=== PATIENT | male | born 1965 | race Caucasian/White ===

== ENCOUNTER → 2017-06-11 | Outpatient (CLI) | payer BC ==
--- NOTE | 2017-06-11 10:29 | US ---
EXAMINATION TYPE: US venous doppler duplex LE DATE OF EXAM: 06/11/2017 9:18 AM COMPARISON: NONE CLINICAL HISTORY: I73.9 Peripheral vascular dis, R73.9 Hyperglycemia. Numbness and tingling bilateral feet, worse on the right SIDE PERFORMED: Bilateral TECHNIQUE: The lower extremity deep venous system is examined utilizing real time linear array sonog mauricio with graded compression, doppler sonography and color-flow sonography. VESSELS IMAGED: External Iliac Vein (EIV) Common Femoral Vein Deep Femoral Vein Greater Saphenous Vein * Femoral Vein Popliteal Vein Small Saphenous Vein * Proximal Calf Veins (* superficial vessels) Right Leg: NO evidence of DVT Left Leg: No evidence of DVT Grayscale, color doppler, spectral doppler imaging performed of the deep veins of the lower extremiti es. There is normal flow, compressibility, vascular waveforms. IMPRESSION: No sonographic evidence of deep venous thrombosis within either lower extremity.
== END | disposition home or self-care (01) ==
LOC: RADUSWWP 08:48
PROVIDERS: ATTEND Family Medicine
DX: I73.9 Peripheral vascular disease, unspecified (principal); R73.9 Hyperglycemia, unspecified
CPT/HCPCS: 93970

== ENCOUNTER 2017-09-03 08:33 | Day surgery (SDC) | payer BC ==
[2017-08-29 22:07] VITALS: BMI 43.4
[~2017-09-03 08:33] MED LIST: LACTATED RINGERS 1,000 ML IV SCH; ONDANSETRON 4 MG/2 ML VIAL IVP PRN
[2017-09-03 09:25] VITALS: RESP 16; TEMP 98
[2017-09-03] MEDS ORDERED: PROPOFOL 10 MG/ML 20 ML VIAL IV ONE (09:50)
--- NOTE | 2017-09-03 10:08 | P.PCN ---
Date of Procedure: 09/03/17 Procedure(s) Performed: BRIEF HISTORY: Patient is a 51-year-old pleasant white male, scheduled for an elective colonoscopy as a part of screening for colorectal neoplasia. PROCEDURE PERFORMED: Colonoscopy with snare polypectomy. PREOPERATIVE DIAGNOSIS: Screening for colon cancer. IV sedation per Anesthesia. PROCEDURE: After informed consent was obtained, the patient, was brought into the endoscopy unit. IV sedation was administered by Anesthesia under continuous monitoring. Digital rectal examination was normal. Initially the Olympus CF- 160 flexible video colonoscope was then inserted in the rectum, gradually advanced into the cecum without any difficulty. Careful examination was performed as the scope was gradually being withdrawn. Ileocecal valve and the appendiceal orifice were visualized and appeared normal. Prep was excellent. Mucosa of the cecum, ascending colon, appeared normal. In the transverse colon there was a 7-8 mm polyp that was removed by snare polypectomy. In the descending colon there was another 5 mm polyp that was removed by snare polypectomy. The rest of the transverse colon, descending colon, sigmoid colon , and rectum appeared normal. Retroflexion was performed in the rectum and no lesions were seen. The patient tolerated the procedure well. IMPRESSION: 7-8 mm proximal transverse colon polyp status post polypectomy 5 mm descending colon polyp serous was snare polypectomy RECOMMENDATIONS: Findings of this examination were discussed with the patient as his family. He was advised to follow with the biopsy results. If the biopsy shows a tubular adenoma, he can have a repeat colonoscopy in 5 years.
[2017-09-03 10:42] VITALS: BP 112/68; PULSE 56
== END 2017-09-03 10:59 | disposition home or self-care (01) ==
LOC: ORWHC2ENDO 08:33
PROVIDERS: ATTEND Internal Medicine Gastroenterology
DX: Z12.11 Encounter for screening for malignant neoplasm of colon (principal); D12.4 Benign neoplasm of descending colon; D12.3 Benign neoplasm of transverse colon; I10 Essential (primary) hypertension; K21.9 Gastro-esophageal reflux disease without esophagitis; F17.200 Nicotine dependence, unspecified, uncomplicated; Z79.899 Other long term (current) drug therapy
CPT/HCPCS: 45385; 88305; J2704

== ENCOUNTER → 2018-09-09 | Outpatient (CLI) | payer BC ==
--- NOTE | 2018-09-09 12:19 | XR ---
EXAMINATION TYPE: XR lumbar spine 2 or 3V DATE OF EXAM: 09/09/2018 CLINICAL HISTORY: Lower extremity numbness with no known injury. TECHNIQUE: Frontal and lateral images of the lumbar spine are obtained. COMPARISON: None FINDINGS: There are 5 lumbar type vertebral bodies identified. The lumbar spine shows satisfactory alignment without evidence of acute fracture or dislocation. Vertebral body heights are maintained. T here is mild intervertebral disc space narrowing at L5-S1 and small anterior osteophytes throughout t he lumbar spine. Facet arthropathy is seen from L3 through S1 overall mild in degree. Minimal atheros clerosis is noted of the abdominal aorta. The overlying soft tissue appears unremarkable. IMPRESSION: 1. No acute fracture or malalignment is seen in the lumbar spine. 2. Mild multilevel degenerative changes of the lumbar spine. Given the patient's symptoms MRI could e valuate for disc herniation and nerve root impingement.
== END | disposition home or self-care (01) ==
LOC: RADXRMAIN 11:23
PROVIDERS: ATTEND Family Medicine
DX: M47.816 Spondylosis without myelopathy or radiculopathy, lumbar region (principal); R20.2 Paresthesia of skin
CPT/HCPCS: 72100

== ENCOUNTER 2018-09-23 00:43 | Inpatient (IN) | payer BC ==
[2018-09-23] MEDS ORDERED: ASPIRIN 81 MG PO STA (01:00)
[2018-09-23] MEDS ORDERED: MORPHINE SULFATE 4 MG/ML SYRINGE IV STA (01:00)
[2018-09-23] MEDS ORDERED: HEPARIN SODIUM,PORCINE 5,000 UNIT/ML 1 ML VIAL IV PRN (01:01)
[2018-09-23] MEDS ORDERED: HEPARIN SODIUM,PORCINE 5,000 UNIT/ML 1 ML VIAL IV ONE (01:01)
[2018-09-23] MEDS ORDERED: DILTIAZEM DRIP BOLUS FROM BAG 1 MG SOLN IV ONE (01:01)
--- NOTE | 2018-09-23 01:06 | ED ---
Chest Pain HPI - General Chief Complaint: Chest Pain Stated Complaint: Difficulty Breathing, Chest Pain Source: patient Mode of arrival: ambulatory Limitations: no limitations - History of Present Illness Initial Comments: Kike is a morbidly obese 53-year-old male who presents to the emergency department today for evaluation of chest pain and palpitations. Patient reports he was in his usual state of health throughout the day yesterday, he woke suddenly shortly after midnight with chest pain and palpitations. Patient reports feeling lightheaded short of breath diaphoretic and like his heart is racing. Patient denies any cardiac history. Denies any history of arrhythmia or A. fib. - Related Data Home Medications Medication Instructions Recorded Confirmed Hydrochlorothiazide [Hydrodiuril] 25 mg PO QAM 06/27/16 08/29/17 Metoprolol Tartrate [Lopressor] 100 mg PO BID 06/27/16 09/03/17 Omeprazole 20 mg PO DAILY 06/27/16 08/29/17 Cholecalciferol [Vitamin D3] 5,000 unit PO DAILY 08/29/17 09/03/17 Multivit-Min/FA/Lycopen/Lutein 1 each PO DAILY 08/29/17 08/29/17 [Centrum Silver Men Tablet] Allergies Allergy/AdvReac Type Severity Reaction Status Date / Time No Known Allergies Allergy Verified 09/23/18 00:46 Review of Systems ROS Statement: Those systems with pertinent positive or pertinent negative responses have been documented in the HPI. ROS Other: All systems not noted in ROS Statement are negative. EKG Findings - EKG Comments: EKG Findings:: EKG obtained at 12:54 AM, rate is 146 rhythm is A. fib with RVR normal axis, narrow QRS, QRS 86, QTC [address] elevations or depressions or evidence of ischemia or infarction. Past Medical History Past Medical History: GERD/Reflux, Hyperlipidemia, Hypertension History of Any Multi-Drug Resistant Organisms: None Reported Past Surgical History: Orthopedic Surgery Additional Past Surgical History / Comment(s): BICEP SX, Past Anesthesia/Blood Transfusion Reactions: No Reported Reaction Past Psychological History: No Psychological Hx Reported Smoking Status: Current every day smoker Past Alcohol Use History: Occasional Past Drug Use History: None Reported - Past Family History Mother Family Medical History: No Reported History General Exam - General Exam Comments Initial Comments: Physical Exam GENERAL: Obese Patient is well-developed and well-nourished. Patient is nontoxic and well-hydrated Patient in moderate distress, appears uncomfortable HENT: Normocephalic, Atraumatic. EYES: PERRL, EOMI PULMONARY: Unlabored respirations. No audible rales rhonchi or wheezing was noted. CARDIOVASCULAR: Tachycardic, irregularly irregular Warm and well-perfused extremities ABDOMEN: Soft and nontender with normal bowel sounds. SKIN: Skin is clear with no lesions or rashes and otherwise unremarkable. : Deferred NEUROLOGIC: Patient is alert and oriented x3. Moving all extremities spontaneously MUSCULOSKELETAL: Normal extremities with adequate strength and full range of motion. No lower extremity swelling or edema. No calf tenderness. PSYCHIATRIC: Normal psychiatric evaluation. Limitations: no limitations Limitations: no limitations Course Vital Signs 09/23/18 09/23/18 09/23/18 00:44 01:01 01:15 Temperature 97.7 F Pulse Rate 105 H 146 H 149 H Respiratory 20 22 18 Rate Blood Pressure 135/85 111/71 O2 Sat by Pulse 97 97 Oximetry - Reevaluation(s) Reevaluation #1: Patient was reevaluated, has converted to sinus rhythm on the monitor, heart rate in the 70s, blood pressure stable. Chest pressure improving. 09/23/18 01:48 Chest Pain MDM - [facility] Patient was seen and evaluated, patient was noted to be in A. fib with RVR upon initial evaluation Patient with no history, labs and imaging were ordered Heparin and Cardizem ordered Patient was noted to convert back to sinus rhythm after Cardizem bolus and approximately 10 minutes and Cardizem, Cardizem was positive, repeat EKG reveals sinus rhythm At this time I will plan to admit the patient for evaluation of new onset A. fib with RVR, and high risk chest pain. Patient care discussed with Dr. Pope who accepts the admission with a consult to cardiology Critical Care Time Critical Care Time: Yes Total Critical Care Time: 30 Critical Care Time: Critical care time was exclusive of separately billable procedures and treating other patients. Critical care was necessary to treat or prevent imminent or life-threatening deterioration. Critical care was time spent personally by me on the following activities: development of treatment plan with patient or surrogate, discussions with consultants, discussions with primary provider, evaluation of patient's response to treatment, examination of patient, obtaining history from patient or surrogate, ordering and performing treatments and interventions, ordering and review of laboratory studies, ordering and review of radiographic studies, pulse oximetry, re-evaluation of patient's condition and review of old charts. Disposition Clinical Impression: Atrial fibrillation with RVR, New onset a-fib, Chest pain Disposition: ADMITTED IP TO THIS HOSP Is patient prescribed a controlled substance at d/c from ED?: No Referrals: Davida Alexander MD [Primary Care Provider] - 1-2 days
[2018-09-23 01:09] LABS: Basophils # (A) 0.1 k/uL (0-0.2); Basophils % (A) 1 %; Eosinophils # (A) 0.3 k/uL (0-0.7); Eosinophils % (A) 3 %; HCT 48.4 % (39.0-53.0); Lymphocytes # (A) 2.3 k/uL (1.0-4.8); Lymphocytes % (A) 23 %; MCH 30.1 pg (25.0-35.0); MCV 91.3 fL (80.0-100.0); Mean Platelet Volume 5.9; Monocytes # (A) 0.3 k/uL (0-1.0); Monocytes % (A) 3 %; Neutrophils # (A) 6.9 k/uL (1.3-7.7); Neutrophils % (A) 68 %; Platelet Count 228 k/uL (150-450); RDW 15.3 % (11.5-15.5)
[2018-09-23] MEDS ORDERED: HEPARIN SOD,PORK IN 0.45% NACL 25,000 UNIT in 0.45% NACL 1 250ML.BAG IV SCH (01:15)
[2018-09-23] MEDS ORDERED: DILTIAZEM 50 MG in SODIUM CHLORIDE 0.9% 40 ML IV SCH (01:15)
[2018-09-23 01:19] LABS: INR 0.9 (<1.2); Partial Thromboplastin Time 24.9 sec (22.0-30.0); Prothrombin Time 9.8 sec (9.0-12.0)
[2018-09-23 01:20] LABS: ALT 49 U/L (21-72); AST 37 U/L (17-59); Alkaline Phosphatase 71 U/L (38-126); Anion Gap 13 mmol/L; Blood Urea Nitrogen 18 mg/dL (9-20); Calcium 9.2 mg/dL (8.4-10.2); Carbon Dioxide 23 mmol/L (22-30); Chloride 102 mmol/L (98-107); Glucose 159 mg/dL (74-99); Magnesium 1.8 mg/dL (1.6-2.3); Sodium 138 mmol/L (137-145); Total Bilirubin 0.4 mg/dL (0.2-1.3); Total Protein 7.3 g/dL (6.3-8.2)
[2018-09-23 01:29] LABS: Creatine Kinase 233 U/L (55-170)
[2018-09-23 01:42] LABS: Creatine Kinase MB 1.9 ng/mL (0.0-2.4); Troponin I <0.012 ng/mL (0.000-0.034)
--- NOTE | 2018-09-23 01:42 | XR ---
EXAMINATION TYPE: XR chest 1V portable DATE OF EXAM: 09/23/2018 COMPARISON: 08/26/2013 HISTORY: Chest pain TECHNIQUE: Single frontal view of the chest is obtained. FINDINGS: Heart and mediastinum are normal. Lungs are clear. Diaphragm is normal. There are chest le ads. IMPRESSION: Normal chest. No change.
[2018-09-23] MEDS ORDERED: NALOXONE 0.4 MG/ML 1 ML VIAL IV PRN (02:27)
[2018-09-23] MEDS ORDERED: HEPARIN SODIUM,PORCINE 5,000 UNIT/ML 1 ML VIAL IV STA (08:31)
--- NOTE | 2018-09-23 09:33 | CONS ---
CONSULTATION CHIEF COMPLAINT: Sustained palpitations. Javier is a 53-year-old gentleman with history of hypertension who presented to hospital with sudden onset palpitations. He went to bed around 9:30 and woke up around 11:30 with sustained palpitations. He came to the ER. He was found to be in atrial fibrillation with rapid ventricular rate and converted to sinus rhythm 20 minutes after starting the Cardizem. At the time of my evaluation this morning, he remains in stable sinus rhythm and is free of symptoms. He denies chest pain, difficulty in breathing, palpitations, dizziness or syncope. He had troponin that was normal. Hemoglobin was normal at 16. The patient has had 5 to 6 beers to drink yesterday and his A. fib could have been precipitated by it. There is no history of drug abuse. There is no history of coronary artery disease, congestive heart failure or prior cardiac arrhythmia. PAST MEDICAL HISTORY: Past medical history is significant for hypertension. CURRENT MEDICATIONS: Current medications include omeprazole 20 q. daily, Lopressor 100 b.i.d., HydroDIURIL 25 q. daily, and vitamin D. ALLERGIES: There are no known drug allergies. FAMILY HISTORY: Family history is negative for premature coronary artery disease. SOCIAL HISTORY: Social history is negative for smoking, EtOH abuse, or drug abuse. REVIEW OF SYSTEMS: HEENT is unremarkable. CARDIAC: As described above. RESPIRATORY: As described above. GI: Negative. GENITOURINARY: Negative. ALLERGY/IMMUNOLOGY: Negative. SKIN: Negative. MUSCULOSKELETAL: Significant for arthritis. PSYCHOSOCIAL: Negative. ENDOCRINE: Negative. DERM: Negative. CONSTITUTIONAL: Negative. ONCOLOGICAL: Negative. ACCOUNT COORDINATOR: Negative. Rest of the system review is not relevant. PHYSICAL EXAMINATION: On exam, afebrile, heart rate is 65 beats per minute. Blood pressure is 118/67, respiratory rate is 18. There is no jugular venous distention. Carotid upstroke is normal. There is no bruit. Chest exam reveals good air entry bilaterally. Heart exam reveals first and second heart sounds. No gallop. No murmur. No rub. Abdomen is soft, nontender. Examination of the extremities did not reveal any edema. Peripheral pulses are felt. ACCOUNT COORDINATOR exam did not reveal focal neurological deficits. LABS: Labs show a hemoglobin of 16, platelet count is 228, potassium is 4, creatinine is 0.9. Tropes are negative. BNP is normal at 99. ASSESSMENT: 1. Paroxysmal atrial fibrillation. 2. Hypertension. PLAN: Patient is doing well. I advised him to stop drinking. Since atrial fibrillation did not last for very long, I am going to use aspirin as the long-term anticoagulation. I will obtain a 2D echo. If the LV function looks good, we can stop the heparin. The patient will need a stress test, but this will be done in the outpatient setting. KAYLAH / GIUSEPPE: [id number] /
[2018-09-23] MEDS ORDERED: PNEUMOCOCCAL VACC-PNEUMOVAX 23 25 MCG/0.5 ML VIAL IM ONE (09:36)
--- NOTE | 2018-09-23 11:16 | P.HPIM ---
History of Present Illness H&P Date: 09/23/18 This is a 53-year-old male patient of Dr. Alexander. Patient presented with complaints of chest pain palpitations. Patient states she will he woke up around midnight with palpitations and was brought into the emergency room by his . EKG completed upon arrival showing A. fib with RVR with a heart rate of 146. Patient was started on Cardizem drip and repeat EKG showing patient in sinus rhythm. Patient has a past medical history for GERD, hyperlipidemia, hypertension, back npain and current every day smoker. Patient has been started on Cardizem and heparin drip. Cardiac he services have been consulted. 2-D echo ordered. At that time patient remains in sinus rhythm. Patient denies chest pain or shortness breath. Patient denies nausea vomiting or diarrhea. Patient denies any urinary burning or frequency Review of Systems Please refer to HPI otherwise unremarkable Past Medical History Past Medical History: GERD/Reflux, Hyperlipidemia, Hypertension Additional Past Medical History / Comment(s): Occasional low back pain. History of Any Multi-Drug Resistant Organisms: None Reported Past Surgical History: Orthopedic Surgery Additional Past Surgical History / Comment(s): L BICEP SX WITH METAL PLATE, R ARM BENIGN CYST, 2014 COLONOSCOPY WITH BENIGN POLYP Past Anesthesia/Blood Transfusion Reactions: No Reported Reaction Smoking Status: Current every day smoker - Past Family History Mother Family Medical History: No Reported History Additional Family Medical History / Comment(s): MOTHER IS HEALTHY Father Family Medical History: CVA/TIA, Myocardial Infarction ([place]) Additional Family Medical History / Comment(s): FATHER HAD A CVA AND THEN OF A [place] AT THE AGE OF 63 YRS. Medications and Allergies Home Medications Medication Instructions Recorded Confirmed Type Hydrochlorothiazide [Hydrodiuril] 25 mg PO QAM 06/27/16 09/23/18 History Metoprolol Tartrate [Lopressor] 100 mg PO BID 06/27/16 09/23/18 History Omeprazole 20 mg PO DAILY 06/27/16 09/23/18 History Cholecalciferol [Vitamin D3] 5,000 unit PO DAILY 08/29/17 09/23/18 History Allergies Allergy/AdvReac Type Severity Reaction Status Date / Time No Known Allergies Allergy Verified 09/23/18 07:53 Physical Exam Vitals: Vital Signs Temp Pulse Pulse Resp BP BP Pulse Ox 09/23/18 08:00 98.2 F 70 18 136/66 96 09/23/18 06:00 18 09/23/18 05:30 98.6 F 65 17 118/67 96 09/23/18 05:00 79 21 112/59 96 09/23/18 04:30 68 17 118/70 96 09/23/18 04:00 67 18 119/57 95 09/23/18 03:30 68 19 111/79 97 09/23/18 03:00 68 18 117/69 89 L 09/23/18 02:30 71 19 107/63 96 09/23/18 02:00 64 18 126/75 95 09/23/18 01:30 151 H 18 136/84 96 09/23/18 01:15 149 H 18 111/71 97 09/23/18 01:01 146 H 22 09/23/18 01:00 146 H 21 115/59 97 09/23/18 00:52 147 H 26 H 09/23/18 00:44 97.7 F 105 H 20 135/85 97 Intake and Output 09/22/18 09/23/18 09/23/18 22:59 06:59 14:59 Intake Total 2.25 66.153 Balance 2.25 66.153 Intake: Intake, IV Titration 2.25 66.153 Amount Diltiazem 50 mg In Sodium 2.25 Chloride 0.9% 40 ml @ Per Protocol IV .Q0M [facility] Rx#:[id number] Heparin Sod,Pork in 0.45% 66.153 NaCl 25,000 unit In 0.45 % NaCl 1 250ml.bag @ 6 UNITS/KG/HR 8.98 mls/hr IV .Q24H [facility] Rx#: [id number] Other: Weight 149.685 kg Results CBC & Chem 7: 09/23/18 00:57 09/23/18 00:57 Labs: Abnormal Lab Results - Last 24 Hours (Table) 09/23/18 09/23/18 Range/Units 00:57 00:57 Glucose 159 H (74-99) mg/dL Total Creatine Kinase 233 H (55-170) U/L Thrombosis Risk Factor Assmnt - Choose All That Apply Any of the Below Risk Factors Present?: Yes Each Factor Represents 1 point: Age 41-60 years, Obesity (BMI >25) Other Risk Factors: No Other congenital or acquired thrombophilia - If yes, enter type in comment: No Thrombosis Risk Factor Assessment Total Risk Factor Score: 2 Thrombosis Risk Factor Assessment Level: Low Risk Assessment and Plan Assessment: 1. Palpitations with chest pain. Chest x-ray completed showing normal chest. No change. Patient started on heparin drip. Troponins negative. D-dimer negative. Cardiology consulted. Patient started on heparin and Cardizem drip 2. Proximal atrial fibrillation. Patient denies history of atrial fibrillation. Initial EKG showing A. fib with RVR with a heart rate of 146. Repeat EKG showing sinus rhythm. Per cardiology services plan is likely to use aspirin is long-term anticoagulation due to isolated incident of atrial fibrillation. 2-D echo has been obtained. Patient will need a stress test but this can be completed in outpatient setting per cardiology 3. Nicotine dependence. Patient educated greater than 3 minutes on smoking cessation. Nicotine patch shortness 4. Essential hypertension. 5. History of hyperlipidemia. 6. History of GERD. Time with Patient: Greater than 30 (Greater than 60% of the total time spent in counseling and coordination of care.I performed an examination of the patient and discussed their management with the Nurse Practitioner. I have reviewed the Nurse Practitioner's notes and agree with the documented findings and plan of care)
--- NOTE | 2018-09-23 11:32 | ECHOF ---
Referral Reason:new afib rvr MEASUREMENTS -------- HEIGHT: 185.4 cm WEIGHT: 149.7 kg BP: 118/67 RVIDd: 3.7 cm (< 3.3) IVSd: 1.5 cm (0.6 - 1.1) LVIDd: 4.4 cm (3.9 - 5.3) LVPWd: 1.6 cm (0.6 - 1.1) IVSs: 2.0 cm LVIDs: 3.0 cm LVPWs: 1.7 cm LA Diam: 4.0 cm (2.7 - 3.8) LAESV Index (A-L): 21.99 ml/m Ao Diam: 3.2 cm (2.0 - 3.7) AV Cusp: 2.2 cm (1.5 - 2.6) EPSS: 0.8 cm MV E Kris: 1.12 m/s MV DecT: 271 ms MV A Kris: 0.92 m/s MV E/A Ratio: 1.23 MV EF SLOPE: 90.33 mm/s (70 - 150) MV EXCURSION: 1.39 cm (> 18.000) FINDINGS -------- Sinus rhythm. This was a technically difficult study with suboptimal views. The left ventricular size is normal. There is moderate concentric left ventricular hypertrophy. O verall left ventricular systolic function is normal with, an EF between 60 - 65 %. The right ventricle is mildly enlarged. Normal LA size by volume 22+/-6 ml/m2. The right atrium is normal in size. 4 ml of Lumason was utilized for enhancement of images. There is mild aortic valve sclerosis. The mitral valve is normal. The tricuspid valve appears structurally normal. There is no pulmonic regurgitation present. The aortic root size is normal. IVC Not well visulized. There is no pericardial effusion. CONCLUSIONS -------- 1. Sinus rhythm. 2. This was a technically difficult study with suboptimal views. 3. The left ventricular size is normal. 4. There is moderate concentric left ventricular hypertrophy. 5. Overall left ventricular systolic function is normal with, an EF between 60 - 65 %. 6. The right ventricle is mildly enlarged. 7. Normal LA size by volume 22+/-6 ml/m2. 8. The right atrium is normal in size. 9. 4 ml of Lumason was utilized for enhancement of images. 10. There is mild aortic valve sclerosis. 11. The mitral valve is normal. 12. The tricuspid valve appears structurally normal. 13. There is no pulmonic regurgitation present. 14. The aortic root size is normal. 15. IVC Not well visulized. 16. There is no pericardial effusion. [employer]KER: SHELDON Velasco
[2018-09-23] MEDS: NICOTINE 14MG/24HR PATCH TRANSDERM SCH (13:07)
[2018-09-23] MEDS: PANTOPRAZOLE 40 MG TABLET PO SCH (13:07)
[2018-09-23] MEDS: HYDROCHLOROTHIAZIDE 25 MG TAB PO SCH (17:22)
[2018-09-23] MEDS: CHOLECALCIFEROL 1,000 UNIT TAB PO SCH (17:22)
[2018-09-24] MEDS: PANTOPRAZOLE 40 MG TABLET PO SCH (06:33)
[2018-09-24 07:08] LABS: Basophils # (A) 0.1 k/uL (0-0.2); Basophils % (A) 1 %; Eosinophils # (A) 0.3 k/uL (0-0.7); Eosinophils % (A) 3 %; HCT 48.1 % (39.0-53.0); HGB 15.1 gm/dL (13.0-17.5); Lymphocytes # (A) 1.6 k/uL (1.0-4.8); Lymphocytes % (A) 19 %; MCH 29.3 pg (25.0-35.0); MCHC 31.4 g/dL (31.0-37.0); MCV 93.2 fL (80.0-100.0); Monocytes # (A) 0.3 k/uL (0-1.0); Monocytes % (A) 4 %; Neutrophils % (A) 71 %; Platelet Count 211 k/uL (150-450); RBC 5.16 m/uL (4.30-5.90); RDW 15.2 % (11.5-15.5); WBC 8.5 k/uL (3.8-10.6)
[2018-09-24 07:18] LABS: ALT 48 U/L (21-72); AST 30 U/L (17-59); Albumin 3.6 g/dL (3.5-5.0); Alkaline Phosphatase 75 U/L (38-126); Anion Gap 7 mmol/L; Blood Urea Nitrogen 15 mg/dL (9-20); Calcium 8.8 mg/dL (8.4-10.2); Carbon Dioxide 30 mmol/L (22-30); Chloride 102 mmol/L (98-107); Glucose 111 mg/dL (74-99); Potassium 4.4 mmol/L (3.5-5.1); Sodium 139 mmol/L (137-145); Total Bilirubin 0.4 mg/dL (0.2-1.3); Total Protein 6.7 g/dL (6.3-8.2)
[2018-09-24] MEDS ORDERED: PANTOPRAZOLE 40 MG TABLET PO SCH (07:30)
[2018-09-24] MEDS: HYDROCHLOROTHIAZIDE 25 MG TAB PO SCH (08:36)
[2018-09-24] MEDS: CHOLECALCIFEROL 1,000 UNIT TAB PO SCH (08:36)
[2018-09-24] MEDS: NICOTINE 14MG/24HR PATCH TRANSDERM SCH (08:37)
[2018-09-24] MEDS ORDERED: CHOLECALCIFEROL 1,000 UNIT TAB PO SCH (09:00)
[2018-09-24] MEDS ORDERED: HYDROCHLOROTHIAZIDE 25 MG TAB PO SCH (09:00)
[2018-09-24] MEDS ORDERED: NICOTINE 14MG/24HR PATCH TRANSDERM SCH (09:00)
--- NOTE | 2018-09-24 13:16 | P.PN ---
Subjective Progress Note Date: 09/24/18 This is a 53-year-old male patient of Dr. Alexander. Patient presented with complaints of chest pain palpitations. Patient states she will he woke up around midnight with palpitations and was brought into the emergency room by his . EKG completed upon arrival showing A. fib with RVR with a heart rate of 146. Patient was started on Cardizem drip and repeat EKG showing patient in sinus rhythm. Patient has a past medical history for GERD, hyperlipidemia, hypertension, back npain and current every day smoker. Patient has been started on Cardizem and heparin drip. Cardiac he services have been consulted. 2-D echo ordered. At that time patient remains in sinus rhythm. Patient denies chest pain or shortness breath. Patient denies nausea vomiting or diarrhea. Patient denies any urinary burning or frequency On 09/24/2018 patient is alert and oriented 3. Patient has remained in sinus rhythm. Per nursing staff and telemetry patient had episode of heart rate in the 20s and 30s. Per nursing staff patient was placed on oxygen heart rate improved. Discussed case with Caitlin de la rosa per cardiology. We'll continue to hold Lopressor and watch patient for an additional 24 hours. Updated patient that he should follow-up with pulmonary services for sleep study test for possible sleep apnea. The patient denies chest pain or shortness of breath. Patient denies nausea vomiting or diarrhea. Patient denies any urinary burning or frequency. Objective - Vital Signs Vital signs: Vital Signs Temp 97.8 F 09/24/18 12:15 Pulse 75 09/24/18 12:15 Resp 18 09/24/18 12:15 BP 150/72 09/24/18 12:15 Pulse Ox 96 09/24/18 12:15 Intake & Output 09/23/18 09/24/18 09/24/18 18:59 06:59 18:59 Intake Total 546.153 960 520 Output Total 600 Balance -53.847 960 520 Weight 151.6 kg Intake: IV 60 40 Invasive Line 1 30 20 Invasive Line 2 30 20 Intake, IV Titration 66.153 Amount Heparin Sod,Pork in 0.45% 66.153 NaCl 25,000 unit In 0.45 % NaCl 1 250ml.bag @ 6 UNITS/KG/HR 8.98 mls/hr IV .Q24H [facility] Rx#: [id number] Oral 480 900 480 Output: Urine 600 Other: # Voids 3 - Exam Head normocephalic Neck supple Lungs clear to auscultation bilaterally no wheezing or crackles Heart regular rate and rhythm S1-S2, no rub or gallop Abdomen is soft nontender nondistended positive bowel sounds no hepatosplenomegaly Extremities no edema. Left foot plantar corn healing. Neuro alert and orientated to 3 - Labs CBC & Chem 7: 09/24/18 06:05 09/24/18 06:05 Labs: Abnormal Lab Results - Last 24 Hours (Table) 09/23/18 09/24/18 Range/Units 16:09 06:05 APTT 32.3 H (22.0-30.0) sec Glucose 111 H (74-99) mg/dL Assessment and Plan Assessment: 1. Palpitations with chest pain. Chest x-ray completed showing normal chest. No change. Patient started on heparin drip. Troponins negative. D-dimer negative. Cardiology consulted. Heparin and Cardizem drip has been DC'd per cardiology 2. Proximal atrial fibrillation. Patient denies history of atrial fibrillation. Initial EKG showing A. fib with RVR with a heart rate of 146. Repeat EKG showing sinus rhythm. Per cardiology services plan is likely to use aspirin is long-term anticoagulation due to isolated incident of atrial fibrillation. 2-D echo has been obtained. Patient will need a stress test but this can be completed in outpatient setting per cardiology 3. Nicotine dependence. Patient educated greater than 3 minutes on smoking cessation. Nicotine patch ordered 4. Essential hypertension. 5. History of hyperlipidemia. 6. History of GERD. 7. Bradycardia. Patient episode of heart rate 20s and 30s throughout night. Believed to be from sleep apnea. Patient was placed on oxygen and heart rate improved. Discussed case with cardiology services recommended we keep an additional 24 hours and hold Lopressor at this time 8. Possible sleep apnea. Discussed with patient. Patient states he's never been diagnosed with sleep apnea nor does he have sleep apnea machine. Discussed the patient will need to follow-up with Dr. Celis and for sleep study test outpatient Patient will be watched for an additional 24 hours per cardiology recommendation. Patient's Lopressor currently on hold per cardiology. Patient also not on any anticoagulation besides aspirin 325 cardiology Anticipate discharge in the next 24-48 hours. DVT prophylaxis Lovenox. GI prophylaxis Protonix. I performed an examination of the patient and discussed their management with the Nurse Practitioner. I have reviewed the Nurse Practitioner's notes and agree with the documented findings and plan of care
--- NOTE | 2018-09-24 14:45 | P.PN ---
Subjective Progress Note Date: 09/24/18 His is a pleasant 53-year-old gentleman with history of hypertension, borderline diabetes, nicotine dependence, EtOH use, obesity, presented to the hospital with sudden onset of palpitations. He was found to be in atrial fibrillation with rapid ventricular response, initiated on IV Cardizem and IV heparin and subsequently converted to normal sinus rhythm. Echocardiac gram with Doppler study revealed a normal left ventricular systolic function. It was noticed on his telemetry strips this morning that between 5:30 and 6 AM he had several significant pauses of greater than 3-1/2-4 seconds. Initially the patient stated that he was awakened 5 and did not go back to sleep after that. He does appear however that at the time these pauses occurred the nurse had to wake him up from sleep. Patient has not ever had an evaluation for sleep apnea however this is recommended. At the time of my examination this morning, he feels well, denies any palpitations, no shortness of breath, no dizziness or lightheadedness. Blood pressure 150/70 with a heart rate in the 70s, 96% on room air. Objective - Vital Signs Vital signs: Vital Signs Temp 97.8 F 09/24/18 12:15 Pulse 75 09/24/18 12:15 Resp 18 09/24/18 12:15 BP 150/72 09/24/18 12:15 Pulse Ox 96 09/24/18 12:15 Intake & Output 09/23/18 09/24/18 09/24/18 18:59 06:59 18:59 Intake Total 546.189 557 8535 Output Total 600 Balance -53.499 124 4393 Weight 151.6 kg Intake: IV 60 40 Invasive Line 1 30 20 Invasive Line 2 30 20 Intake, IV Titration 66.153 Amount Heparin Sod,Pork in 0.45% 66.153 NaCl 25,000 unit In 0.45 % NaCl 1 250ml.bag @ 6 UNITS/KG/HR 8.98 mls/hr IV .Q24H KEERTHI Rx#: [id number] Oral 480 900 960 Output: Urine 600 Other: # Voids 3 - Exam PHYSICAL EXAMINATION: GENERAL: 53-year-old gentleman in no acute distress at the time of my examination HEENT: Head is atraumatic, normocephalic. Pupils equal, round. Sclera anicteric. Conjunctiva are clear. Mucous membranes of the mouth are moist. Neck is supple. There is no elevated jugular venous pressure. No carotid bruit is heard. HEART EXAMINATION: Heart S1, S2 normal. No murmur or gallop heard. CHEST EXAMINATION: Lungs reveal scattered wheezing throughout . No chest wall tenderness is noted on palpation or with deep breathing. ABDOMEN: Soft, obese, nontender. Bowel sounds are heard. No organomegaly noted. EXTREMITIES: 2+ peripheral pulses with no evidence of peripheral edema and no calf tenderness noted. NEUROLOGIC patient is awake, alert and oriented 3 . . - Labs CBC & Chem 7: 09/24/18 06:05 09/24/18 06:05 Labs: Abnormal Lab Results - Last 24 Hours (Table) 09/23/18 09/24/18 Range/Units 16:09 06:05 APTT 32.3 H (22.0-30.0) sec Glucose 111 H (74-99) mg/dL Assessment and Plan Plan: Assessment and plan #1 atrial fibrillation with rapid ventricular response, paroxysmal #2 nicotine dependence #3 hypertension #4 borderline diabetes #5 hyperlipidemia #6 GERD #7 EtOH use #8 sinus pauses, could be secondary to sleep apnea Plan We have consulted Dr. Esposito to see the patient for possible pacemaker however it does appear that the patient had these episodes while he was sleeping. We need to rule out sleep apnea as an outpatient. We will continue to monitor the patient for another 24 hours. We will not resume his beta makenzie which she was taking at home, but we will put the patient on some KATHRINE inhibitor and Norvasc for blood pressure control. Check a TSH level. DNP note has been reviewed, I agree with a documented findings and plan of care. Patient was seen and examined.
[2018-09-24] MEDS: amLODIPine 5 MG TAB PO SCH (15:53)
[2018-09-25] MEDS: PANTOPRAZOLE 40 MG TABLET PO SCH (06:33)
[2018-09-25 06:44] LABS: Basophils # (A) 0.1 k/uL (0-0.2); Basophils % (A) 1 %; Eosinophils # (A) 0.3 k/uL (0-0.7); Eosinophils % (A) 3 %; HCT 45.8 % (39.0-53.0); HGB 14.6 gm/dL (13.0-17.5); Lymphocytes # (A) 1.9 k/uL (1.0-4.8); Lymphocytes % (A) 22 %; MCH 29.1 pg (25.0-35.0); MCV 91.2 fL (80.0-100.0); Mean Platelet Volume 6.3; Monocytes # (A) 0.4 k/uL (0-1.0); Monocytes % (A) 4 %; Neutrophils # (A) 5.9 k/uL (1.3-7.7); Neutrophils % (A) 69 %; Platelet Count 203 k/uL (150-450); RBC 5.02 m/uL (4.30-5.90); RDW 15.1 % (11.5-15.5); WBC 8.7 k/uL (3.8-10.6)
[2018-09-25 07:01] LABS: ALT 45 U/L (21-72); AST 33 U/L (17-59); Albumin 3.5 g/dL (3.5-5.0); Alkaline Phosphatase 67 U/L (38-126); Anion Gap 5 mmol/L; Blood Urea Nitrogen 15 mg/dL (9-20); Calcium 8.8 mg/dL (8.4-10.2); Carbon Dioxide 30 mmol/L (22-30); Chloride 102 mmol/L (98-107); Glucose 99 mg/dL (74-99); Potassium 4.4 mmol/L (3.5-5.1); Sodium 137 mmol/L (137-145); Total Bilirubin 0.6 mg/dL (0.2-1.3); Total Protein 6.7 g/dL (6.3-8.2)
--- NOTE | 2018-09-25 08:04 | P.CRDCN ---
History of Present Illness History of present illness: This is Dr. Esposito dictating a consult on this patient The patient was interviewed and examined by me IMPRESSION / ASSESSMENT: Paroxysmal atrial fibrillation self terminated, first episode, very symptomatic patient from his sleep, associated with RVR Essential hypertension with left ventricular hypertrophy and preserved LV systolic function RV enlargement Increased BMI/morbid obesity Regular alcohol intake especially on weekends Normal TSH [place] VASC score of 1 at this time Sinus bradycardia while sleeping, with long pauses consistent with a likely obstructive sleep apnea PLAN: Primarily a preventative strategy for atrial fibrillation at this time Hypertension /LVH management Patient was previously on Lopressor 100 mg twice daily for hypertension management Assessment for obstructive sleep apnea. I will refer him to the sleep center and get 28 prior to discharge Minimize alcohol intake, discussed with the patient Weight reduction dietary consult After a complete cardiac evaluation antiarrhythmic therapies including drug therapy, given the pocket technique and EP study and radiofrequency ablation may be considered. These were discussed with the patient. Rationale for each were discussed Check hemoglobin A1c HPI Patient woke up at around 12:30 AM prior to admission with chest discomfort and palpitations. He reported feeling strange lightheaded short of breath and his heart was racing. He had never felt like this before. When he arrived in the ER he was found to be in atrial fibrillation. Twelve-lead ECG shows atrial fibrillation but on closer inspection it appears to be recently organized IRREGULAR atrial rapid tachycardia with variable A-V block/atrial fibrillation Tachycardia self terminated and he is sitting comfortably in bed at this time and I examined and interviewed him I was called by Dr. walton and Dr. Peguero to evaluate him for severe bradycardia secondary to long sinus pauses in the early hours in the morning. Initially it was thought that the patient was awake watching television but Dr. Peguero later confirmed that he'll actually fall off to sleep and the patient stated that he was woken up by the nurses at this time ROS: No fever chills or rigors, no cough, phlegm or expectoration, no nausea, vomiting or diarrhea, no hematuria, dysuria, no musculoskeletal complaints, no strokes or seizures, no skin lesions. EXAMINATION: Blood pressure 139/73 mmHg, 150/84 mmHg Afebrile pulse rate in the 70s currently in sinus rhythm Breath sounds are clear no rhonchi no crackles no adventitious sounds Normal heart sounds, distant, normal S1 normal S2 no murmurs or gallop. Abdomen is soft nontender Extremities warm no edema No carotid bruits no JVD no thyromegaly REVIEW OF LABS, ECG & MEDICAL DATA Chest x-ray was read as normal by radiology Moderate left ventricular hypertrophy ejection fraction 60 is an 65% RV enlargement Normal TSH Hemoglobin 14.6, sodium 137 potassium 4.4 BUN 15 creatinine 0.84 Normal troponin elevated CPK normal BMP Past Medical History Past Medical History: GERD/Reflux, Hyperlipidemia, Hypertension Additional Past Medical History / Comment(s): Occasional low back pain. History of Any Multi-Drug Resistant Organisms: None Reported Past Surgical History: Orthopedic Surgery Additional Past Surgical History / Comment(s): L BICEP SX WITH METAL PLATE, R ARM BENIGN CYST, 2014 COLONOSCOPY WITH BENIGN POLYP Past Anesthesia/Blood Transfusion Reactions: No Reported Reaction Smoking Status: Current every day smoker - Past Family History Mother Family Medical History: No Reported History Additional Family Medical History / Comment(s): MOTHER IS HEALTHY Father Family Medical History: CVA/TIA, Myocardial Infarction ([place]) Additional Family Medical History / Comment(s): FATHER HAD A CVA AND THEN OF A [place] AT THE AGE OF 63 YRS. Medications and Allergies Home Medications Medication Instructions Recorded Confirmed Type Hydrochlorothiazide [Hydrodiuril] 25 mg PO QAM 06/27/16 09/23/18 History Metoprolol Tartrate [Lopressor] 100 mg PO BID 06/27/16 09/23/18 History Omeprazole 20 mg PO DAILY 06/27/16 09/23/18 History Cholecalciferol [Vitamin D3] 5,000 unit PO DAILY 08/29/17 09/23/18 History Allergies Allergy/AdvReac Type Severity Reaction Status Date / Time No Known Allergies Allergy Verified 09/23/18 07:53 Physical Exam Vitals: Vital Signs Temp Pulse Resp BP Pulse Ox 09/25/18 04:00 98.0 F 71 17 150/84 94 L 09/25/18 00:00 97.5 F L 67 18 139/73 94 L 09/24/18 20:00 97.6 F 71 17 129/76 92 L 09/24/18 16:04 97.8 F 69 16 150/79 95 09/24/18 12:15 97.8 F 75 18 150/72 96 09/24/18 08:38 97.8 F 79 18 145/82 98 Intake and Output 09/24/18 09/25/18 09/25/18 22:59 06:59 14:59 Intake Total 680 540 Balance 680 540 Intake: IV 40 40 Invasive Line 1 20 20 Invasive Line 2 20 20 Oral 640 500 Other: # Voids 2 Weight 150.5 kg Results 09/25/18 05:29 09/25/18 05:29 Cardiac Enzymes 09/25/18 Range/Units 05:29 AST 33 (17-59) U/L CBC 09/25/18 Range/Units 05:29 WBC 8.7 (3.8-10.6) k/uL RBC 5.02 (4.30-5.90) m/uL Hgb 14.6 (13.0-17.5) gm/dL Hct 45.8 (39.0-53.0) % Plt Count 203 (150-450) k/uL Comprehensive Metabolic Panel 09/25/18 Range/Units 05:29 Sodium 137 (137-145) mmol/L Potassium 4.4 (3.5-5.1) mmol/L Chloride 102 (98-107) mmol/L Carbon Dioxide 30 (22-30) mmol/L BUN 15 (9-20) mg/dL Creatinine 0.84 (0.66-1.25) mg/dL Glucose 99 (74-99) mg/dL Calcium 8.8 (8.4-10.2) mg/dL AST 33 (17-59) U/L ALT 45 (21-72) U/L Alkaline Phosphatase 67 (38-126) U/L Total Protein 6.7 (6.3-8.2) g/dL Albumin 3.5 (3.5-5.0) g/dL Current Medications Generic Name Dose Route Start Last Admin Trade Name Freq PRN Reason Stop Dose Admin Amlodipine Besylate 5 mg 09/24/18 15:00 09/24/18 15:53 Norvasc PO 5 mg DAILY [facility] Administration Cholecalciferol 5,000 unit 09/23/18 12:28 09/24/18 08:36 Vitamin D3 PO 5,000 unit 1200 [facility] Administration Enoxaparin Sodium 40 mg 09/25/18 09:00 Lovenox SQ DAILY [facility] Hydrochlorothiazide 25 mg 09/23/18 12:30 09/24/18 08:36 Hydrodiuril PO 25 mg QAM KEERTHI Administration Losartan Potassium 25 mg 09/25/18 09:00 Cozaar PO DAILY KEERTHI Naloxone HCl 0.2 mg 09/23/18 02:27 Narcan IV Q2M PRN Opioid Reversal Nicotine 1 patch 09/23/18 12:30 09/24/18 08:37 Habitrol 14mg/24hr Patch TRANSDERM 1 patch DAILY KEETRHI Administration Pantoprazole Sodium 40 mg 09/23/18 12:29 09/25/18 06:33 Protonix PO 40 mg [id number] KEERTHI Administration Intake and Output 09/24/18 09/25/18 09/25/18 22:59 06:59 14:59 Intake Total 680 540 Balance 680 540 Intake: IV 40 40 Invasive Line 1 20 20 Invasive Line 2 20 20 Oral 640 500 Other: # Voids 2 Weight 150.5 kg 09/25/18 05:29 09/25/18 05:29
[2018-09-25] MEDS: NICOTINE 14MG/24HR PATCH TRANSDERM SCH (08:41)
[2018-09-25] MEDS: ENOXAPARIN 40 MG/0.4 ML SYRINGE SQ SCH (08:41)
[2018-09-25] MEDS: amLODIPine 5 MG TAB PO SCH (08:41)
[2018-09-25] MEDS: LOSARTAN 25 MG TAB PO SCH (08:41)
[2018-09-25] MEDS: CHOLECALCIFEROL 1,000 UNIT TAB PO SCH (08:41)
[2018-09-25] MEDS: HYDROCHLOROTHIAZIDE 25 MG TAB PO SCH (08:41)
--- NOTE | 2018-09-25 13:01 | P.PN ---
Subjective Progress Note Date: 09/25/18 His is a pleasant 53-year-old gentleman with history of hypertension, borderline diabetes, nicotine dependence, EtOH use, obesity, presented to the hospital with sudden onset of palpitations. He was found to be in atrial fibrillation with rapid ventricular response, initiated on IV Cardizem and IV heparin and subsequently converted to normal sinus rhythm. Echocardiac gram with Doppler study revealed a normal left ventricular systolic function. It was noticed on his telemetry strips this morning that between 5:30 and 6 AM he had several significant pauses of greater than 3-1/2-4 seconds. Initially the patient stated that he was awakened 5 and did not go back to sleep after that. He does appear however that at the time these pauses occurred the nurse had to wake him up from sleep. Patient has not ever had an evaluation for sleep apnea however this is recommended. At the time of my examination this morning, he feels well, denies any palpitations, no shortness of breath, no dizziness or lightheadedness. Blood pressure 150/70 with a heart rate in the 70s, 96% on room air. 09/25/2018 Patient was seen and examined this morning, overall feels well. Upon review of the patient's telemetry strips, it appears he had multiple episodes of pauses up to 4 seconds through the night. Each occasion does appear to be when the patient was sleeping. This morning he is in a normal sinus rhythm with no evidence of pauses since he has been awake. Let pressure 140/80 with a heart rate in the 70s, 94% on room air. White blood cell count 8.7, hemoglobin 14.6, platelet count 203. Sodium 137, potassium 4.4, BUN 15 and creatinine 0.8. Objective - Vital Signs Vital signs: Vital Signs Temp 97.8 F 09/25/18 12:16 Pulse 68 09/25/18 12:16 Resp 17 09/25/18 12:16 BP 146/85 09/25/18 12:16 Pulse Ox 94 L 09/25/18 12:16 Intake & Output 09/24/18 09/25/18 09/25/18 18:59 06:59 18:59 Intake Total 1260 960 400 Balance 1260 960 400 Weight 150.5 kg Intake: IV 60 60 40 Invasive Line 1 30 30 20 Invasive Line 2 30 30 20 Oral 1200 900 360 Other: # Voids 2 - Exam PHYSICAL EXAMINATION: GENERAL: 53-year-old gentleman in no acute distress at the time of my examination HEENT: Head is atraumatic, normocephalic. Pupils equal, round. Sclera anicteric. Conjunctiva are clear. Mucous membranes of the mouth are moist. Neck is supple. There is no elevated jugular venous pressure. No carotid bruit is heard. HEART EXAMINATION: Heart S1, S2 normal. No murmur or gallop heard. CHEST EXAMINATION: Lungs reveal scattered wheezing throughout . No chest wall tenderness is noted on palpation or with deep breathing. ABDOMEN: Soft, obese, nontender. Bowel sounds are heard. No organomegaly noted. EXTREMITIES: 2+ peripheral pulses with no evidence of peripheral edema and no calf tenderness noted. NEUROLOGIC patient is awake, alert and oriented 3 . . - Labs CBC & Chem 7: 09/25/18 05:29 09/25/18 05:29 Assessment and Plan Plan: Assessment and plan #1 atrial fibrillation with rapid ventricular response, paroxysmal #2 nicotine dependence #3 hypertension #4 borderline diabetes #5 hyperlipidemia #6 GERD #7 EtOH use #8 sinus pauses, could be secondary to sleep apnea Plan Pulmonary services has been consulted. Recommendation is that the patient wear BiPAP throughout the night tonight, has no further evidence of pauses he may be able to be discharged home in 24 hours. If the patient persists to have intermittent pauses he may need a pacemaker. We will continue to observe. DNP note has been reviewed, I agree with a documented findings and plan of care. Patient was seen and examined.
--- NOTE | 2018-09-25 15:09 | P.CNPUL ---
History of Present Illness Consult date: 09/25/18 Reason for consult: obstructive sleep apnea History of present illness: I was asked to evaluate this patient for obstructive sleep apnea. This patient was hospitalized because of paroxysmal atrial fibrillation. The patient came into the hospital because of chest discomfort and palpitation. He woke up after midnight having these symptoms. He was not feeling good and he was feeling short of breath and lightheaded and his heart was racing. He arrived to the emergency department where he was found to be in A. fib RVR. The patient had irregular rhythm. The patient undergone a workup through cardiology. Echocardiogram showed a preserved LV function without any significant valvular abnormality. The LV ejection fraction is 6065%. No valvular abnormalities. There is moderate degree of concentric left ventricular hypertrophy. RV is mildly enlarged. The atrial fibrillation ultimately got terminated with treatment and the patient converted to normal sinus rhythm. Subsequently, EP services were consulted knowing that the patient on 2 separate nights developed severe bradycardia and long sinus positives and this occurred in the early hours of the morning. This occurred while the patient was sleeping and obviously this raises concerns for underlying obstructive sleep apnea and using his cardiac arrhythmias. The patient has typical features to suggest underlying obstructive sleep apnea. 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 He has loud snoring and witnessed apneas. He denies having any episodes where he with wake up in the middle of the night gasping for air or choking sensation. No major hypersomnia and sleepiness during the day. He averages around 6-7 hours of sleep per night. No 70 motor vehicle accident because of feeling drowsy or sleepy. He is obese and his BMI is 43.8. Is a Mallampati class IV. Based on his room air pulse ox 1 awake, the patient is saturating in the order of 94-95%. However, I was told that the patient was desaturating during the septic episodes as noted by the nursing staff overnight. His cardiac enzymes have been negative. BNP is not elevated. Thyroid function test is within normal limits. No previous investigation for obstructive sleep apnea. Review of Systems Constitutional: Reports fatigue, Reports weight gain Eyes: denies as per HPI, denies blurred vision, denies bulging eye, denies decreased vision, denies diplopia, denies discharge, denies dry eye, denies irritation, denies itching, denies pain, denies photophobia, denies loss of peripheral vision, denies loss of vision, denies tunnel vision/blind spots Ears: deny: decreased hearing, ear discharge, earache, tinnitus Ears, nose, mouth and throat: Denies headache, Denies sore throat Cardiovascular: Reports irregular heart beat, Reports lightheadedness, Reports rapid heart beat Respiratory: Denies cough Gastrointestinal: Reports as per HPI Genitourinary: Reports as per HPI Musculoskeletal: Reports as per HPI Musculoskeletal: absent: ankle pain, ankle stiffness, ankle swelling, as per HPI , elbow pain, elbow stiffness, elbow swelling, foot pain, foot stiffness, foot swelling, hand pain, hand stiffness, hand swelling, hip pain, hip stiffness, hip swelling, knee pain, knee stiffness, knee swelling, shoulder pain, shoulder stiffness, shoulder swelling, wrist pain, wrist stiffness, wrist swelling Integumentary: Reports as per HPI Neurological: Reports as per HPI Psychiatric: Reports as per HPI, Reports sleep disturbances Endocrine: Reports as per HPI Hematologic/Lymphatic: Reports as per HPI Allergic/Immunologic: Reports as per HPI Past Medical History Past Medical History: GERD/Reflux, Hyperlipidemia, Hypertension Additional Past Medical History / Comment(s): Occasional low back pain, paroxysmal atrial fibrillation, morbid obesity with BMI 43.8 History of Any Multi-Drug Resistant Organisms: None Reported Past Surgical History: Orthopedic Surgery Additional Past Surgical History / Comment(s): L BICEP SX WITH METAL PLATE, R ARM BENIGN CYST, 2014 COLONOSCOPY WITH BENIGN POLYP Past Anesthesia/Blood Transfusion Reactions: No Reported Reaction Smoking Status: Current every day smoker - Past Family History Mother Family Medical History: No Reported History Additional Family Medical History / Comment(s): MOTHER IS HEALTHY Father Family Medical History: CVA/TIA, Myocardial Infarction ([place]) Additional Family Medical History / Comment(s): FATHER HAD A CVA AND THEN OF A [place] AT THE AGE OF 63 YRS. Medications and Allergies Home Medications Medication Instructions Recorded Confirmed Type Hydrochlorothiazide [Hydrodiuril] 25 mg PO QAM 06/27/16 09/23/18 History Metoprolol Tartrate [Lopressor] 100 mg PO BID 06/27/16 09/23/18 History Omeprazole 20 mg PO DAILY 06/27/16 09/23/18 History Cholecalciferol [Vitamin D3] 5,000 unit PO DAILY 08/29/17 09/23/18 History Allergies Allergy/AdvReac Type Severity Reaction Status Date / Time No Known Allergies Allergy Verified 09/23/18 07:53 Physical Exam Vitals: Vital Signs Temp Pulse Resp BP Pulse Ox 09/25/18 12:16 97.8 F 68 16 146/85 94 L 09/25/18 08:44 98.3 F 70 16 156/74 96 09/25/18 04:00 98.0 F 71 17 150/84 94 L 09/25/18 00:00 97.5 F L 67 18 139/73 94 L 09/24/18 20:00 97.6 F 71 17 129/76 92 L 09/24/18 16:04 97.8 F 69 16 150/79 95 Intake and Output 09/25/18 09/25/18 09/25/18 06:59 14:59 22:59 Intake Total 540 600 Balance 540 600 Intake: IV 40 40 Invasive Line 1 20 20 Invasive Line 2 20 20 Oral 500 560 Other: # Voids 2 Weight 150.5 kg PHYSICAL EXAMINATION: GENERAL: 53-year-old gentleman in no acute distress at the time of my examination, obese, comfortable with a BMI 43.8 HEENT: Head is atraumatic, normocephalic. Pupils equal, round. Sclera anicteric. Conjunctiva are clear. Mucous membranes of the mouth are moist. Neck is supple. There is no elevated jugular venous pressure. No carotid bruit is heard. The patient has a Mallampati class IV and the patient has significant crowding of the posterior oropharynx. HEART EXAMINATION: Heart S1, S2 normal. No murmur or gallop heard. CHEST EXAMINATION: Lungs reveal scattered wheezing throughout . No chest wall tenderness is noted on palpation or with deep breathing. ABDOMEN: Soft, obese, nontender. Bowel sounds are heard. No organomegaly noted. EXTREMITIES: 2+ peripheral pulses with no evidence of peripheral edema and no calf tenderness noted. NEUROLOGIC patient is awake, alert and oriented 3 . Examination of the skin revealed no evidence of significant rashes, suspicious appearing nevi or other concerning lesions. . Results - Laboratory Findings CBC and BMP: 09/25/18 05:29 09/25/18 05:29 PT/INR, D-dimer PT 9.8 sec (9.0-12.0) 09/23/18 00:57 INR 0.9 (<1.2) 09/23/18 00:57 D-Dimer 0.37 mg/L FEU (<0.60) 09/23/18 06:58 Abnormal lab findings: Abnormal Labs 09/23/18 09/23/18 09/23/18 00:57 00:57 16:09 APTT 32.3 H Glucose 159 H Total Creatine Kinase 233 H 09/24/18 06:05 APTT Glucose 111 H Total Creatine Kinase - Diagnostic Findings Chest x-ray: image reviewed Assessment and Plan Plan: Assessment 1 obstructive sleep apnea. Clinically, there is a high suspicion that the patient carries an underlying obstructive sleep apnea. He snores and has witnessed apneas and nocturnal oxygen desaturation. Furthermore, during this current hospitalization, the patient was noted to have bradycardia and cardiac sinus pauses at nighttime in association with his apneic episodes. This has been noted by the nursing staff , but has not officially confirmed by a sleep study. 2 paroxysmal atrial fibrillation current rhythm is sinus. 3 obesity with a BMI 43.8 4 loud snoring 5 mild right ventricular dilatation and evidence of hypertensive heart disease with moderate degree of concentric LVH. The patient has a left ventricle ejection fraction of 60-65% 6 hypertension 7 borderline diabetes mellitus Plan I discussed the case with the cardiology and the medical team. There is a high suspicion that the cardiac positives and the arrhythmia the patient is having overnight is related to underlying sleep breathing disorder. This has not been confirmed officially by sleep study, but the clinical suspicion is extremely high based on the circumstances that were described above. Obviously, the patient will need a polysomnogram and a CPAP titration and this will be scheduled to be done outpatient basis within next 30 days. Meanwhile, I told it 's reasonable to offer this patient a automatic CPAP unit that he can utilize until his sleep study is completed. I asked the medical case manager to work with one of the local equipment company stool the liver this patient a loaner CPAP unit until the patient gets his final CPAP machine with the appropriate settings. I would rather keep this patient in the hospital for another 24 hours where he can utilize his automatic CPAP unit and would make sure that there are no ongoing arrhythmias noted while having being under treatment. The ranges are being made for now. I'm going to continue following up this patient and will make further recommendations based on his progress. Encourage weight loss. Optimize sleep hygiene measures. We'll continue to follow.
--- NOTE | 2018-09-25 15:33 | P.PN ---
Subjective Progress Note Date: 09/25/18 This is a 53-year-old male patient of Dr. Alexander. Patient presented with complaints of chest pain palpitations. Patient states she will he woke up around midnight with palpitations and was brought into the emergency room by his . EKG completed upon arrival showing A. fib with RVR with a heart rate of 146. Patient was started on Cardizem drip and repeat EKG showing patient in sinus rhythm. Patient has a past medical history for GERD, hyperlipidemia, hypertension, back npain and current every day smoker. Patient has been started on Cardizem and heparin drip. Cardiac he services have been consulted. 2-D echo ordered. At that time patient remains in sinus rhythm. Patient denies chest pain or shortness breath. Patient denies nausea vomiting or diarrhea. Patient denies any urinary burning or frequency On 09/24/2018 patient is alert and oriented 3. Patient has remained in sinus rhythm. Per nursing staff and telemetry patient had episode of heart rate in the 20s and 30s. Per nursing staff patient was placed on oxygen heart rate improved. Discussed case with Caitlin de la rosa per cardiology. We'll continue to hold Lopressor and watch patient for an additional 24 hours. Updated patient that he should follow-up with pulmonary services for sleep study test for possible sleep apnea. The patient denies chest pain or shortness of breath. Patient denies nausea vomiting or diarrhea. Patient denies any urinary burning or frequency. On 09/25/2018 patient is alert and oriented 3. Per nursing staff patient had episodes of multiple pauses with heart rate dropping to 20s and 30s throughout night. Discussed case with cardiology services recommending patient be worked up by pulmonary for possible sleep apnea inpatient due to patient's very low heart rate during sleep apneic events. At this time patient denies chest pain or shortness of breath. Patient denies nausea vomiting or diarrhea. Patient denies any urinary burning or frequency. Did discuss case with Dr. Pryor Patient to wear BiPAP tonight and be monitored for improvement with heart rate. Objective - Vital Signs Vital signs: Vital Signs Temp 97.8 F 09/25/18 12:16 Pulse 68 09/25/18 12:16 Resp 17 09/25/18 12:16 BP 146/85 09/25/18 12:16 Pulse Ox 94 L 09/25/18 12:16 Intake & Output 09/24/18 09/25/18 09/25/18 18:59 06:59 18:59 Intake Total 1260 960 600 Balance 1260 960 600 Weight 150.5 kg Intake: IV 60 60 40 Invasive Line 1 30 30 20 Invasive Line 2 30 30 20 Oral 1200 900 560 Other: # Voids 2 - Exam Head normocephalic Neck supple Lungs clear to auscultation bilaterally no wheezing or crackles Heart regular rate and rhythm S1-S2, no rub or gallop Abdomen is soft nontender nondistended positive bowel sounds no hepatosplenomegaly Extremities no edema. Left foot plantar corn healing. Neuro alert and orientated to 3 - Labs CBC & Chem 7: 09/25/18 05:29 09/25/18 05:29 Assessment and Plan Assessment: 1. Palpitations with chest pain. Chest x-ray completed showing normal chest. No change. Patient started on heparin drip. Troponins negative. D-dimer negative. Cardiology consulted. Heparin and Cardizem drip has been DC'd per cardiology 2. Proximal atrial fibrillation. Patient denies history of atrial fibrillation. Initial EKG showing A. fib with RVR with a heart rate of 146. Repeat EKG showing sinus rhythm. Per cardiology services plan is likely to use aspirin is long-term anticoagulation due to isolated incident of atrial fibrillation. 2-D echo has been obtained. Patient will need a stress test but this can be completed in outpatient setting per cardiology 3. Nicotine dependence. Patient educated greater than 3 minutes on smoking cessation. Nicotine patch ordered 4. Essential hypertension. 5. History of hyperlipidemia. 6. History of GERD. 7. Bradycardia. Patient episode of heart rate 20s and 30s throughout night. Believed to be from sleep apnea. Patient was placed on oxygen and heart rate improved. Discussed case with cardiology services recommended we keep an additional 24 hours and hold Lopressor at this time 8. Possible sleep apnea. Discussed with patient. Patient states he's never been diagnosed with sleep apnea nor does he have sleep apnea machine. Patient to be evaluated by Dr. Pryor. Per cardiology patient to wear BiPAP tonight and assess if there is improvement with episodes of bradycardia. 9. Borderline diabetic. Hemoglobin A1c has been ordered Anticipate discharge in the next 24-48 hours. DVT prophylaxis Lovenox. GI prophylaxis Protonix. I performed an examination of the patient and discussed their management with the Nurse Practitioner. I have reviewed the Nurse Practitioner's notes and agree with the documented findings and plan of care
[2018-09-26] MEDS: PANTOPRAZOLE 40 MG TABLET PO SCH (06:09)
[2018-09-26 07:09] LABS: Basophils # (A) 0.1 k/uL (0-0.2); Basophils % (A) 1 %; Eosinophils # (A) 0.4 k/uL (0-0.7); Eosinophils % (A) 4 %; HCT 48.3 % (39.0-53.0); HGB 15.4 gm/dL (13.0-17.5); Lymphocytes % (A) 23 %; MCH 29.4 pg (25.0-35.0); MCV 91.9 fL (80.0-100.0); Mean Platelet Volume 6.2; Monocytes # (A) 0.3 k/uL (0-1.0); Monocytes % (A) 4 %; Neutrophils # (A) 5.8 k/uL (1.3-7.7); Neutrophils % (A) 67 %; Platelet Count 226 k/uL (150-450); RBC 5.25 m/uL (4.30-5.90); RDW 15.2 % (11.5-15.5); WBC 8.7 k/uL (3.8-10.6)
[2018-09-26 07:26] LABS: ALT 56 U/L (21-72); AST 37 U/L (17-59); Alkaline Phosphatase 76 U/L (38-126); Anion Gap 8 mmol/L; Blood Urea Nitrogen 18 mg/dL (9-20); Calcium 9.3 mg/dL (8.4-10.2); Carbon Dioxide 32 mmol/L (22-30); Chloride 96 mmol/L (98-107); Glucose 101 mg/dL (74-99); Potassium 4.7 mmol/L (3.5-5.1); Sodium 136 mmol/L (137-145); Total Bilirubin 0.8 mg/dL (0.2-1.3); Total Protein 7.3 g/dL (6.3-8.2)
[2018-09-26] MEDS: CHOLECALCIFEROL 1,000 UNIT TAB PO SCH (09:24)
[2018-09-26] MEDS: HYDROCHLOROTHIAZIDE 25 MG TAB PO SCH (09:24)
[2018-09-26] MEDS: LOSARTAN 25 MG TAB PO SCH (09:24)
[2018-09-26] MEDS: NICOTINE 14MG/24HR PATCH TRANSDERM SCH (09:24)
[2018-09-26] MEDS: amLODIPine 5 MG TAB PO SCH (09:24)
[2018-09-26] MEDS: ENOXAPARIN 40 MG/0.4 ML SYRINGE SQ SCH (09:25)
[2018-09-26 09:30] VITALS: TEMP 98.7
[2018-09-26 12:04] VITALS: BP 123/71; PULSE 66; RESP 16
--- NOTE | 2018-09-26 12:06 | P.PN ---
Subjective Progress Note Date: 09/26/18 His is a pleasant 53-year-old gentleman with history of hypertension, borderline diabetes, nicotine dependence, EtOH use, obesity, presented to the hospital with sudden onset of palpitations. He was found to be in atrial fibrillation with rapid ventricular response, initiated on IV Cardizem and IV heparin and subsequently converted to normal sinus rhythm. Echocardiac gram with Doppler study revealed a normal left ventricular systolic function. It was noticed on his telemetry strips this morning that between 5:30 and 6 AM he had several significant pauses of greater than 3-1/2-4 seconds. Initially the patient stated that he was awakened 5 and did not go back to sleep after that. He does appear however that at the time these pauses occurred the nurse had to wake him up from sleep. Patient has not ever had an evaluation for sleep apnea however this is recommended. At the time of my examination this morning, he feels well, denies any palpitations, no shortness of breath, no dizziness or lightheadedness. Blood pressure 150/70 with a heart rate in the 70s, 96% on room air. 09/25/2018 Patient was seen and examined this morning, overall feels well. Upon review of the patient's telemetry strips, it appears he had multiple episodes of pauses up to 4 seconds through the night. Each occasion does appear to be when the patient was sleeping. This morning he is in a normal sinus rhythm with no evidence of pauses since he has been awake. Let pressure 140/80 with a heart rate in the 70s, 94% on room air. White blood cell count 8.7, hemoglobin 14.6, platelet count 203. Sodium 137, potassium 4.4, BUN 15 and creatinine 0.8. 09/26/2018 Patient seen and examined this morning, he did wear the CPAP through the night last night, had no further episodes of any positives. Hemodynamically stable this morning, denies any dizziness or lightheadedness. From our perspective he may be able to be discharged home today, sleep evaluation as an outpatient. He will go home with the CPAP machine. Follow-up in the office in one week. Holter monitor on discharge. Objective - Vital Signs Vital signs: Vital Signs Temp 98.7 F 09/26/18 09:30 Pulse 66 09/26/18 11:40 Resp 16 09/26/18 11:40 BP 123/71 01/19/19 11:40 Pulse Ox 95 09/26/18 11:40 Intake & Output 09/25/18 09/26/18 09/26/18 18:59 06:59 18:59 Intake Total 842 530 360 Balance 842 530 360 Weight 150.6 kg Intake: IV 60 30 Invasive Line 1 30 10 Invasive Line 2 30 20 Oral 782 500 360 Other: # Voids 2 1 - Exam PHYSICAL EXAMINATION: GENERAL: 53-year-old gentleman in no acute distress at the time of my examination HEENT: Head is atraumatic, normocephalic. Pupils equal, round. Sclera anicteric. Conjunctiva are clear. Mucous membranes of the mouth are moist. Neck is supple. There is no elevated jugular venous pressure. No carotid bruit is heard. HEART EXAMINATION: Heart S1, S2 normal. No murmur or gallop heard. CHEST EXAMINATION: Lungs reveal scattered wheezing throughout . No chest wall tenderness is noted on palpation or with deep breathing. ABDOMEN: Soft, obese, nontender. Bowel sounds are heard. No organomegaly noted. EXTREMITIES: 2+ peripheral pulses with no evidence of peripheral edema and no calf tenderness noted. NEUROLOGIC patient is awake, alert and oriented 3 . . - Labs CBC & Chem 7: 09/26/18 06:17 09/26/18 06:17 Labs: Abnormal Lab Results - Last 24 Hours (Table) 09/26/18 Range/Units 06:17 Sodium 136 L (137-145) mmol/L Chloride 96 L (98-107) mmol/L Carbon Dioxide 32 H (22-30) mmol/L Glucose 101 H (74-99) mg/dL Assessment and Plan Plan: Assessment and plan #1 atrial fibrillation with rapid ventricular response, paroxysmal #2 nicotine dependence #3 hypertension #4 borderline diabetes #5 hyperlipidemia #6 GERD #7 EtOH use #8 sinus pauses, could be secondary to sleep apnea Plan He should had no episodes of pauses through the night last night while he was wearing the CPAP. From our perspective he may be able to be discharged home today. With the CPAP machine. Sleep evaluation as an outpatient. Holter monitor. Follow-up in the office post discharge DNP note has been reviewed, I agree with a documented findings and plan of care. Patient was seen and examined.
--- NOTE | 2018-09-26 15:32 | P.DS ---
Providers Date of admission: 09/25/18 20:59 Expected date of discharge: 09/26/18 Attending physician: Hi Pope Consults: 09/23/18 02:27 Consult Physician Stat Consulting Provider: [facility] Consult Reason/Comments: new afib rvr Do you want consulting provider notified?: Yes, Notify in am 09/24/18 11:04 Consult Physician Urgent Consulting Provider: Miguel Esposito Consult Reason/Comments: sinus pauses Do you want consulting provider notified?: Already Contacted 09/25/18 10:12 Consult Physician Routine Consulting Provider: Opal Forbes Consult Reason/Comments: sleep apnea eval Do you want consulting provider notified?: Yes Primary care physician: Davida Alexander Hospital Course: Diagnosis on discharge: 1. Palpitations with chest pain. Chest x-ray completed showing normal chest. No change. Patient started on heparin drip. Troponins negative. D-dimer negative. Cardiology consulted. Heparin and Cardizem drip has been DC'd per cardiology 2. Proximal atrial fibrillation. Patient denies history of atrial fibrillation. Initial EKG showing A. fib with RVR with a heart rate of 146. Repeat EKG showing sinus rhythm. Per cardiology services plan is likely to use aspirin is long-term anticoagulation due to isolated incident of atrial fibrillation. 2-D echo has been obtained. Patient will need a stress test but this can be completed in outpatient setting per cardiology 3. Nicotine dependence. Patient educated greater than 3 minutes on smoking cessation. Nicotine patch ordered 4. Essential hypertension. 5. History of hyperlipidemia. 6. History of GERD. 7. Bradycardia. Patient episode of heart rate 20s and 30s throughout night. Believed to be from sleep apnea. Patient was placed on oxygen and heart rate improved. Discussed case with cardiology services recommended we keep an additional 24 hours and hold Lopressor at this time 8. Possible sleep apnea. Discussed with patient. Patient states he's never been diagnosed with sleep apnea nor does he have sleep apnea machine. Patient to be evaluated by Dr. Pryor. Per cardiology patient to wear BiPAP tonight and assess if there is improvement with episodes of bradycardia. 9. Borderline diabetic. Hemoglobin A1c has been ordered Hospital course: This is a 53-year-old male patient of Dr. Alexander. Patient presented with complaints of chest pain palpitations. Patient states she will he woke up around midnight with palpitations and was brought into the emergency room by his . EKG completed upon arrival showing A. fib with RVR with a heart rate of 146. Patient was started on Cardizem drip and repeat EKG showing patient in sinus rhythm. Patient has a past medical history for GERD, hyperlipidemia, hypertension, back npain and current every day smoker. Patient has been started on Cardizem and heparin drip. Cardiac he services have been consulted. 2-D echo ordered. At that time patient remains in sinus rhythm. Patient denies chest pain or shortness breath. Patient denies nausea vomiting or diarrhea. Patient denies any urinary burning or frequency On 09/24/2018 patient is alert and oriented 3. Patient has remained in sinus rhythm. Per nursing staff and telemetry patient had episode of heart rate in the 20s and 30s. Per nursing staff patient was placed on oxygen heart rate improved. Discussed case with Caitlin de la rosa per cardiology. We'll continue to hold Lopressor and watch patient for an additional 24 hours. Updated patient that he should follow-up with pulmonary services for sleep study test for possible sleep apnea. The patient denies chest pain or shortness of breath. Patient denies nausea vomiting or diarrhea. Patient denies any urinary burning or frequency. On 09/25/2018 patient is alert and oriented 3. Per nursing staff patient had episodes of multiple pauses with heart rate dropping to 20s and 30s throughout night. Discussed case with cardiology services recommending patient be worked up by pulmonary for possible sleep apnea inpatient due to patient's very low heart rate during sleep apneic events. At this time patient denies chest pain or shortness of breath. Patient denies nausea vomiting or diarrhea. Patient denies any urinary burning or frequency. Did discuss case with Dr. Pryor Patient to wear BiPAP tonight and be monitored for improvement with heart rate. On 09/26/2018 patient is alert and oriented 3 in no apparent distress he is feeling better shortness of breath has improved he did not have any episodes of bradycardia or cardiac possible through the night he was wearing CPAP machine he was cleared by pulmonary and cardiology for discharge today he was given a CPAP machine to take with him home he will follow-up with cardiology pulmonary and his primary care physician Dr. Alexander within one week Plan - Discharge Summary Discharge Rx Participant: No New Discharge Prescriptions: New amLODIPine [Norvasc] 5 mg PO DAILY tab Losartan [Cozaar] 25 mg PO DAILY tab Nicotine 14Mg/24Hr Patch [Habitrol] 1 patch TRANSDERM DAILY patch Continue Omeprazole 20 mg PO DAILY Hydrochlorothiazide [Hydrodiuril] 25 mg PO QAM Cholecalciferol [Vitamin D3] 5,000 unit PO DAILY Discontinued Metoprolol Tartrate [Lopressor] 100 mg PO BID Discharge Medication List Hydrochlorothiazide [Hydrodiuril] 25 mg PO QAM 06/27/16 [History] Omeprazole 20 mg PO DAILY 06/27/16 [History] Cholecalciferol [Vitamin D3] 5,000 unit PO DAILY 08/29/17 [History] Losartan [Cozaar] 25 mg PO DAILY tab 09/26/18 [Rx] Nicotine 14Mg/24Hr Patch [Habitrol] 1 patch TRANSDERM DAILY patch 09/26/18 [Rx] amLODIPine [Norvasc] 5 mg PO DAILY tab 09/26/18 [Rx] Follow up Appointment(s)/Referral(s): Zoraida Richey NPC [Nurse Practitioner] - 10/01/18 2:15 pm () Ilene Shipman [NON-STAFF] - Anastacio Cobian MD [STAFF PHYSICIAN] - 1 Week (Please call Thursday 09/28 to schedule an appointment for follow up with Holter Monitor.) Opal Forbes MD [STAFF PHYSICIAN] - 1 Week (Office closed at this time, please call Thursday 09/28 to make your appointment.) Patient Instructions/Handouts: A-fib (Atrial Fibrillation) (DC), Safe Use of Anticoagulants (DC) Activity/Diet/Wound Care/Special Instructions: Patient to follow up with Dr. Forbes for sleep study test due to possible sleep apnea. Report on October 05 at 8:00 PM for sleep study at [address] [place] [address], [place] [address] . pt needs to see Dr Forbes before his sleep study
--- NOTE | 2018-09-26 16:49 | P.PN ---
Subjective Progress Note Date: 09/26/18 On today's evaluation of 09/26/2018 I'm seeing this patient for a follow-up. I was able to that agent APAP machine for this patient with a minimum pressure of 5 and a maximum pressure of 20. He wore is machine throughout the night and the patient demonstrated at least 6 hours of CPAP use throughout the night where his AHI was brought down to 2. The patient did not have any significant cardiac arrhythmias throughout the night. He does have a monitor and storage bin tender that he is going to wear over the next 30 days and is being followed up by cardiology. His cardiac rhythm remains sinus. He has no syncope. No altered mentation. No chest pain. No other complaints otherwise. He is set up to undergo his polysomnogram on outpatient basis in 2 weeks time. Objective - Vital Signs Vital signs: Vital Signs Temp 98.7 F 09/26/18 09:30 Pulse 66 09/26/18 11:40 Resp 16 09/26/18 11:40 BP 123/71 09/26/18 11:40 Pulse Ox 95 09/26/18 11:40 Intake & Output 09/25/18 09/26/18 09/26/18 18:59 06:59 18:59 Intake Total 842 530 360 Balance 842 530 360 Weight 150.6 kg Intake: IV 60 30 Invasive Line 1 30 10 Invasive Line 2 30 20 Oral 782 500 360 Other: # Voids 2 1 2 - Exam GENERAL: 53-year-old gentleman in no acute distress at the time of my examination, obese, comfortable with a BMI 43.8 HEENT: Head is atraumatic, normocephalic. Pupils equal, round. Sclera anicteric. Conjunctiva are clear. Mucous membranes of the mouth are moist. Neck is supple. There is no elevated jugular venous pressure. No carotid bruit is heard. The patient has a Mallampati class IV and the patient has significant crowding of the posterior oropharynx. HEART EXAMINATION: Heart S1, S2 normal. No murmur or gallop heard. CHEST EXAMINATION: Lungs reveal scattered wheezing throughout . No chest wall tenderness is noted on palpation or with deep breathing. ABDOMEN: Soft, obese, nontender. Bowel sounds are heard. No organomegaly noted. EXTREMITIES: 2+ peripheral pulses with no evidence of peripheral edema and no calf tenderness noted. NEUROLOGIC patient is awake, alert and oriented 3 . Examination of the skin revealed no evidence of significant rashes, suspicious appearing nevi or other concerning lesions. - Labs CBC & Chem 7: 09/26/18 06:17 09/26/18 06:17 Labs: Abnormal Lab Results - Last 24 Hours (Table) 09/26/18 Range/Units 06:17 Sodium 136 L (137-145) mmol/L Chloride 96 L (98-107) mmol/L Carbon Dioxide 32 H (22-30) mmol/L Glucose 101 H (74-99) mg/dL Assessment and Plan Plan: Assessment 1 obstructive sleep apnea. Clinically, there is a high suspicion that the patient carries an underlying obstructive sleep apnea. He snores and has witnessed apneas and nocturnal oxygen desaturation. Furthermore, during this current hospitalization, the patient was noted to have bradycardia and cardiac sinus pauses at nighttime in association with his apneic episodes. This has been noted by the nursing staff , but has not officially confirmed by a sleep study. 2 paroxysmal atrial fibrillation current rhythm is sinus. 3 obesity with a BMI 43.8 4 loud snoring 5 mild right ventricular dilatation and evidence of hypertensive heart disease with moderate degree of concentric LVH. The patient has a left ventricle ejection fraction of 60-65% 6 hypertension 7 borderline diabetes mellitus Plan The patient was able to obtain a APAP unit and he has used it successfully over the past 24 hours. I checked the compliance data and based on the download the patient has an AHI of 2 while on the treatment. The average pressure utilizes over the past night was 12.9 cm of water. He uses Daypro for a total of 6 hours. He is utilizing a full face mask. He is doing extremely well. He'll be discharged home today with a 30 day monitor and storage bin tender. He will undergo his polysomnogram on outpatient basis and see him back in follow-up for further management of his obstructive sleep apnea. We'll continue to follow. He has no specific complaints. Educated the patient on the use of his APAP machine.
== END 2018-09-26 16:12 | disposition home or self-care (01) | DRG 309 ==
LOC: EC 00:43 → 3SCARD 01:50 → OBSVTOIN 09-25 20:59
PROVIDERS: ADMIT Internal Medicine; ATTEND Internal Medicine
DX: I48.0 Paroxysmal atrial fibrillation (principal); Z68.41 Body mass index [BMI] 40.0-44.9, adult; E66.01 Morbid (severe) obesity due to excess calories; E78.5 Hyperlipidemia, unspecified; F17.200 Nicotine dependence, unspecified, uncomplicated; G47.33 Obstructive sleep apnea (adult) (pediatric); I11.0 Hypertensive heart disease with heart failure; I25.10 Atherosclerotic heart disease of native coronary artery without angina pectoris; I50.9 Heart failure, unspecified; K21.9 Gastro-esophageal reflux disease without esophagitis; R00.1 Bradycardia, unspecified; R73.03 Prediabetes; Z79.01 Long term (current) use of anticoagulants; Z79.899 Other long term (current) drug therapy; Z82.3 Family history of stroke; Z82.49 Family history of ischemic heart disease and other diseases of the circulatory system; Z71.3 Dietary counseling and surveillance
CPT/HCPCS: 36415; 71045; 80053; 82550; 82553; 83036; 83735; 83880; 84443; 84484; 85025; 85379; 85610; 85730; 90732; 93005; 93270; 93271; 93306; 96365; 96366; 96368; 96375; 96376; 99291

== ENCOUNTER 2018-11-10 15:36 | Emergency (ER) | payer BC ==
[2018-11-10] MEDS ORDERED: IPRATROPIUM-ALBUTEROL 3 ML NEB INHALATION STA (16:15)
[2018-11-10] MEDS ORDERED: SODIUM CHLORIDE 0.9% 1,000 ML IV STA ×2 (16:16)
[2018-11-10] MEDS ORDERED: methylPREDNISolone SOD SUCCI 125 MG/2 ML VIAL IV STA (16:16)
[2018-11-10] MEDS ORDERED: MECLIZINE 12.5 MG TAB PO STA ×2 (16:17→19:29)
--- NOTE | 2018-11-10 17:28 | ED ---
URI HPI - General Chief Complaint: Upper Respiratory Infection Stated Complaint: Dizzy Time Seen by Provider: 11/10/18 15:54 Source: patient, RN notes reviewed, old records reviewed Mode of arrival: ambulatory Limitations: no limitations - History of Present Illness Initial Comments: This is a 53-year-old male presents emergency department today with complaints of cough congestion and sinus pressure. Patient reports he is having vertigo like symptoms due to the dizziness and sinus pressure within his years. Patient states that he was supposed states PCP but decided to come here. He states that he's had no nausea or vomiting. He denies any associative chest pain. - Related Data Home Medications Medication Instructions Recorded Confirmed Hydrochlorothiazide [Hydrodiuril] 25 mg PO QAM 06/27/16 11/10/18 Omeprazole 20 mg PO DAILY 06/27/16 11/10/18 Cholecalciferol [Vitamin D3] 5,000 unit PO DAILY 08/29/17 11/10/18 Previous Rx's Medication Instructions Recorded Losartan [Cozaar] 25 mg PO DAILY tab 09/26/18 amLODIPine [Norvasc] 5 mg PO DAILY tab 09/26/18 Amoxic-Pot Clav 875-125Mg 1 tab PO Q12HR #20 tablet 11/10/18 [Augmentin 875-125] Meclizine [Antivert] 25 mg PO TID #20 tab 11/10/18 predniSONE 10 mg PO DAILY #15 tab 11/10/18 Allergies Allergy/AdvReac Type Severity Reaction Status Date / Time No Known Allergies Allergy Verified 11/10/18 17:20 Review of Systems ROS Statement: Those systems with pertinent positive or pertinent negative responses have been documented in the HPI. ROS Other: All systems not noted in ROS Statement are negative. Past Medical History Past Medical History: GERD/Reflux, Hyperlipidemia, Hypertension Additional Past Medical History / Comment(s): Occasional low back pain, paroxysmal atrial fibrillation, morbid obesity with BMI 43.8 History of Any Multi-Drug Resistant Organisms: None Reported Past Surgical History: Orthopedic Surgery Additional Past Surgical History / Comment(s): L BICEP SX WITH METAL PLATE, R ARM BENIGN CYST, 2014 COLONOSCOPY WITH BENIGN POLYP Past Anesthesia/Blood Transfusion Reactions: No Reported Reaction Past Psychological History: No Psychological Hx Reported Smoking Status: Current every day smoker Past Alcohol Use History: Occasional - Past Family History Mother Family Medical History: No Reported History Additional Family Medical History / Comment(s): MOTHER IS HEALTHY Father Family Medical History: CVA/TIA, Myocardial Infarction ([place]) Additional Family Medical History / Comment(s): FATHER HAD A CVA AND THEN OF A [place] AT THE AGE OF 63 YRS. General Exam - General Exam Comments Initial Comments: 53 year old male, no distress. Limitations: no limitations Head exam: Present: atraumatic, normocephalic, normal inspection Eye exam: Present: normal appearance, PERRL, EOMI. Absent: scleral icterus, conjunctival injection, periorbital swelling ENT exam: Present: normal exam, mucous membranes moist, other (sinus tenderness. Nystagmus on R gaze) Neck exam: Present: normal inspection. Absent: tenderness, meningismus, lymphadenopathy Respiratory exam: Present: normal lung sounds bilaterally. Absent: respiratory distress, wheezes, rales, rhonchi, stridor Cardiovascular Exam: Present: regular rate, normal rhythm, normal heart sounds. Absent: systolic murmur, diastolic murmur, rubs, gallop, clicks GI/Abdominal exam: Present: soft, normal bowel sounds. Absent: distended, tenderness, guarding, rebound, rigid Back exam: Present: normal inspection Neurological exam: Present: alert, oriented X3, CN II-XII intact Psychiatric exam: Present: normal affect, normal mood Skin exam: Present: warm, dry, intact, normal color. Absent: rash Course Vital Signs 11/10/18 11/10/18 11/10/18 15:47 16:21 16:38 Temperature 98.3 F Pulse Rate 70 66 67 Respiratory 20 Rate Blood Pressure 116/71 O2 Sat by Pulse 92 L Oximetry 11/10/18 11/10/18 11/10/18 18:00 18:30 19:00 Temperature Pulse Rate 64 62 64 Respiratory 18 24 20 Rate Blood Pressure 103/64 128/76 130/70 O2 Sat by Pulse 96 91 L 96 Oximetry 11/10/18 19:56 Temperature 98.8 F Pulse Rate 97 Respiratory 18 Rate Blood Pressure 134/70 O2 Sat by Pulse 97 Oximetry Medical Decision Making - Medical Decision Making 53 year old male presents with vertigo like symptoms related to sinus congestion ad cough from URI. Patient labs were obtained. Patienthas sinus tenderness, and nystagmus noted on R lateral gaze. Given meclizine and lfuids and reports relief. Will DC with antibiotics and steriod and close follow up with PCP. - Lab Data Result diagrams: 11/10/18 17:18 11/10/18 17:18 Lab Results 11/10/18 11/10/18 11/10/18 Range/Units 17:18 17:18 17:18 WBC 6.7 (3.8-10.6) k/uL RBC 5.24 (4.30-5.90) m/uL Hgb 15.7 (13.0-17.5) gm/dL Hct 47.5 (39.0-53.0) % MCV 90.7 (80.0-100.0) fL MCH 29.9 (25.0-35.0) pg MCHC 33.0 (31.0-37.0) g/dL RDW 14.8 (11.5-15.5) % Plt Count 198 (150-450) k/uL Neutrophils % 78 % Lymphocytes % 12 % Monocytes % 7 % Eosinophils % 0 % Basophils % 1 % Neutrophils # 5.2 (1.3-7.7) k/uL Lymphocytes # 0.8 L (1.0-4.8) k/uL Monocytes # 0.5 (0-1.0) k/uL Eosinophils # 0.0 (0-0.7) k/uL Basophils # 0.1 (0-0.2) k/uL PT 10.9 (9.0-12.0) sec INR 1.0 (<1.2) APTT 27.2 (22.0-30.0) sec Sodium 136 L (137-145) mmol/L Potassium 4.7 (3.5-5.1) mmol/L Chloride 100 (98-107) mmol/L Carbon Dioxide 26 (22-30) mmol/L Anion Gap 10 mmol/L BUN 14 (9-20) mg/dL Creatinine 0.88 (0.66-1.25) mg/dL Est GFR (CKD-EPI)AfAm >90 (>60 ml/min/1.73 sqM) Est GFR (CKD-EPI)NonAf >90 (>60 ml/min/1.73 sqM) Glucose 116 H (74-99) mg/dL Calcium 9.1 (8.4-10.2) mg/dL Magnesium 1.8 (1.6-2.3) mg/dL Total Bilirubin 0.6 (0.2-1.3) mg/dL AST 50 (17-59) U/L ALT 52 (21-72) U/L Alkaline Phosphatase 69 (38-126) U/L Troponin I (0.000-0.034) ng/mL Total Protein 7.6 (6.3-8.2) g/dL Albumin 4.1 (3.5-5.0) g/dL 11/10/18 Range/Units 17:18 WBC (3.8-10.6) k/uL RBC (4.30-5.90) m/uL Hgb (13.0-17.5) gm/dL Hct (39.0-53.0) % MCV (80.0-100.0) fL MCH (25.0-35.0) pg MCHC (31.0-37.0) g/dL RDW (11.5-15.5) % Plt Count (150-450) k/uL Neutrophils % % Lymphocytes % % Monocytes % % Eosinophils % % Basophils % % Neutrophils # (1.3-7.7) k/uL Lymphocytes # (1.0-4.8) k/uL Monocytes # (0-1.0) k/uL Eosinophils # (0-0.7) k/uL Basophils # (0-0.2) k/uL PT (9.0-12.0) sec INR (<1.2) APTT (22.0-30.0) sec Sodium (137-145) mmol/L Potassium (3.5-5.1) mmol/L Chloride (98-107) mmol/L Carbon Dioxide (22-30) mmol/L Anion Gap mmol/L BUN (9-20) mg/dL Creatinine (0.66-1.25) mg/dL Est GFR (CKD-EPI)AfAm (>60 ml/min/1.73 sqM) Est GFR (CKD-EPI)NonAf (>60 ml/min/1.73 sqM) Glucose (74-99) mg/dL Calcium (8.4-10.2) mg/dL Magnesium (1.6-2.3) mg/dL Total Bilirubin (0.2-1.3) mg/dL AST (17-59) U/L ALT (21-72) U/L Alkaline Phosphatase (38-126) U/L Troponin I 0.013 (0.000-0.034) ng/mL Total Protein (6.3-8.2) g/dL Albumin (3.5-5.0) g/dL 11/10/18 17:27 EKG shows normal sinus rhythm increased RS ratio in V1 consider early transition or posterior infarct abnormal EKG. Ventricular rate of 64 bpm. VT interval 141 seconds pink worship is 86 ms. QT QTc is 412/425. - Radiology Data Radiology results: report reviewed nNormal CXR. Disposition Clinical Impression: Sinusitis, Bronchitis, Vertigo Disposition: HOME SELF-CARE Condition: Good Instructions (If sedation given, give patient instructions): Vertigo (ED) Additional Instructions: Patient has have close follow-up with primary care physician. Return to the emergency department if any alarming signs or symptoms occur. Take the medication as prescribed. Prescriptions: Amoxic-Pot Clav 875-125Mg [Augmentin 875-125] 1 tab PO Q12HR #20 tablet Meclizine [Antivert] 25 mg PO TID #20 tab predniSONE 10 mg PO DAILY #15 tab Is patient prescribed a controlled substance at d/c from ED?: No Referrals: Davida Alexander MD [Primary Care Provider] - 1-2 days Time of Disposition: 19:30
[2018-11-10 17:37] LABS: Basophils # (A) 0.1 k/uL (0-0.2); Basophils % (A) 1 %; Eosinophils % (A) 0 %; HCT 47.5 % (39.0-53.0); HGB 15.7 gm/dL (13.0-17.5); Lymphocytes # (A) 0.8 k/uL (1.0-4.8); Lymphocytes % (A) 12 %; MCH 29.9 pg (25.0-35.0); MCV 90.7 fL (80.0-100.0); Mean Platelet Volume 6.6; Monocytes # (A) 0.5 k/uL (0-1.0); Monocytes % (A) 7 %; Neutrophils # (A) 5.2 k/uL (1.3-7.7); Neutrophils % (A) 78 %; Platelet Count 198 k/uL (150-450); RBC 5.24 m/uL (4.30-5.90); RDW 14.8 % (11.5-15.5); WBC 6.7 k/uL (3.8-10.6)
[2018-11-10 17:49] LABS: ALT 52 U/L (21-72); AST 50 U/L (17-59); Albumin 4.1 g/dL (3.5-5.0); Alkaline Phosphatase 69 U/L (38-126); Anion Gap 10 mmol/L; Blood Urea Nitrogen 14 mg/dL (9-20); Calcium 9.1 mg/dL (8.4-10.2); Carbon Dioxide 26 mmol/L (22-30); Chloride 100 mmol/L (98-107); Glucose 116 mg/dL (74-99); Magnesium 1.8 mg/dL (1.6-2.3); Partial Thromboplastin Time 27.2 sec (22.0-30.0); Potassium 4.7 mmol/L (3.5-5.1); Prothrombin Time 10.9 sec (9.0-12.0); Sodium 136 mmol/L (137-145); Total Bilirubin 0.6 mg/dL (0.2-1.3); Total Protein 7.6 g/dL (6.3-8.2)
--- NOTE | 2018-11-10 18:55 | XR ---
EXAMINATION: XR chest 2V DATE AND TIME: 11/10/2018 5:36 PM CLINICAL INDICATION: PHH; difficulty breathing TECHNIQUE: Departmental protocol COMPARISON: 09/23/2018 FINDINGS: The blank soft tissues are prominent. Lungs are clear. The pleural spaces are negative. The cardiac silhouette is not enlarged. The remainder of the mediastinal silhouette is unremarkable. The skeletal structures and soft tissues are negative for acute findings. IMPRESSION: NO ACUTE PROCESS.
[2018-11-10] MEDS ORDERED: AMOXIC-POT CLAV 875MG STARTER 2 EACH TABLET PO STA (19:29)
[2018-11-10] MEDS ORDERED: DIAZEPAM 5 MG TAB PO STA (19:29)
[2018-11-10 19:57] VITALS: BP 134/70; PULSE 97; RESP 18; TEMP 98.8
== END 2018-11-10 19:57 | disposition home or self-care (01) ==
LOC: EC 15:36
DX: J40 Bronchitis, not specified as acute or chronic (principal); J32.9 Chronic sinusitis, unspecified; R42 Dizziness and giddiness; K21.9 Gastro-esophageal reflux disease without esophagitis; I10 Essential (primary) hypertension; E66.01 Morbid (severe) obesity due to excess calories; Z68.41 Body mass index [BMI] 40.0-44.9, adult; F17.200 Nicotine dependence, unspecified, uncomplicated; Z79.899 Other long term (current) drug therapy
CPT/HCPCS: 99284; 96374; 96361 ×3; 36415; 94640; 93005; 80053; 83735; 84484; 85025; 85610; 85730; 71046; J2930

== ENCOUNTER 2019-05-29 16:14 | Inpatient (IN) | payer BC ==
[2019-05-29] MEDS ORDERED: KETOROLAC 30 MG/ML 1 ML VIAL IVP STA (16:42)
[2019-05-29 17:13] LABS: Basophils # (A) 0.2 k/uL (0-0.2); Basophils % (A) 2 %; Eosinophils # (A) 0.3 k/uL (0-0.7); Eosinophils % (A) 3 %; HCT 42.6 % (39.0-53.0); HGB 14.4 gm/dL (13.0-17.5); Lymphocytes # (A) 2.3 k/uL (1.0-4.8); Lymphocytes % (A) 18 %; MCH 30.3 pg (25.0-35.0); MCHC 33.8 g/dL (31.0-37.0); MCV 89.6 fL (80.0-100.0); Mean Platelet Volume 6.4; Monocytes # (A) 0.5 k/uL (0-1.0); Monocytes % (A) 4 %; Neutrophils % (A) 72 %; Platelet Count 261 k/uL (150-450); RBC 4.76 m/uL (4.30-5.90); RDW 15.1 % (11.5-15.5); WBC 12.5 k/uL (3.8-10.6)
[2019-05-29 17:15] LABS: ALT 25 U/L (21-72); AST 27 U/L (17-59); African American GFR (CKD) >90 (>60 ml/min/1.73 sqM); Albumin 3.8 g/dL (3.5-5.0); Alkaline Phosphatase 76 U/L (38-126); Anion Gap 10 mmol/L; Blood Urea Nitrogen 19 mg/dL (9-20); Calcium 8.9 mg/dL (8.4-10.2); Carbon Dioxide 25 mmol/L (22-30); Chloride 103 mmol/L (98-107); Glucose 118 mg/dL (74-99); Potassium 4.3 mmol/L (3.5-5.1); Sodium 138 mmol/L (137-145); Total Bilirubin 0.2 mg/dL (0.2-1.3); Total Protein 7.2 g/dL (6.3-8.2)
--- NOTE | 2019-05-29 17:18 | ED ---
Wound/Laceration HPI - General Chief Complaint: Wound/Laceration Stated Complaint: Open wound on foot Time Seen by Provider: 05/29/19 16:22 Source: patient Mode of arrival: ambulatory Limitations: no limitations - History of Present Illness Initial Comments: Patient is a 53-year-old male presenting to the emergency Department with complaints of a wound on the bottom of his left foot that has been there for over a year. Patient states he initially was going to his PCP for care of this wound that started as a corn. Patient states it was healing and he stopped going to his PCP. Patient states in the last week his left foot has increased in pain and redness and also swelling and redness of his second digit on the left foot. Patient states the wound is getting larger as well. Patient states he also has a small wound starting on his right foot as well. Patient admits to history of hypertension, GERD, and bilateral neuropathy of the feet. Patient denies any fever, chills, nausea, vomiting. Patient has no other complaints at this time. Upon arrival to the ER, vital signs are stable. - Related Data Home Medications Medication Instructions Recorded Confirmed Hydrochlorothiazide [Hydrodiuril] 25 mg PO QAM 06/27/16 05/29/19 Omeprazole 20 mg PO DAILY 06/27/16 05/29/19 Cholecalciferol (Vitamin D3) 2,000 unit PO DAILY 05/29/19 05/29/19 [Vitamin D3] Previous Rx's Medication Instructions Recorded Losartan [Cozaar] 25 mg PO DAILY tab 09/26/18 amLODIPine [Norvasc] 5 mg PO DAILY tab 09/26/18 Allergies Allergy/AdvReac Type Severity Reaction Status Date / Time No Known Allergies Allergy Verified 05/29/19 18:13 Review of Systems ROS Statement: Those systems with pertinent positive or pertinent negative responses have been documented in the HPI. ROS Other: All systems not noted in ROS Statement are negative. Past Medical History Past Medical History: GERD/Reflux, Hyperlipidemia, Hypertension Additional Past Medical History / Comment(s): Occasional low back pain, paroxysmal atrial fibrillation, morbid obesity with BMI 43.8 History of Any Multi-Drug Resistant Organisms: None Reported Past Surgical History: Orthopedic Surgery Additional Past Surgical History / Comment(s): L BICEP SX WITH METAL PLATE, R A RM BENIGN CYST, 2015 COLONOSCOPY WITH BENIGN POLYP Past Anesthesia/Blood Transfusion Reactions: No Reported Reaction Past Psychological History: No Psychological Hx Reported Smoking Status: Current every day smoker Past Alcohol Use History: Occasional Past Drug Use History: None Reported - Past Family History Mother Family Medical History: No Reported History Additional Family Medical History / Comment(s): MOTHER IS HEALTHY Father Family Medical History: CVA/TIA, Myocardial Infarction ([place]) Additional Family Medical History / Comment(s): FATHER HAD A CVA AND THEN OF A [place] AT THE AGE OF 63 YRS. General Exam - General Exam Comments Initial Comments: GENERAL: Well-appearing, well-nourished and in no acute distress. HEAD: Atraumatic, normocephalic. EYES: Pupils equal round and reactive to light, extraocular movements intact, sclera anicteric, conjunctiva are normal. ENT: TMs normal, nares patent, oropharynx clear without exudates. Moist mucous membranes. NECK: Normal range of motion, supple without lymphadenopathy or JVD. LUNGS: Breath sounds clear to auscultation bilaterally and equal. No wheezes rales or rhonchi. HEART: Regular rate and rhythm without murmurs, rubs or gallops. ABDOMEN: Soft, nontender, normoactive bowel sounds. No guarding, no rebound. No masses appreciated. : Deferred EXTREMITIES: Normal range of motion, no pitting or edema. No clubbing or cyanosis. NEUROLOGICAL: Cranial nerves II through XII grossly intact. Normal speech, normal gait. PSYCH: Normal mood, normal affect. SKIN: Warm, Dry, normal turgor, no rashes. There is a nickel-sized ulcer on the plantar surface of the left foot at the second and third metatarsal heads. The area is tender to the touch with a strong odor coming from the area. The left second digit is a very erythematous, edematous, painful to the touch. Patient does not have range of motion of the second left digit. Patient is ne urovascular intact. There is some erythema traveling into the left foot as well. There is a quarter-sized calloused wound on the right foot plantar surface under the first metatarsal head. This is not painful to the touch and it is not open at this time. Limitations: no limitations Course Vital Signs 05/29/19 05/29/19 16:18 18:45 Temperature 98.1 F Pulse Rate 88 76 Respiratory 20 16 Rate Blood Pressure 181/85 138/74 O2 Sat by Pulse 97 99 Oximetry Medical Decision Making - Medical Decision Making Patient is a 53-year-old male presenting with an ulcer to the bottom of his left foot that has been increasing in size of the past year. The last week patient has had increase in erythema and edema of his left foot as well as the left second digit. Patient denies any fever, chills. Patient's blood pressure is elevated at arrival today rest vital signs are normal. On exam patient has a nickel-sized ulcer on the bottom of his left foot as well as erythema and edema present in the left second digit and also spreading into the left foot. Wound culture was taken. CBC shows slight white count at 12.5, CMP is normal, glucose is 118, lactic acid is 1.7. Blood cultures are pending. Patient was given Toradol for pain as well as started on Zosyn and Vanco. Case was discussed with Dr. Zimmerman. Patient will be admitted for IV antibiotics and consult to wound care. - Lab Data Result diagrams: 05/29/19 16:25 05/29/19 16:25 Lab Results 05/29/19 05/29/19 05/29/19 Range/Units 16:25 16:25 16:25 WBC 12.5 H (3.8-10.6) k/uL RBC 4.76 (4.30-5.90) m/uL Hgb 14.4 (13.0-17.5) gm/dL Hct 42.6 (39.0-53.0) % MCV 89.6 (80.0-100.0) fL MCH 30.3 (25.0-35.0) pg MCHC 33.8 (31.0-37.0) g/dL RDW 15.1 (11.5-15.5) % Plt Count 261 (150-450) k/uL Neutrophils % 72 % Lymphocytes % 18 % Monocytes % 4 % Eosinophils % 3 % Basophils % 2 % Neutrophils # 9.0 H (1.3-7.7) k/uL Lymphocytes # 2.3 (1.0-4.8) k/uL Monocytes # 0.5 (0-1.0) k/uL Eosinophils # 0.3 (0-0.7) k/uL Basophils # 0.2 (0-0.2) k/uL Sodium 138 (137-145) mmol/L Potassium 4.3 (3.5-5.1) mmol/L Chloride 103 (98-107) mmol/L Carbon Dioxide 25 (22-30) mmol/L Anion Gap 10 mmol/L BUN 19 (9-20) mg/dL Creatinine 0.81 (0.66-1.25) mg/dL Est GFR (CKD-EPI)AfAm >90 (>60 ml/min/1.73 sqM) Est GFR (CKD-EPI)NonAf >90 (>60 ml/min/1.73 sqM) Glucose 118 H (74-99) mg/dL Plasma Lactic Acid Cyril 1.7 (0.7-2.0) mmol/L Calcium 8.9 (8.4-10.2) mg/dL Total Bilirubin 0.2 (0.2-1.3) mg/dL AST 27 (17-59) U/L ALT 25 (21-72) U/L Alkaline Phosphatase 76 (38-126) U/L Total Protein 7.2 (6.3-8.2) g/dL Albumin 3.8 (3.5-5.0) g/dL Disposition Clinical Impression: Ulcer of left foot, Left foot pain, Infected ulcer of skin Disposition: ADMITTED IP TO THIS [facility] Condition: Stable Is patient prescribed a controlled substance at d/c from ED?: No Decision Date: 05/29/19 Decision Time: 18:21
--- NOTE | 2019-05-29 17:28 | XR ---
EXAMINATION TYPE: XR foot limited bilateral DATE OF EXAM: 05/29/2019 COMPARISON: NONE HISTORY: Nonhealing wound plantar surface of the big toe TECHNIQUE: 4 views FINDINGS: . 2 views each foot were obtained. There is linear metallic foreign body in the soft tissues at the medial plantar aspect of the right f irst metatarsal. There is soft tissue swelling around the right first MP joint. I see no focal bone d estruction. There is multiple bilateral hammertoe deformity. There is right-sided plantar calcaneal s purring. IMPRESSION: Right-sided soft tissue swelling at the first MP joint. No definite bone destruction to s uggest osteomyelitis. Right-sided foreign body. Multiple hammertoe deformity.
[2019-05-29] MEDS ORDERED: ACETAMINOPHEN TAB 325 MG TAB PO PRN (18:06)
[2019-05-29] MEDS ORDERED: NALOXONE 0.4 MG/ML 1 ML VIAL IV PRN (18:06)
[2019-05-29] MEDS ORDERED: MORPHINE SULFATE 4 MG/ML SYRINGE IV PRN (18:06)
[2019-05-29] MEDS ORDERED: ONDANSETRON 4 MG/2 ML VIAL IVP PRN (18:06)
[2019-05-29] MEDS ORDERED: PIPERACILLIN-TAZOBACTAM 3.375 GM in SODIUM CHLORIDE 0.9% 100 ML IVPB STA (18:15)
[2019-05-29] MEDS ORDERED: VANCOMYCIN IV PER PHARMACY 1 EACH MISC MISCELLANE PRN (18:16)
[2019-05-29] MEDS ORDERED: VANCOMYCIN 2,500 MG in SODIUM CHLORIDE 0.9% 500 ML 500 ML IVPB ONE (18:45)
[2019-05-29] MEDS: SODIUM CHLORIDE 0.9% 1,000 ML IV SCH (19:00)
[2019-05-29 20:02] VITALS: BMI 38.2
[2019-05-30] MEDS: traMADol 50 MG TAB PO PRN ×3 (05:16→20:21)
[2019-05-30] MEDS ORDERED: LIDOCAINE 1% INJ 10MG/ML (20 ML MDV) SQ ONE (08:12)
--- NOTE | 2019-05-30 09:14 | CONS ---
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 He has a callus formation on his left foot for the past 1 year. Under care of Dr. Alexander and also has a callus on the plantar aspect of the right foot. The callus on the left foot plantar aspect base of the second toe is open and is infected. Callus on the lateral aspect of the foot is not infected. There is marked swelling noted of the left second toe with some cellulitis. The patient has been admitted with IV antibiotic. MEDICAL HISTORY: History of hypertension. No history of diabetes. Patient has a history of peripheral neuropathy. ALLERGY: No known allergies. The patient is a smoker. PHYSICAL EXAMINATION: NECK: Supple. Trachea central. CHEST: Clear on auscultation. ABDOMEN: Soft. Femoral pulses are palpable, dorsal pedis is palpable. The patient has an open callus left foot plantar aspect. Measurement is 2 x 1 cm with some devitalized tissue present. Also, there is marked swelling of the left foot second toe. PLAN: Excision of the callus and wound debridement with the deep culture and we will continue with IV antibiotic. MMODL / IJN: [id number] /
--- NOTE | 2019-05-30 09:14 | PCN ---
PROCEDURE NOTE PREOP DIAGNOSIS: Infected callus left foot plantar aspect measurement is 2 x 1 cm. OPERATION: Excision of the callus with debridement of the wound and taking deep culture from the left foot. DESCRIPTION OF PROCEDURE: This patient was seen and left foot was prepped and drapes applied in usual sterile manner. 1% lidocaine was infiltrated. Using sharp knife, we excised the callus down to subcutaneous tissue. Callus was removed. There was some devitalized tissue at the base of the wound which was excised. We took some deep culture. No active bleeding was noted. The wound was irrigated with saline. Then Medihoney was applied to the wound which will be changed daily. MMODL / IJN: [id number] /
[2019-05-30] MEDS: PANTOPRAZOLE 40 MG TABLET PO SCH (09:34)
[2019-05-30] MEDS: HYDROCHLOROTHIAZIDE 25 MG TAB PO SCH (09:34)
[2019-05-30] MEDS: LOSARTAN 25 MG TAB PO SCH (09:34)
[2019-05-30] MEDS: VANCOMYCIN 2,000 MG in SODIUM CHLORIDE 0.9% 500 ML 500 ML IVPB SCH ×2 (09:34→20:18)
[2019-05-30] MEDS: CHOLECALCIFEROL 1,000 UNIT TAB PO SCH (09:34)
[2019-05-30] MEDS: amLODIPine 5 MG TAB PO SCH (09:34)
[2019-05-30] MEDS: SODIUM CHLORIDE 0.9% 1,000 ML IV SCH (09:39)
--- NOTE | 2019-05-30 10:33 | P.HPIM ---
History of Present Illness H&P Date: 05/30/19 Javier Thayer, is a 53-year-old male who presented to [facility] emergency room with a chief complaint of severe pain in the left foot with open wound on the bottom of his left foot, he was evaluated in the emergency room and was admitted to medical floor, vascular surgery consultation was requested for wound debridement. Patient stated that he had the wound on his left foot for about 1 year which started as a callus, but subsequently got infected he was going to Dr. Alexander for care, he states that this improved significantly and he stopped going to Dr. Alexander, patient developed worsening pain and open wound with surrounding redness and he decided to come to emergency room. Patient denies any history of diabetes mellitus, his glucose on presentation was 118, will check hemoglobin A1c. He has a known history of hypertension, hyperlipidemia, gastroesophageal reflux disease, paroxysmal atrial fibrillation, and morbid obesity with a BMI of 43.8. On review of system patient denies any other complaints there is no fever or chills no headache or dizziness no chest pain no shortness of breath no cough no nausea or vomiting no abdominal pain no diarrhea and no burning was urination no frequency or urgency and no hematuria. Past Medical History Past Medical History: GERD/Reflux, Hyperlipidemia, Hypertension Additional Past Medical History / Comment(s): Occasional low back pain, paroxysmal atrial fibrillation, morbid obesity with BMI 43.8 History of Any Multi-Drug Resistant Organisms: None Reported Past Surgical History: Orthopedic Surgery Additional Past Surgical History / Comment(s): L BICEP SX WITH METAL PLATE, R ARM BENIGN CYST, 2014 COLONOSCOPY WITH BENIGN POLYP Past Anesthesia/Blood Transfusion Reactions: No Reported Reaction Past Psychological History: No Psychological Hx Reported Smoking Status: Current every day smoker Past Alcohol Use History: Occasional Past Drug Use History: None Reported - Past Family History Mother Family Medical History: No Reported History Additional Family Medical History / Comment(s): MOTHER IS HEALTHY Father Family Medical History: CVA/TIA, Myocardial Infarction ([place]) Additional Family Medical History / Comment(s): FATHER HAD A CVA AND THEN OF A [place] AT THE AGE OF 63 YRS. Medications and Allergies Home Medications Medication Instructions Recorded Confirmed Type Hydrochlorothiazide [Hydrodiuril] 25 mg PO QAM 06/27/16 05/29/19 History Omeprazole 20 mg PO DAILY 06/27/16 05/29/19 History Losartan [Cozaar] 25 mg PO DAILY tab 09/26/18 05/29/19 Rx amLODIPine [Norvasc] 5 mg PO DAILY tab 09/26/18 05/29/19 Rx Cholecalciferol (Vitamin D3) 2,000 unit PO DAILY 05/29/19 05/29/19 History [Vitamin D3] Allergies Allergy/AdvReac Type Severity Reaction Status Date / Time No Known Allergies Allergy Verified 05/29/19 18:13 Physical Exam Vitals: Vital Signs Temp Pulse Pulse Resp BP BP Pulse Ox 05/30/19 08:21 98.0 F 53 L 16 134/74 95 05/30/19 01:07 98.5 F 65 18 143/79 96 05/29/19 19:15 98.7 F 62 16 147/82 95 05/29/19 18:45 76 16 138/74 99 05/29/19 16:18 98.1 F 88 20 181/85 97 Intake and Output 05/29/19 05/30/19 05/30/19 22:59 06:59 14:59 Intake Total 480 480 Balance 480 480 Intake: Oral 480 480 Other: Voiding Method Toilet Urinal Weight 131.542 kg In general patient is alert and oriented 3 in no apparent distress HEENT head normocephalic and atraumatic Neck is supple no JVD no goiter no lymphadenopathy Chest exam reveals a few scattered crackles no wheezing Cardiac exam reveals regular heart sounds S1 and S2 no gallops no murmurs Abdomen is soft nontender no organomegaly with normal bowel sounds Extremity exam reveals no edema no cyanosis or clubbing Neurological examination no gross focal deficit Foot exam is well documented by Dr. Oneal at this time patient is post procedure and dressing was not removed Results CBC & Chem 7: 05/29/19 16:25 05/29/19 16:25 Labs: Abnormal Lab Results - Last 24 Hours (Table) 05/29/19 05/29/19 05/29/19 Range/Units 16:25 16:25 16:25 WBC 12.5 H (3.8-10.6) k/uL Neutrophils # 9.0 H (1.3-7.7) k/uL ESR (0-15) mm/hr Glucose 118 H (74-99) mg/dL C-Reactive Protein 38.2 H (<10.0) mg/L 05/29/19 Range/Units 21:11 WBC (3.8-10.6) k/uL Neutrophils # (1.3-7.7) k/uL ESR 52 H (0-15) mm/hr Glucose (74-99) mg/dL C-Reactive Protein (<10.0) mg/L Microbiology - Last 24 Hours (Table) 05/29/19 19:00 Gram Stain - Preliminary Foot - Left Wound Culture - Preliminary Thrombosis Risk Factor Assmnt - Choose All That Apply Each Factor Represents 1 point: Swollen legs (current) Thrombosis Risk Factor Assessment Total Risk Factor Score: 1 Thrombosis Risk Factor Assessment Level: Low Risk Assessment and Plan Plan: #1 foot cellulitis was open ulcer status post debridement and deep cultures by Dr. Oneal, patient was started on IV antibiotic in the emergency room infe ctious disease consultation was initiated #2 underlying history of hypertension, resume home medications. #3 chart review mention history of paroxysmal atrial fibrillation patient is not on any anticoagulation will try to obtain records from his primary care physician. #4 check hemoglobin A1c rule out occult diabetes #5 for DVT prophylaxis Lovenox 40 mg subcu daily for GI prophylaxis continue Protonix
[2019-05-30] MEDS: ENOXAPARIN 40 MG/0.4 ML SYRINGE SQ SCH (12:12)
[2019-05-31] MEDS: SODIUM CHLORIDE 0.9% 1,000 ML IV SCH ×2 (02:20→09:35)
[2019-05-31] MEDS: traMADol 50 MG TAB PO PRN ×3 (05:20→23:39)
[2019-05-31] MEDS ORDERED: VANCOMYCIN TROUGH DUE 1 EACH MISC MISCELLANE ONE (08:00)
[2019-05-31 08:27] LABS: African American GFR (CKD) >90 (>60 ml/min/1.73 sqM); Anion Gap 9 mmol/L; Blood Urea Nitrogen 17 mg/dL (9-20); Calcium 8.9 mg/dL (8.4-10.2); Carbon Dioxide 28 mmol/L (22-30); Chloride 101 mmol/L (98-107); Glucose 93 mg/dL (74-99); Potassium 4.3 mmol/L (3.5-5.1); Sodium 138 mmol/L (137-145)
[2019-05-31 09:06] LABS: Anisocytosis Slight; Basophils # (A) 0.1 k/uL (0-0.2); Basophils % (A) 1 %; Eosinophils # (A) 0.4 k/uL (0-0.7); Eosinophils % (A) 4 %; HGB 14.3 gm/dL (13.0-17.5); Lymphocytes # (A) 1.7 k/uL (1.0-4.8); Lymphocytes % (A) 20 %; MCHC 33.2 g/dL (31.0-37.0); MCV 90.5 fL (80.0-100.0); Monocytes # (A) 0.5 k/uL (0-1.0); Monocytes % (A) 6 %; Neutrophils # (A) 5.7 k/uL (1.3-7.7); Neutrophils % (A) 68 %; Platelet Count 249 k/uL (150-450); RBC 4.75 m/uL (4.30-5.90); RDW 16.7 % (11.5-15.5); WBC 8.5 k/uL (3.8-10.6)
[2019-05-31] MEDS: CHOLECALCIFEROL 1,000 UNIT TAB PO SCH (09:35)
[2019-05-31] MEDS: ENOXAPARIN 40 MG/0.4 ML SYRINGE SQ SCH (09:35)
[2019-05-31] MEDS: VANCOMYCIN 2,000 MG in SODIUM CHLORIDE 0.9% 500 ML 500 ML IVPB SCH ×2 (09:36→21:03)
[2019-05-31] MEDS: PANTOPRAZOLE 40 MG TABLET PO SCH (09:36)
[2019-05-31] MEDS: LOSARTAN 25 MG TAB PO SCH (09:36)
[2019-05-31] MEDS: amLODIPine 5 MG TAB PO SCH (09:36)
[2019-05-31] MEDS: HYDROCHLOROTHIAZIDE 25 MG TAB PO SCH (09:36)
--- NOTE | 2019-05-31 09:49 | P.CONS ---
History of Present Illness - Reason for Consult Consult date: 05/31/19 Foot ulcer, cellulitis - History of Present Illness Patient gives history that he had a callus on his left plantar foot for the past 1-1/2 years has been under the care of Dr. Alexander on and off with debridements but never completely heals. He has had no recent antibiotics. He does have peripheral neuropathy secondary to degenerative disc disease and has not noticed any increased pain. Increased swelling was caused him to come into the hospital. Patient admits that he does try to trim has calluses with a saige. He was found to be afebrile, white count 12.5, sed rate 52, CRP 38.2, blood sugar 118, albumin 3.8, lactic acid 1.7. Bilateral foot x-ray: Right-sided soft tissue swelling at the first MP joint. No definite bone destruction to suggest osteomyelitis. Right-sided foreign body. Multiple hammertoe deformity. Patient states in the past he was borderline diabetic but lost 50-60 pounds and his last lab work was done with Dr. Alexander he stated was normal. Patient was started on vancomycin and admitted to the [facility] floor. He underwent excision of callus and debridement of the wound yesterday with Dr. Oneal. Left foot wound culture is showing gram-negative bacilli, group D enterococcus. Blood culture no growth at 24 hours. His last hemoglobin A1c and March was 5.8. Patient also has a thick callus formation on the plantar surface right foot at the distal first metatarsal. No open wound at this time. 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 Discussed need for smoking cessation with the patient. Review of Systems Constitutional: Denies anorexia, Denies chills, Denies fatigue, Denies fever, Denies lethargy, Denies malaise, Denies poor appetite, Denies weakness Eyes: denies blurred vision, denies pain Ears, nose, mouth and throat: Denies dysphagia, Denies nasal congestion, Denies nasal discharge, Denies vertigo Cardiovascular: Reports leg edema, Denies chest pain, Denies decreased exercise tolerance, Denies dyspnea on exertion, Denies edema, Denies lightheadedness, Denies shortness of breath, Denies syncope Respiratory: Denies cough, Denies cough with sputum, Denies dyspnea, Denies hemoptysis, Denies home oxygen, Denies wheezing Gastrointestinal: Denies abdominal pain, Denies diarrhea, Denies loss of appetite, Denies nausea, Denies vomiting Genitourinary: Denies dysuria, Denies urinary retention Musculoskeletal: Denies frequent falls, Denies gait dysfunction, Denies muscle weakness, Denies myalgias Integumentary: Reports color changes, Reports darkening of skin, Reports wounds, Denies pruritus, Denies rash Neurological: Denies change in mentation, Denies change in speech, Denies gait dysfunction, Denies numbness, Denies weakness Psychiatric: Denies anxiety, Denies depression Endocrine: Denies fatigue, Denies weight change Past Medical History Past Medical History: GERD/Reflux, Hyperlipidemia, Hypertension Additional Past Medical History / Comment(s): Occasional low back pain, paroxysmal atrial fibrillation, morbid obesity with BMI 43.8 History of Any Multi-Drug Resistant Organisms: None Reported Past Surgical History: Orthopedic Surgery Additional Past Surgical History / Comment(s): L BICEP SX WITH METAL PLATE, R ARM BENIGN CYST, 2014 COLONOSCOPY WITH BENIGN POLYP Past Anesthesia/Blood Transfusion Reactions: No Reported Reaction Past Psychological History: No Psychological Hx Reported Smoking Status: Current every day smoker Past Alcohol Use History: Occasional Additional Past Alcohol Use History / Comment(s): Patient is a smoker of up to 1-1/2 packs per day for 20-30 years. 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 He denies any marijuana or illicit drug use. He drinks alcohol occasionally. 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 He lives at home with his and daughter. There are 2 dogs in the home. He denies any recent travel, no service. Past Drug Use History: None Reported - Past Family History Mother Family Medical History: No Reported History Additional Family Medical History / Comment(s): MOTHER IS HEALTHY Father Family Medical History: CVA/TIA, Myocardial Infarction ([place]) Additional Family Medical History / Comment(s): FATHER HAD A CVA AND THEN OF A NE AT THE AGE OF 63 YRS. Medications and Allergies Home Medications Medication Instructions Recorded Confirmed Type Hydrochlorothiazide [Hydrodiuril] 25 mg PO QAM 06/27/16 05/29/19 History Omeprazole 20 mg PO DAILY 06/27/16 05/29/19 History Losartan [Cozaar] 25 mg PO DAILY tab 09/26/18 05/29/19 Rx amLODIPine [Norvasc] 5 mg PO DAILY tab 09/26/18 05/29/19 Rx Cholecalciferol (Vitamin D3) 2,000 unit PO DAILY 05/29/19 05/29/19 History [Vitamin D3] Allergies Allergy/AdvReac Type Severity Reaction Status Date / Time No Known Allergies Allergy Verified 05/29/19 18:13 Physical Exam Vitals: Vital Signs Temp Pulse Resp BP Pulse Ox 05/31/19 07:30 98.6 F 51 L 16 148/85 94 L 05/31/19 01:20 98.5 F 57 L 18 136/73 97 05/30/19 18:56 98.6 F 61 16 139/84 97 05/30/19 14:32 98.7 F 63 16 129/75 96 Intake and Output 05/30/19 05/31/19 05/31/19 22:59 06:59 14:59 Intake Total 776 480 Balance 776 480 Intake: Oral 776 480 Other: Voiding Method Toilet Urinal Gen: This is a 53-year-old male obese. Patient is resting in bed appears to be comfortable and in no acute distress. HEENT: Head is atraumatic, normocephalic. Pupils equal, round. Sclerae is anicteric. NECK: Supple. No JVD. No lymphadenopathy. No thyromegaly. LUNGS: Clear to auscultation. No wheezes or rhonchi. No intercostal r etractions. HEART: Regular rate and rhythm. No murmur. ABDOMEN: Soft. Bowel sounds are present. No masses. No tenderness. EXTREMITIES: Dorsalis pedis +2 bilaterally. Patient has edema to the left foot. Dressing in place which was not removed. Capillary refill 2 seconds. Right foot has thick black callus on the plantar surface distal first metatarsal. Onychomycosis bilaterally. No foul odor. NEUROLOGICAL: Patient is awake, alert and oriented x3. Cranial nerves 2 through 12 are grossly intact. Results Results: Laboratory Results WBC 8.5 k/uL (3.8-10.6) 05/31/19 07:45 RBC 4.75 m/uL (4.30-5.90) 05/31/19 07:45 Hgb 14.3 gm/dL (13.0-17.5) 05/31/19 07:45 Hct 43.0 % (39.0-53.0) 05/31/19 07:45 MCV 90.5 fL (80.0-100.0) 05/31/19 07:45 MCH 30.0 pg (25.0-35.0) 05/31/19 07:45 MCHC 33.2 g/dL (31.0-37.0) 05/31/19 07:45 RDW 16.7 % (11.5-15.5) H 05/31/19 07:45 Plt Count 249 k/uL (150-450) 05/31/19 07:45 Neutrophils % 68 % 05/31/19 07:45 Lymphocytes % 20 % 05/31/19 07:45 Monocytes % 6 % 05/31/19 07:45 Eosinophils % 4 % 05/31/19 07:45 Basophils % 1 % 05/31/19 07:45 Neutrophils # 5.7 k/uL (1.3-7.7) 05/31/19 07:45 Lymphocytes # 1.7 k/uL (1.0-4.8) 05/31/19 07:45 Monocytes # 0.5 k/uL (0-1.0) 05/31/19 07:45 Eosinophils # 0.4 k/uL (0-0.7) 05/31/19 07:45 Basophils # 0.1 k/uL (0-0.2) 05/31/19 07:45 Anisocytosis Slight 05/31/19 07:45 ESR 52 mm/hr (0-15) H 05/29/19 21:11 Sodium 138 mmol/L (137-145) 05/31/19 07:45 Potassium 4.3 mmol/L (3.5-5.1) 05/31/19 07:45 Chloride 101 mmol/L (98-107) 05/31/19 07:45 Carbon Dioxide 28 mmol/L (22-30) 05/31/19 07:45 Anion Gap 9 mmol/L 05/31/19 07:45 BUN 17 mg/dL (9-20) 05/31/19 07:45 Creatinine 0.88 mg/dL (0.66-1.25) 05/31/19 07:45 Est GFR (CKD-EPI)AfAm >90 (>60 ml/min/1.73 sqM) 05/31/19 07:45 Est GFR (CKD-EPI)NonAf >90 (>60 ml/min/1.73 sqM) 05/31/19 07:45 Glucose 93 mg/dL (74-99) 05/31/19 07:45 Plasma Lactic Acid Cyril 1.7 mmol/L (0.7-2.0) 05/29/19 16:25 Calcium 8.9 mg/dL (8.4-10.2) 05/31/19 07:45 Total Bilirubin 0.2 mg/dL (0.2-1.3) 05/29/19 16:25 AST 27 U/L (17-59) 05/29/19 16:25 ALT 25 U/L (21-72) 05/29/19 16:25 Alkaline Phosphatase 76 U/L (38-126) 05/29/19 16:25 C-Reactive Protein 38.2 mg/L (<10.0) H 05/29/19 16:25 Total Protein 7.2 g/dL (6.3-8.2) 05/29/19 16:25 Albumin 3.8 g/dL (3.5-5.0) 05/29/19 16:25 Vancomycin Trough 10.9 ug/mL 05/31/19 07:45 CBC & Chem 7: 05/31/19 07:45 05/31/19 07:45 Labs: Abnormal Lab Results - Last 24 Hours (Table) 05/31/19 Range/Units 07:45 RDW 16.7 H (11.5-15.5) % Microbiology - Last 24 Hours (Table) 05/30/19 09:15 Gram Stain - Preliminary Foot - Left Wound Culture - Preliminary 05/29/19 19:00 Gram Stain - Preliminary Foot - Left Wound Culture - Preliminary Gram Neg Bacilli Group D Enterococcus 05/29/19 16:25 Blood Culture - Preliminary Blood No Growth after 24 hours Assessment and Plan Plan: This is a 53-year-old male with chronic ulcer to the left foot and presents with active infection. Bone scan will be ordered to rule out osteomyelitis. Patient is currently on vancomycin and Rocephin will be added. Await finalization of wound cultures. Blood culture is no growth at 24 hours. Discussed plan for patient to follow the wound healing Center after discharge which she is agre eable to do. Continue supportive care. Further recommendations as patient progresses. The above dictated assessment and findings were discussed with Dr. Hernandez. The impression and plan of care have been directed as dictated. Jasmin Mendez nurse practitioner acting as scribe for Dr. Hernandez.
--- NOTE | 2019-05-31 11:11 | P.PN ---
Subjective Progress Note Date: 05/31/19 Javier Thayer, is a 53-year-old male who presented to [facility] emergency room with a chief complaint of severe pain in the left foot with open wound on the bottom of his left foot, he was evaluated in the emergency room and was admitted to medical floor, vascular surgery consultation was requested for wound debridement. Patient stated that he had the wound on his left foot for about 1 year which started as a callus, but subsequently got infected he was going to Dr. Alexander for care, he states that this improved significantly and he stopped going to Dr. Alexander, patient developed worsening pain and open wound with surrounding redness and he decided to come to emergency room. Patient denies any history of diabetes mellitus, his glucose on presentation was 118, will check hemoglobin A1c. He has a known history of hypertension, hyperlipidemia, gastroesophageal reflux disease, paroxysmal atrial fibrillation, and morbid obesity with a BMI of 43.8. On review of system patient denies any other complaints there is no fever or chills no headache or dizziness no chest pain no shortness of breath no cough no nausea or vomiting no abdominal pain no diarrhea and no burning was urination no frequency or urgency and no hematuria. On 05/31/2019 patient alert and oriented 3. Status post debridement of the left foot wound with Dr. Oneal. Dressing is clean dry and intact. Infectious disease is following. Patient remains on vancomycin Rocephin per ID awaiting final cultures. At that time patient denies chest pain or shortness of breath. Patient denies nausea vomiting or diarrhea. Patient denies any urinary burning frequency Objective - Vital Signs Vital signs: Vital Signs Temp 98.6 F 05/31/19 07:30 Pulse 51 L 05/31/19 07:30 Resp 16 05/31/19 07:30 BP 148/85 05/31/19 07:30 Pulse Ox 94 L 05/31/19 07:30 Intake & Output 05/30/19 05/31/19 05/31/19 18:59 06:59 18:59 Intake Total 236 1256 Balance 236 1256 Weight 131.542 kg Intake: Oral 236 1256 Other: Voiding Method Toilet Urinal # Voids 3 - Exam In general patient is alert and oriented 3 in no apparent distress HEENT head normocephalic and atraumatic Neck is supple no JVD no goiter no lymphadenopathy Chest exam reveals a few scattered crackles no wheezing Cardiac exam reveals regular heart sounds S1 and S2 no gallops no murmurs Abdomen is soft nontender no organomegaly with normal bowel sounds Extremity exam reveals no edema no cyanosis or clubbing Neurological examination no gross focal deficit Foot exam is well documented by Dr. Oneal at this time patient is post procedure and dressing was not removed - Labs CBC & Chem 7: 05/31/19 07:45 05/31/19 07:45 Labs: Abnormal Lab Results - Last 24 Hours (Table) 05/31/19 Range/Units 07:45 RDW 16.7 H (11.5-15.5) % Microbiology - Last 24 Hours (Table) 05/30/19 09:15 Gram Stain - Preliminary Foot - Left Wound Culture - Preliminary Proteus spec 05/29/19 19:00 Gram Stain - Preliminary Foot - Left Wound Culture - Preliminary Gram Neg Bacilli Group D Enterococcus 05/29/19 16:25 Blood Culture - Preliminary Blood No Growth after 24 hours Assessment and Plan Assessment: #1 foot cellulitis was open ulcer status post debridement and deep cultures by Dr. Oneal. Patient is currently postop day 1. Patient remains on Vanco and Rocephin per infectious disease. Awaiting final cultures. Bone scan have been ordered #2 underlying history of hypertension, resume home medications. #3 chart review mention history of paroxysmal atrial fibrillation patient is not on any anticoagulation will try to obtain records from his primary care physician. Discussed with patient patient reports that he followed up with cardiology services and further testing no more episodes of atrial fibrillation patient was not start anticoagulation due to having only one episode. #4 check hemoglobin A1c rule out occult diabetes DVT prophylaxis Lovenox 40 mg subcu daily for GI prophylaxis continue Protonix I performed an examination of the patient and discussed their management with the Nurse Practitioner. I have reviewed the Nurse Practitioner's notes and agree with the documented findings and plan of care
[2019-05-31 11:46] LABS: Hemoglobin A1C 5.7 % (4.0-6.0)
--- NOTE | 2019-05-31 13:13 | PN ---
PROGRESS NOTE This is a 53-year-old gentleman who had infected callus left foot plantar aspect with some redness, swelling of the second toe. We did the wound debridement to get deep culture. The patient is on IV antibiotic under Infectious Disease. We will use Medihoney gel. Today we have changed the dressing. We will continue. Patient is scheduled to have a scan done. MMODL / IJN: [id number] /
--- NOTE | 2019-05-31 15:44 | NM ---
EXAMINATION TYPE: NM bone 3 phase DATE OF EXAM: 05/31/2019 COMPARISON: Plain films 05/29/2019 HISTORY: Second metatarsal ulcer right first metatarsal ulcer Triple phase bone scintigraphy was performed following the injection of 24.9 mCi Tc 99m MDP. Immedia te images and 4 hours post injection images acquired. FINDINGS: Blood flow: There is increased radiotracer accumulation within the distal left foot compared to the r ight. Blood pool: On blood pool images there is focal radiotracer accumulation in the second metatarsophala ngeal joint region. This correlates with the increased signal blood flow in the blood flow images. Static images: There is focal radiotracer accumulation at the left second metatarsophalangeal joint s pace. There is some uptake in the region of the base of the fifth metatarsal the right foot on static images. IMPRESSION: 1. 3 phases of increased radiotracer accumulation in the region of the left second metatarsophalangea l joint space suggestive for osteomyelitis. 2. Abnormal uptake in the right first metatarsal region to suggest osteomyelitis is not evident.
--- NOTE | 2019-05-31 23:52 | P.CON ---
Consult Note - . Consult date: 05/31/19 Assessment/Plan:: Patient gives history that he had a callus on his left plantar foot for the past 1-1/2 years has been under the care of Dr. Alexander on and off with debridements but never completely heals. He has had no recent antibiotics. He does have peripheral neuropathy secondary to degenerative disc disease and has not noticed any increased pain. Increased swelling was caused him to come into the hospital. Patient admits that he does try to trim has calluses with a saige. He was found to be afebrile, white count 12.5, sed rate 52, CRP 38.2, blood sugar 118, albumin 3.8, lactic acid 1.7. Bilateral foot x-ray: Right-sided soft tissue swelling at the first MP joint. No definite bone destruction to suggest osteomyelitis. Right-sided foreign body. Multiple hammertoe deformity. Patient states in the past he was borderline diabetic but lost 50-60 pounds and his last lab work was done with Dr. Alexander he stated was normal. Patient was started on vancomycin and admitted to the [facility] floor. He underwent excision of callus and debridement of the wound yesterday with Dr. Oneal. Left foot wound culture is showing gram-negative bacilli, group D enterococcus. Blood culture no growth at 24 hours. His last hemoglobin A1c and March was 5.8. Patient also has a thick callus formation on the plantar surface right foot at the distal first metatarsal. No open wound at this time. 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 Discussed need for smoking cessation with the patient. Please see the consult note as dictated by REVEN[employer] SPECIALIST Neo Jasmin Mendez. 53-year-old male who has a history of hospitalization which went time he had sudden onset of atrial fibrillation. He was suffering from superobesity and was instructed to lose weight and improve the lifestyle. 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 He relates that since coming to Hospital He is starting to feel better. The generalized malaise pain and discomfort have improved. He has been seen by the vascular surgeon debridement has occurred. Evaluation of underlying osteomyelitis is in process. Wound cultures being monitored and plans for outpatient intravenous antibiotic therapy if osteomyelitis is identified. The patient is aware of these plans. He does work but would likely be able to get to the outpatient clinic on a daily basis if needed for an outpatient infusion. We need to have a once daily infusion. The patient does have some deformity to his feet is unlikely etiology to the pressure points and results in the callus formation in the secondary infections. He will need to have evaluation by the orthopedist in the outpatient setting to allow fitting of inserts into however counter foot care he needs to wear for work to prevent further callus formation and secondary ulcerations. His weight loss should be helpful. I agree with evaluation, assessment and plan as dictated by nurse practitioner Mrs. Jasmin Mendez.
[2019-06-01 07:26] LABS: Basophils # (A) 0.1 k/uL (0-0.2); Basophils % (A) 1 %; Eosinophils # (A) 0.4 k/uL (0-0.7); Eosinophils % (A) 4 %; HCT 43.9 % (39.0-53.0); HGB 14.5 gm/dL (13.0-17.5); Lymphocytes % (A) 23 %; MCH 29.6 pg (25.0-35.0); MCHC 33.1 g/dL (31.0-37.0); MCV 89.5 fL (80.0-100.0); Mean Platelet Volume 6.2; Monocytes # (A) 0.4 k/uL (0-1.0); Monocytes % (A) 5 %; Neutrophils # (A) 5.6 k/uL (1.3-7.7); Neutrophils % (A) 66 %; Platelet Count 270 k/uL (150-450); RDW 14.6 % (11.5-15.5); WBC 8.4 k/uL (3.8-10.6)
[2019-06-01 07:42] LABS: ALT 28 U/L (21-72); AST 24 U/L (17-59); African American GFR (CKD) >90 (>60 ml/min/1.73 sqM); Albumin 3.7 g/dL (3.5-5.0); Alkaline Phosphatase 80 U/L (38-126); Anion Gap 6 mmol/L; Blood Urea Nitrogen 18 mg/dL (9-20); Calcium 8.9 mg/dL (8.4-10.2); Carbon Dioxide 31 mmol/L (22-30); Chloride 100 mmol/L (98-107); Glucose 93 mg/dL (74-99); Potassium 4.5 mmol/L (3.5-5.1); Sodium 137 mmol/L (137-145); Total Bilirubin 0.4 mg/dL (0.2-1.3); Total Protein 7.1 g/dL (6.3-8.2)
[2019-06-01] MEDS: VANCOMYCIN 2,000 MG in SODIUM CHLORIDE 0.9% 500 ML 500 ML IVPB SCH ×3 (09:22→23:05)
[2019-06-01] MEDS: CHOLECALCIFEROL 1,000 UNIT TAB PO SCH (09:22)
[2019-06-01] MEDS: PANTOPRAZOLE 40 MG TABLET PO SCH (09:22)
[2019-06-01] MEDS: ENOXAPARIN 40 MG/0.4 ML SYRINGE SQ SCH (09:22)
[2019-06-01] MEDS: HYDROCHLOROTHIAZIDE 25 MG TAB PO SCH (09:23)
[2019-06-01] MEDS: amLODIPine 5 MG TAB PO SCH (09:23)
[2019-06-01] MEDS: LOSARTAN 25 MG TAB PO SCH (09:23)
--- NOTE | 2019-06-01 10:42 | P.PN ---
Subjective Progress Note Date: 06/01/19 Javier Thayer, is a 53-year-old male who presented to [facility] emergency room with a chief complaint of severe pain in the left foot with open wound on the bottom of his left foot, he was evaluated in the emergency room and was admitted to medical floor, vascular surgery consultation was requested for wound debridement. Patient stated that he had the wound on his left foot for about 1 year which started as a callus, but subsequently got infected he was going to Dr. Alexander for care, he states that this improved significantly and he stopped going to Dr. Alexander, patient developed worsening pain and open wound with surrounding redness and he decided to come to emergency room. Patient denies any history of diabetes mellitus, his glucose on presentation was 118, will check hemoglobin A1c. He has a known history of hypertension, hyperlipidemia, gastroesophageal reflux disease, paroxysmal atrial fibrillation, and morbid obesity with a BMI of 43.8. On review of system patient denies any other complaints there is no fever or chills no headache or dizziness no chest pain no shortness of breath no cough no nausea or vomiting no abdominal pain no diarrhea and no burning was urination no frequency or urgency and no hematuria. On 05/31/2019 patient alert and oriented 3. Status post debridement of the left foot wound with Dr. Oneal. Dressing is clean dry and intact. Infectious disease is following. Patient remains on vancomycin Rocephin per ID awaiting final cultures. At that time patient denies chest pain or shortness of breath. Patient denies nausea vomiting or diarrhea. Patient denies any urinary burning frequency On 06/01/2019 patient is alert and oriented 3. Dressing is clean and dry and intact. Infectious disease is following. Bone scan was completed on 05/31/2019, imaging revealed left second metatarsophalangeal joint space suggestive for osteomyelitis. Patient denies nausea vomiting, patient denies chest pain or shortness of breath, patient denies fever or chills. Objective - Vital Signs Vital signs: Vital Signs Temp 98.5 F 06/01/19 07:06 Pulse 51 L 06/01/19 07:06 Resp 18 06/01/19 07:06 BP 149/94 06/01/19 07:06 Pulse Ox 94 L 06/01/19 07:06 Intake & Output 05/31/19 06/01/19 06/01/19 18:59 06:59 18:59 Intake Total 1786 1150 Balance 1786 1150 Intake: Intake, IV Titration 990 1150 Amount Sodium Chloride 0.9% 1, 390 600 000 ml @ 60 mls/hr IV . [id number] [facility] Rx#:[id number] Vancomycin 2,000 mg In 500 500 Sodium Chloride 0.9% 500 ml 500 ml @ 167 mls/hr IVPB Q12H [facility] Rx#: [id number] cefTRIAXone 2 gm In 100 50 Sodium Chloride 0.9% 50 ml @ 100 mls/hr IVPB Q24HR [facility] Rx#:[id number] Oral 796 Other: # Voids 1 - Exam In general patient is alert and oriented 3 in no apparent distress HEENT head normocephalic and atraumatic Neck is supple no JVD no goiter no lymphadenopathy Chest exam reveals a few scattered crackles no wheezing Cardiac exam reveals regular heart sounds S1 and S2 no gallops no murmurs Abdomen is soft nontender no organomegaly with normal bowel sounds Extremity exam reveals no edema no cyanosis or clubbing Neurological examination no gross focal deficit Foot exam is well documented by Dr. Oneal at this time patient is post procedure and dressing was not removed. - Labs CBC & Chem 7: 06/01/19 06:54 06/01/19 06:54 Labs: Abnormal Lab Results - Last 24 Hours (Table) 06/01/19 Range/Units 06:54 Carbon Dioxide 31 H (22-30) mmol/L Microbiology - Last 24 Hours (Table) 05/30/19 09:15 Gram Stain - Final Foot - Left Wound Culture - Final Proteus mirabilis 05/29/19 19:00 Gram Stain - Preliminary Foot - Left Wound Culture - Preliminary Proteus mirabilis Enterococcus faecalis 05/29/19 16:25 Blood Culture - Preliminary Blood No Growth after 48 hours Assessment and Plan Assessment: #1 foot cellulitis was open ulcer status post debridement and deep cultures by Dr. Oneal. Patient is currently postop day 1. Patient remains on Vanco and Rocephin per infectious disease. Awaiting final cultures. Bone scan on 05/31/2018 revealed left second metatarsophalangeal joint space suggestive for osteomyelitis. Infectious disease following, awaiting final results of blood cultures. #2 underlying history of hypertension, resume home medications. #3 chart review mention history of paroxysmal atrial fibrillation patient is not on any anticoagulation will try to obtain records from his primary care physician. Discussed with patient patient reports that he followed up with cardiology services and further testing no more episodes of atrial fibrillation patient was not start anticoagulation due to having only one episode. #4 check hemoglobin A1c rule out occult diabetes DVT prophylaxis Lovenox 40 mg subcu daily for GI prophylaxis continue Protonix I performed an examination of the patient and discussed their management with the Nurse Practitioner. I have reviewed the Nurse Practitioner's notes and agree with the documented findings and plan of care
[2019-06-01] MEDS: SODIUM CHLORIDE 0.9% 1,000 ML IV SCH (16:30)
[2019-06-01] MEDS: traMADol 50 MG TAB PO PRN (17:01)
[2019-06-01 19:09] VITALS: RESP 16
--- NOTE | 2019-06-01 23:23 | P.PN ---
Subjective Progress Note Date: 06/01/19 Patient gives history that he had a callus on his left plantar foot for the past 1-1/2 years has been under the care of Dr. Alexander on and off with debridements but never completely heals. He has had no recent antibiotics. He does have peripheral neuropathy secondary to degenerative disc disease and has not noticed any increased pain. Increased swelling was caused him to come into the hospital. Patient admits that he does try to trim has calluses with a saige. He was found to be afebrile, white count 12.5, sed rate 52, CRP 38.2, blood sugar 118, albumin 3.8, lactic acid 1.7. Bilateral foot x-ray: Right-sided soft tissue swelling at the first MP joint. No definite bone destruction to suggest osteomyelitis. Right-sided foreign body. Multiple hammertoe deformity. Patient states in the past he was borderline diabetic but lost 50-60 pounds and his last lab work was done with Dr. Alexander he stated was normal. Patient was started on vancomycin and admitted to the [facility] floor. He underwent excision of callus and debridement of the wound yesterday with Dr. Oneal. Left foot wound culture is showing gram-negative bacilli, group D enterococcus. Blood culture no growth at 24 hours. His last hemoglobin A1c and Gila was 5.8. Patient also has a thick callus formation on the plantar surface right foot at the distal first metatarsal. No open wound at this time. 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 Discussed need for smoking cessation with the patient. 06/01/2019 patient is feeling somewhat better. The patient is informed of the bone scan does have underlying osteomyelitis to the left foot second metatarsal where there is the chronic active ulceration. This means the patient does have osteoarthritis that is likely chronic in nature related to chronic ulceration. There however is not gross destruction of the bony structure. Goal will be antibiotic therapy. Given the cultures will need outpatient intravenous antibiotic therapy. Objective - Vital Signs Vital signs: Vital Signs Temp 98.0 F 06/01/19 19:07 Pulse 55 L 06/01/19 19:07 Resp 16 06/01/19 19:07 BP 169/88 06/01/19 19:07 Pulse Ox 95 06/01/19 19:07 Intake & Output 06/01/19 06/01/19 06/02/19 06:59 18:59 06:59 Intake Total 1150 Balance 1150 Intake: Intake, IV Titration 1150 Amount Sodium Chloride 0.9% 1, 600 000 ml @ 60 mls/hr IV . [id number] [facility] Rx#:[id number] Vancomycin 2,000 mg In 500 Sodium Chloride 0.9% 500 ml 500 ml @ 167 mls/hr IVPB Q12H [facility] Rx#: [id number] cefTRIAXone 2 gm In 50 Sodium Chloride 0.9% 50 ml @ 100 mls/hr IVPB Q24HR [facility] Rx#:[id number] Other: Voiding Method Toilet Urinal # Voids 1 2 - Exam Gen: This is a 53-year-old male obese. Patient is resting in bed appears to be comfortable and in no acute distress. HEENT: Head is atraumatic, normocephalic. Pupils equal, round. Sclerae is anicteric. NECK: Supple. No JVD. No lymphadenopathy. No thyromegaly. LUNGS: Clear to auscultation. No wheezes or rhonchi. No intercostal retractions. HEART: Regular rate and rhythm. No murmur. ABDOMEN: Soft. Bowel sounds are present. No masses. No tenderness. EXTREMITIES: Dorsalis pedis +2 bilaterally. Patient has edema to the left foot. The left foot plantar ulceration is reevaluated today. There is evidence of the callus with distinct ulceration over the second metatarsal there is no expressible purulence. There is callus over the fifth metatarsal head also. Right foot has thick black callus on the plantar surface distal first metatarsal. Onychomycosis bilaterally. No foul odor. NEUROLOGICAL: Patient is awake, alert and oriented x3 - Labs CBC & Chem 7: 06/01/19 06:54 06/01/19 06:54 Labs: Abnormal Lab Results - Last 24 Hours (Table) 06/01/19 Range/Units 06:54 Carbon Dioxide 31 H (22-30) mmol/L Microbiology - Last 24 Hours (Table) 05/29/19 16:25 Blood Culture - Preliminary Blood No Growth after 72 hours 05/30/19 09:15 Gram Stain - Final Foot - Left Wound Culture - Final Proteus mirabilis 05/29/19 19:00 Gram Stain - Preliminary Foot - Left Wound Culture - Preliminary Proteus mirabilis Enterococcus faecalis Laboratory Results WBC 8.4 k/uL (3.8-10.6) 06/01/19 06:54 RBC 4.90 m/uL (4.30-5.90) 06/01/19 06:54 Hgb 14.5 gm/dL (13.0-17.5) 06/01/19 06:54 Hct 43.9 % (39.0-53.0) 06/01/19 06:54 MCV 89.5 fL (80.0-100.0) 06/01/19 06:54 MCH 29.6 pg (25.0-35.0) 06/01/19 06:54 MCHC 33.1 g/dL (31.0-37.0) 06/01/19 06:54 RDW 14.6 % (11.5-15.5) 06/01/19 06:54 Plt Count 270 k/uL (150-450) 06/01/19 06:54 Neutrophils % 66 % 06/01/19 06:54 Lymphocytes % 23 % 06/01/19 06:54 Monocytes % 5 % 06/01/19 06:54 Eosinophils % 4 % 06/01/19 06:54 Basophils % 1 % 06/01/19 06:54 Neutrophils # 5.6 k/uL (1.3-7.7) 06/01/19 06:54 Lymphocytes # 2.0 k/uL (1.0-4.8) 06/01/19 06:54 Monocytes # 0.4 k/uL (0-1.0) 06/01/19 06:54 Eosinophils # 0.4 k/uL (0-0.7) 06/01/19 06:54 Basophils # 0.1 k/uL (0-0.2) 06/01/19 06:54 Anisocytosis Slight 05/31/19 07:45 ESR 52 mm/hr (0-15) H 05/29/19 21:11 Sodium 137 mmol/L (137-145) 06/01/19 06:54 Potassium 4.5 mmol/L (3.5-5.1) 06/01/19 06:54 Chloride 100 mmol/L (98-107) 06/01/19 06:54 Carbon Dioxide 31 mmol/L (22-30) H 06/01/19 06:54 Anion Gap 6 mmol/L 06/01/19 06:54 BUN 18 mg/dL (9-20) 06/01/19 06:54 Creatinine 0.93 mg/dL (0.66-1.25) 06/01/19 06:54 Est GFR (CKD-EPI)AfAm >90 (>60 ml/min/1.73 sqM) 06/01/19 06:54 Est GFR (CKD-EPI)NonAf >90 (>60 ml/min/1.73 sqM) 06/01/19 06:54 Glucose 93 mg/dL (74-99) 06/01/19 06:[address] Glu mg/dL 117 05/29/19 16:25 Hemoglobin A1c 5.7 % (4.0-6.0) 05/29/19 16:25 Plasma Lactic Acid Cyril 1.7 mmol/L (0.7-2.0) 05/29/19 16:25 Calcium 8.9 mg/dL (8.4-10.2) 06/01/19 06:54 Total Bilirubin 0.4 mg/dL (0.2-1.3) 06/01/19 06:54 AST 24 U/L (17-59) 06/01/19 06:54 ALT 28 U/L (21-72) 06/01/19 06:54 Alkaline Phosphatase 80 U/L (38-126) 06/01/19 06:54 C-Reactive Protein 38.2 mg/L (<10.0) H 05/29/19 16:25 Total Protein 7.1 g/dL (6.3-8.2) 06/01/19 06:54 Albumin 3.7 g/dL (3.5-5.0) 06/01/19 06:54 Vancomycin Trough 10.9 ug/mL 05/31/19 07:45 Microbiology 05/29/19 16:25 Blood Blood Culture - Preliminary No Growth after 72 hours 05/30/19 09:15 Foot - Left Gram Stain - Final 05/30/19 09:15 Foot - Left Wound Culture - Final Proteus mirabilis 05/29/19 19:00 Foot - Left Gram Stain - Preliminary 05/29/19 19:00 Foot - Left Wound Culture - Preliminary Proteus mirabilis Enterococcus faecalis - Imaging and Cardiology Bone scan is personally reviewed and reveals evidence of the uptake of the left foot at the second metatarsal head area which is correlating to the site of the current ulceration. Assessment and Plan (1) Ulcer of left foot Narrative/Plan: 53-year-old male who has a history of hospitalization which went time he had sudden onset of atrial fibrillation. He was suffering from superobesity and was instructed to lose weight and improve the lifestyle. 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 He relates that since coming to Hospital He is starting to feel better. The generalized malaise pain and discomfort have improved. He has been seen by the vascular surgeon debridement has occurred. Evaluation of underlying osteomyelitis is in process. Wound cultures being monitored and plans for outpatient intravenous antibiotic therapy if osteomyelitis is identified. The patient is aware of these plans. He does work but would likely be able to get to the outpatient clinic on a daily basis if needed for an outpatient infusion. We need to have a once daily infusion. The patient does have some deformity to his feet is unlikely etiology to the pressure points and results in the callus formation in the secondary infections. He will need to have evaluation by the orthopedist in the outpatient setting to allow fitting of inserts into however counter foot care he needs to wear for work to prevent further callus formation and secondary ulcerations. His weight loss should be helpful 06/01/2019 patient is feeling better. The bone scan correlates to the underlying osteomyelitis, which appears to be somewhat chronic in nature. Antibiotic therapy in the outpatient setting will be utilized with ertapenem 1 g IV piggyback daily. PICC line requested in the morning and she will to go home after his first dose of ertapenem. He wasn't following the office for his daily infusion he would like late afternoon appointment. Weekly blood work requested he will follow in the office for his evaluations. He will need to go to annual orthotics for a specialty shoe for the left foot to offload the ulcer area. Current Visit: Yes Status: Acute Code(s): L97.529 - NON-PRESSURE CHRONIC ULCER OTH PRT LEFT FOOT W UNSP SEVERITY SNOMED Code(s): 38906188 (2) Obesity Current Visit: Yes Status: Acute Code(s): E66.9 - OBESITY, UNSPECIFIED SNOMED Code(s): 333342771
[2019-06-02] MEDS: SODIUM CHLORIDE 0.9% 1,000 ML IV SCH (05:27)
[2019-06-02] MEDS ORDERED: VANCOMYCIN TROUGH DUE 1 EACH MISC MISCELLANE ONE (07:00)
[2019-06-02 07:37] LABS: Basophils # (A) 0.1 k/uL (0-0.2); Basophils % (A) 1 %; Eosinophils # (A) 0.3 k/uL (0-0.7); Eosinophils % (A) 4 %; HCT 46.8 % (39.0-53.0); HGB 15.8 gm/dL (13.0-17.5); Lymphocytes # (A) 1.6 k/uL (1.0-4.8); Lymphocytes % (A) 21 %; MCH 29.9 pg (25.0-35.0); MCHC 33.7 g/dL (31.0-37.0); MCV 88.8 fL (80.0-100.0); Mean Platelet Volume 6.4; Monocytes # (A) 0.4 k/uL (0-1.0); Monocytes % (A) 5 %; Neutrophils # (A) 5.1 k/uL (1.3-7.7); Neutrophils % (A) 67 %; Platelet Count 290 k/uL (150-450); RBC 5.26 m/uL (4.30-5.90); RDW 14.6 % (11.5-15.5); WBC 7.5 k/uL (3.8-10.6)
[2019-06-02 07:39] LABS: Prothrombin Time 10.8 sec (9.0-12.0)
[2019-06-02 07:43] LABS: ALT 36 U/L (21-72); AST 31 U/L (17-59); African American GFR (CKD) >90 (>60 ml/min/1.73 sqM); Albumin 4.1 g/dL (3.5-5.0); Alkaline Phosphatase 82 U/L (38-126); Anion Gap 10 mmol/L; Blood Urea Nitrogen 16 mg/dL (9-20); Calcium 9.4 mg/dL (8.4-10.2); Carbon Dioxide 27 mmol/L (22-30); Chloride 102 mmol/L (98-107); Glucose 98 mg/dL (74-99); Potassium 4.5 mmol/L (3.5-5.1); Sodium 139 mmol/L (137-145); Total Bilirubin 0.5 mg/dL (0.2-1.3); Total Protein 7.8 g/dL (6.3-8.2)
[2019-06-02] MEDS: ENOXAPARIN 40 MG/0.4 ML SYRINGE SQ SCH ×2 (08:25)
[2019-06-02] MEDS: LOSARTAN 25 MG TAB PO SCH (08:25)
[2019-06-02] MEDS: CHOLECALCIFEROL 1,000 UNIT TAB PO SCH (08:25)
[2019-06-02] MEDS: amLODIPine 5 MG TAB PO SCH (08:26)
[2019-06-02] MEDS: PANTOPRAZOLE 40 MG TABLET PO SCH (08:26)
[2019-06-02] MEDS: VANCOMYCIN 2,000 MG in SODIUM CHLORIDE 0.9% 500 ML 500 ML IVPB SCH (08:26)
[2019-06-02] MEDS: HYDROCHLOROTHIAZIDE 25 MG TAB PO SCH (08:26)
[2019-06-02] MEDS ORDERED: ERTAPENEM 1 GM in SODIUM CHLORIDE 0.9% 50 ML IVPB ONE (09:00)
--- NOTE | 2019-06-02 14:26 | P.DS ---
Providers Date of admission: 05/31/19 12:01 Expected date of discharge: 06/02/19 Attending physician: Hi Pope Consults: 05/29/19 17:53 Consult Physician Routine Consulting Provider: Kurt Oneal Consult Reason/Comments: diabetic foot infection Do you want consulting provider notified?: Yes 05/30/19 10:20 Consult Physician Routine Consulting Provider: Luis Eduardo Hernandez Consult Reason/Comments: foot ulcer, cellulitis Do you want consulting provider notified?: Yes Primary care physician: Davida Alexander Hospital Course: Discharge diagnosis #1 foot cellulitis was open ulcer status post debridement and deep cultures by Dr. Oneal. Patient is currently postop day 1. Patient remains on Vanco and Rocephin per infectious disease. Awaiting final cultures. Bone scan on 05/31/2018 revealed left second metatarsophalangeal joint space suggestive for osteomyelitis. Left foot cultures growing Proteus mirabilis and Enterococcus faecalis. Patient will be DC'd on IV Invanz per ID. PICC line to be placed prior to discharge. Patient arrange for home health care infusions #2 underlying history of hypertension, resume home medications. #3 chart review mention history of paroxysmal atrial fibrillation patient is not on any anticoagulation will try to obtain records from his primary care physician. Discussed with patient patient reports that he followed up with cardiology services and further testing no more episodes of atrial fibrillation patient was not start anticoagulation due to having only one episode. #4 check hemoglobin A1c rule out occult diabetes. Hemoglobin A1c 5.7 Hospital course Javier Thayer, is a 53-year-old male who presented to [facility] emergency room with a chief complaint of severe pain in the left foot with open wound on the bottom of his left foot, he was evaluated in the emergency room and was admitted to medical floor, vascular surgery consultation was requested for wound debridement. Patient stated that he had the wound on his left foot for about 1 year which started as a callus, but subsequently got infected he was going to Dr. Alexander for care, he states that this improved significantly and he stopped going to Dr. Alexander, patient developed worsening pain and open wound with surrounding redness and he decided to come to emergency room. Patient denies any history of diabetes mellitus, his glucose on presentation was 118, will check hemoglobin A1c. He has a known history of hypertension, hyperlipidemia, gastroesophageal reflux disease, paroxysmal atrial fibrillation, and morbid obesity with a BMI of 43.8. On review of system patient denies any other complaints there is no fever or chills no headache or dizziness no chest pain no shortness of breath no cough no nausea or vomiting no abdominal pain no diarrhea and no burning was urination no frequency or urgency and no hematuria. On 05/31/2019 patient alert and oriented 3. Status post debridement of the left foot wound with Dr. Oneal. Dressing is clean dry and intact. Infectious disease is following. Patient remains on vancomycin Rocephin per ID awaiting final cultures. At that time patient denies chest pain or shortness of breath. Patient denies nausea vomiting or diarrhea. Patient denies any urinary burning frequency On 06/01/2019 patient is alert and oriented 3. Dressing is clean and dry and intact. Infectious disease is following. Bone scan was completed on 05/31/2019, imaging revealed left second metatarsophalangeal joint space suggestive for osteomyelitis. Patient denies nausea vomiting, patient denies chest pain or shortness of breath, patient denies fever or chills. 06/02/2019 patient alert and oriented 3. Dressing is clean dry and intact. P atient will be DC'd on Invanz per infectious disease. Patient to have PICC line placed prior to discharge. Patient has been cleared for discharge from infectious disease. At this time patient denies chest pain or shortness of breath. Patient denies nausea vomiting or diarrhea. Patient denies any urinary burning or frequency. Case management arranged home health care for home IV infusions. IV antibiotics arranged per ID. Patient advised constipation followed closely with PCP consulting providers for further management I performed an examination of the patient and discussed their management with the Nurse Practitioner. I have reviewed the Nurse Practitioner's notes and agree with the documented findings and plan of care Patient Condition at Discharge: Stable Plan - Discharge Summary Discharge Rx Participant: Yes New Discharge Prescriptions: New Ertapenem [INVanz] 1 gm IVPB Q24H #41 bag Continue Omeprazole 20 mg PO DAILY Hydrochlorothiazide [Hydrodiuril] 25 mg PO QAM amLODIPine [Norvasc] 5 mg PO DAILY tab Losartan [Cozaar] 25 mg PO DAILY tab Cholecalciferol (Vitamin D3) [Vitamin D3] 2,000 unit PO DAILY Discharge Medication List Hydrochlorothiazide [Hydrodiuril] 25 mg PO QAM 06/27/16 [History] Omeprazole 20 mg PO DAILY 06/27/16 [History] Losartan [Cozaar] 25 mg PO DAILY tab 09/26/18 [Rx] amLODIPine [Norvasc] 5 mg PO DAILY tab 09/26/18 [Rx] Cholecalciferol (Vitamin D3) [Vitamin D3] 2,000 unit PO DAILY 05/29/19 [History] Ertapenem [INVanz] 1 gm IVPB Q24H #41 bag 06/01/19 [Rx] Follow up Appointment(s)/Referral(s): Davida Alexander MD [Primary Care Provider] - 1-2 days [facility], [NON-STAFF] - [facility],Infusion [NON-STAFF] - Luis Eduardo Hernandez MD [STAFF PHYSICIAN] - 1 Week Activity/Diet/Wound Care/Special Instructions: Wound Care supplies ordered through [employer] - phone [phone] - they should be shipped to your home in the next 1-2 business days Discharge Disposition: HOME SELF-CARE
[2019-06-02] MEDS ORDERED: LIDOCAINE 1% INJ 10MG/ML (20 ML MDV) SQ ONE (15:05)
--- NOTE | 2019-06-02 15:32 | IR ---
PICC LINE PLACEMENT: HISTORY: Infection requiring long-term antibiotic therapy PROCEDURE: Ultrasound and fluoroscopic guidance of PICC line placement. COMPLICATIONS: None ANESTHESIA: 1. 1% Lidocaine locally. FINDINGS/TECHNIQUE: The procedure was explained to the patient. The risks, complications, benefits and alternatives were discussed and any questions were answered. Informed consent was obtained. The patient was placed supine on the fluoroscopic table and prepped and draped in the usual sterile fash ion. Utilizing a 21 gauge needle and sonographic and fluoroscopic guidance, access in the left basi lic vein was achieved and there is placement of a 0.018 guidewire. The vein is patent. A 4-F sheath was placed over the guidewire. The guidewire and dilator were removed and a 4-F. PICC line was plac ed through the sheath with the tip at the level of the SVC. The sheath was removed, the catheter was flushed and sutured into position. The patient was stable throughout the procedure and remained sta ble upon discharge from the Department of Radiology. The vein puncture was patent under ultrasound. A preciado scale image was obtained to document patency of the vein punctured. All elements of the maximal barrier technique were utilized. FLUOROSCOPY TIME: 0.1 minutes and one image submitted IMPRESSION: Successful PICC line placement under ultrasound and fluoroscopic guidance.
[2019-06-02 15:37] VITALS: BP 178/85; PULSE 58; TEMP 97.9
== END 2019-06-02 16:12 | disposition home health service (06) | DRG 623 ==
LOC: EC 16:14 → 4SSUR 18:30 → OBSVTOIN 05-31 12:01
PROVIDERS: ADMIT Internal Medicine; ATTEND Internal Medicine
PROC: 0JBR0ZZ Excision of Left Foot Subcutaneous Tissue and Fascia, Open Approach (ICD-10-PCS; principal; 2019-05-30)
PROC: 02HV33Z Insertion of Infusion Device into Superior Vena Cava, Percutaneous Approach (ICD-10-PCS; 2019-06-02)
DX: E11.69 Type 2 diabetes mellitus with other specified complication (principal); L03.116 Cellulitis of left lower limb; L97.429 Non-pressure chronic ulcer of left heel and midfoot with unspecified severity; M86.672 Other chronic osteomyelitis, left ankle and foot; E11.621 Type 2 diabetes mellitus with foot ulcer; E11.42 Type 2 diabetes mellitus with diabetic polyneuropathy; I48.0 Paroxysmal atrial fibrillation; E66.01 Morbid (severe) obesity due to excess calories; B96.4 Proteus (mirabilis) (morganii) as the cause of diseases classified elsewhere; B95.2 Enterococcus as the cause of diseases classified elsewhere; L84 Corns and callosities; M20.40 Other hammer toe(s) (acquired), unspecified foot; B35.1 Tinea unguium; I10 Essential (primary) hypertension; E78.5 Hyperlipidemia, unspecified; K21.9 Gastro-esophageal reflux disease without esophagitis; M19.90 Unspecified osteoarthritis, unspecified site; M54.5 Low back pain; Z68.38 Body mass index [BMI] 38.0-38.9, adult; F17.210 Nicotine dependence, cigarettes, uncomplicated; Z71.6 Tobacco abuse counseling; Z79.899 Other long term (current) drug therapy; Z86.010 Personal history of colon polyps; Z71.3 Dietary counseling and surveillance; Z82.49 Family history of ischemic heart disease and other diseases of the circulatory system; Z82.3 Family history of stroke
CPT/HCPCS: 36415; 36573; 78315; 80048; 80053; 80202; 83036; 83605; 85025; 85610; 85652; 86140; 87040; 87070; 87077; 87186; 87205; 96374; 99284

== ENCOUNTER 2020-02-26 19:45 | Inpatient (IN) | payer BC ==
[2020-02-26] MEDS ORDERED: SODIUM CHLORIDE 0.9% 500 ML 500 ML IV ONE (20:08)
[2020-02-26] MEDS ORDERED: MORPHINE SULFATE 4 MG/ML SYRINGE IV STA (20:08)
--- NOTE | 2020-02-26 20:19 | ED ---
General Adult HPI - General Chief complaint: Extremity Problem,Nontraumatic Stated complaint: Bilateral foot pain Time Seen by Provider: 02/26/20 19:59 Source: patient, RN notes reviewed, old records reviewed Mode of arrival: ambulatory Limitations: no limitations - History of Present Illness Initial comments: 54-year-old male patient presents to ED for chief complaint of bilateral foot pain stemming from bilateral foot ulcers. Patient forces has been causing him issues the last 3 years in particular for the last year. Patient reports that the pain is worse on the left side. He reports he is also having some pain in his left calf as well. Denies any chest pain or shortness of breath. Denies any fevers. Patient seen by his primary care provider but has not been seen for any wound care. Denies any history of diabetes. Systemic: Pt denies fatigue, fever/chills, rash. Pt denies weakness, night sweats, weight loss. Neuro: Pt denies headache, visual disturbances, syncope or pre-syncope. HEENT: Pt denies ocular discharge or irritation, otalgia, rhinorrhea, pharyngitis or notable lymphadenopathy. Cardiopulmonary: Pt denies chest pain, SOB, heart palpitations, dyspnea on exertion. Abdominal/GI: Pt denies abdominal pain, n/v/d. : Pt denies dysuria, burning w/ urination, frequency/urgency. Denies new onset urinary or bowel incontinence. MSK: Pt denies myalgia, loss of strength or function in extremities. Neuro: Pt denies new onset weakness, paresthesias. - Related Data Home Medications Medication Instructions Recorded Confirmed Hydrochlorothiazide [Hydrodiuril] 25 mg PO QAM 06/27/16 05/29/19 Omeprazole 20 mg PO DAILY 06/27/16 05/29/19 Cholecalciferol (Vitamin D3) 2,000 unit PO DAILY 05/29/19 05/29/19 [Vitamin D3] Previous Rx's Medication Instructions Recorded Losartan [Cozaar] 25 mg PO DAILY tab 09/26/18 amLODIPine [Norvasc] 5 mg PO DAILY tab 09/26/18 Ertapenem [INVanz] 1 gm IVPB Q24H #41 bag 06/01/19 Allergies Allergy/AdvReac Type Severity Reaction Status Date / Time No Known Allergies Allergy Verified 02/26/20 19:57 Review of Systems ROS Statement: Those systems with pertinent positive or pertinent negative responses have been documented in the HPI. ROS Other: All systems not noted in ROS Statement are negative. Past Medical History Past Medical History: GERD/Reflux, Hyperlipidemia, Hypertension Additional Past Medical History / Comment(s): Occasional low back pain, paroxysmal atrial fibrillation, morbid obesity with BMI 43.8 History of Any Multi-Drug Resistant Organisms: None Reported Past Surgical History: Orthopedic Surgery Additional Past Surgical History / Comment(s): L BICEP SX WITH METAL PLATE, R ARM BENIGN CYST, 2015 COLONOSCOPY WITH BENIGN POLYP Past Anesthesia/Blood Transfusion Reactions: No Reported Reaction Past Psychological History: No Psychological Hx Reported Smoking Status: Current every day smoker Past Alcohol Use History: Occasional Past Drug Use History: None Reported - Past Family History Mother Family Medical History: No Reported History Additional Family Medical History / Comment(s): MOTHER IS HEALTHY Father Family Medical History: CVA/TIA, Myocardial Infarction ([place]) Additional Family Medical History / Comment(s): FATHER HAD A CVA AND THEN OF A [place] AT THE AGE OF 63 YRS. General Exam - General Exam Comments Initial Comments: Constitutional: NAD, AOX3, Pt has pleasant affect. HEENT: NC/AT, trachea midline, neck supple, no lymphadenopathy. External ears appear normal, without discharge. Mucous membranes moist. Eyes PERRLA, EOM intact. There is no scleral icterus. No pallor noted. Cardiopulmonary: RRR, no murmurs, rubs or gallops, no JVD noted. Lungs CTAB in anterior and posterior zepeda. No peripheral edema. Abdominal exam: Abdomen soft and non-distended. Abdomen non-tender to palpation in all 4 quadrants. Bowel sounds active in LLQ. No hepatosplenomegaly. Neuro: CN II-XII grossly intact. No nuchal rigidity. No raccon eyes, no horn sign. MSK: Left calf is mildly tender to palpation. Right calf nontender to palpation. No skin changes on calf bilaterally. Bilateral foot ulcers are noted. Left-sided there are 2 ulcers one on the lateral aspect of the plantar aspect of the foot. One in the center aspect of the plantar aspect of the foot. There is also a foot ulcer on the right side which is on the plantar aspect anteriorly. Mild amount of discharge is noted from ulcerations. Some erythema noted to dorsum of left foot. Patient does have metta honey on wounds. No stuffy erythematous streaking to the plantar aspects of foot. Limitations: no limitations Course Vital Signs 02/26/20 19:54 Temperature 98.8 F Pulse Rate 92 Respiratory 20 Rate Blood Pressure 160/81 O2 Sat by Pulse 96 Oximetry Medical Decision Making - Medical Decision Making 54-year-old male patient presents to ED for evaluation of worsening pain mostly on the left side of foot ulcers have been ongoing for the last 3 years. Reports the pain is getting worse the last few days in particular. Has not been receiving treatment for these. Patient will tender stable, afebrile. Physical exam displayed foot ulcers noted a plantar aspects of both feet. Left-sided there is some erythema to the dorsum of the foot. Discharge is noted. Labs investigations were obtained. Mild leukocytosis of 13.8 with left shift. Plain film of the bilaterally displayed on the right side obtained 7 mm foreign body. This was noted previously. Some increasing soft tissue swelling. Possible ulceration. No radiographic evidence of acute os malaise. On the left side there is also along the ball the foot below the fifth metatarsal head. While in the lytic destruction there is focal demineralization of the fifth metatarsal head Hospital and pending Cristi myelitis. Patient issued an a demise and Zosyn will be admitted for further evaluation. Case discussed with Dr. Zimmerman. - Lab Data Result diagrams: 02/26/20 20:38 02/26/20 20:38 Lab Results 02/26/20 02/26/20 02/26/20 Range/Units 20:38 20:38 20:38 WBC 13.8 H (3.8-10.6) k/uL RBC 4.96 (4.30-5.90) m/uL Hgb 14.6 (13.0-17.5) gm/dL Hct 45.1 (39.0-53.0) % MCV 90.9 (80.0-100.0) fL MCH 29.4 (25.0-35.0) pg MCHC 32.4 (31.0-37.0) g/dL RDW 14.4 (11.5-15.5) % Plt Count 267 (150-450) k/uL Neutrophils % 71 % Lymphocytes % 19 % Monocytes % 6 % Eosinophils % 2 % Basophils % 0 % Neutrophils # 9.7 H (1.3-7.7) k/uL Lymphocytes # 2.6 (1.0-4.8) k/uL Monocytes # 0.8 (0-1.0) k/uL Eosinophils # 0.3 (0-0.7) k/uL Basophils # 0.1 (0-0.2) k/uL Sodium 137 (137-145) mmol/L Potassium 5.0 (3.5-5.1) mmol/L Chloride 104 (98-107) mmol/L Carbon Dioxide 26 (22-30) mmol/L Anion Gap 7 mmol/L BUN 24 H (9-20) mg/dL Creatinine 1.11 (0.66-1.25) mg/dL Est GFR (CKD-EPI)AfAm 87 (>60 ml/min/1.73 sqM) Est GFR (CKD-EPI)NonAf 75 (>60 ml/min/1.73 sqM) Glucose 101 H (74-99) mg/dL Plasma Lactic Acid Cyril 1.6 (0.7-2.0) mmol/L Calcium 8.9 (8.4-10.2) mg/dL Total Bilirubin 0.3 (0.2-1.3) mg/dL AST 33 (17-59) U/L ALT 27 (4-49) U/L Alkaline Phosphatase 71 (38-126) U/L Total Protein 7.4 (6.3-8.2) g/dL Albumin 3.9 (3.5-5.0) g/dL Disposition Clinical Impression: Foot ulcer Disposition: ADMITTED IP TO [facility] Condition: Serious Is patient prescribed a controlled substance at d/c from ED?: No Referrals: Davida Alexander MD [Primary Care Provider] - 1-2 days
[2020-02-26 20:54] LABS: Basophils # (A) 0.1 k/uL (0-0.2); Basophils % (A) 0 %; Eosinophils # (A) 0.3 k/uL (0-0.7); Eosinophils % (A) 2 %; HCT 45.1 % (39.0-53.0); HGB 14.6 gm/dL (13.0-17.5); Lymphocytes # (A) 2.6 k/uL (1.0-4.8); Lymphocytes % (A) 19 %; MCH 29.4 pg (25.0-35.0); MCHC 32.4 g/dL (31.0-37.0); MCV 90.9 fL (80.0-100.0); Mean Platelet Volume 6.8; Monocytes # (A) 0.8 k/uL (0-1.0); Monocytes % (A) 6 %; Neutrophils # (A) 9.7 k/uL (1.3-7.7); Neutrophils % (A) 71 %; Platelet Count 267 k/uL (150-450); RBC 4.96 m/uL (4.30-5.90); RDW 14.4 % (11.5-15.5); WBC 13.8 k/uL (3.8-10.6)
[2020-02-26 21:02] LABS: Albumin 3.9 g/dL (3.5-5.0); Calcium 8.9 mg/dL (8.4-10.2); Total Bilirubin 0.3 mg/dL (0.2-1.3); Total Protein 7.4 g/dL (6.3-8.2)
--- NOTE | 2020-02-26 21:30 | XR ---
EXAMINATION TYPE: XR foot complete bilateral DATE OF EXAM: 02/26/2020 COMPARISON: 05/29/2019 HISTORY: 54-year-old male with bilateral foot ulcers and pain TECHNIQUE: 3 views each side FINDINGS: Right: Prominent soft tissue swelling along the medial first metatarsal head. 7 mm curvilinear density, poss ibly metallic, projecting at the medial mid foot soft tissues. Some plantar soft tissue swelling and possible ulceration along the ball of the foot. Bipartite tibial sesamoid with some degenerative goodman ges at the first metatarsal sesamoid joint. Hammertoes. Small plantar calcaneal spur. Mild hallux martha vasyl deformity. Left: Ulcer along the ball of the foot along the fifth metatarsal head. No focal lytic destruction identifi ed at this time though there is some focal osteopenia of the fifth metatarsal head on the oblique vie w. Mild degenerative change first MTP joint. No acute fracture, subluxation, dislocation. IMPRESSION: 1. Right: Retained 7 mm foreign body within the medial mid foot soft tissues. Some increasing soft ti ssue swelling at the first MTP joint. Possible ulceration along the ball of the foot here. No radiogr aphic findings of acute osteomyelitis. 2. Left: Ulcer along the ball of foot below the fifth metatarsal head. While there is no lytic destru ction to suggest osteomyelitis at this time, there is focal demineralization of the fifth metatarsal head on the oblique view adjacent to the ulcer. Close radiographic follow-up recommended to exclude i mpending osteomyelitis.
--- NOTE | 2020-02-26 21:31 | US ---
EXAMINATION TYPE: US venous doppler duplex LE LT DATE OF EXAM: 02/26/2020 9:08 PM COMPARISON: None CLINICAL HISTORY: 54-year-old male left calf pain . Patient stated has increased left lower extremity redness and swelling today. SIDE PERFORMED: Left TECHNIQUE: The lower extremity deep venous system is examined utilizing real time linear array sonog mauricio with graded compression, doppler sonography and color-flow sonography. FINDINGS: VESSELS IMAGED: Common Femoral Vein Deep Femoral Vein Greater Saphenous Vein * Femoral Vein Popliteal Vein Small Saphenous Vein * Proximal Calf Veins Posterior tibial veins (* superficial vessels) Left Leg: Negative for DVT. Incidental finding of left groin lymph nodes seen in longitudinal and tr ansverse views with larger node on longitudinal view = 2.1 x 0.9cm. IMPRESSION: No evidence for DVT within the left lower extremity. Some incidental prominent but nonenlarged lymph nodes along the left groin. These can be followed cli nically.
[2020-02-26] MEDS ORDERED: VANCOMYCIN IV PER PHARMACY 1 EACH MISC MISCELLANE PRN (21:41)
[2020-02-26] MEDS ORDERED: PIPERACILLIN-TAZOBACTAM 3.375 GM in SODIUM CHLORIDE 0.9% 100 ML IVPB STA (21:41)
[2020-02-26] MEDS ORDERED: VANCOMYCIN 2,000 MG in SODIUM CHLORIDE 0.9% 500 ML 500 ML IVPB STA (21:43)
[2020-02-26] MEDS ORDERED: MORPHINE SULFATE 4 MG/ML SYRINGE IV PRN (22:33)
[2020-02-26] MEDS ORDERED: NALOXONE 0.4 MG/ML 1 ML VIAL IV PRN (22:33)
[2020-02-27] MEDS: ACETAMINOPHEN TAB 500 MG TAB PO PRN ×2 (07:24→17:35)
[2020-02-27] MEDS: PIPERACILLIN-TAZOBACTAM 3.375 GM in SODIUM CHLORIDE 0.9% 100 ML IVPB SCH ×3 (07:24→23:32)
[2020-02-27] MEDS: HYDROCHLOROTHIAZIDE 25 MG TAB PO SCH (12:18)
[2020-02-27] MEDS: PANTOPRAZOLE 40 MG TABLET PO SCH (12:18)
[2020-02-27] MEDS: VANCOMYCIN 2,000 MG in SODIUM CHLORIDE 0.9% 500 ML 500 ML IVPB SCH ×2 (12:18→23:33)
[2020-02-27] MEDS: amLODIPine 5 MG TAB PO SCH (12:19)
[2020-02-27] MEDS: LOSARTAN 25 MG TAB PO SCH (12:19)
--- NOTE | 2020-02-27 12:46 | P.HPIM ---
History of Present Illness H&P Date: 02/27/20 Javier Thayer is a 54-year-old male who presented to [facility] emergency room with left lower extremity pain and swelling erythema and tenderness. Patient has 2 open wounds on the bottom of his left foot he also has one large scabbed ulcer on the bottom of the right foot however at this time it seems that the left foot has cellulitis extending nursing home up to the knee he was evaluated in the emergency room he was started on IV antibiotic and was admitted to medical floor infectious disease consultation was requested. Patient states that he has peripheral neuropathy in his lower extremities, he denies any history of diabetes, his A1c on 09/14/2019 was 5.5 patient stated that he smokes 1-1-1/2 packs per day. Patient was admitted to the hospital in May 2019 was open ulcer of the bilateral feet he underwent debridement by Dr. Oneal and was seen by Dr. Hernandez at that time, patient was also admitted in September 2019 with an episode of paroxysmal atrial fibrillation. Patient denies any other medical problems he denies any history of coronary artery disease, congestive heart failure, asthma or COPD, or any kidney or liver disease. He states that he has peripheral neuropathy in bilateral lower extremities cause of which is unclear, he had previously epidural injection in his back. On review of system patient is complaining of left lower extremity pain and swel ling otherwise he denies any complaints there is no fever or chills no headache or dizziness no chest pain no shortness of breath no cough no nausea or vomiting no abdominal pain no diarrhea no burning with urination no frequency or urgency and no hematuria. Past Medical History Past Medical History: GERD/Reflux, Hyperlipidemia, Hypertension Additional Past Medical History / Comment(s): Occasional low back pain, paroxysmal atrial fibrillation, morbid obesity with BMI 43.8 History of Any Multi-Drug Resistant Organisms: None Reported Past Surgical History: Orthopedic Surgery Additional Past Surgical History / Comment(s): L BICEP SX WITH METAL PLATE, R AR M BENIGN CYST, 2015 COLONOSCOPY WITH BENIGN POLYP Past Anesthesia/Blood Transfusion Reactions: No Reported Reaction Past Psychological History: No Psychological Hx Reported Additional Psychological History / Comment(s): PT RESIDS WITH HIS SPOUSE AND THEIR 17 YR OLD LUISA. HE WORKS FOR [employer]. HE IS INDEPENDENT. Smoking Status: Current every day smoker Past Alcohol Use History: Occasional Additional Past Alcohol Use History / Comment(s): Patient is a smoker of up to 1-1/2 packs per day for 20-30 years. 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 He denies any marijuana or illicit drug use. He drinks alcohol occasionally. 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 He lives at home with his and daughter. There are 2 dogs in the home. He denies any recent travel, no service. Past Drug Use History: None Reported - Past Family History Mother Family Medical History: No Reported History Additional Family Medical History / Comment(s): MOTHER IS HEALTHY Father Family Medical History: CVA/TIA, Myocardial Infarction (MD) Additional Family Medical History / Comment(s): FATHER HAD A CVA AND THEN OF A MD AT THE AGE OF 63 YRS. Medications and Allergies Home Medications Medication Instructions Recorded Confirmed Type Hydrochlorothiazide [Hydrodiuril] 25 mg PO DAILY 06/27/16 02/26/20 History Omeprazole 20 mg PO DAILY 06/27/16 02/26/20 History Losartan [Cozaar] 25 mg PO DAILY tab 09/26/18 02/26/20 Rx amLODIPine [Norvasc] 5 mg PO DAILY tab 09/26/18 02/26/20 Rx Cholecalciferol [Vitamin D3 (25 5,000 unit PO DAILY 02/26/20 02/26/20 History Mcg = 1000 Iu)] Allergies Allergy/AdvReac Type Severity Reaction Status Date / Time No Known Allergies Allergy Verified 02/26/20 22:45 Physical Exam Vitals: Vital Signs Temp Pulse Pulse Resp BP BP Pulse Ox 02/27/20 07:27 97.6 F 56 L 16 158/71 95 02/27/20 03:48 71 18 02/27/20 01:19 71 18 02/27/20 01:05 98.6 F 71 18 146/75 93 L 02/26/20 22:52 99.7 F H 66 18 125/69 96 02/26/20 19:54 98.8 F 92 20 160/81 96 Intake and Output 02/26/20 02/27/20 02/27/20 22:59 06:59 14:59 Intake Total 950 Balance 950 Intake: Intake, IV Titration 500 Amount Vancomycin 2,000 mg In 500 Sodium Chloride 0.9% 500 ml 500 ml @ 167 mls/hr IVPB ONCE STA Rx#: [id number] Oral 450 Other: Voiding Method Toilet Toilet # Voids 2 Weight 140.614 kg 140.614 kg In general patient is alert and oriented 3 in no apparent distress HEENT head normocephalic and atraumatic Neck is supple no JVD no goiter no lymphadenopathy Chest exam reveals a few scattered crackles bilaterally no wheezing Cardiac exam reveals regular heart sounds S1 and S2 no gallops no murmurs Abdomen is soft nontender obese no organomegaly no palpable masses with normal bowel sounds Extremity exam reveals left lower extremity with erythema and swelling extending from the foot midway up to the knee, there are 2 small ulcers with scabbing on the bottom of the left foot On the right foot there is one large scabbed ulcer without any surrounding cellulitis Neurological examination reveals no gross focal deficit Results CBC & Chem 7: 02/26/20 20:38 02/26/20 20:38 Labs: Abnormal Lab Results - Last 24 Hours (Table) 02/26/20 02/26/20 Range/Units 20:38 20:38 WBC 13.8 H (3.8-10.6) k/uL Neutrophils # 9.7 H (1.3-7.7) k/uL BUN 24 H (9-20) mg/dL Glucose 101 H (74-99) mg/dL Thrombosis Risk Factor Assmnt - Choose All That Apply Each Factor Represents 1 point: Age 41-60 years, Obesity (BMI >25) Other Risk Factors: No Thrombosis Risk Factor Assessment Total Risk Factor Score: 2 Thrombosis Risk Factor Assessment Level: Low Risk Assessment and Plan Plan: 1. Left lower extremity cellulitis was ulcers patient was admitted to medical floor he was started on IV Zosyn and IV vancomycin, infectious disease consultation was requested, will add consultation to vascular surgery 2. Underlying history of peripheral neuropathy 3. Previous history of paroxysmal atrial fibrillation 4. Tobacco abuse patient was counseled in length in regard to smoking cessation counseling more than 3 minutes today 5. Morbid obesity, no evidence of diabetes mellitus so far last hemoglobin A1c was checked in September with check again At this time will continue with IV vancomycin and IV Zosyn awaiting culture results Infectious disease and vascular surgery consultation requested awaiting input Recheck labs in a.m. For DVT prophylaxis we'll use subcu Lovenox For GI prophylaxis we will use Protonix
[2020-02-27] MEDS: ENOXAPARIN 40 MG/0.4 ML SYRINGE SQ SCH (13:52)
--- NOTE | 2020-02-28 00:34 | P.CONS ---
History of Present Illness - Reason for Consult Consult date: 02/27/20 Bilateral foot wound and left leg cellulitis Requesting physician: Hi Pope - Chief Complaint Left foot pain swelling and redness x few days - History of Present Illness Patient is a 54 2 male with a past medical history significant for chronic nonhealing wound to the plantar aspect of the both feet are more marked on the right foot in this patient presented to hospital with left leg pain swelling and redness the patient started getting worse for the last few days patient been complaining of bilateral aching pain to the left foot and leg area with intensity 5-6 out of 10 and no radiation with associated swelling and erythema has been sent to the distal half of the left foot patient, during of low-grade fever with chills on presentation to the hospital the patient have low-grade fever of 99.7 he did have elevated white count of 13,000 x-rays of the foot did not show any bony changes suspicious for osteomyelitis patient has been started on vancomycin and Zosyn and infectious disease has been consulted for further management of antibiotic therapy Review of Systems Positive point has been mentioned in the HPI rest of the systems are negative Past Medical History Past Medical History: GERD/Reflux, Hyperlipidemia, Hypertension Additional Past Medical History / Comment(s): Occasional low back pain, paroxysmal atrial fibrillation, morbid obesity with BMI 43.8 History of Any Multi-Drug Resistant Organisms: None Reported Past Surgical History: Orthopedic Surgery Additional Past Surgical History / Comment(s): L BICEP SX WITH METAL PLATE, R ARM BENIGN CYST, 2015 COLONOSCOPY WITH BENIGN POLYP Past Anesthesia/Blood Transfusion Reactions: No Reported Reaction Past Psychological History: No Psychological Hx Reported Additional Psychological History / Comment(s): PT RESIDS WITH HIS SPOUSE AND THEIR 17 YR OLD LUISA. HE WORKS FOR [employer]ING. HE IS INDEPENDENT. Smoking Status: Current every day smoker Past Alcohol Use History: Occasional Additional Past Alcohol Use History / Comment(s): Patient is a smoker of up to 1-1/2 packs per day for 20-30 years. 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 He denies any marijuana or illicit drug use. He drinks alcohol occasionally. 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 He lives at home with his and daughter. There are 2 dogs in the home. He denies any recent travel, no service. Past Drug Use History: None Reported - Past Family History Mother Family Medical History: No Reported History Additional Family Medical History / Comment(s): MOTHER IS HEALTHY Father Family Medical History: CVA/TIA, Myocardial Infarction (MT) Additional Family Medical History / Comment(s): FATHER HAD A CVA AND THEN OF A MT AT THE AGE OF 63 YRS. Medications and Allergies Home Medications Medication Instructions Recorded Confirmed Type Hydrochlorothiazide [Hydrodiuril] 25 mg PO DAILY 06/27/16 02/26/20 History Omeprazole 20 mg PO DAILY 06/27/16 02/26/20 History Losartan [Cozaar] 25 mg PO DAILY tab 09/26/18 02/26/20 Rx amLODIPine [Norvasc] 5 mg PO DAILY tab 09/26/18 02/26/20 Rx Cholecalciferol [Vitamin D3 (25 5,000 unit PO DAILY 02/26/20 02/26/20 History Mcg = 1000 Iu)] Allergies Allergy/AdvReac Type Severity Reaction Status Date / Time No Known Allergies Allergy Verified 02/26/20 22:45 Physical Exam Vitals: Vital Signs Temp Pulse Pulse Resp BP BP Pulse Ox 02/27/20 14:52 97.8 F 57 L 20 152/79 96 02/27/20 12:14 160/75 02/27/20 07:27 97.6 F 56 L 16 158/71 95 02/27/20 03:48 71 18 02/27/20 01:19 71 18 02/27/20 01:05 98.6 F 71 18 146/75 93 L 02/26/20 22:52 99.7 F H 66 18 125/69 96 02/26/20 19:54 98.8 F 92 20 160/81 96 Intake and Output 02/27/20 02/27/20 02/27/20 06:59 14:59 22:59 Intake Total 950 Balance 950 Intake: Intake, IV Titration 500 Amount Vancomycin 2,000 mg In 500 Sodium Chloride 0.9% 500 ml 500 ml @ 167 mls/hr IVPB ONCE STA Rx#: [id number] Oral 450 Other: Voiding Method Toilet Toilet # Voids 2 2 Weight 140.614 kg GENERAL DESCRIPTION: Middle-aged male lying in bed, no distress. No tachypnea or accessory muscle of respiration use. HEENT: Shows Pallor , no scleral icterus. Oral mucous membrane is dry. No pha ryngeal erythema or thrush NECK: Trachea central, no thyromegaly. LUNGS: Unlabored breathing. Clear to auscultation anteriorly. No wheeze or crackle. HEART: S1, S2, regular rate and rhythm. No loud murmur ABDOMEN: Soft, no tenderness , guarding or rigidity, no organomegaly EXTREMITIES: Bilateral foot plantar ulceration more marked on the right foot at the base of first metatarsal head, in this patient did have a diffuse swelling redness to the left foot SKIN: No rash, no masses palpable. NEUROLOGICAL: The patient is awake, alert, oriented x3, mood and affect normal. Results CBC & Chem 7: 02/26/20 20:38 02/26/20 20:38 Labs: Abnormal Lab Results - Last 24 Hours (Table) 02/26/20 02/26/20 Range/Units 20:38 20:38 WBC 13.8 H (3.8-10.6) k/uL Neutrophils # 9.7 H (1.3-7.7) k/uL BUN 24 H (9-20) mg/dL Glucose 101 H (74-99) mg/dL Assessment and Plan Assessment: 1-patient with left lower extremity cellulitis source is likely left foot plantar ulcer and no need to cover for the gram-positive skin shakir as well as gram-negative pathogen 2-right foot plantar ulcer with no evidence of any secondary cellulitis (1) Left leg cellulitis Current Visit: Yes Status: Acute Code(s): L03.116 - CELLULITIS OF LEFT LOWER LIMB SNOMED Code(s): 578652874 (2) Foot ulcer Current Visit: Yes Status: Acute Code(s): L97.509 - NON-PRESSURE CHRONIC U LCER OTH PRT UNSP FOOT W UNSP SEVERITY SNOMED Code(s): 46683910 Plan: 1-Vancomycin pharmacy to dose target trough of 15 while watching his kidney function and Vanco trough closely 2-discontinue Zosyn to decrease risk of nephrotoxicity 3-we will add Unasyn 3 g every 6 hours 4-vascular surgical operation for debridement and culture We will follow on clinical condition and cultures to further adjust medication if needed Thank you for this consultation will follow this patient with you Time with Patient: Greater than 30
[2020-02-28] MEDS: AMPICILLIN-SULBACTAM 3 GM in SODIUM CHLORIDE 0.9% 100 ML IVPB SCH ×5 (05:54→23:12)
[2020-02-28] MEDS: amLODIPine 5 MG TAB PO SCH (07:33)
[2020-02-28] MEDS: PANTOPRAZOLE 40 MG TABLET PO SCH (07:33)
[2020-02-28] MEDS: LOSARTAN 25 MG TAB PO SCH (07:33)
[2020-02-28] MEDS: CHOLECALCIFEROL 1,000 UNIT TAB PO SCH (07:33)
[2020-02-28] MEDS: HYDROCHLOROTHIAZIDE 25 MG TAB PO SCH (07:33)
--- NOTE | 2020-02-28 07:46 | P.GSCN ---
History of Present Illness History of present illness: 54-year-old white male, patient was seen by me in about a year ago and he is been follow-up with Dr. Hernandez in the past he has a chronic wound on the plantar aspect of the right foot measurement is 5 x 4 cm with some callus formation. Patient also has a callus formation noted to on the plantar aspect of the left foot 3.2 cm at the lateral aspect of the foot. Patient was treated by the preschool associate teacher. Patient has been complaining of pain in his left lower extremity. Patient had a venous ultrasound is no evidence of deep vein thrombosis Neck examination neck is supple no bruit appreciated Chest is clear first and second sound normal Abdomen soft nontender Vascular examination brachial radial femoral pulses are present dorsal pedis is palpable bilateral right foot has a chronic infected callus wound 5 x 4 cm left foot at 3.2 cm Impression is bilateral infected callus is right and left foot Plan is patient needs a excision and excision debridement of the wound and the callus and patient will need needing a contact cast we'll follow with you we will arrange for surgery keep the patient nothing by mouth and dry we'll schedule for tomorrow surgery thank you very much patient's an IV antibiotic and infectious disease Past Medical History Past Medical History: GERD/Reflux, Hyperlipidemia, Hypertension Additional Past Medical History / Comment(s): Occasional low back pain, paroxysmal atrial fibrillation, morbid obesity with BMI 43.8 History of Any Multi-Drug Resistant Organisms: None Reported Past Surgical History: Orthopedic Surgery Additional Past Surgical History / Comment(s): L BICEP SX WITH METAL PLATE, R ARM BENIGN CYST, 2015 COLONOSCOPY WITH BENIGN POLYP Past Anesthesia/Blood Transfusion Reactions: No Reported Reaction Past Psychological History: No Psychological Hx Reported Additional Psychological History / Comment(s): PT RESIDS WITH HIS SPOUSE AND THEIR 17 YR OLD LUISA. HE WORKS FOR [employer]. HE IS INDEPENDENT. Smoking Status: Current every day smoker Past Alcohol Use History: Occasional Additional Past Alcohol Use History / Comment(s): Patient is a smoker of up to 1-1/2 packs per day for 20-30 years. 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 He denies any marijuana or illicit drug use. He drinks alcohol occasionally. 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 He lives at home with his and daughter. There are 2 dogs in the home. He denies any recent travel, no service. Past Drug Use History: None Reported - Past Family History Mother Family Medical History: No Reported History Additional Family Medical History / Comment(s): MOTHER IS HEALTHY Father Family Medical History: CVA/TIA, Myocardial Infarction ([place]) Additional Family Medical History / Comment(s): FATHER HAD A CVA AND THEN OF A MT AT THE AGE OF 63 YRS. Medications and Allergies Home Medications Medication Instructions Recorded Confirmed Type Hydrochlorothiazide [Hydrodiuril] 25 mg PO DAILY 06/27/16 02/26/20 History Omeprazole 20 mg PO DAILY 06/27/16 02/26/20 History Losartan [Cozaar] 25 mg PO DAILY tab 09/26/18 02/26/20 Rx amLODIPine [Norvasc] 5 mg PO DAILY tab 09/26/18 02/26/20 Rx Cholecalciferol [Vitamin D3 (25 5,000 unit PO DAILY 02/26/20 02/26/20 History Mcg = 1000 Iu)] Allergies Allergy/AdvReac Type Severity Reaction Status Date / Time No Known Allergies Allergy Verified 02/26/20 22:45 Surgical - Exam Vital Signs Temp Pulse Resp BP Pulse Ox 98.8 F 92 20 160/81 96 02/26/20 19:54 02/26/20 19:54 02/26/20 19:54 02/26/20 19:54 02/26/20 19:54 Results - Labs 02/26/20 20:38 02/26/20 20:38 Microbiology - Last 24 Hours (Table) 02/26/20 22:37 Blood Culture - Preliminary Blood No Growth after 24 hours
[2020-02-28] MEDS: ENOXAPARIN 40 MG/0.4 ML SYRINGE SQ SCH (08:00)
[2020-02-28 10:48] LABS: Basophils % (A) 1 %; Eosinophils # (A) 0.3 k/uL (0-0.7); Eosinophils % (A) 4 %; HCT 47.1 % (39.0-53.0); Lymphocytes # (A) 1.9 k/uL (1.0-4.8); Lymphocytes % (A) 24 %; MCH 29.8 pg (25.0-35.0); MCHC 31.9 g/dL (31.0-37.0); MCV 93.2 fL (80.0-100.0); Mean Platelet Volume 6.8; Monocytes # (A) 0.4 k/uL (0-1.0); Monocytes % (A) 5 %; Neutrophils % (A) 64 %; Platelet Count 265 k/uL (150-450); RBC 5.05 m/uL (4.30-5.90); RDW 14.3 % (11.5-15.5); WBC 7.8 k/uL (3.8-10.6)
[2020-02-28 10:55] LABS: Hemoglobin A1C 5.7 % (4.0-6.0)
[2020-02-28 11:19] LABS: ALT 28 U/L (4-49); AST 28 U/L (17-59); African American GFR (CKD) >90 (>60 ml/min/1.73 sqM); Albumin 3.9 g/dL (3.5-5.0); Alkaline Phosphatase 70 U/L (38-126); Anion Gap 6 mmol/L; Blood Urea Nitrogen 15 mg/dL (9-20); Carbon Dioxide 29 mmol/L (22-30); Chloride 102 mmol/L (98-107); Glucose 98 mg/dL (74-99); Non-African American GFR(CKD) >90 (>60 ml/min/1.73 sqM); Potassium 4.5 mmol/L (3.5-5.1); Sodium 137 mmol/L (137-145); Total Bilirubin 0.4 mg/dL (0.2-1.3); Total Protein 7.5 g/dL (6.3-8.2)
[2020-02-28] MEDS: VANCOMYCIN 2,000 MG in SODIUM CHLORIDE 0.9% 500 ML 500 ML IVPB SCH ×2 (12:51→23:49)
[2020-02-28] MEDS ORDERED: LIDOCAINE 1% (10MG/ML) FOR IV START INTRADERMA ONE (16:22)
[2020-02-28] MEDS ORDERED: DEXAMETHASONE SOD PHOSPHATE 10 MG/ML 1 ML VIAL IV ONE (16:24)
[2020-02-28] MEDS ORDERED: ONDANSETRON 4 MG/2 ML VIAL IVP ONE (16:24)
[2020-02-28] MEDS ORDERED: LACTATED RINGERS 1,000 ML IV ONE (16:33)
[2020-02-28] MEDS ORDERED: LIDOCAINE 1% INJ 10MG/ML (20 ML MDV) ONE (16:50)
[2020-02-28] MEDS ORDERED: MIDAZOLAM 2 MG/2 ML VIAL ONE (16:50)
[2020-02-28] MEDS ORDERED: fentaNYL (PF) 50 MCG/ML 2 ML AMP ONE (16:50)
[2020-02-28] MEDS ORDERED: PROPOFOL 10 MG/ML 20 ML VIAL IV ONE (16:50)
[2020-02-28] MEDS ORDERED: KETAMINE 10 MG/ML 20 ML VIAL ONE (16:50)
[2020-02-28] MEDS ORDERED: LIDOCAINE 1%-EPI 1:100,000 20 ML VIAL SQ ONE ×2 (17:03)
[2020-02-28 17:07] VITALS: BMI 40.8
--- NOTE | 2020-02-28 19:43 | P.PN ---
Subjective Progress Note Date: 02/28/20 Javier Thayer is a 54-year-old male who presented to [facility] emergency room with left lower extremity pain and swelling erythema and tenderness. Patient has 2 open wounds on the bottom of his left foot he also has one large scabbed ulcer on the bottom of the right foot however at this time it seems that the left foot has cellulitis extending [facility] up to the knee he was evaluated in the emergency room he was started on IV antibiotic and was admitted to medical floor infectious disease consultation was requested. Patient states that he has peripheral neuropathy in his lower extremities, he denies any history of diabetes, his A1c on 09/14/2019 was 5.5 patient stated that he smokes 1-1-1/2 packs per day. Patient was admitted to the hospital in May 2019 was open ulcer of the bilateral feet he underwent debridement by Dr. Oneal and was seen by Dr. Hernandez at that time, patient was also admitted in September 2019 with an episode of paroxysmal atrial fibrillation. Patient denies any other medical problems he denies any history of coronary artery disease, congestive heart failure, asthma or COPD, or any kidney or liver disease. He states that he has peripheral neur opathy in bilateral lower extremities cause of which is unclear, he had previously epidural injection in his back. On review of system patient is complaining of left lower extremity pain and swelling otherwise he denies any complaints there is no fever or chills no headache or dizziness no chest pain no shortness of breath no cough no nausea or vomiting no abdominal pain no diarrhea no burning with urination no frequency or urgency and no hematuria. On 02/28/2020 patient was seen and examined on the medical floor he is alert and oriented 3 in no apparent distress there is no fever or chills no headache or dizziness no chest pain no shortness of breath no cough no nausea or vomiting no abdominal pain no diarrhea no burning was urination no frequency or urgency no hematuria he is scheduled for debridement of his lower extremity ulcers today Objective - Vital Signs Vital signs: Vital Signs Temp 97.9 F 02/28/20 07:00 Pulse 55 L 02/28/20 08:00 Resp 18 02/28/20 08:00 BP 164/97 02/28/20 07:00 Pulse Ox 95 02/28/20 07:00 Intake & Output 02/27/20 02/28/20 02/28/20 18:59 06:59 18:59 Intake Total 296 Balance 296 Intake: Oral 296 Other: Voiding Method Toilet Toilet Toilet # Voids 2 - Exam In general patient is alert and oriented 3 in no apparent distress HEENT head normocephalic and atraumatic Neck is supple no JVD no goiter no lymphadenopathy Chest exam reveals a few scattered crackles bilaterally no wheezing Cardiac exam reveals regular heart sounds S1 and S2 no gallops no murmurs Abdomen is soft nontender obese no organomegaly no palpable masses with normal bowel sounds Extremity exam reveals left lower extremity with erythema and swelling extending from the foot midway up to the knee, there are 2 small ulcers with scabbing on the bottom of the left foot On the right foot there is one large scabbed ulcer without any surrounding cellulitis Neurological examination reveals no gross focal deficit - Labs CBC & Chem 7: 02/28/20 10:14 02/28/20 10:14 Labs: Microbiology - Last 24 Hours (Table) 02/26/20 22:37 Blood Culture - Preliminary Blood No Growth after 24 hours Assessment and Plan Plan: 1. Left lower extremity cellulitis was ulcers patient was admitted to medical floor he was started on IV Zosyn and IV vancomycin, infectious disease consultation was requested, will add consultation to vascular surgery 2. Underlying history of peripheral neuropathy 3. Previous history of paroxysmal atrial fibrillation 4. Tobacco abuse patient was counseled in length in regard to smoking cessation counseling more than 3 minutes today 5. Morbid obesity, no evidence of diabetes mellitus so far last hemoglobin A1c was checked in September with check again At this time will continue with IV vancomycin and IV Zosyn awaiting culture results Infectious disease and vascular surgery consultation requested awaiting input Recheck labs in a.m. For DVT prophylaxis we'll use subcu Lovenox For GI prophylaxis we will use Protonix
--- NOTE | 2020-02-28 19:49 | PN ---
PROGRESS NOTE DATE OF SERVICE: 02/28/2020 REASON FOR FOLLOWUP: Left leg cellulitis with bilateral foot ulcers. INTERVAL HISTORY: The patient is currently afebrile, has been breathing comfortably. The patient denies having any chest pain or shortness of breath or cough. Left leg pain is slightly decreased. No nausea, no vomiting, no abdominal pain or diarrhea. PHYSICAL EXAMINATION: Blood pressure 130/65 with a pulse of 54, temperature 97.2. He is 94% on room air. General description is a middle-aged male lying in bed in no distress. RESPIRATORY SYSTEM: Unlabored breathing. Clear to auscultation anteriorly. HEART: S1, S2. Regular rate and rhythm. ABDOMEN: Soft. No tenderness. Left leg swelling and redness have improved. LABS: White count normalized to 7.8. DIAGNOSTIC IMPRESSION AND PLAN: Patient with bilateral diabetic foot plantar ulcers, right greater than left. However, the patient did have cellulitis mostly on the left leg. Currently covered with vancomycin and Unasyn. Waiting for surgical debridement and deep cultures to adjust antibiotic further and monitor his clinical course closely. MMODL / IJN: [id number] /
--- NOTE | 2020-02-29 03:58 | PCN ---
PROCEDURE NOTE PREOPERATIVE DIAGNOSIS: Right foot chronic infected callus wound on the plantar aspect, measurement is 5 x 4 cm; on the left it is 3 x 2 cm. This patient has a longstanding history of callus, which got infected. DESCRIPTION OF PROCEDURE: The patient brought to the operating room under local and IV sedation. Both the right and left foot was prepped and draped in the usual sterile manner. Incision was made on the plantar aspect of the right foot. Deepened through the skin, fat and fascia. The callus was excised with sharp knife and it was not involving the deep fascia. It was sent for culture and sensitivity. Some bleeding was noted, which was controlled with cautery. After that, left foot wound was infected callus, measurement was 3 x 2 cm and 1% lidocaine infiltrated. Using sharp knife, we excised the callus down to subcutaneous tissue. No bony involvement noted. No active bleeding was noted. Wound was cleaned with saline and dressing applied. Patient tolerated the procedure well. PLAN: We will use Santyl cream to the right and left foot for local wound care which will be used daily. MMODL / IJN: [id number] /
[2020-02-29] MEDS: AMPICILLIN-SULBACTAM 3 GM in SODIUM CHLORIDE 0.9% 100 ML IVPB SCH ×4 (06:07→23:08)
[2020-02-29] MEDS: LOSARTAN 25 MG TAB PO SCH (08:04)
[2020-02-29] MEDS: ENOXAPARIN 40 MG/0.4 ML SYRINGE SQ SCH (08:04)
[2020-02-29] MEDS: HYDROCHLOROTHIAZIDE 25 MG TAB PO SCH (08:04)
[2020-02-29] MEDS: amLODIPine 5 MG TAB PO SCH (08:04)
[2020-02-29] MEDS: CHOLECALCIFEROL 1,000 UNIT TAB PO SCH (08:04)
[2020-02-29] MEDS: PANTOPRAZOLE 40 MG TABLET PO SCH (08:04)
[2020-02-29] MEDS ORDERED: VANCOMYCIN TROUGH DUE 1 EACH MISC MISCELLANE ONE (10:00)
[2020-02-29 10:37] LABS: Basophils % (A) 0 %; Eosinophils # (A) 0.1 k/uL (0-0.7); Eosinophils % (A) 1 %; HCT 46.1 % (39.0-53.0); Lymphocytes # (A) 1.6 k/uL (1.0-4.8); Lymphocytes % (A) 13 %; MCHC 32.6 g/dL (31.0-37.0); MCV 92.1 fL (80.0-100.0); Mean Platelet Volume 6.9; Monocytes # (A) 0.5 k/uL (0-1.0); Monocytes % (A) 4 %; Neutrophils # (A) 10.6 k/uL (1.3-7.7); Neutrophils % (A) 81 %; Platelet Count 280 k/uL (150-450); WBC 13.1 k/uL (3.8-10.6)
[2020-02-29 10:56] LABS: ALT 27 U/L (4-49); AST 23 U/L (17-59); African American GFR (CKD) >90 (>60 ml/min/1.73 sqM); Albumin 3.8 g/dL (3.5-5.0); Alkaline Phosphatase 67 U/L (38-126); Anion Gap 7 mmol/L; Blood Urea Nitrogen 20 mg/dL (9-20); Calcium 8.8 mg/dL (8.4-10.2); Carbon Dioxide 27 mmol/L (22-30); Chloride 103 mmol/L (98-107); Glucose 114 mg/dL (74-99); Non-African American GFR(CKD) >90 (>60 ml/min/1.73 sqM); Potassium 4.5 mmol/L (3.5-5.1); Sodium 137 mmol/L (137-145); Total Bilirubin 0.4 mg/dL (0.2-1.3); Total Protein 7.4 g/dL (6.3-8.2)
[2020-02-29] MEDS: VANCOMYCIN 2,000 MG in SODIUM CHLORIDE 0.9% 500 ML 500 ML IVPB SCH ×2 (13:14→23:59)
--- NOTE | 2020-03-01 00:13 | PN ---
PROGRESS NOTE DATE OF SERVICE: 02/29/2020 REASON FOR FOLLOWUP: Bilateral foot plantar ulcer with left foot and leg cellulitis. INTERVAL HISTORY: The patient is currently afebrile. The patient is status post debridement of his wound yesterday. The patient denies having any chest pain, shortness of breath or cough. No nausea or vomiting. Overall pain and discomfort to the leg is controlled. PHYSICAL EXAMINATION: Blood pressure 155/68 with a pulse of 50, temperature 97.7. He is 97% on room air. General description is a middle-aged male lying in bed in no distress. RESPIRATORY SYSTEM: Unlabored breathing, clear to auscultation anteriorly. HEART: S1, S2. Regular rate and rhythm. ABDOMEN: Soft, no tenderness. Foot wounds are currently dressed up, no obvious drainage on the dressing. LABS: BUN of 20, creatinine 0.72. White count 13.1. Wound cultures currently pending. DIAGNOSTIC IMPRESSION AND PLAN: Patient with bilateral foot infected callus with secondary cellulitis, status post debridement. Cultures currently pending. Plan is for continue Unasyn and vancomycin adjusting on the basis of the culture report. Continue with supportive care. MMODL / IJN: [id number] /
[2020-03-01] MEDS: AMPICILLIN-SULBACTAM 3 GM in SODIUM CHLORIDE 0.9% 100 ML IVPB SCH ×2 (05:40→11:32)
[2020-03-01] MEDS: amLODIPine 5 MG TAB PO SCH (08:11)
[2020-03-01] MEDS: CHOLECALCIFEROL 1,000 UNIT TAB PO SCH (08:11)
[2020-03-01] MEDS: HYDROCHLOROTHIAZIDE 25 MG TAB PO SCH (08:11)
[2020-03-01] MEDS: PANTOPRAZOLE 40 MG TABLET PO SCH (08:11)
[2020-03-01] MEDS: ENOXAPARIN 40 MG/0.4 ML SYRINGE SQ SCH (08:11)
[2020-03-01] MEDS: LOSARTAN 25 MG TAB PO SCH (08:11)
[2020-03-01 08:39] VITALS: BP 152/87; PULSE 42; RESP 16; TEMP 97.6
[2020-03-01] MEDS: VANCOMYCIN 2,000 MG in SODIUM CHLORIDE 0.9% 500 ML 500 ML IVPB SCH (11:32)
--- NOTE | 2020-03-01 13:47 | P.PN ---
Subjective Progress Note Date: 02/29/20 Javier Thayer is a 54-year-old male who presented to [facility] emergency room with left lower extremity pain and swelling erythema and tenderness. Patient has 2 open wounds on the bottom of his left foot he also has one large scabbed ulcer on the bottom of the right foot however at this time it seems that the left foot has cellulitis extending snf up to the knee he was evaluated in the emergency room he was started on IV antibiotic and was admitted to medical floor infectious disease consultation was requested. Patient states that he has peripheral neuropathy in his lower extremities, he denies any history of diabetes, his A1c on 09/14/2019 was 5.5 patient stated that he smokes 1-1-1/2 packs per day. Patient was admitted to the hospital in May 2019 was open ulcer of the bilateral feet he underwent debridement by Dr. Oneal and was seen by Dr. Hernandez at that time, patient was also admitted in September 2019 with an episode of paroxysmal atrial fibrillation. Patient denies any other medical problems he denies any history of coronary artery disease, congestive heart failure, asthma or COPD, or any kidney or liver disease. He states that he has peripheral neur opathy in bilateral lower extremities cause of which is unclear, he had previously epidural injection in his back. On review of system patient is complaining of left lower extremity pain and swelling otherwise he denies any complaints there is no fever or chills no headache or dizziness no chest pain no shortness of breath no cough no nausea or vomiting no abdominal pain no diarrhea no burning with urination no frequency or urgency and no hematuria. On 02/28/2020 patient was seen and examined on the medical floor he is alert and oriented 3 in no apparent distress there is no fever or chills no headache or dizziness no chest pain no shortness of breath no cough no nausea or vomiting no abdominal pain no diarrhea no burning was urination no frequency or urgency no hematuria he is scheduled for debridement of his lower extremity ulcers today. On 02/29/2020 patient was seen and examined on the medical floor he is alert and oriented 3 he is complaining of pain in his feet otherwise he denies any complaints there is no fever or chills no headache or dizziness no chest pain no shortness of breath no cough no nausea or vomiting no abdominal pain no diarrhea no burning with urination no frequency or urgency and no hematuria. Objective - Vital Signs Vital signs: Vital Signs Temp 97.9 F 02/29/20 15:00 Pulse 46 L 02/29/20 15:00 Resp 16 02/29/20 15:00 BP 159/78 02/29/20 15:00 Pulse Ox 96 02/29/20 15:00 Intake & Output 02/28/20 02/29/20 02/29/20 18:59 06:59 18:59 Intake Total 952 20 580 Output Total 10 850 Balance 942 -830 580 Weight 140.614 kg Intake: IV 360 Oral 592 20 580 Output: Urine 850 Estimated Blood Loss 10 Other: Voiding Method Toilet Toilet # Voids 1 2 - Exam In general patient is alert and oriented 3 in no apparent distress HEENT head normocephalic and atraumatic Neck is supple no JVD no goiter no lymphadenopathy Chest exam reveals a few scattered crackles bilaterally no wheezing Cardiac exam reveals regular heart sounds S1 and S2 no gallops no murmurs Abdomen is soft nontender obese no organomegaly no palpable masses with normal bowel sounds Extremity exam reveals left lower extremity with erythema and swelling extending from the foot midway up to the knee, there are 2 small ulcers with scabbing on the bottom of the left foot On the right foot there is one large scabbed ulcer without any surrounding cellulitis Neurological examination reveals no gross focal deficit - Labs CBC & Chem 7: 02/29/20 10:22 02/29/20 10:22 Labs: Abnormal Lab Results - Last 24 Hours (Table) 02/29/20 02/29/20 Range/Units 10:22 10:22 WBC 13.1 H (3.8-10.6) k/uL Neutrophils # 10.6 H (1.3-7.7) k/uL Glucose 114 H (74-99) mg/dL Microbiology - Last 24 Hours (Table) 02/28/20 17:15 Gram Stain - Preliminary Foot - Right Tissue Culture - Preliminary 02/26/20 22:37 Blood Culture - Preliminary Blood No Growth after 48 hours 02/28/20 17:15 Anaerobic Culture - Preliminary Foot - Right Assessment and Plan Plan: 1. Left lower extremity cellulitis was ulcers patient was admitted to medical floor he was started on IV Zosyn and IV vancomycin, infectious disease consultation was requested, will add consultation to vascular surgery 2. Underlying history of peripheral neuropathy 3. Previous history of paroxysmal atrial fibrillation 4. Tobacco abuse patient was counseled in length in regard to smoking cessation counseling more than 3 minutes today 5. Morbid obesity, no evidence of diabetes mellitus so far last hemoglobin A1c was checked in September with check again At this time will continue with IV vancomycin and IV Zosyn awaiting culture results Infectious disease and vascular surgery consultation requested awaiting input Recheck labs in a.m. For DVT prophylaxis we'll use subcu Lovenox For GI prophylaxis we will use Protonix
--- NOTE | 2020-03-01 13:48 | P.DS ---
Providers Date of admission: 02/27/20 00:06 Expected date of discharge: 03/01/20 Attending physician: Hi Pope Consults: 02/26/20 22:33 Consult Physician Stat Consulting Provider: Sudhakar Lisa Consult Reason/Comments: bilateral foot ulcers Do you want consulting provider notified?: Yes 02/27/20 12:02 Consult Physician Routine Consulting Provider: Sudhakar Lisa Consult Reason/Comments: foot ulcer Do you want consulting provider notified?: Yes 02/27/20 12:46 Consult Physician Routine Consulting Provider: Kurt Oneal Consult Reason/Comments: foot ulcer Do you want consulting provider notified?: Yes Primary care physician: Davida Alexander Hospital Course: Diagnosis on discharge: 1. Left lower extremity cellulitis was ulcers patient was admitted to medical floor he was started on IV Zosyn and IV vancomycin, infectious disease consultation was requested, will add consultation to vascular surgery 2. Underlying history of peripheral neuropathy 3. Previous history of paroxysmal atrial fibrillation 4. Tobacco abuse patient was counseled in length in regard to smoking cessation counseling more than 3 minutes today 5. Morbid obesity, no evidence of diabetes mellitus so far last hemoglobin A1c was checked in September with check again Hospital course: Javier Thayer is a 54-year-old male who presented to [facility] emergency room with left lower extremity pain and swelling erythema and tenderness. Patient has 2 open wounds on the bottom of his left foot he also has one large scabbed ulcer on the bottom of the right foot however at this time it seems that the left foot has cellulitis extending longterm up to the knee he was evaluated in the emergency room he was started on IV antibiotic and was admitted to medical floor infectious disease consultation was requested. Patient states that he has peripheral neuropathy in his lower extremities, he denies any history of diabetes, his A1c on 09/14/2019 was 5.5 patient stated that he smokes 1-1-1/2 packs per day. Patient was admitted to the hospital in May 2019 was open ulcer of the bilateral feet he underwent debridement by Dr. Oneal and was seen by Dr. Hernandez at that time, patient was also admitted in September 2019 with an episode of paroxysmal atrial fibrillation. Patient denies any other medical problems he denies any history of coronary artery disease, congestive heart failure, asthma or COPD, or any kidney or liver disease. He states that he has peripheral neuropathy in bilateral lower extremities cause of which is unclear, he had previously epidural injection in his back. On review of system patient is complaining of left lower extremity pain and swelling otherwise he denies any complaints there is no fever or chills no headache or dizziness no chest pain no shortness of breath no cough no nausea or vomiting no abdominal pain no diarrhea no burning with urination no frequency or urgency and no hematuria. On 02/28/2020 patient was seen and examined on the medical floor he is alert and oriented 3 in no apparent distress there is no fever or chills no headache or dizziness no chest pain no shortness of breath no cough no nausea or vomiting no abdominal pain no diarrhea no burning was urination no frequency or urgency no hematuria he is scheduled for debridement of his lower extremity ulcers today On 02/29/2020 patient was seen and examined on the medical floor he is alert and oriented 3 he is complaining of pain in his feet otherwise he denies any complaints there is no fever or chills no headache or dizziness no chest pain no shortness of breath no cough no nausea or vomiting no abdominal pain no diarrhea no burning with urination no frequency or urgency and no hematuria. On 03/01/2020 patient was seen and examined on the medical floor he is doing better pain in his bilateral feet has improved there is no fever or chills no headache or dizziness no chest pain no shortness of breath no cough no nausea or vomiting no abdominal pain no diarrhea no burning with urination no frequency or urgency no hematuria. Was evaluated today by Dr. Lisa and was cleared for discharge, patient will be maintained on Augmentin 875 mg twice daily for 10 days, follow up at the wound care center follow-up was Dr. Lisa within 10 days, follow-up with primary care physician within one week Patient Condition at Discharge: Serious Plan - Discharge Summary Discharge Rx Participant: No New Discharge Prescriptions: New Amoxic-Pot Clav 875-125Mg [Augmentin 875-125] 1 tab PO Q12HR #20 tab Continue Omeprazole 20 mg PO DAILY Hydrochlorothiazide [Hydrodiuril] 25 mg PO DAILY amLODIPine [Norvasc] 5 mg PO DAILY tab Losartan [Cozaar] 25 mg PO DAILY tab Cholecalciferol [Vitamin D3 (25 Mcg = 1000 Iu)] 5,000 unit PO DAILY Discharge Medication List Hydrochlorothiazide [Hydrodiuril] 25 mg PO DAILY 06/27/16 [History] Omeprazole 20 mg PO DAILY 06/27/16 [History] Losartan [Cozaar] 25 mg PO DAILY tab 09/26/18 [Rx] amLODIPine [Norvasc] 5 mg PO DAILY tab 09/26/18 [Rx] Cholecalciferol [Vitamin D3 (25 Mcg = 1000 Iu)] 5,000 unit PO DAILY 02/26/20 [History] Amoxic-Pot Clav 875-125Mg [Augmentin 875-125] 1 tab PO Q12HR #20 tab 03/01/20 [Rx] Follow up Appointment(s)/Referral(s): Davida Alexander MD [Primary Care Provider] - 1-2 days Activity/Diet/Wound Care/Special Instructions: One week Dr. Oneal in the wound center
--- NOTE | 2020-03-01 15:44 | PN ---
PROGRESS NOTE DATE OF SERVICE: 03/01/2020 REASON FOR FOLLOWUP: Bilateral feet infected calluses. INTERVAL HISTORY: Patient is currently afebrile. The patient is breathing comfortably. Denies any chest pain, shortness of breath or cough. No nausea or vomiting. No abdominal pain. Overall pain and discomfort to the foot areas have improved and he wants to go home. PHYSICAL EXAMINATION: Blood pressure 152/87 with a pulse of 42, temperature 97.6. He is 93% on room air. General description is a middle-aged male lying in bed in no distress. RESPIRATORY SYSTEM: Unlabored breathing. Clear to auscultation anteriorly. HEART: S1, S2. Regular rate and rhythm. ABDOMEN: Soft. No tenderness. Feet are currently dressed up. Minimal drainage on the dressing. LABS: No new labs have been obtained today. Cultures so far negative. DIAGNOSTIC IMPRESSION AND PLAN: Patient with bilateral foot ulcers with concern for secondary cellulitis. Overall clinical improvement. Cultures negative for any resistant pathogen. Will continue oral Augmentin. Prescription was sent to pharmacy. Local care per Surgery. Plan of care was discussed with the admitting physician working on discharge. MMODL / IJN: [id number] /
== END 2020-03-01 15:21 | disposition home or self-care (01) | DRG 571 ==
LOC: EC 19:45 → 4SSUR 02-27 00:06
PROVIDERS: ADMIT Internal Medicine; ATTEND Internal Medicine
PROC: 0JBR0ZZ Excision of Left Foot Subcutaneous Tissue and Fascia, Open Approach (ICD-10-PCS; principal; 2020-02-28 09:50)
PROC: 0JBQ0ZZ Excision of Right Foot Subcutaneous Tissue and Fascia, Open Approach (ICD-10-PCS; principal; 2020-02-28 09:50)
DX: L03.116 Cellulitis of left lower limb (principal); Z68.41 Body mass index [BMI] 40.0-44.9, adult; L97.519 Non-pressure chronic ulcer of other part of right foot with unspecified severity; L97.529 Non-pressure chronic ulcer of other part of left foot with unspecified severity; I48.0 Paroxysmal atrial fibrillation; L84 Corns and callosities; G62.9 Polyneuropathy, unspecified; Z71.6 Tobacco abuse counseling; F17.210 Nicotine dependence, cigarettes, uncomplicated; E78.5 Hyperlipidemia, unspecified; I10 Essential (primary) hypertension; Z79.899 Other long term (current) drug therapy; Z82.3 Family history of stroke; Z82.49 Family history of ischemic heart disease and other diseases of the circulatory system; Z11.59 Encounter for screening for other viral diseases; E66.01 Morbid (severe) obesity due to excess calories
CPT/HCPCS: 36415; 80053; 80202; 83036; 83605; 85025; 87040; 87070; 87075; 87077; 87186; 87205; 96361; 96365; 96367; 96375; 99285

== ENCOUNTER 2020-06-16 10:12 | Emergency (ER) | payer BC ==
[2020-06-16 10:30] VITALS: TEMP 97.6
--- NOTE | 2020-06-16 11:10 | ED ---
General Adult HPI - General Chief complaint: Recheck/Abnormal Lab/Rx Stated complaint: Hypertensive Time Seen by Provider: 06/16/20 10:22 Source: patient, RN notes reviewed Mode of arrival: ambulatory Limitations: no limitations - History of Present Illness Initial comments: This a 54-year-old male presents emergency Department chief complaint of hyperte nsion. Patient states that he goes a wound center weekly and has been noticing that his blood pressure has been elevating. Patient states 2 weeks ago his Norvasc was increased from 5 mg to 10 mg. Patient states that last week his hydrochlorothiazide was doubled. Patient also states losartan 25 mg Patient states that he woke up this morning to his blood pressure medication around 5:30 checks his blood pressure on 7:30 was noted to be elevated 184/115. Patient states that he did have a headache but he has chronic headaches in nature which is not changed. Denies any focal weakness. Patient has seen his primary care physician several times for blood pressure. Patient denies any current chest pain he states he has body aches and muscle aches in his shoulders. Patient complains of nausea and diarrhea constipation states is not diabetic. - Related Data Home Medications Medication Instructions Recorded Confirmed hydroCHLOROthiazide [Hydrodiuril] 50 mg PO DAILY 06/27/16 06/16/20 Cholecalciferol [Vitamin D3 (25 5,000 unit PO DAILY 02/26/20 06/16/20 Mcg = 1000 Iu)] Omeprazole 20 mg PO DAILY 06/16/20 06/16/20 amLODIPine [Norvasc] 10 mg PO DAILY 06/16/20 06/16/20 Previous Rx's Medication Instructions Recorded Losartan [Cozaar] 25 mg PO DAILY tab 09/26/18 Allergies Allergy/AdvReac Type Severity Reaction Status Date / Time No Known Allergies Allergy Verified 06/16/20 11:19 Review of Systems ROS Statement: Those systems with pertinent positive or pertinent negative responses have been documented in the HPI. ROS Other: All systems not noted in ROS Statement are negative. Past Medical History Past Medical History: GERD/Reflux, Hyperlipidemia, Hypertension Additional Past Medical History / Comment(s): Occasional low back pain, paroxysmal atrial fibrillation, morbid obesity with BMI 43.8 History of Any Multi-Drug Resistant Organisms: None Reported, MRSA Date of last positivie culture/infection: 02/28/20 MDRO Source:: Right Foot Past Surgical History: Orthopedic Surgery Additional Past Surgical History / Comment(s): L BICEP SX WITH METAL PLATE, R ARM BENIGN CYST, 2015 COLONOSCOPY WITH BENIGN POLYP Past Anesthesia/Blood Transfusion Reactions: No Reported Reaction Past Psychological History: No Psychological Hx Reported Smoking Status: Current every day smoker Past Alcohol Use History: Occasional Past Drug Use History: None Reported - Past Family History Mother Family Medical History: No Reported History Additional Family Medical History / Comment(s): MOTHER IS HEALTHY Father Family Medical History: CVA/TIA, Myocardial Infarction (SD) Additional Family Medical History / Comment(s): FATHER HAD A CVA AND THEN OF A SD AT THE AGE OF 63 YRS. General Exam Limitations: no limitations General appearance: alert, in no apparent distress Head exam: Present: atraumatic, normocephalic, normal inspection Eye exam: Present: normal appearance, PERRL, EOMI. Absent: scleral icterus, conjunctival injection, periorbital swelling ENT exam: Present: normal exam, normal oropharynx, mucous membranes moist Neck exam: Present: normal inspection, full ROM. Absent: tenderness, meningismus, lymphadenopathy Respiratory exam: Present: normal lung sounds bilaterally. Absent: respiratory distress, wheezes, rales, rhonchi, stridor Cardiovascular Exam: Present: regular rate, normal rhythm, normal heart sounds. Absent: systolic murmur, diastolic murmur, rubs, gallop, clicks GI/Abdominal exam: Present: soft, normal bowel sounds. Absent: distended, tenderness, guarding, rebound, rigid Neurological exam: Present: alert, oriented X3, CN II-XII intact Skin exam: Present: warm, dry, intact, normal color. Absent: rash Course Vital Signs 06/16/20 06/16/20 10:20 12:19 Temperature 97.6 F Pulse Rate 73 60 Respiratory 18 16 Rate Blood Pressure 179/83 144/89 O2 Sat by Pulse 96 94 L Oximetry EKG Findings - EKG Comments: EKG Findings:: EKG performed at 11:04 normal sinus rhythm rate of 64 WI 150 QRS 86 QTC is QTC 416/429 - EKG Results: EKG: interpreted by VIANEY Medical Decision Making - Medical Decision Making 54-year-old presented for hypertension. Patient's labs unremarkable patient's blood pressure improved. Patient will follow-up with PCP discuss medication change. - Lab Data Result diagrams: 06/16/20 10:58 06/16/20 10:58 Lab Results 06/16/20 06/16/20 06/16/20 Range/Units 10:58 10:58 10:58 WBC 9.7 (3.8-10.6) k/uL RBC 5.42 (4.30-5.90) m/uL Hgb 16.0 (13.0-17.5) gm/dL Hct 48.7 (39.0-53.0) % MCV 89.8 (80.0-100.0) fL MCH 29.6 (25.0-35.0) pg MCHC 32.9 (31.0-37.0) g/dL RDW 14.6 (11.5-15.5) % Plt Count 262 (150-450) k/uL Neutrophils % 68 % Lymphocytes % 24 % Monocytes % 4 % Eosinophils % 3 % Basophils % 0 % Neutrophils # 6.5 (1.3-7.7) k/uL Lymphocytes # 2.3 (1.0-4.8) k/uL Monocytes # 0.4 (0-1.0) k/uL Eosinophils # 0.2 (0-0.7) k/uL Basophils # 0.0 (0-0.2) k/uL Sodium 134 L (137-145) mmol/L Potassium 4.5 (3.5-5.1) mmol/L Chloride 100 (98-107) mmol/L Carbon Dioxide 32 H (22-30) mmol/L Anion Gap 2 mmol/L BUN 23 H (9-20) mg/dL Creatinine 0.93 (0.66-1.25) mg/dL Est GFR (CKD-EPI)AfAm >90 (>60 ml/min/1.73 sqM) Est GFR (CKD-EPI)NonAf >90 (>60 ml/min/1.73 sqM) Glucose 107 H (74-99) mg/dL Calcium 9.8 (8.4-10.2) mg/dL Total Bilirubin 0.5 (0.2-1.3) mg/dL AST 37 (17-59) U/L ALT 39 (4-49) U/L Alkaline Phosphatase 81 (38-126) U/L Troponin I <0.012 (0.000-0.034) ng/mL Total Protein 8.1 (6.3-8.2) g/dL Albumin 4.5 (3.5-5.0) g/dL Disposition Clinical Impression: Hypertension Disposition: HOME SELF-CARE Condition: Stable Instructions (If sedation given, give patient instructions): Hypertension (ED) Additional Instructions: Please return to the Emergency Department if symptoms worsen or any other concerns. Is patient prescribed a controlled substance at d/c from ED?: No Referrals: Davida Alexander MD [Primary Care Provider] - 1-2 days Time of Disposition: 12:42
[2020-06-16 11:15] LABS: Basophils % (A) 0 %; Eosinophils # (A) 0.2 k/uL (0-0.7); Eosinophils % (A) 3 %; HCT 48.7 % (39.0-53.0); Lymphocytes # (A) 2.3 k/uL (1.0-4.8); Lymphocytes % (A) 24 %; MCH 29.6 pg (25.0-35.0); MCHC 32.9 g/dL (31.0-37.0); MCV 89.8 fL (80.0-100.0); Mean Platelet Volume 6.6; Monocytes # (A) 0.4 k/uL (0-1.0); Monocytes % (A) 4 %; Neutrophils # (A) 6.5 k/uL (1.3-7.7); Neutrophils % (A) 68 %; Platelet Count 262 k/uL (150-450); RBC 5.42 m/uL (4.30-5.90); RDW 14.6 % (11.5-15.5); WBC 9.7 k/uL (3.8-10.6)
[2020-06-16 11:25] LABS: ALT 39 U/L (4-49); AST 37 U/L (17-59); African American GFR (CKD) >90 (>60 ml/min/1.73 sqM); Albumin 4.5 g/dL (3.5-5.0); Alkaline Phosphatase 81 U/L (38-126); Anion Gap 2 mmol/L; Blood Urea Nitrogen 23 mg/dL (9-20); Calcium 9.8 mg/dL (8.4-10.2); Carbon Dioxide 32 mmol/L (22-30); Chloride 100 mmol/L (98-107); Glucose 107 mg/dL (74-99); Non-African American GFR(CKD) >90 (>60 ml/min/1.73 sqM); Potassium 4.5 mmol/L (3.5-5.1); Sodium 134 mmol/L (137-145); Total Bilirubin 0.5 mg/dL (0.2-1.3); Total Protein 8.1 g/dL (6.3-8.2)
[2020-06-16 12:20] VITALS: BP 144/89; PULSE 60; RESP 16
== END 2020-06-16 12:56 | disposition home or self-care (01) ==
LOC: EC 10:12
DX: I10 Essential (primary) hypertension (principal); R19.7 Diarrhea, unspecified; K21.9 Gastro-esophageal reflux disease without esophagitis; Z79.899 Other long term (current) drug therapy; F17.200 Nicotine dependence, unspecified, uncomplicated; Z86.14 Personal history of Methicillin resistant Staphylococcus aureus infection; Z82.49 Family history of ischemic heart disease and other diseases of the circulatory system
CPT/HCPCS: 36415; 80053; 84484; 85025; 93005; 99283

== ENCOUNTER 2020-09-12 14:53 | Inpatient (IN) | payer BC ==
[2020-09-12] MEDS ORDERED: KETOROLAC 15 MG/ML 1 ML VIAL IVP STA (15:25)
--- NOTE | 2020-09-12 15:31 | ED ---
Wound/Laceration HPI - General Chief Complaint: Wound/Laceration Stated Complaint: Left foot wound Time Seen by Provider: 09/12/20 15:11 Source: patient Mode of arrival: wheelchair Limitations: no limitations - History of Present Illness Initial Comments: Patient is a 54-year-old male, history of neuropathy, borderline diabetic, presenting to the emergency Department with complaints of worsening wound on his left foot. Patient has been going to wound care once a week for the last 2 years for a wound on the plantar surface of his left foot. Patient states over the past 2 days he feels like the pain has worsened and feels like the wound is getting worse as well. Patient went to wound care today who sent him to the ER for further evaluation. They did do a wound culture at the wound center today prior to arrival to the ER. He denies any fever or chills, no nausea or vomiting. He states the pain is being referred up to his left lower leg. He also feels like his leg is becoming warm. He denies history of blood clots. He denies any falls or trauma. He has no further complaints at this time. Upon arrival to the ER, his vital signs are stable. - Related Data Home Medications Medication Instructions Recorded Confirmed hydroCHLOROthiazide [Hydrodiuril] 25 mg PO DAILY 06/27/16 09/12/20 Cholecalciferol [Vitamin D3 (25 5,000 unit PO DAILY 02/26/20 09/12/20 Mcg = 1000 Iu)] Omeprazole 20 mg PO DAILY 06/16/20 09/12/20 Propranolol HCl [Propranolol HCl 160 mg PO DAILY 09/12/20 09/12/20 ER] Previous Rx's Medication Instructions Recorded Losartan [Cozaar] 25 mg PO DAILY tab 09/26/18 Allergies Allergy/AdvReac Type Severity Reaction Status Date / Time No Known Allergies Allergy Verified 09/12/20 17:19 Review of Systems ROS Statement: Those systems with pertinent positive or pertinent negative responses have been documented in the HPI. ROS Other: All systems not noted in ROS Statement are negative. Past Medical History Past Medical History: GERD/Reflux, Hyperlipidemia, Hypertension Additional Past Medical History / Comment(s): Occasional low back pain, paroxysmal atrial fibrillation, morbid obesity with BMI 43.8 History of Any Multi-Drug Resistant Organisms: None Reported, MRSA Date of last positivie culture/infection: 02/28/20 MDRO Source:: Right Foot Past Surgical History: Orthopedic Surgery Additional Past Surgical History / Comment(s): L BICEP SX WITH METAL PLATE, R ARM BENIGN CYST, 2015 COLONOSCOPY WITH BENIGN POLYP Past Anesthesia/Blood Transfusion Reactions: No Reported Reaction Past Psychological History: No Psychological Hx Reported Smoking Status: Current every day smoker Past Alcohol Use History: None Reported Past Drug Use History: None Reported - Past Family History Mother Family Medical History: No Reported History Additional Family Medical History / Comment(s): MOTHER IS HEALTHY Father Family Medical History: CVA/TIA, Myocardial Infarction ([place]) Additional Family Medical History / Comment(s): FATHER HAD A CVA AND THEN OF A [place] AT THE AGE OF 63 YRS. General Exam - General Exam Comments Initial Comments: GENERAL: Patient is well-developed and well-nourished. Patient is nontoxic and in no acute distress. HEAD: Atraumatic, normocephalic. EYES: Pupils equal round and reactive to light, extraocular movements intact, sclera a nicteric, conjunctiva are normal. Eyelids were unremarkable. ENT: TMs normal, nares patent, oropharynx clear without exudates. Moist mucous membranes. NECK: Normal range of motion, supple without lymphadenopathy or JVD. LUNGS: Unlabored respirations. Breath sounds clear to auscultation bilaterally and equal. No wheezes rales or rhonchi. HEART: Regular rate and rhythm without murmurs, rubs or gallops. ABDOMEN: Soft, nontender, normoactive bowel sounds. No guarding, no rebound. No masses appreciated. : Deferred MUSCULOSKELETAL: Normal extremities with adequate strength and normal range of motion, no pitting or edema. No clubbing or cyanosis. NEUROLOGICAL: Patient is alert and oriented x 3. Motor and sensory are also intact. Cranial nerves II through XII grossly intact. Symmetrical smile. Normal speech, normal gait. PSYCH: Normal mood, normal affect. SKIN: Warm, Dry, normal turgor, no rashes. Patient has a chronic wound on the plantar surface of the left foot, near the heads of the first and second metatarsals. This is approximately 1 cm in diameter, does appear to be about 1 cm in depth. There is some mild erythema surrounding the wound. It is no active drainage. Patient has a healed wound on the lateral aspect of the plantar surface near the base of the fifth metatarsal, this wound is currently closed. Limitations: no limitations Course Vital Signs 09/12/20 09/12/20 14:56 16:58 Temperature 98.7 F 98.7 F Pulse Rate 66 62 Respiratory 20 18 Rate Blood Pressure 159/96 148/67 O2 Sat by Pulse 97 100 Oximetry Medical Decision Making - Medical Decision Making Patient is a 54-year-old male sent in from the wound center for worsening pain in his left foot. He's had no fevers, his vital signs are stable upon arrival. Labs shows slight leukocytosis at 12.0, ESR is 72, CRP is 53. X-ray of the left foot shows a soft tissue ulcer along the ball of the foot near the first and s econd metatarsals however there is a new bony deformity with erosion of the fifth metatarsal head and fifth MTP joint, there is a subluxation noticed. Osteomyelitis could not be excluded. Patient will be admitted, started on antibiotics for possible osteomyelitis, we will consult infectious disease. Patient is in agreement this plan of care. Patient accepted by Dr. Pope. Case discussed with Dr. Jeff. - Lab Data Result diagrams: 09/12/20 15:32 09/12/20 15:32 Lab Results 09/12/20 09/12/20 09/12/20 Range/Units 15:32 15:32 15:32 WBC 12.0 H (3.8-10.6) k/uL RBC 5.41 (4.30-5.90) m/uL Hgb 16.3 (13.0-17.5) gm/dL Hct 48.6 (39.0-53.0) % MCV 89.8 (80.0-100.0) fL MCH 30.1 (25.0-35.0) pg MCHC 33.6 (31.0-37.0) g/dL RDW 14.2 (11.5-15.5) % Plt Count 283 (150-450) k/uL MPV 7.1 Neutrophils % 71 % Lymphocytes % 19 % Monocytes % 6 % Eosinophils % 3 % Basophils % 1 % Neutrophils # 8.6 H (1.3-7.7) k/uL Lymphocytes # 2.3 (1.0-4.8) k/uL Monocytes # 0.7 (0-1.0) k/uL Eosinophils # 0.3 (0-0.7) k/uL Basophils # 0.1 (0-0.2) k/uL ESR 72 H (0-15) mm/hr Sodium 137 (137-145) mmol/L Potassium 5.0 (3.5-5.1) mmol/L Chloride 100 (98-107) mmol/L Carbon Dioxide 30 (22-30) mmol/L Anion Gap 7 mmol/L BUN 22 H (9-20) mg/dL Creatinine 0.91 (0.66-1.25) mg/dL Est GFR (CKD-EPI)AfAm >90 (>60 ml/min/1.73 sqM) Est GFR (CKD-EPI)NonAf >90 (>60 ml/min/1.73 sqM) Glucose 98 (74-99) mg/dL Plasma Lactic Acid Cyril 1.4 (0.7-2.0) mmol/L Calcium 9.2 (8.4-10.2) mg/dL Total Bilirubin 0.4 (0.2-1.3) mg/dL AST 29 (17-59) U/L ALT 34 (4-49) U/L Alkaline Phosphatase 77 (38-126) U/L C-Reactive Protein 53.6 H (<10.0) mg/L Total Protein 8.1 (6.3-8.2) g/dL Albumin 4.2 (3.5-5.0) g/dL Disposition Clinical Impression: Left foot pain, Infected ulcer of skin, Foot osteomyelitis, left Disposition: ADMITTED IP TO THIS [facility] Condition: Stable Decision Date: 09/12/20 Decision Time: 16:56
--- NOTE | 2020-09-12 15:49 | XR ---
EXAMINATION TYPE: XR foot limited LT DATE OF EXAM: 09/12/2020 COMPARISON: 02/26/2020 HISTORY: 54-year-old male with nonhealing wound along the ball of the left foot. Pain. TECHNIQUE: 2 views FINDINGS: There is a deep soft tissue ulcer along the ball of the foot on the lateral view. Generalized soft ti ssue swelling. There is new deformity with erosion of the fifth metatarsal head and medial joint subl uxation. Mild degenerative change first MTP joint. IMPRESSION: 1. Plantar soft tissue ulcer along the ball the foot. Generalized soft tissue swelling. 2. As compared to 02/26/2020, there is new bony deformity with erosion of the fifth metatarsal head an d medial fifth MTP joint subluxation. Osteomyelitis here is not excluded.
[2020-09-12 16:10] LABS: Basophils # (A) 0.1 k/uL (0-0.2); Basophils % (A) 1 %; Eosinophils # (A) 0.3 k/uL (0-0.7); Eosinophils % (A) 3 %; HCT 48.6 % (39.0-53.0); HGB 16.3 gm/dL (13.0-17.5); Lymphocytes # (A) 2.3 k/uL (1.0-4.8); Lymphocytes % (A) 19 %; MCH 30.1 pg (25.0-35.0); MCHC 33.6 g/dL (31.0-37.0); MCV 89.8 fL (80.0-100.0); Mean Platelet Volume 7.1; Monocytes # (A) 0.7 k/uL (0-1.0); Monocytes % (A) 6 %; Neutrophils # (A) 8.6 k/uL (1.3-7.7); Neutrophils % (A) 71 %; Platelet Count 283 k/uL (150-450); RBC 5.41 m/uL (4.30-5.90); RDW 14.2 % (11.5-15.5)
[2020-09-12 16:25] LABS: ALT 34 U/L (4-49); AST 29 U/L (17-59); African American GFR (CKD) >90 (>60 ml/min/1.73 sqM); Albumin 4.2 g/dL (3.5-5.0); Alkaline Phosphatase 77 U/L (38-126); Anion Gap 7 mmol/L; Blood Urea Nitrogen 22 mg/dL (9-20); C Reactive Protein 53.6 mg/L (<10.0); Calcium 9.2 mg/dL (8.4-10.2); Carbon Dioxide 30 mmol/L (22-30); Chloride 100 mmol/L (98-107); Glucose 98 mg/dL (74-99); Non-African American GFR(CKD) >90 (>60 ml/min/1.73 sqM); Sodium 137 mmol/L (137-145); Total Bilirubin 0.4 mg/dL (0.2-1.3); Total Protein 8.1 g/dL (6.3-8.2)
[2020-09-12] MEDS ORDERED: ONDANSETRON 4 MG/2 ML VIAL IVP PRN (16:51)
[2020-09-12] MEDS ORDERED: NALOXONE 0.4 MG/ML 1 ML VIAL IV PRN (16:51)
[2020-09-12 16:52] LABS: Erythrocyte Sedimentation Rate 72 mm/hr (0-15)
[2020-09-12] MEDS ORDERED: VANCOMYCIN IV PER PHARMACY 1 EACH MISC MISCELLANE PRN (16:54)
[2020-09-12] MEDS ORDERED: cefTRIAXone IN SWFI 1,000 MG/10 ML SYRINGE IVP STA (16:54)
[2020-09-12] MEDS: MORPHINE SULFATE 4 MG/ML SYRINGE IV PRN ×2 (17:00→22:11)
[2020-09-12] MEDS ORDERED: VANCOMYCIN 2,250 MG in SODIUM CHLORIDE 0.9% 500 ML 500 ML IVPB ONE (17:30)
[2020-09-12] MEDS: KETOROLAC 15 MG/ML 1 ML VIAL IVP PRN (20:45)
[2020-09-13] MEDS: VANCOMYCIN 2,500 MG in SODIUM CHLORIDE 0.9% 500 ML 500 ML IVPB SCH ×2 (05:43→17:57)
[2020-09-13] MEDS: MORPHINE SULFATE 4 MG/ML SYRINGE IV PRN ×2 (05:43→18:03)
[2020-09-13] MEDS: CHOLECALCIFEROL 1,000 UNIT TAB PO SCH (07:48)
[2020-09-13] MEDS: hydroCHLOROthiazide 25 MG TAB PO SCH (07:48)
[2020-09-13] MEDS: PROPRANOLOL LA 80 MG CAP.SA.24H PO SCH (07:48)
[2020-09-13] MEDS: LOSARTAN 25 MG TAB PO SCH (07:48)
[2020-09-13] MEDS: PANTOPRAZOLE 40 MG TABLET PO SCH (07:48)
[2020-09-13 11:12] LABS: Anion Gap 9.6 mmol/L (4.00-12.00); Calcium 8.3 mg/dL (8.7-10.3); Carbon Dioxide 26.4 mmol/L (21.6-31.8); Potassium 4.4 mmol/L (3.5-5.5)
[2020-09-13] MEDS: AMPICILLIN-SULBACTAM 3 GM in SODIUM CHLORIDE 0.9% 100 ML IVPB SCH ×2 (11:17→16:54)
[2020-09-13 11:31] LABS: African American GFR (CKD) 111.8 (60.0-200.0); BUN/Creat Ratio 24.44 Ratio (12.00-20.00); Non-African American GFR(CKD) 96.5 (60.0-200.0)
[2020-09-13] MEDS ORDERED: ACETAMINOPHEN TAB 500 MG TAB PO PRN (11:32)
--- NOTE | 2020-09-13 11:34 | P.CONS ---
History of Present Illness - Reason for Consult Consult date: 09/13/20 left foot chronic ulcer, possible OM - History of Present Illness HISTORY OF PRESENT ILLNESS This is a 54-year-old male patient, [facility] under the care of Dr. Oneal. Patient was seen yesterday by GERA Hartley, and underwent debridement of a chronic left plantar foot ulcer. Because patient was having increasing pain and drainage, patient was recommended to come into [facility] emergency center for evaluation. Patient denies having any fevers. He states he has had this wound for a couple years. He has had increased swelling and pain that shoots up to his knee. He denies having any fever or chills. Patient was found to be afebrile, heart rate 66, blood pressure 159/96, pulse ox 97% on room air. WBC 12, sed rate 72, CRP 53. BUN 22 and creatinine 0.91. Lactic acid 1.4 X-ray of the left foot shows soft tissue ulcer along the ball of the foot on the lateral view. Generalized soft tissue swelling. Compared to films of February 2020, there is a new bony deformity with erosion of the fifth metatarsal head and revealed fifth MTP joint subluxation. Osteomyelitis here is not excluded. Wound culture was obtained yesterday and the wound healing Center. Previous wound cultures positive for anaerobes and MRSA. REVIEW OF SYSTEMS Constitutional: No fever, no chills, no night sweats. No weight change. No weakness, fatigue or lethargy. EENT: No headache. No nasal drainage or congestion. No epistaxis. No sore throat. Lungs: No shortness of breath, cough, no sputum production. No wheezing. Cardiovascular: No chest pain, no lower extremity edema. No lightheadedness or dizziness. No syncopal episodes. Abdominal: No abdominal pain. No nausea, vomiting. No diarrhea. No constipation. No loss of appetite. Genitourinary: No dysuria, increased frequency, urgency. No urinary retention. Musculoskeletal: No myalgias. No muscle weakness. Reports left foot pain. Reports left foot swelling. Integumentary: No wounds, no lesions. No rash or pruritus. Neurologic: No aphasia. No facial droop. No change in mentation. Endocrine: No abnormal blood sugars. PHYSICAL EXAMINATION Gen: This is a morbidly obese 54-year-old male. He is resting in bed and appears to be comfortable. No acute distress. VS: Afebrile, heart rate 50, blood pressure 125/82, pulse ox 97% on room air. HEENT: Head is atraumatic, normocephalic. Pupils equal, round. Sclerae is anicteric. NECK: Supple. No JVD. No lymphadenopathy. No thyromegaly. LUNGS: Clear to auscultation. No wheezes or rhonchi. No intercostal retractions. HEART: Regular rate and rhythm. No murmur. ABDOMEN: Soft. Bowel sounds are present. No masses. No tenderness. EXTREMITIES: No pedal edema. No calf tenderness. NEUROLOGICAL: Patient is awake, alert and oriented x3. Cranial nerves 2 through 12 are grossly intact. ASSESSMENT Pressure ulcer left foot Nondiabetic neuropathy PLAN Continue Vancomycin IVPB, pharmacy dosing Add Unasyn 3 g IV piggyback every 6 hours Monitor wound cultures Continue supportive care Further recommendations depending on patient's clinical course Thank you kindly for this consultation. The above dictated assessment and findings were discussed with Dr. Lisa. The impression and plan of care have been directed as dictated. Jasmin Mendez nurse practitioner acting as scribe for Dr. Lisa. Past Medical History Past Medical History: GERD/Reflux, Hyperlipidemia, Hypertension Additional Past Medical History / Comment(s): Occasional low back pain, paroxysmal atrial fibrillation, morbid obesity with BMI 43.8 History of Any Multi-Drug Resistant Organisms: None Reported, MRSA Year Discovered:: 02/28/20 MDRO Source:: Right Foot Past Surgical History: Orthopedic Surgery Additional Past Surgical History / Comment(s): L BICEP SX WITH METAL PLATE, R A RM BENIGN CYST, 2015 COLONOSCOPY WITH BENIGN POLYP Past Anesthesia/Blood Transfusion Reactions: No Reported Reaction Past Psychological History: No Psychological Hx Reported Smoking Status: Current every day smoker Past Alcohol Use History: None Reported Past Drug Use History: None Reported - Past Family History Mother Family Medical History: No Reported History Additional Family Medical History / Comment(s): MOTHER IS HEALTHY Father Family Medical History: CVA/TIA, Myocardial Infarction ([place]) Additional Family Medical History / Comment(s): FATHER HAD A CVA AND THEN OF A [place] AT THE AGE OF 63 YRS. Medications and Allergies Home Medications Medication Instructions Recorded Confirmed Type hydroCHLOROthiazide [Hydrodiuril] 25 mg PO DAILY 06/27/16 09/12/20 History Losartan [Cozaar] 25 mg PO DAILY tab 09/26/18 09/12/20 Rx Cholecalciferol [Vitamin D3 (25 5,000 unit PO DAILY 02/26/20 09/12/20 History Mcg = 1000 Iu)] Omeprazole 20 mg PO DAILY 06/16/20 09/12/20 History Propranolol HCl [Propranolol HCl 160 mg PO DAILY 09/12/20 09/12/20 History ER] Allergies Allergy/AdvReac Type Severity Reaction Status Date / Time No Known Allergies Allergy Verified 09/12/20 17:19 Physical Exam Vitals: Vital Signs Temp Pulse Pulse Resp BP BP Pulse Ox 09/13/20 07:10 97.8 F 50 L 18 125/82 97 09/13/20 01:00 97.9 F 57 L 20 164/88 96 09/12/20 19:45 98.1 F 63 20 131/68 97 09/12/20 19:06 18 09/12/20 16:58 98.7 F 62 18 148/67 100 09/12/20 14:56 98.7 F 66 20 159/96 97 Intake and Output 09/12/20 09/13/20 09/13/20 22:59 06:59 14:59 Intake Total 852 100 Balance 852 100 Intake: Oral 852 100 Other: Voiding Method Toilet # Voids 1 1 Weight 145.15 kg Results CBC & Chem 7: 09/12/20 15:32 09/12/20 15:32 Labs: Abnormal Lab Results - Last 24 Hours (Table) 09/12/20 09/12/20 Range/Units 15:32 15:32 WBC 12.0 H (3.8-10.6) k/uL Neutrophils # 8.6 H (1.3-7.7) k/uL ESR 72 H (0-15) mm/hr BUN 22 H (9-20) mg/dL C-Reactive Protein 53.6 H (<10.0) mg/L
--- NOTE | 2020-09-13 11:49 | P.HPIM ---
History of Present Illness H&P Date: 09/13/20 Chief Complaint: Left foot ulcer possible osteomyelitis This is a 54-year-old male patient of Dr. Alexander. Patient presented with complaints of left foot wound with possible osteomyelitis. Patient reports he's had chronic foot wound to left foot for over 2 years in which he follows in wound care clinic. Patient reports that over the past few days he his ulcer has gotten worse and was sent to ER per wound care clinic. Patient denies any fever or muscle aches or chills at home. Patient's additional medical history includes obesity, GERD, essential hypertension, proximal atrial fibrillation and chronic lower back pain. Possible concerns for ostomy mellitus seen on foot x- ray. At this time patient will be admitted and infectious disease and vascular surgery consulted. Patient denies chest pain or shortness breath. Patient denies nausea vomiting or diarrhea. Patient denies any urinary burning or frequency. Review of Systems please refer to HPI otherwise unremarkable Past Medical History Past Medical History: GERD/Reflux, Hyperlipidemia, Hypertension Additional Past Medical History / Comment(s): Occasional low back pain, paroxysmal atrial fibrillation, morbid obesity with BMI 43.8 History of Any Multi-Drug Resistant Organisms: None Reported, MRSA Date of last positivie culture/infection: 02/28/20 MDRO Source:: Right Foot Past Surgical History: Orthopedic Surgery Additional Past Surgical History / Comment(s): L BICEP SX WITH METAL PLATE, R ARM BENIGN CYST, 2015 COLONOSCOPY WITH BENIGN POLYP Past Anesthesia/Blood Transfusion Reactions: No Reported Reaction Past Psychological History: No Psychological Hx Reported Smoking Status: Current every day smoker Past Alcohol Use History: None Reported Past Drug Use History: None Reported - Past Family History Mother Family Medical History: No Reported History Additional Family Medical History / Comment(s): MOTHER IS HEALTHY Father Family Medical History: CVA/TIA, Myocardial Infarction ([place]) Additional Family Medical History / Comment(s): FATHER HAD A CVA AND THEN OF A [place] AT THE AGE OF 63 YRS. Medications and Allergies Home Medications Medication Instructions Recorded Confirmed Type hydroCHLOROthiazide [Hydrodiuril] 25 mg PO DAILY 06/27/16 09/12/20 History Losartan [Cozaar] 25 mg PO DAILY tab 09/26/18 09/12/20 Rx Cholecalciferol [Vitamin D3 (25 5,000 unit PO DAILY 02/26/20 09/12/20 History Mcg = 1000 Iu)] Omeprazole 20 mg PO DAILY 06/16/20 09/12/20 History Propranolol HCl [Propranolol HCl 160 mg PO DAILY 09/12/20 09/12/20 History ER] Allergies Allergy/AdvReac Type Severity Reaction Status Date / Time No Known Allergies Allergy Verified 09/12/20 17:19 Physical Exam Vitals: Vital Signs Temp Pulse Pulse Resp BP BP Pulse Ox 09/13/20 08:30 20 09/13/20 07:10 97.8 F 50 L 18 125/82 97 09/13/20 01:00 97.9 F 57 L 20 164/88 96 09/12/20 19:45 98.1 F 63 20 131/68 97 09/12/20 19:06 18 09/12/20 16:58 98.7 F 62 18 148/67 100 09/12/20 14:56 98.7 F 66 20 159/96 97 Intake and Output 09/12/20 09/13/20 09/13/20 22:59 06:59 14:59 Intake Total 852 100 Balance 852 100 Intake: Oral 852 100 Other: Voiding Method Toilet Toilet # Voids 1 1 Weight 145.15 kg Head normocephalic Neck supple Lungs clear to auscultation bilaterally no wheezing or crackles Heart regular rate and rhythm S1-S2, no rub or gallop Abdomen is soft nontender nondistended positive bowel sounds no hepatosplenomegaly Extremities no edema. Left foot plantar side also noted nickel size Neuro alert and orientated to 3 Results CBC & Chem 7: 09/12/20 15:32 09/13/20 06:06 Labs: Abnormal Lab Results - Last 24 Hours (Table) 09/12/20 09/12/20 Range/Units 15:32 15:32 WBC 12.0 H (3.8-10.6) k/uL Neutrophils # 8.6 H (1.3-7.7) k/uL ESR 72 H (0-15) mm/hr BUN 22 H (9-20) mg/dL C-Reactive Protein 53.6 H (<10.0) mg/L Thrombosis Risk Factor Assmnt - Choose All That Apply Any of the Below Risk Factors Present?: Yes Each Factor Represents 1 point: Age 41-60 years, Obesity (BMI >25) Other Risk Factors: No Other congenital or acquired thrombophilia - If yes, enter type in comment: No Thrombosis Risk Factor Assessment Total Risk Factor Score: 2 Thrombosis Risk Factor Assessment Level: Low Risk Assessment and Plan Assessment: 1. Left foot wound with concerns of possible osteomyelitis. Infectious disease and vascular surgery consulted. Patient started on Unasyn and vancomycin 2. History of peripheral neuropathy 3. History of paroxysmal atrial fibrillation 4. History of nicotine dependence patient educated greater than 3 minutes on smoking cessation. Nicotine patch ordered 5. Morbid obesity. 6. Borderline diabetic. Hemoglobin A1c will be ordered DVT prophylaxis Lovenox. GI prophylaxis Protonix Patient started on Unasyn and vancomycin Infectious disease and Dr. Oneal consulted Time with Patient: Greater than 30 (Greater than 60% of the total time spent in counseling and coordination of care)
[2020-09-13 15:04] VITALS: BMI 42.2
[2020-09-13 22:46] LABS: Hemoglobin A1C 5.8 % (4.0-6.0)
[2020-09-14] MEDS: AMPICILLIN-SULBACTAM 3 GM in SODIUM CHLORIDE 0.9% 100 ML IVPB SCH ×5 (00:36→23:16)
[2020-09-14] MEDS: MORPHINE SULFATE 4 MG/ML SYRINGE IV PRN ×3 (03:07→23:07)
[2020-09-14] MEDS: VANCOMYCIN 2,500 MG in SODIUM CHLORIDE 0.9% 500 ML 500 ML IVPB SCH ×2 (06:14→17:44)
[2020-09-14] MEDS: LOSARTAN 25 MG TAB PO SCH (07:48)
[2020-09-14] MEDS: CHOLECALCIFEROL 1,000 UNIT TAB PO SCH (07:48)
[2020-09-14] MEDS: PROPRANOLOL LA 80 MG CAP.SA.24H PO SCH (07:48)
[2020-09-14] MEDS: hydroCHLOROthiazide 25 MG TAB PO SCH (07:48)
[2020-09-14] MEDS: PANTOPRAZOLE 40 MG TABLET PO SCH (07:48)
[2020-09-14] MEDS: NICOTINE 14MG/24HR PATCH TRANSDERM SCH (07:48)
[2020-09-14] MEDS: ENOXAPARIN 40 MG/0.4 ML SYRINGE SQ SCH (07:49)
[2020-09-14 08:06] LABS: Basophils % (A) 1 %; Eosinophils # (A) 0.2 k/uL (0-0.7); Eosinophils % (A) 3 %; HCT 45.6 % (39.0-53.0); HGB 14.7 gm/dL (13.0-17.5); Lymphocytes # (A) 1.2 k/uL (1.0-4.8); Lymphocytes % (A) 17 %; MCH 29.2 pg (25.0-35.0); MCHC 32.1 g/dL (31.0-37.0); MCV 90.9 fL (80.0-100.0); Mean Platelet Volume 6.6; Monocytes # (A) 0.3 k/uL (0-1.0); Monocytes % (A) 5 %; Neutrophils # (A) 5.1 k/uL (1.3-7.7); Neutrophils % (A) 74 %; Platelet Count 255 k/uL (150-450); RBC 5.02 m/uL (4.30-5.90); RDW 14.5 % (11.5-15.5); WBC 6.9 k/uL (3.8-10.6)
[2020-09-14 08:42] LABS: ALT 28 U/L (4-49); AST 26 U/L (17-59); African American GFR (CKD) >90 (>60 ml/min/1.73 sqM); Albumin 3.6 g/dL (3.5-5.0); Albumin/Globulin Ratio 1.1; Alkaline Phosphatase 65 U/L (38-126); Anion Gap 3 mmol/L; Calcium 8.4 mg/dL (8.4-10.2); Carbon Dioxide 29 mmol/L (22-30); Chloride 102 mmol/L (98-107); Globulin 3.4 g/dL; Glucose 130 mg/dL (74-99); Non-African American GFR(CKD) >90 (>60 ml/min/1.73 sqM); Potassium 4.4 mmol/L (3.5-5.1); Sodium 134 mmol/L (137-145); Total Bilirubin 0.5 mg/dL (0.2-1.3)
[2020-09-14 08:44] LABS: Blood Urea Nitrogen 17 mg/dL (9-20)
--- NOTE | 2020-09-14 13:13 | P.PN ---
Subjective Progress Note Date: 09/14/20 This is a 54-year-old male patient of Dr. Alexander. Patient presented with complaints of left foot wound with possible osteomyelitis. Patient reports he's had chronic foot wound to left foot for over 2 years in which he follows in wound care clinic. Patient reports that over the past few days he his ulcer has gotten worse and was sent to ER per wound care clinic. Patient denies any fever or muscle aches or chills at home. Patient's additional medical history includes obesity, GERD, essential hypertension, proximal atrial fibrillation and chronic lower back pain. Possible concerns for ostomy mellitus seen on foot x- ray. At this time patient will be admitted and infectious disease and vascular surgery consulted. Patient denies chest pain or shortness breath. Patient denies nausea vomiting or diarrhea. Patient denies any urinary burning or frequency. On 09/14/2020 patient was seen and examined on the medical floor he is alert and oriented 3 in no apparent distress he is still complaining of left foot pain and difficulty ambulating due to pain in his foot otherwise he denies any c omplaints there is no fever or chills no headache or dizziness no chest pain no shortness of breath no cough no nausea or vomiting no abdominal pain no diarrhea and no urinary symptoms Objective - Vital Signs Vital signs: Vital Signs Temp 98.3 F 09/14/20 07:54 Pulse 53 L 09/14/20 07:54 Resp 16 09/14/20 07:54 BP 154/87 09/14/20 07:54 Pulse Ox 94 L 09/14/20 07:54 Intake & Output 09/13/20 09/14/20 09/14/20 18:59 06:59 18:59 Weight 145.15 kg Other: Voiding Method Toilet Toilet Toilet # Voids 2 1 - Exam In general patient is alert and oriented 3 in no apparent distress Head normocephalic and atraumatic Neck supple no JVD no goiter Lungs clear to auscultation bilaterally no wheezing or crackles Heart regular rate and rhythm S1-S2, no rub or gallop Abdomen is soft nontender nondistended positive bowel sounds no hepatosplenomegaly Extremities no edema. Left foot plantar side also noted nickel size Neuro no gross focal neurological deficits - Labs CBC & Chem 7: 09/14/20 07:39 09/14/20 07:39 Labs: Abnormal Lab Results - Last 24 Hours (Table) 09/14/20 Range/Units 07:39 Sodium 134 L (137-145) mmol/L Glucose 130 H (74-99) mg/dL Assessment and Plan Assessment: 1. Left foot wound with concerns of possible osteomyelitis. Infectious disease and vascular surgery consulted. Patient started on Unasyn and vancomycin 2. History of peripheral neuropathy 3. History of paroxysmal atrial fibrillation 4. History of nicotine dependence patient educated greater than 3 minutes on smoking cessation. Nicotine patch ordered 5. Morbid obesity. 6. Borderline diabetic. Hemoglobin A1c will be ordered DVT prophylaxis Lovenox. GI prophylaxis Protonix Patient started on Unasyn and vancomycin Infectious disease and Dr. Oneal consulted
[2020-09-14] MEDS: KETOROLAC 15 MG/ML 1 ML VIAL IVP PRN (17:09)
--- NOTE | 2020-09-14 23:26 | PN ---
PROGRESS NOTE DATE OF SERVICE: 09/14/2020 REASON FOR FOLLOWUP: 1. Left diabetic foot infection. 2. Abnormal x-ray. INTERVAL HISTORY: The patient is currently afebrile. The patient is breathing comfortably. Patient denies having any chest pain. No shortness of breath or cough. No abdominal pain. Swelling and redness and pain to the left foot is slight decreased. PHYSICAL EXAMINATION: Blood pressure 145/79 with a pulse of 51, temperature 98.2. He is 96% on room air. General description: The patient is a middle-aged male lying in bed in no distress. Respiratory system: Unlabored breathing, clear to auscultation anteriorly. Heart S1, S2. Regular rate and rhythm. ABDOMEN: Soft, no tenderness. Left foot is currently dressed up. Overall swelling and redness is slightly decreased. LABS: Hemoglobin is 14, white count 6.9, BUN of 7, creatinine 0.84. Unfortunately no culture has been done. DIAGNOSTIC IMPRESSION AND PLAN: Patient with left diabetic foot ulcer, plantar aspect with concern for secondary cellulitis. He did have abnormal x-ray with abnormality of left fifth toe with no significant ulcer at that point. Bone scan will be done. Continue with Unasyn and vancomycin. Await surgical evaluation and possible debridement and deep cultures. Continue supportive care. MMODL / IJN: [id number] /
[2020-09-15] MEDS ORDERED: VANCOMYCIN TROUGH DUE 1 EACH MISC MISCELLANE ONE (05:00)
[2020-09-15] MEDS: AMPICILLIN-SULBACTAM 3 GM in SODIUM CHLORIDE 0.9% 100 ML IVPB SCH ×4 (06:26→23:04)
[2020-09-15] MEDS: MORPHINE SULFATE 4 MG/ML SYRINGE IV PRN ×2 (06:29→17:50)
[2020-09-15 06:58] LABS: Basophils # (A) 0.1 k/uL (0-0.2); Basophils % (A) 1 %; Eosinophils # (A) 0.3 k/uL (0-0.7); Eosinophils % (A) 4 %; HCT 42.3 % (39.0-53.0); HGB 14.6 gm/dL (13.0-17.5); Lymphocytes # (A) 1.7 k/uL (1.0-4.8); Lymphocytes % (A) 23 %; MCH 30.6 pg (25.0-35.0); MCHC 34.5 g/dL (31.0-37.0); MCV 88.6 fL (80.0-100.0); Mean Platelet Volume 6.6; Monocytes # (A) 0.5 k/uL (0-1.0); Monocytes % (A) 7 %; Neutrophils # (A) 4.8 k/uL (1.3-7.7); Neutrophils % (A) 65 %; Platelet Count 248 k/uL (150-450); RBC 4.78 m/uL (4.30-5.90); WBC 7.4 k/uL (3.8-10.6)
[2020-09-15] MEDS: VANCOMYCIN 2,500 MG in SODIUM CHLORIDE 0.9% 500 ML 500 ML IVPB SCH ×2 (07:14→18:43)
[2020-09-15] MEDS: NICOTINE 14MG/24HR PATCH TRANSDERM SCH (07:17)
[2020-09-15] MEDS: ENOXAPARIN 40 MG/0.4 ML SYRINGE SQ SCH (07:19)
[2020-09-15] MEDS: hydroCHLOROthiazide 25 MG TAB PO SCH (07:20)
[2020-09-15] MEDS: CHOLECALCIFEROL 1,000 UNIT TAB PO SCH (07:20)
[2020-09-15] MEDS: LOSARTAN 25 MG TAB PO SCH (07:20)
[2020-09-15] MEDS: PANTOPRAZOLE 40 MG TABLET PO SCH (07:20)
[2020-09-15] MEDS: PROPRANOLOL LA 80 MG CAP.SA.24H PO SCH (07:21)
[2020-09-15 09:52] LABS: Erythrocyte Sedimentation Rate 75 mm/hr (0-15)
[2020-09-15 11:00] LABS: Albumin 3.9 g/dL (3.80-4.90); Albumin/Globulin Ratio 1.5 (1.60-3.17); Anion Gap 8.7 mmol/L (4.00-12.00); C Reactive Protein 7.7 mg/dL (0.0-0.8); Calcium 8.6 mg/dL (8.7-10.3); Carbon Dioxide 26.3 mmol/L (21.6-31.8); Globulin 2.6 g/dL (1.6-3.3); Non-African American GFR(CKD) 95.8 (60.0-200.0); Potassium 4.7 mmol/L (3.5-5.5); Total Bilirubin 0.3 mg/dL (0.3-1.2); Total Protein 6.5 g/dL (6.2-8.2)
--- NOTE | 2020-09-15 11:52 | NM ---
EXAMINATION TYPE: NM bone 3 phase DATE OF EXAM: 09/15/2020 COMPARISON: Prior left foot x-rays 3 days ago. Prior 3-phase bone scan May 31, 2019 HISTORY: Left foot plantar ulcer and abnormal x-ray. Triple phase bone scintigraphy was performed following the injection of 24.8 mCi Tc 99m MDP. Immedia te images and 3 hours post injection images acquired. Imaging is performed of the bilateral ankles an d feet. FINDINGS: There is increased radiotracer uptake to the left foot and ankle versus the opposite right side more localized to the second and/or third toe region. Soft tissue phase images show increased radiotracer uptake at this level. Delayed phase images show similar increased radiotracer uptake at this level ap pears to be localized to the second metatarsal head. Area of concern on x-ray the fifth metatarsal he ad shows no increased radiotracer uptake. IMPRESSION: Three-phase radiotracer uptake localized to region of second metatarsal head consistent w ith recurrent acute osteomyelitis at this level. Correlate clinically.
--- NOTE | 2020-09-15 12:44 | CDI ---
Documentation Clarification Form Date: 09/15/2020 12:13:00 PM From: Maite Pop CCS, CCDS Admit Date: 09/12/2020 04:52:00 PM Patient Name: Javier Thayer Visit Number: [id number] Discharge Date: ATTENTION: The Clinical Documentation Specialists (CDI) and [facility] Coding Staff appreciate your assistance in clarifying documentation. Please respond to the clarification below the line at the bottom and electronically sign. The CDI & [facility] Coding staff will review the response and follow-up if needed. Please note: Queries are made part of the Legal Health Record. If you have any questions, please contact the author of this message via ITS. Dr. Hi Pope: Conflicting documentation has been found in the medical record: Per the ED note 09/12 under Patient History of Present Illness: History of Neuropathy and Borderline diabetic. Per the 09/13 History & Physical and subsequent 09/14 Progress Note: Borderline Diabetic Per the 09/13 Infectious Disease Consult: Pressure Ulcer left foot. Nondiabetic neuropathy. Per the 09/14 ID Progress Note: Left diabetic foot ulcer, plantar aspect with concern for secondary cellulitis. History/Risk Factors: Neuropathy, Borderline Diabetic, Hypertension, Hyperlipidemia, GERD, Paroxysmal Atrial Fibrillation, Morbid Obesity w/BMI 43.8 & Previous MRSA right foot infection. Admit with left foot wound & possible osteomyelitis. Clinical Indicators: Presented to the ED on 09/12 with a worsening wound on his left foot, has been going to the wound care once a week for 2 years, now has more pain, wound culture was taken in the wound center the day before. LAB 09/12: WBC 12.0^, Neut 8.6^, ESR 72^, BUN 22^, Cr 0.91, GFR >90 Glucose 09/12: 98, 09/13: 99, 09/14: 130^, 09/15: 88 09/13 Hgb A1c 5.8 09/15 Bone Scan: Uptake localized to region of second metatarsal head consistent with recurrent acute osteomyelitis at this level. Home meds: Hydrodiuril, Vit D3, Omeprazole, Propranolol HCI, Cozaar Treatment: IV Toradol, IV Morphine, IV Rocephin, IV Vancomycin. 09/13 IV Ampicillin, Nicotine patch Per the History & Physical Plan: Hgb A1c ordered. In your professional opinion, please clarify the following: Diabetes with Left foot ulcer o If Diabetes is present, please specify the type: Diabetes Type I Diabetes Type II Other, please specify: Unknown or unable to determine Non-Diabetic Left foot ulcer Other explanation of clinical findings Unable to determine (no explanation for clinical findings) Please document associated infectious process: o with Acute Osteomyelitis o with Chronic Osteomyelitis o with Acute on Chronic Osteomyelitis o with Cellulitis o Osteomyelitis is ruled out o Other, please specify: (Last Revision: December 2017) non-diabetic left foot ulcer with acute osteomyelitis MTDD
--- NOTE | 2020-09-15 13:08 | P.PN ---
Subjective Progress Note Date: 09/15/20 This is a 54-year-old male patient of Dr. Alexander. Patient presented with complaints of left foot wound with possible osteomyelitis. Patient reports he's had chronic foot wound to left foot for over 2 years in which he follows in wound care clinic. Patient reports that over the past few days he his ulcer has gotten worse and was sent to ER per wound care clinic. Patient denies any fever or muscle aches or chills at home. Patient's additional medical history includes obesity, GERD, essential hypertension, proximal atrial fibrillation and chronic lower back pain. Possible concerns for ostomy mellitus seen on foot x- ray. At this time patient will be admitted and infectious disease and vascular surgery consulted. Patient denies chest pain or shortness breath. Patient denies nausea vomiting or diarrhea. Patient denies any urinary burning or frequency. On 09/14/2020 patient was seen and examined on the medical floor he is alert and oriented 3 in no apparent distress he is still complaining of left foot pain and difficulty ambulating due to pain in his foot otherwise he denies any c omplaints there is no fever or chills no headache or dizziness no chest pain no shortness of breath no cough no nausea or vomiting no abdominal pain no diarrhea and no urinary symptoms. On 09/15/2020 patient was seen and examined on the medical floor he is alert and oriented 3 in no apparent distress pain in the left foot is improving otherwise he denies any complaints there is no fever or chills no headache or dizziness no chest pain no shortness of breath no cough no nausea or vomiting no abdominal pain no diarrhea and no urinary symptoms. At this time we are awaiting bone scan results and recommendation from infectious disease in regard to antibiotic therapy will continue to follow Objective - Vital Signs Vital signs: Vital Signs Temp 98.8 F 09/15/20 07:37 Pulse 48 L 09/15/20 07:37 Resp 17 09/15/20 07:37 BP 154/88 09/15/20 07:37 Pulse Ox 95 09/15/20 07:37 Intake & Output 09/14/20 09/15/20 09/15/20 18:59 06:59 18:59 Intake Total 1380 200 Output Total 200 Balance 1180 200 Intake: Oral 1380 200 Output: Urine 200 Other: Voiding Method Toilet Toilet # Voids 4 2 - Exam In general patient is alert and oriented 3 in no apparent distress Head normocephalic and atraumatic Neck supple no JVD no goiter Lungs clear to auscultation bilaterally no wheezing or crackles Heart regular rate and rhythm S1-S2, no rub or gallop Abdomen is soft nontender nondistended positive bowel sounds no hepatosplenomegaly Extremities no edema. Left foot plantar side also noted nickel size Neuro no gross focal neurological deficits - Labs CBC & Chem 7: 09/15/20 06:03 09/15/20 06:03 Assessment and Plan Assessment: 1. Left foot wound with concerns of possible osteomyelitis. Infectious disease and vascular surgery consulted. Patient started on Unasyn and vancomycin 2. History of peripheral neuropathy 3. History of paroxysmal atrial fibrillation 4. History of nicotine dependence patient educated greater than 3 minutes on smoking cessation. Nicotine patch ordered 5. Morbid obesity. 6. Borderline diabetic. Hemoglobin A1c will be ordered DVT prophylaxis Lovenox. GI prophylaxis Protonix Patient started on Unasyn and vancomycin Infectious disease and Dr. Oneal consulted
[2020-09-15] MEDS ORDERED: LIDOCAINE 1% INJ 10MG/ML (20 ML MDV) SQ ONE (13:17)
--- NOTE | 2020-09-15 13:26 | P.GSCN ---
History of Present Illness History of present illness: 55-year-old gentleman well-known to me from the wound clinic he comes regularly to the wound clinic for callus formation bilateral lower extremities feet patient has a chronic callus on the plantar aspect of the right footand of infection noted patient has some discomfort and pain in the left foot there is a callus on the plantar aspect and a bone scan shows a second intermetatarsal has acute osteo-the callus is a infected we will do the debridement and take the deep culture for culture and sensitivity patient is on IV antibiotic under care of infectious disease. Patient has history of diabetes controlled with medication Neck examination neck is supple no bruit appreciated Chest is clear first and second sound normal Abdomen soft nontender Vascular examination brachial radial femoral pulses are present patient had a callus on the plantar aspect with some tenderness and some edema callus is a infected we will do the culture and deep debridement debridement follow with you Past Medical History Past Medical History: GERD/Reflux, Hyperlipidemia, Hypertension Additional Past Medical History / Comment(s): Occasional low back pain, paroxysmal atrial fibrillation, morbid obesity with BMI 43.8 History of Any Multi-Drug Resistant Organisms: MRSA Year Discovered:: 09/12/20 MDRO Source:: foot Past Surgical History: Orthopedic Surgery Additional Past Surgical History / Comment(s): L BICEP SX WITH METAL PLATE, R ARM BENIGN CYST, 2015 COLONOSCOPY WITH BENIGN POLYP Past Anesthesia/Blood Transfusion Reactions: No Reported Reaction Past Psychological History: No Psychological Hx Reported Smoking Status: Current every day smoker Past Alcohol Use History: None Reported Past Drug Use History: None Reported - Past Family History Mother Family Medical History: No Reported History Additional Family Medical History / Comment(s): MOTHER IS HEALTHY Father Family Medical History: CVA/TIA, Myocardial Infarction (VT) Additional Family Medical History / Comment(s): FATHER HAD A CVA AND THEN OF A VT AT THE AGE OF 63 YRS. Medications and Allergies Home Medications Medication Instructions Recorded Confirmed Type hydroCHLOROthiazide [Hydrodiuril] 25 mg PO DAILY 06/27/16 09/12/20 History Losartan [Cozaar] 25 mg PO DAILY tab 09/26/18 09/12/20 Rx Cholecalciferol [Vitamin D3 (25 5,000 unit PO DAILY 02/26/20 09/12/20 History Mcg = 1000 Iu)] Omeprazole 20 mg PO DAILY 06/16/20 09/12/20 History Propranolol HCl [Propranolol HCl 160 mg PO DAILY 09/12/20 09/12/20 History ER] Allergies Allergy/AdvReac Type Severity Reaction Status Date / Time No Known Allergies Allergy Verified 09/12/20 17:19 Surgical - Exam Vital Signs Temp Pulse Resp BP Pulse Ox 98.7 F 66 20 159/96 97 09/12/20 14:56 09/12/20 14:56 09/12/20 14:56 09/12/20 14:56 09/12/20 14:56 Results - Labs 09/15/20 06:03 09/15/20 06:03 Abnormal Lab Results - Last 24 Hours (Table) 09/15/20 09/15/20 Range/Units 06:03 06:03 ESR 75 H (0-15) mm/hr Calcium 8.6 L (8.7-10.3) mg/dL C-Reactive Protein 7.7 H (0.0-0.8) mg/dL Albumin/Globulin Ratio 1.50 L (1.60-3.17) g/dL Diabetes panel 09/15/20 Range/Units 06:03 Sodium 138 (135-145) mmol/L Potassium 4.7 (3.5-5.5) mmol/L Chloride 103 (96-109) mmol/L Carbon Dioxide 26.3 (21.6-31.8) mmol/L BUN 18.0 (9.0-27.0) mg/dL Creatinine 0.9 (0.6-1.5) mg/dL Glucose 88 (70-110) mg/dL Calcium 8.6 L (8.7-10.3) mg/dL AST 34 (14-35) U/L ALT 34 (10-49) U/L Alkaline Phosphatase 69 (41-126) U/L Total Protein 6.5 (6.2-8.2) g/dL Albumin 3.90 (3.80-4.90) g/dL Calcium panel 09/15/20 Range/Units 06:03 Calcium 8.6 L (8.7-10.3) mg/dL Albumin 3.90 (3.80-4.90) g/dL Pituitary panel 09/15/20 Range/Units 06:03 Sodium 138 (135-145) mmol/L Potassium 4.7 (3.5-5.5) mmol/L Chloride 103 (96-109) mmol/L Carbon Dioxide 26.3 (21.6-31.8) mmol/L BUN 18.0 (9.0-27.0) mg/dL Creatinine 0.9 (0.6-1.5) mg/dL Glucose 88 (70-110) mg/dL Calcium 8.6 L (8.7-10.3) mg/dL Adrenal panel 09/15/20 Range/Units 06:03 Sodium 138 (135-145) mmol/L Potassium 4.7 (3.5-5.5) mmol/L Chloride 103 (96-109) mmol/L Carbon Dioxide 26.3 (21.6-31.8) mmol/L BUN 18.0 (9.0-27.0) mg/dL Creatinine 0.9 (0.6-1.5) mg/dL Glucose 88 (70-110) mg/dL Calcium 8.6 L (8.7-10.3) mg/dL Total Bilirubin 0.3 (0.3-1.2) mg/dL AST 34 (14-35) U/L ALT 34 (10-49) U/L Alkaline Phosphatase 69 (41-126) U/L Total Protein 6.5 (6.2-8.2) g/dL Albumin 3.90 (3.80-4.90) g/dL
--- NOTE | 2020-09-15 18:09 | PN ---
PROGRESS NOTE DATE OF SERVICE: 09/15/2020 REASON FOR FOLLOWUP: Left diabetic foot infection, concern for possible osteomyelitis. INTERVAL COURSE: The patient is currently afebrile. Patient is breathing comfortably. Denies having any chest pain. No shortness of breath. No cough. No nausea, vomiting, abdominal pain. Overall pain and discomfort to the left foot is slightly decreased. PHYSICAL EXAMINATION: Blood pressure 153/89 with pulse of 51, temperature 97.7. He is 96% on room air. General description is a middle-aged male lying in bed in no distress. Respiratory system: Unlabored breathing. Clear to auscultation anteriorly. Heart S1, S2. Regular rate and rhythm. ABDOMEN: Soft. No tenderness. Left foot plantar wound slightly deep. No pain. LABS: Hemoglobin is 14.4, white count 7.4. DIAGNOSTIC IMPRESSION AND PLAN: Patient with left diabetic foot foot infection with infected callus and concern for possible underlying osteo. We are waiting for the bone scan to be completed. The patient will have a bedside debridement and deep cultures and continue supportive care. MMODL / IJN: [id number] /
--- NOTE | 2020-09-15 19:27 | OP ---
OPERATIVE REPORT PREOPERATIVE DIAGNOSIS: Infected callus left foot plantar aspect. POSTOP DIAGNOSIS: Infected callus left foot plantar aspect. OPERATION PERFORMED: Excision of the callus down to subcutaneous tissue down to the bone and taking a deep culture. PROCEDURE DETAILS: The foot was prepped and drapes applied in usual sterile manner. 1% lidocaine was infiltrated and using sharp knife, we excised the callus down to subcutaneous tissue fat and almost down to the bone. We took some deep culture tissue which was sent for culture and sensitivity. No active bleeding was noted. Wound was copiously irrigated with saline. After that, silver rope was packed and dressing applied. Patient tolerated the procedure well. PLAN: Change the dressing every 48 hours. The patient tolerated the procedure well. MMODL / IJN: [id number] /
[2020-09-15] MEDS: IBUPROFEN 400 MG TAB PO PRN (23:12)
--- NOTE | 2020-09-15 23:33 | OP ---
OPERATIVE REPORT ADDENDUM: Post wound debridement measurement is 2 x 1 x 1 cm. MMODL / IJN: [id number] /
[2020-09-16] MEDS ORDERED: VANCOMYCIN TROUGH DUE 1 EACH MISC MISCELLANE ONE (05:00)
[2020-09-16] MEDS: VANCOMYCIN 2,500 MG in SODIUM CHLORIDE 0.9% 500 ML 500 ML IVPB SCH ×2 (05:35→06:55)
[2020-09-16] MEDS: AMPICILLIN-SULBACTAM 3 GM in SODIUM CHLORIDE 0.9% 100 ML IVPB SCH ×2 (05:36→11:16)
[2020-09-16 06:16] LABS: Basophils # (A) 0.1 k/uL (0-0.2); Basophils % (A) 1 %; Eosinophils # (A) 0.4 k/uL (0-0.7); Eosinophils % (A) 6 %; HCT 43.4 % (39.0-53.0); HGB 14.4 gm/dL (13.0-17.5); Lymphocytes # (A) 1.9 k/uL (1.0-4.8); Lymphocytes % (A) 27 %; MCH 29.8 pg (25.0-35.0); MCHC 33.2 g/dL (31.0-37.0); MCV 89.8 fL (80.0-100.0); Mean Platelet Volume 6.5; Monocytes # (A) 0.4 k/uL (0-1.0); Monocytes % (A) 6 %; Neutrophils # (A) 4.2 k/uL (1.3-7.7); Neutrophils % (A) 59 %; Platelet Count 242 k/uL (150-450); RBC 4.83 m/uL (4.30-5.90); RDW 13.9 % (11.5-15.5); WBC 7.1 k/uL (3.8-10.6)
[2020-09-16] MEDS: LOSARTAN 25 MG TAB PO SCH (07:53)
[2020-09-16] MEDS: PANTOPRAZOLE 40 MG TABLET PO SCH (07:53)
[2020-09-16] MEDS: hydroCHLOROthiazide 25 MG TAB PO SCH (07:53)
[2020-09-16] MEDS: NICOTINE 14MG/24HR PATCH TRANSDERM SCH (07:53)
[2020-09-16] MEDS: CHOLECALCIFEROL 1,000 UNIT TAB PO SCH (07:53)
[2020-09-16] MEDS: ENOXAPARIN 40 MG/0.4 ML SYRINGE SQ SCH (07:54)
[2020-09-16] MEDS: PROPRANOLOL LA 80 MG CAP.SA.24H PO SCH (07:54)
[2020-09-16] MEDS: MORPHINE SULFATE 4 MG/ML SYRINGE IV PRN ×2 (08:06→18:59)
[2020-09-16 09:55] LABS: African American GFR (CKD) 97.8 (60.0-200.0); Albumin 3.9 g/dL (3.80-4.90); Albumin/Globulin Ratio 1.44 (1.60-3.17); Anion Gap 10.3 mmol/L (4.00-12.00); Calcium 8.8 mg/dL (8.7-10.3); Carbon Dioxide 25.7 mmol/L (21.6-31.8); Globulin 2.7 g/dL (1.6-3.3); Non-African American GFR(CKD) 84.4 (60.0-200.0); Potassium 4.9 mmol/L (3.5-5.5); Total Bilirubin 0.3 mg/dL (0.2-1.2); Total Protein 6.6 g/dL (6.2-8.2)
--- NOTE | 2020-09-16 11:54 | P.PN ---
Subjective Progress Note Date: 09/16/20 This is a 54-year-old male patient of Dr. Alexander. Patient presented with complaints of left foot wound with possible osteomyelitis. Patient reports he's had chronic foot wound to left foot for over 2 years in which he follows in wound care clinic. Patient reports that over the past few days he his ulcer has gotten worse and was sent to ER per wound care clinic. Patient denies any fever or muscle aches or chills at home. Patient's additional medical history includes obesity, GERD, essential hypertension, proximal atrial fibrillation and chronic lower back pain. Possible concerns for ostomy mellitus seen on foot x- ray. At this time patient will be admitted and infectious disease and vascular surgery consulted. Patient denies chest pain or shortness breath. Patient denies nausea vomiting or diarrhea. Patient denies any urinary burning or frequency. On 09/14/2020 patient was seen and examined on the medical floor he is alert and oriented 3 in no apparent distress he is still complaining of left foot pain and difficulty ambulating due to pain in his foot otherwise he denies any c omplaints there is no fever or chills no headache or dizziness no chest pain no shortness of breath no cough no nausea or vomiting no abdominal pain no diarrhea and no urinary symptoms. On 09/15/2020 patient was seen and examined on the medical floor he is alert and oriented 3 in no apparent distress pain in the left foot is improving otherwise he denies any complaints there is no fever or chills no headache or dizziness no chest pain no shortness of breath no cough no nausea or vomiting no abdominal pain no diarrhea and no urinary symptoms. At this time we are awaiting bone scan results and recommendation from infectious disease in regard to antibiotic therapy will continue to follow On 09/16/2020 patient is alert and oriented 3 in no apparent distress he is still complaining of pain in the left foot otherwise he denies any complaints there is no fever or chills no headache or dizziness no chest pain no shortness of breath no cough no nausea or vomiting no abdominal pain no diarrhea no blood in the stools no burning with urination no frequency or urgency and no hematuria. At this time we are still awaiting wound culture results and final recommendation for antibiotic from infectious disease, patient will need a PICC line placement on Friday and arrangement for long-term IV antibiotic possibly at home Objective - Vital Signs Vital signs: Vital Signs Temp 98 F 09/16/20 07:21 Pulse 40 L 09/16/20 07:21 Resp 16 09/16/20 08:15 BP 162/74 09/16/20 07:21 Pulse Ox 93 L 09/16/20 07:21 Intake & Output 09/15/20 09/16/20 09/16/20 18:59 06:59 18:59 Intake Total 650 200 Balance 650 200 Intake: Oral 650 200 Other: Voiding Method Toilet Toilet Toilet # Voids 2 2 - Exam In general patient is alert and oriented 3 in no apparent distress Head normocephalic and atraumatic Neck supple no JVD no goiter Lungs clear to auscultation bilaterally no wheezing or crackles Heart regular rate and rhythm S1-S2, no rub or gallop Abdomen is soft nontender nondistended positive bowel sounds no hepatosplenomegaly Extremities no edema. Left foot plantar side also noted nickel size Neuro no gross focal neurological deficits - Labs CBC & Chem 7: 09/16/20 05:42 09/16/20 05:42 Labs: Abnormal Lab Results - Last 24 Hours (Table) 09/15/20 09/16/20 Range/Units 06:03 05:42 Calcium 8.6 L (8.7-10.3) mg/dL C-Reactive Protein 7.7 H (0.0-0.8) mg/dL Albumin/Globulin Ratio 1.50 L 1.44 L (1.60-3.17) g/dL Microbiology - Last 24 Hours (Table) 09/15/20 13:30 Gram Stain - Preliminary Foot - Left Wound Culture - Preliminary Pseudomonas spec 09/15/20 14:02 Gram Stain - Preliminary Foot - Left Tissue Culture - Preliminary Assessment and Plan Assessment: 1. Left foot wound with concerns of possible osteomyelitis. Infectious disease and vascular surgery consulted. Patient started on Unasyn and vancomycin 2. History of peripheral neuropathy 3. History of paroxysmal atrial fibrillation 4. History of nicotine dependence patient educated greater than 3 minutes on smoking cessation. Nicotine patch ordered 5. Morbid obesity. 6. Borderline diabetic. Hemoglobin A1c will be ordered DVT prophylaxis Lovenox. GI prophylaxis Protonix Patient started on Unasyn and vancomycin Infectious disease and Dr. Oneal consulted
[2020-09-16] MEDS ORDERED: CEFEPIME 2 GM in SODIUM CHLORIDE 0.9% 100 ML IVPB SCH (13:45)
[2020-09-16] MEDS ORDERED: CEFEPIME 2 GM in SODIUM CHLORIDE 0.9% 100 ML IVPB ONE (13:45)
--- NOTE | 2020-09-16 17:49 | PN ---
PROGRESS NOTE DATE OF SERVICE: 09/16/2020 REASON FOR FOLLOWUP: Left diabetic foot infection with underlying osteomyelitis, Pseudomonas. INTERVAL HISTORY: The patient is currently afebrile. The patient is feeling better, breathing comfortably. Denies having any chest pain or shortness of breath or cough. No abdominal pain or pain to the left foot. PHYSICAL EXAMINATION: Blood pressure 153/91 with a pulse of 41, temperature 97.9. He is 97% on room air. General description is a middle-aged male lying in bed in no distress. RESPIRATORY SYSTEM: Unlabored breathing. Clear to auscultation anteriorly. HEART: S1, S2. Regular rate and rhythm. ABDOMEN: Soft. No tenderness. LAB: Hemoglobin 14.4, white count 7.1, creatinine 1.0. Culture now shows pseudomonas species. DIAGNOSTIC IMPRESSION AND PLAN: Patient with left diabetic foot infection with underlying osteomyelitis, infected callus that has been debrided. Patient's antibiotic is switched to cefepime 2 grams q.12 while waiting for outpatient IV antibiotic arrangement before discharge and continue with supportive care. MMODL / IJN: [id number] /
[2020-09-16] MEDS ORDERED: VANCOMYCIN 2,500 MG in SODIUM CHLORIDE 0.9% 500 ML 500 ML IVPB SCH (18:00)
[2020-09-16] MEDS: CEFEPIME 2 GM in SODIUM CHLORIDE 0.9% 100 ML IVPB SCH (21:08)
[2020-09-17] MEDS: MORPHINE SULFATE 4 MG/ML SYRINGE IV PRN ×2 (01:47→21:12)
[2020-09-17 06:23] LABS: Basophils # (A) 0.1 k/uL (0-0.2); Basophils % (A) 1 %; Eosinophils # (A) 0.4 k/uL (0-0.7); Eosinophils % (A) 6 %; HCT 42.1 % (39.0-53.0); HGB 14.3 gm/dL (13.0-17.5); Lymphocytes # (A) 2.1 k/uL (1.0-4.8); Lymphocytes % (A) 28 %; MCV 88.3 fL (80.0-100.0); Mean Platelet Volume 6.7; Monocytes # (A) 0.5 k/uL (0-1.0); Monocytes % (A) 6 %; Neutrophils # (A) 4.4 k/uL (1.3-7.7); Neutrophils % (A) 58 %; Platelet Count 259 k/uL (150-450); RBC 4.77 m/uL (4.30-5.90); RDW 13.8 % (11.5-15.5); WBC 7.6 k/uL (3.8-10.6)
[2020-09-17] MEDS: CEFEPIME 2 GM in SODIUM CHLORIDE 0.9% 100 ML IVPB SCH ×2 (07:49→21:00)
[2020-09-17] MEDS: LOSARTAN 25 MG TAB PO SCH (07:54)
[2020-09-17] MEDS: CHOLECALCIFEROL 1,000 UNIT TAB PO SCH (07:54)
[2020-09-17] MEDS: hydroCHLOROthiazide 25 MG TAB PO SCH (07:54)
[2020-09-17] MEDS: NICOTINE 14MG/24HR PATCH TRANSDERM SCH (07:54)
[2020-09-17] MEDS: PANTOPRAZOLE 40 MG TABLET PO SCH (07:54)
[2020-09-17] MEDS: ENOXAPARIN 40 MG/0.4 ML SYRINGE SQ SCH (07:54)
[2020-09-17] MEDS: PROPRANOLOL LA 80 MG CAP.SA.24H PO SCH (07:55)
[2020-09-17] MEDS: IBUPROFEN 400 MG TAB PO PRN (08:11)
[2020-09-17 10:44] LABS: African American GFR (CKD) 97.8 (60.0-200.0); Albumin 3.8 g/dL (3.80-4.90); Albumin/Globulin Ratio 1.41 (1.60-3.17); Anion Gap 7.3 mmol/L (4.00-12.00); Calcium 8.7 mg/dL (8.7-10.3); Carbon Dioxide 30.7 mmol/L (21.6-31.8); Globulin 2.7 g/dL (1.6-3.3); Non-African American GFR(CKD) 84.4 (60.0-200.0); Potassium 4.6 mmol/L (3.5-5.5); Total Bilirubin 0.3 mg/dL (0.2-1.2); Total Protein 6.5 g/dL (6.2-8.2)
--- NOTE | 2020-09-17 10:53 | P.PN ---
Subjective Progress Note Date: 09/17/20 This is a 54-year-old male patient of Dr. Alexander. Patient presented with complaints of left foot wound with possible osteomyelitis. Patient reports he's had chronic foot wound to left foot for over 2 years in which he follows in wound care clinic. Patient reports that over the past few days he his ulcer has gotten worse and was sent to ER per wound care clinic. Patient denies any fever or muscle aches or chills at home. Patient's additional medical history includes obesity, GERD, essential hypertension, proximal atrial fibrillation and chronic lower back pain. Possible concerns for ostomy mellitus seen on foot x- ray. At this time patient will be admitted and infectious disease and vascular surgery consulted. Patient denies chest pain or shortness breath. Patient denies nausea vomiting or diarrhea. Patient denies any urinary burning or frequency. On 09/14/2020 patient was seen and examined on the medical floor he is alert and oriented 3 in no apparent distress he is still complaining of left foot pain and difficulty ambulating due to pain in his foot otherwise he denies any c omplaints there is no fever or chills no headache or dizziness no chest pain no shortness of breath no cough no nausea or vomiting no abdominal pain no diarrhea and no urinary symptoms. On 09/15/2020 patient was seen and examined on the medical floor he is alert and oriented 3 in no apparent distress pain in the left foot is improving otherwise he denies any complaints there is no fever or chills no headache or dizziness no chest pain no shortness of breath no cough no nausea or vomiting no abdominal pain no diarrhea and no urinary symptoms. At this time we are awaiting bone scan results and recommendation from infectious disease in regard to antibiotic therapy will continue to follow On 09/16/2020 patient is alert and oriented 3 in no apparent distress he is still complaining of pain in the left foot otherwise he denies any complaints there is no fever or chills no headache or dizziness no chest pain no shortness of breath no cough no nausea or vomiting no abdominal pain no diarrhea no blood in the stools no burning with urination no frequency or urgency and no hematuria. At this time we are still awaiting wound culture results and final recommendation for antibiotic from infectious disease, patient will need a PICC line placement on Friday and arrangement for long-term IV antibiotic possibly at home On 09/17/2020 patient is alert and oriented 3. Minimal complaints of pain to left foot dressing is clean dry and intact. Antibiotics have been switched over to cefepime IV antibiotics. Possible discharge home tomorrow with home health care and IV antibiotics. At this time patient denies chest pain or shortness of breath. Patient denies nausea vomiting or diarrhea. Patient denies any urinary burning frequency. Objective - Vital Signs Vital signs: Vital Signs Temp 97.7 F 09/17/20 07:37 Pulse 74 09/17/20 07:37 Resp 18 09/17/20 08:23 BP 189/90 09/17/20 07:37 Pulse Ox 94 L 09/17/20 07:37 Intake & Output 09/16/20 09/17/20 09/17/20 18:59 06:59 18:59 Intake Total 1100 780 200 Balance 1100 780 200 Intake: Intake, IV Titration 600 100 Amount Cefepime 2 gm In Sodium 100 100 Chloride 0.9% 100 ml @ 200 mls/hr IVPB ONCE ONE Rx#:[id number] Vancomycin 2,500 mg In 500 Sodium Chloride 0.9% 500 ml 500 ml @ 167 mls/hr IVPB Q12H COUNT INCLUDES THE [facility] Rx#: [id number] Oral 500 680 200 Other: Voiding Method Toilet Toilet # Voids 2 - Exam In general patient is alert and oriented 3 in no apparent distress Head normocephalic and atraumatic Neck supple no JVD no goiter Lungs clear to auscultation bilaterally no wheezing or crackles Heart regular rate and rhythm S1-S2, no rub or gallop Abdomen is soft nontender nondistended positive bowel sounds no hepatosplenomegaly Extremities no edema. Left foot plantar side also noted nickel size Neuro no gross focal neurological deficits - Labs CBC & Chem 7: 09/17/20 05:34 09/16/20 05:42 Labs: Microbiology - Last 24 Hours (Table) 09/15/20 13:30 Gram Stain - Final Foot - Left Wound Culture - Final Pseudomonas aeruginosa 09/15/20 14:02 Gram Stain - Preliminary Foot - Left Tissue Culture - Preliminary Gram Neg Bacilli Assessment and Plan Assessment: 1. Left foot wound with concerns of possible osteomyelitis. Infectious disease and vascular surgery consulted. Status post surgical debridement Dr. Oneal on 09/15/2020. Patient currently remains on cefepime. Infectious disease is following awaiting final wound culture finalized IV antibiotics for discharge 2. History of peripheral neuropathy 3. History of paroxysmal atrial fibrillation 4. History of nicotine dependence patient educated greater than 3 minutes on smoking cessation. Nicotine patch ordered 5. Morbid obesity. 6. Borderline diabetic. Hemoglobin A1c 5.8 DVT prophylaxis Lovenox. GI prophylaxis Protonix Status post debridement Patient remains on cefepime Awaiting final cultures for IV antibiotics upon discharge
[2020-09-17] MEDS ORDERED: LOSARTAN 25 MG TAB PO STA (11:54)
[2020-09-17] MEDS ORDERED: VANCOMYCIN IV PER PHARMACY 1 EACH MISC MISCELLANE PRN (20:11)
[2020-09-17] MEDS: VANCOMYCIN 2,500 MG in SODIUM CHLORIDE 0.9% 500 ML 500 ML IVPB SCH (21:11)
--- NOTE | 2020-09-17 21:46 | PN ---
PROGRESS NOTE DATE OF SERVICE: 09/17/2020 REASON FOR FOLLOWUP: Left diabetic foot infection with underlying osteomyelitis. INTERVAL HISTORY: The patient is currently afebrile. He is breathing comfortably. Denies having any chest pain or shortness of breath or cough. No abdominal pain or diarrhea. PHYSICAL EXAMINATION: Blood pressure is 187/92 with a pulse of 46, temperature 97.8. He is 97% on room air. General description is a middle-aged male lying in bed in no distress. RESPIRATORY SYSTEM: Unlabored breathing. Clear to auscultation anteriorly. HEART: S1, S2. Regular rate and rhythm. ABDOMEN: Soft. No tenderness. LABS: Wound cultures are now showing MRSA in addition to Pseudomonas. DIAGNOSTIC IMPRESSION AND PLAN: Patient with left diabetic foot infection with underlying acute osteomyelitis. Culture positive for MRSA and Pseudomonas. We will add vancomycin. PICC line tomorrow for continuation of outpatient antibiotic therapy. Continue supportive care. MMODL / IJN: [id number] /
[2020-09-18 06:24] LABS: Basophils % (A) 0 %; Eosinophils # (A) 0.4 k/uL (0-0.7); Eosinophils % (A) 5 %; HCT 42.2 % (39.0-53.0); HGB 14.5 gm/dL (13.0-17.5); Lymphocytes # (A) 2.1 k/uL (1.0-4.8); Lymphocytes % (A) 24 %; MCH 30.2 pg (25.0-35.0); MCHC 34.4 g/dL (31.0-37.0); MCV 87.8 fL (80.0-100.0); Mean Platelet Volume 6.9; Monocytes # (A) 0.5 k/uL (0-1.0); Monocytes % (A) 5 %; Neutrophils # (A) 5.6 k/uL (1.3-7.7); Neutrophils % (A) 64 %; Platelet Count 256 k/uL (150-450); RDW 13.6 % (11.5-15.5); WBC 8.7 k/uL (3.8-10.6)
[2020-09-18 07:58] VITALS: BP 178/80; PULSE 42; RESP 18; TEMP 97.8
[2020-09-18 08:56] LABS: INR 1.03 (0.90-1.11); Prothrombin Time 11.1 sec (9.9-11.9)
[2020-09-18] MEDS ORDERED: LOSARTAN 50 MG TAB PO SCH (09:00)
[2020-09-18] MEDS ORDERED: PROPRANOLOL LA 60 MG CAP.SA.24H PO SCH (09:00)
[2020-09-18] MEDS ORDERED: amLODIPine 10 MG TAB PO SCH (09:00)
[2020-09-18] MEDS: CHOLECALCIFEROL 1,000 UNIT TAB PO SCH (09:10)
[2020-09-18] MEDS: ENOXAPARIN 40 MG/0.4 ML SYRINGE SQ SCH (09:11)
[2020-09-18] MEDS: NICOTINE 14MG/24HR PATCH TRANSDERM SCH (09:11)
[2020-09-18] MEDS: PANTOPRAZOLE 40 MG TABLET PO SCH (09:11)
[2020-09-18] MEDS: hydroCHLOROthiazide 25 MG TAB PO SCH (09:11)
[2020-09-18 09:17] LABS: Albumin 3.9 g/dL (3.80-4.90); Albumin/Globulin Ratio 1.39 (1.60-3.17); Anion Gap 6.9 mmol/L (4.00-12.00); BUN/Creat Ratio 18.89 Ratio (12.00-20.00); Calcium 8.8 mg/dL (8.7-10.3); Carbon Dioxide 29.1 mmol/L (21.6-31.8); Globulin 2.8 g/dL (1.6-3.3); Non-African American GFR(CKD) 95.8 (60.0-200.0); Potassium 4.3 mmol/L (3.5-5.5); Total Bilirubin 0.4 mg/dL (0.2-1.2); Total Protein 6.7 g/dL (6.2-8.2)
[2020-09-18] MEDS ORDERED: LIDOCAINE 1% INJ 10MG/ML (20 ML MDV) ONE (09:50)
[2020-09-18] MEDS ORDERED: LIDOCAINE 1% INJ 10MG/ML (20 ML MDV) SQ ONE (09:58)
[2020-09-18] MEDS: CEFEPIME 2 GM in SODIUM CHLORIDE 0.9% 100 ML IVPB SCH (10:46)
[2020-09-18] MEDS: VANCOMYCIN 2,500 MG in SODIUM CHLORIDE 0.9% 500 ML 500 ML IVPB SCH (10:47)
--- NOTE | 2020-09-18 13:15 | IR ---
EXAMINATION TYPE: IR cvc insert >=5 years DATE OF EXAM: 09/18/2020 COMPARISON: NONE CLINICAL HISTORY: Infection Needs long-term intravenous access for antibiotics. PROCEDURE: Hand hygiene obtained with soap and water and alcohol-based hand rub. After informed consent, the skin overlying the left basilic vein was localized with ultrasound and no michelle to be compressible and patent. An ultrasound image was obtained and submitted on the patient's c jaffe. The overlying skin was prepped and draped and Lidocaine was used for local anesthesia. A skin khang was made with a scalpel. Access was gained to the vein under ultrasound guidance with a 21 gau ge needle and a 0.018 inch wire was advanced. Access site was dilated with Peel-Away sheath and cath eter tailored to the appropriate length and advanced such that the distal tip is at the cavoatrial ju nction. Spot image was obtained verifying placement. Catheter was fixed to the skin and a sterile d ressing was placed following hemostasis. Catheter was aspirated and flushed with saline. Patient wa s discharged in stable condition without complication. Maximal barrier technique is utilized. Ultras ound image is documented on the chart. Ultrasound used with sterile technique. Fluoro time and fluoroscopic images submitted to document procedure: 0.3 minutes fluoroscopy time, 15 0 images document the procedure IMPRESSION: STATUS POST ULTRASOUND AND FLUOROSCOPIC GUIDED PICC LINE PLACEMENT, READY FOR USE. THIS PROCEDURE WAS PERFORMED BY THE UNDERSIGNED.
--- NOTE | 2020-09-18 13:42 | P.PN ---
Progress Note - Text 55-year-old gentleman known to me from the wound clinic patient had a infected callus we did the excision of the callus and also on scan showed greater than is osteo-of the second metatarsal patient is an IV antibiotic and we been using her wound with the local wound care and excess silver patient is going home we will follow in the wound clinic at [facility] next Friday
--- NOTE | 2020-09-18 14:13 | P.CRDCN ---
History of Present Illness History of present illness: HISTORY OF PRESENTING ILLNESS This is a pleasant 55-year-old male past medical history significant for paroxysmal atrial fibrillation, hypertension, chronic nonhealing the plantar aspect left foot currently being treated for osteomyelitis and chronic nicotine dependence. 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 He follows in the office with Dr. Cobian. We have been asked to see in consultation for bradycardia. He is currently being treated for osteomyelitis with IV antibiotics. He states he has been struggling with this wound on the plantar surface of his left foot and following closely in the wound Center. He states due to his neuropathy he cannot feel any pain or discomfort. He has been on telemetry which indicates heart rates in the low 40's at times. The rhythm is always sinus with no evidence of afib. He denies feeling dizzy or lightheaded. He states he has been working closely with his PCP regarding his blood pressure over the last few weeks and has been recording his home blood pressures. He states his heart rates have been running usually in the 50's. He was recently started on propanolol for his blood pressure as an outpatient. Last dose of propanolol was yesterday morning. DIAGNOSTICS EKG reveals sinus bradycardia. Telemetry tracings indicate sinus bradycardia. Laboratory reviewed, CBC unremarkable, sodium 137, potassium 4.3, creatinine 0.9, TSH 3.14. Current cardiac medications include hydrochlorothiazide 25 mg daily, propanolol 160 mg daily and losartan 25 mg daily. Most recent echocardiogram obtained September 2018 reveals preserved LV systolic function with ejection fraction 60-65%. REVIEW OF SYSTEMS At the time of my exam: CONSTITUTIONAL: Denies fever or chills. CARDIOVASCULAR: Denies chest pain, shortness of breath, orthopnea, PND or palpitations. RESPIRATORY: Denies cough. GASTROINTESTINAL: Denies abdominal pain, diarrhea, constipation, nausea or vomiting. MUSCULOSKELETAL: Denies myalgias. NEUROLOGIC: Denies numbness, tingling, headacbe or weakness. ENDOCRINE: Denies fatigue, weight change, polydipsia or polyurina. GENITOURINARY: Denies burning, hematuria or urgency with micturation. HEMATOLOGIC: Denies history of anemia or bleeding. PHYSICAL EXAMINATION Blood pressure 178/80 heart rate 42 afebrile and maintaining oxygen saturation on room air. CONSTITUTIONAL: No apparent distress. Morbidly obese. HEENT: Head is normocephalic. Pupils are equal, round. Sclerae anicteric. Mucous membranes of the mouth are moist. No JVD. No carotid bruit. CHEST EXAMINATION: Lungs are clear to auscultation. No chest wall tenderness is noted on palpation or with deep breathing. HEART EXAMINATION: Regular rate and rhythm. S1, S2 heard. No murmurs, gallops or rub. ABDOMEN: Soft, nontender. Positive bowel sounds. EXTREMITIES: No lower extremity edema and no calf tenderness. Dressing in place to the left lower extremity. Pulses are faint but palpable. NEUROLOGIC EXAMINATION: Patient is awake, alert and oriented x3. ASSESSMENT Sinus bradycardia on beta blockers, asymptomatic Paroxysmal atrial fibrillation Osteomyelitis Hypertension History of neuropathy Chronic nicotine dependence Morbid obesity, BMI 42 PLAN Discontinue all beta blockers her rate lowering medications. Initiate amlodipine 10 mg daily for optimal blood pressure control. Echocardiogram has been ordered to be reviewed. Stable for discharge with outpatient Holter monitor. Follow up with Dr. Cobian in the office. Oral anti-coagulation to be discussed in the office. CHADS-VASC 2 for hypertension and suspected peripheral vascular disease. Thank you kindly for this consultation. Nurse Practitioner note has been reviewed, I agree with a documented findings and plan of care. Patient was seen and examined. Past Medical History Past Medical History: GERD/Reflux, Hyperlipidemia, Hypertension Additional Past Medical History / Comment(s): Occasional low back pain, paroxysmal atrial fibrillation, morbid obesity with BMI 43.8 History of Any Multi-Drug Resistant Organisms: MRSA Date of last positivie culture/infection: 09/12/20 MDRO Source:: foot Past Surgical History: Orthopedic Surgery Additional Past Surgical History / Comment(s): L BICEP SX WITH METAL PLATE, R ARM BENIGN CYST, 2015 COLONOSCOPY WITH BENIGN POLYP Past Anesthesia/Blood Transfusion Reactions: No Reported Reaction Past Psychological History: No Psychological Hx Reported Smoking Status: Current every day smoker Past Alcohol Use History: None Reported Past Drug Use History: None Reported - Past Family History Mother Family Medical History: No Reported History Additional Family Medical History / Comment(s): MOTHER IS HEALTHY Father Family Medical History: CVA/TIA, Myocardial Infarction (AR) Additional Family Medical History / Comment(s): FATHER HAD A CVA AND THEN OF A AR AT THE AGE OF 63 YRS. Medications and Allergies Home Medications Medication Instructions Recorded Confirmed Type hydroCHLOROthiazide [Hydrodiuril] 25 mg PO DAILY 06/27/16 09/12/20 History Cholecalciferol [Vitamin D3 (25 5,000 unit PO DAILY 02/26/20 09/12/20 History Mcg = 1000 Iu)] Omeprazole 20 mg PO DAILY 06/16/20 09/12/20 History Losartan [Cozaar] 100 mg PO DAILY tab 09/18/20 Rx Nicotine 14Mg/24Hr Patch [Habitrol] 1 patch TRANSDERM DAILY patch 09/18/20 Rx Vancomycin 2,500 mg IVPB Q12H vial 09/18/20 Rx amLODIPine [Norvasc] 10 mg PO DAILY tab 09/18/20 Rx Allergies Allergy/AdvReac Type Severity Reaction Status Date / Time No Known Allergies Allergy Verified 09/12/20 17:19 Physical Exam Vitals: Vital Signs Temp Pulse Resp BP Pulse Ox 09/18/20 07:57 97.8 F 42 L 18 178/80 94 L 09/18/20 02:05 98.5 F 78 16 154/85 94 L 09/17/20 19:23 97.8 F 46 L 17 187/92 97 09/17/20 19:05 16 09/17/20 14:12 97.7 F 38 L 16 132/68 95 09/17/20 12:23 39 L 180/96 09/17/20 10:51 40 L 160/77 Intake and Output 09/17/20 09/18/20 09/18/20 22:59 06:59 14:59 Intake Total 250 Balance 250 Intake: Oral 250 Other: Voiding Method Toilet Results 09/18/20 05:51 09/18/20 05:51 Cardiac Enzymes 09/17/20 09/18/20 Range/Units 05:34 05:51 AST 35 34 (14-35) U/L Coagulation 09/18/20 Range/Units 05:51 PT 11.1 (9.9-11.9) sec CBC 09/18/20 Range/Units 05:51 WBC 8.7 (3.8-10.6) k/uL RBC 4.80 (4.30-5.90) m/uL Hgb 14.5 (13.0-17.5) gm/dL Hct 42.2 (39.0-53.0) % Plt Count 256 (150-450) k/uL Comprehensive Metabolic Panel 09/17/20 09/18/20 Range/Units 05:34 05:51 Sodium 139 137 (135-145) mmol/L Potassium 4.6 4.3 (3.5-5.5) mmol/L Chloride 101 101 (96-109) mmol/L Carbon Dioxide 30.7 29.1 (21.6-31.8) mmol/L BUN 16.0 17.0 (9.0-27.0) mg/dL Creatinine 1.0 0.9 (0.6-1.5) mg/dL Glucose 92 94 (70-110) mg/dL Calcium 8.7 8.8 (8.7-10.3) mg/dL AST 35 34 (14-35) U/L ALT 45 52 H (10-49) U/L Alkaline Phosphatase 68 74 (41-126) U/L Total Protein 6.5 6.7 (6.2-8.2) g/dL Albumin 3.80 3.90 (3.80-4.90) g/dL Current Medications Generic Name Dose Route Start Last Admin Trade Name Freq PRN Reason Stop Dose Admin Acetaminophen 500 mg 09/13/20 11:32 Acetaminophen Tab 500 Mg Tab PO Q4HR PRN Fever and/ or Pain Amlodipine Besylate 10 mg 09/18/20 09:00 09/18/20 09:11 Amlodipine 10 Mg Tab PO 10 mg DAILY KEERTHI Administration Cholecalciferol 5,000 unit 09/13/20 09:00 09/18/20 09:10 Cholecalciferol 1,000 Unit Tab PO 5,000 unit DAILY KEERTHI Administration Enoxaparin Sodium 40 mg 09/14/20 09:00 09/18/20 09:11 Enoxaparin 40 Mg/0.4 Ml Syringe SQ Not Given DAILY KEERTHI Hydrochlorothiazide 25 mg 09/13/20 09:00 09/18/20 09:11 Hydrochlorothiazide 25 Mg Tab PO 25 mg DAILY KEERTHI Administration Cefepime HCl 2 gm/ Sodium 100 mls @ 25 mls/hr 09/16/20 21:00 09/17/20 21:00 Chloride IVPB 25 mls/hr Q12HR KEERTHI Administration Vancomycin HCl 2,500 mg/ 500 mls @ 167 mls/hr 09/17/20 21:00 09/17/20 21:11 Sodium Chloride IVPB 167 mls/hr Q12H KEERTHI Administration Ibuprofen 400 mg 09/12/20 16:51 09/17/20 08:11 Ibuprofen 400 Mg Tab PO 400 mg Q6HR PRN Administration Mild Pain or Fever > 100.5 Losartan Potassium 100 mg 09/18/20 09:00 09/18/20 09:11 Losartan 50 Mg Tab PO 100 mg DAILY KEERTHI Administration Morphine Sulfate 4 mg 09/12/20 16:51 09/17/20 21:12 Morphine Sulfate 4 Mg/Ml Syringe IV 4 mg Q4HR PRN Administration Severe Pain Naloxone HCl 0.2 mg 09/12/20 16:51 Naloxone 0.4 Mg/Ml 1 Ml Vial IV Q2M PRN Opioid Reversal Nicotine 1 patch 09/14/20 09:00 09/18/20 09:11 Nicotine 14mg/24hr Patch TRANSDERM Not Given DAILY KEERTHI Ondansetron HCl 4 mg 09/12/20 16:51 Ondansetron 4 Mg/2 Ml Vial IVP Q8HR PRN Nausea And Vomiting Pantoprazole Sodium 40 mg 09/13/20 09:00 09/18/20 09:11 Pantoprazole 40 Mg Tablet PO 40 mg DAILY KEERTHI Administration Intake and Output 09/17/20 09/18/20 09/18/20 22:59 06:59 14:59 Intake Total 250 Balance 250 Intake: Oral 250 Other: Voiding Method Toilet 09/18/20 05:51 09/18/20 05:51
--- NOTE | 2020-09-18 17:44 | PN ---
PROGRESS NOTE DATE OF SERVICE: 09/18/2020 REASON FOR FOLLOWUP: Left foot osteomyelitis. INTERVAL HISTORY: The patient was seen on rounds early this morning. The patient has been afebrile, has been breathing comfortably. Denies having any chest pain or shortness of breath or cough, and no abdominal pain or pain to the left foot area. PHYSICAL EXAMINATION: Blood pressure 178/80 with a pulse of 78, temperature 97.8. He is 94% on room air. General description is a middle-aged male lying in bed in no distress. RESPIRATORY SYSTEM: Unlabored breathing. Clear to auscultation anteriorly. HEART: S1, S2. Regular rate and rhythm. ABDOMEN: Soft. No tenderness. Left foot is currently dressed up. No obvious drainage on the dressing. LABS: Sedimentation rate of 75. CRP of 7.7. Local culture with pseudomonas and MRSA. DIAGNOSTIC IMPRESSION AND PLAN: Patient with left foot nonhealing ulcer with underlying osteomyelitis, acute. Culture with MRSA and pseudomonas. Pseudomonas on the deep culture is showing intermittent sensitivities to the cefepime; hence will recommend vancomycin, Pharmacy to dose, for a target of 15, total of 6 weeks, along with oral Cipro 750 mg twice a day for the same duration, and close outpatient followup. MMODL / IJN: [id number] /
--- NOTE | 2020-09-18 19:00 | ECHOF ---
Referral Reason:htn MEASUREMENTS -------- HEIGHT: 185.4 cm WEIGHT: 145.1 kg BP: 154/85 RVIDd: 3.7 cm (< 3.3) IVSd: 1.6 cm (0.6 - 1.1) LVIDd: 3.8 cm (3.9 - 5.3) LVPWd: 1.5 cm (0.6 - 1.1) IVSs: 2.1 cm LVIDs: 2.5 cm LVPWs: 2.1 cm LAESV Index (A-L): 28.00 ml/m Ao Diam: 3.4 cm (2.0 - 3.7) AV Cusp: 2.1 cm (1.5 - 2.6) LA Diam: 4.7 cm (2.7 - 3.8) MV E Kris: 1.09 m/s MV DecT: 239 ms MV A Kris: 0.77 m/s MV E/A Ratio: 1.41 AV maxP.22 mmHg AV meanP.50 mmHg FINDINGS -------- Resting bradycardia (HR<60bpm). This was a technically difficult study with suboptimal views. The left ventricular size is normal. There is moderate concentric left ventricular hypertrophy. O verall left ventricular systolic function is low-normal with, an EF between 50 - 55 %. The right ventricle is mildly enlarged. The right atrial size is normal. 5.0mg of Lumason was utilized for enhancement of images Interatrial and interventricular septum intact. There is no evidence of aortic regurgitation. There is no evidence of aortic stenosis. There is trace to mild mitral regurgitation. Mild tricuspid regurgitation present. Unable to estimate RVSP due to inadequate TR jet spectral dop pler profile. There is no pulmonic regurgitation present. The aortic root size is normal. IVC Not well visulized. There is no pericardial effusion. CONCLUSIONS -------- 1. The left ventricular size is normal. 2. There is moderate concentric left ventricular hypertrophy. 3. Overall left ventricular systolic function is low-normal with, an EF between 50 - 55 %. 4. The right ventricle is mildly enlarged. 5. There is trace to mild mitral regurgitation. 6. Mild tricuspid regurgitation present. 7. Unable to estimate RVSP due to inadequate TR jet spectral doppler profile. GYM INSTRUCTOR: Martha Villa RDCS
--- NOTE | 2020-09-19 17:24 | P.DS ---
Providers Date of admission: 09/12/20 16:52 Expected date of discharge: 09/18/20 Attending physician: Hi Pope Consults: 09/12/20 16:53 Consult Physician Urgent Consulting Provider: Sudhakar Lisa Consult Reason/Comments: Left foot chronic ulcer, possible osteomyelitis Do you want consulting provider notified?: Yes 09/12/20 17:01 Consult Physician Urgent Consulting Provider: Kurt Oneal Consult Reason/Comments: foot ulcer Do you want consulting provider notified?: Yes 09/17/20 15:16 Consult Physician Urgent Consulting Provider: [facility] Consult Reason/Comments: Low Heart Rate Do you want consulting provider notified?: Yes Primary care physician: Davida Alexander Hospital Course: Diagnosis on discharge: 1. Left foot wound with concerns of possible osteomyelitis. Infectious disease and vascular surgery consulted. Status post surgical debridement Dr. Oneal on 09/15/2020. Patient currently remains on cefepime. Infectious disease is following awaiting final wound culture finalized IV antibiotics for discharge 2. History of peripheral neuropathy 3. History of paroxysmal atrial fibrillation 4. History of nicotine dependence patient educated greater than 3 minutes on smoking cessation. Nicotine patch ordered 5. Morbid obesity. 6. Borderline diabetic. Hemoglobin A1c 5.8 Hospital course: This is a 54-year-old male patient of Dr. Alexander. Patient presented with complaints of left foot wound with possible osteomyelitis. Patient reports he's had chronic foot wound to left foot for over 2 years in which he follows in wound care clinic. Patient reports that over the past few days he his ulcer has gotten worse and was sent to ER per wound care clinic. Patient denies any fever or muscle aches or chills at home. Patient's additional medical history includes obesity, GERD, essential hypertension, proximal atrial fibrillation and chronic lower back pain. Possible concerns for ostomy mellitus seen on foot x- ray. At this time patient will be admitted and infectious disease and vascular surgery consulted. Patient denies chest pain or shortness breath. Patient denies nausea vomiting or diarrhea. Patient denies any urinary burning or frequency. On 09/14/2020 patient was seen and examined on the medical floor he is alert and oriented 3 in no apparent distress he is still complaining of left foot pain and difficulty ambulating due to pain in his foot otherwise he denies any complaints there is no fever or chills no headache or dizziness no chest pain no shortness of breath no cough no nausea or vomiting no abdominal pain no diarrhea and no urinary symptoms. On 09/15/2020 patient was seen and examined on the medical floor he is alert and oriented 3 in no apparent distress pain in the left foot is improving otherwise he denies any complaints there is no fever or chills no headache or dizziness no chest pain no shortness of breath no cough no nausea or vomiting no abdominal pain no diarrhea and no urinary symptoms. At this time we are awaiting bone scan results and recommendation from infectious disease in regard to antibiotic therapy will continue to follow On 09/16/2020 patient is alert and oriented 3 in no apparent distress he is still complaining of pain in the left foot otherwise he denies any complaints there is no fever or chills no headache or dizziness no chest pain no shortness of breath no cough no nausea or vomiting no abdominal pain no diarrhea no blood in the stools no burning with urination no frequency or urgency and no hematuria. At this time we are still awaiting wound culture results and final recommendation for antibiotic from infectious disease, patient will need a PICC line placement on Friday and arrangement for long-term IV antibiotic possibly at home On 09/17/2020 patient is alert and oriented 3. Minimal complaints of pain to left foot dressing is clean dry and intact. Antibiotics have been switched over to cefepime IV antibiotics. Possible discharge home tomorrow with home health care and IV antibiotics. At this time patient denies chest pain or shortness of breath. Patient denies nausea vomiting or diarrhea. Patient denies any urinary burning frequency. Patient Condition at Discharge: Stable Plan - Discharge Summary Discharge Rx Participant: Yes New Discharge Prescriptions: New Losartan [Cozaar] 100 mg PO DAILY tab Nicotine 14Mg/24Hr Patch [Habitrol] 1 patch TRANSDERM DAILY patch amLODIPine [Norvasc] 10 mg PO DAILY tab Vancomycin 2,500 mg IVPB Q12H vial Ciprofloxacin HCl [Cipro] 750 mg PO BID 30 Days #60 tab Continue hydroCHLOROthiazide [Hydrodiuril] 25 mg PO DAILY Cholecalciferol [Vitamin D3 (25 Mcg = 1000 Iu)] 5,000 unit PO DAILY Omeprazole 20 mg PO DAILY Discontinued Losartan [Cozaar] 25 mg PO DAILY tab Propranolol HCl [Propranolol HCl ER] 160 mg PO DAILY Discharge Medication List hydroCHLOROthiazide [Hydrodiuril] 25 mg PO DAILY 06/27/16 [History] Cholecalciferol [Vitamin D3 (25 Mcg = 1000 Iu)] 5,000 unit PO DAILY 02/26/20 [History] Omeprazole 20 mg PO DAILY 06/16/20 [History] Ciprofloxacin HCl [Cipro] 750 mg PO BID 30 Days #60 tab 09/18/20 [Rx] Losartan [Cozaar] 100 mg PO DAILY tab 09/18/20 [Rx] Nicotine 14Mg/24Hr Patch [Habitrol] 1 patch TRANSDERM DAILY patch 09/18/20 [Rx] Vancomycin 2,500 mg IVPB Q12H vial 09/18/20 [Rx] amLODIPine [Norvasc] 10 mg PO DAILY tab 09/18/20 [Rx] Follow up Appointment(s)/Referral(s): Davida Alexander MD [Primary Care Provider] - 1-2 days [facility], [NON-STAFF] - As Needed [facility]Infusion [NON-STAFF] - As Needed Anastacio Cobian MD [STAFF PHYSICIAN] - 2 Weeks Patient Instructions/Handouts: Chronic Wound Care (DC), Diabetic Foot Ulcers (DC), Peripherally Inserted Central Catheters and Midline Catheters (DC)
--- NOTE | 2020-09-22 12:57 | HM ---
HOLTER MONITOR REPORT A 48-hour DCG. DATE OF THE STUDY: September 12, 2020. The patient was monitored for 48 hours. The baseline rhythm appeared to be sinus mechanism with a minimum heart rate of 30 beats per minute, max heart rate was 114 beats per minute and average heart rate of 60 beats per minute. Ventricular ectopic events presented rarely and presented as PVCs as well as in couplets and in bigeminy and trigeminy. Supraventricular ectopic events were rare during this 48 hours monitoring. The patient did have multiple episodes of sinus pauses with the longest of 3.2 seconds. The patient also did have multiple episodes of profound bradycardia. The patient was symptomatic during these episodes of bradycardia. CONCLUSION: 1. This is a 48-hour monitor. 2. Sinus rhythm as a baseline mechanism. 3. Rare ventricular ectopic events. 4. Rare supraventricular ectopic events. 5. The patient did have multiple episodes of sinus bradycardia and junctional rhythm. 6. The patient did have multiple episodes of sinus pauses as well with the longest of 3.2 seconds. MMODL / IJN: [id number] /
== END 2020-09-18 14:46 | disposition home health service (06) | DRG 504 ==
LOC: EC 14:53 → 4SSUR 16:52
PROVIDERS: ADMIT Internal Medicine; ATTEND Internal Medicine
PROC: 0QBP0ZZ Excision of Left Metatarsal, Open Approach (ICD-10-PCS; principal; 2020-09-15)
PROC: 02HV33Z Insertion of Infusion Device into Superior Vena Cava, Percutaneous Approach (ICD-10-PCS; 2020-09-18)
DX: M86.172 Other acute osteomyelitis, left ankle and foot (principal); Z68.41 Body mass index [BMI] 40.0-44.9, adult; L97.426 Non-pressure chronic ulcer of left heel and midfoot with bone involvement without evidence of necrosis; E11.69 Type 2 diabetes mellitus with other specified complication; E78.5 Hyperlipidemia, unspecified; F17.200 Nicotine dependence, unspecified, uncomplicated; I10 Essential (primary) hypertension; G62.9 Polyneuropathy, unspecified; L97.529 Non-pressure chronic ulcer of other part of left foot with unspecified severity; K21.9 Gastro-esophageal reflux disease without esophagitis; R00.1 Bradycardia, unspecified; I48.0 Paroxysmal atrial fibrillation; E66.01 Morbid (severe) obesity due to excess calories; Z82.3 Family history of stroke; Z82.49 Family history of ischemic heart disease and other diseases of the circulatory system; Z79.899 Other long term (current) drug therapy; Z98.890 Other specified postprocedural states; Z86.010 Personal history of colon polyps; Z86.14 Personal history of Methicillin resistant Staphylococcus aureus infection
CPT/HCPCS: 36415; 36573; 78315; 80048; 80053; 80202; 83036; 83605; 84443; 85025; 85610; 85652; 86140; 87070; 87077; 87186; 87205; 93005; 93225; 93226; 93306; 96365; 96375; 99284

== ENCOUNTER 2020-10-17 11:36 | Emergency (ER) | payer BC ==
[2020-10-17 11:45] VITALS: RESP 18; TEMP 98.6
[2020-10-17] MEDS ORDERED: ALTEPLASE 2 MG VIAL (CATHFLO) IV STA (12:13)
--- NOTE | 2020-10-17 12:36 | ED ---
Recheck HPI - General Chief Complaint: Recheck/Abnormal Lab/Rx Stated Complaint: PICC line problem Time Seen by Provider: 10/17/20 11:53 Source: patient Mode of arrival: ambulatory Limitations: no limitations - History of Present Illness Initial Comments: Patient is a 55-year-old male presenting to the emergency Department with complaints of a possibly clogged PICC line. Patient states he is currently receiving IV antibiotics for osteomyelitis. He has been using vancomycin every 8 hours since September 18 when the PICC line was placed. He is supposed to complete a total of 6 weeks, he has 1 week to go. Patient states for the last few days his medicine has been taking 3-4 hours to completely normally takes only an hour. Patient states he woke up at 1 AM to do his antibiotic however it would not go through. He did have a visiting nurse come today who did try to draw blood off the line and also flush line and was unable to do either one. P atient denies any further complaints, no fever or chills, no pain in the arm. Upon arrival to the ER, his vital signs are stable. - Related Data Home Medications Medication Instructions Recorded Confirmed hydroCHLOROthiazide [Hydrodiuril] 25 mg PO DAILY 06/27/16 10/17/20 Cholecalciferol [Vitamin D3 (25 5,000 unit PO DAILY 02/26/20 10/17/20 Mcg = 1000 Iu)] Omeprazole 20 mg PO DAILY 06/16/20 10/17/20 Losartan Potassium 100 mg PO DAILY 10/17/20 10/17/20 Vancomycin 2,500 mg IVPB Q8H 10/17/20 10/17/20 Previous Rx's Medication Instructions Recorded amLODIPine [Norvasc] 10 mg PO DAILY tab 09/18/20 Allergies Allergy/AdvReac Type Severity Reaction Status Date / Time No Known Allergies Allergy Verified 10/17/20 13:20 Review of Systems ROS Statement: Those systems with pertinent positive or pertinent negative responses have been documented in the HPI. ROS Other: All systems not noted in ROS Statement are negative. Past Medical History Past Medical History: GERD/Reflux, Hyperlipidemia, Hypertension Additional Past Medical History / Comment(s): Occasional low back pain, paroxysmal atrial fibrillation, morbid obesity with BMI 43.8 History of Any Multi-Drug Resistant Organisms: MRSA, MRSA Date of last positivie culture/infection: 09/15/20 MDRO Source:: foot Past Surgical History: Orthopedic Surgery Additional Past Surgical History / Comment(s): L BICEP SX WITH METAL PLATE, R ARM BENIGN CYST, 2015 COLONOSCOPY WITH BENIGN POLYP Past Anesthesia/Blood Transfusion Reactions: No Reported Reaction Past Psychological History: No Psychological Hx Reported Smoking Status: Current every day smoker Past Alcohol Use History: None Reported Past Drug Use History: None Reported - Past Family History Mother Family Medical History: No Reported History Additional Family Medical History / Comment(s): MOTHER IS HEALTHY Father Family Medical History: CVA/TIA, Myocardial Infarction ([place]) Additional Family Medical History / Comment(s): FATHER HAD A CVA AND THEN OF A [place] AT THE AGE OF 63 YRS. General Exam - General Exam Comments Initial Comments: GENERAL: Patient is well-developed and well-nourished. Patient is nontoxic and in no acute distress. HEAD: Atraumatic, normocephalic. EYES: Pupils equal round and reactive to light, extraocular movements intact, sclera anicteric, conjunctiva are normal. Eyelids were unremarkable. ENT: TMs normal, nares patent, oropharynx clear without exudates. Moist mucous membranes. NECK: Normal range of motion, supple without lymphadenopathy or JVD. LUNGS: Unlabored respirations. Breath sounds clear to auscultation bilaterally and equal. No wheezes rales or rhonchi. HEART: Regular rate and rhythm without murmurs, rubs or gallops. ABDOMEN: Soft, nontender, normoactive bowel sounds. No guarding, no rebound. No masses appreciated. : Deferred MUSCULOSKELETAL: Normal extremities with adequate strength and normal range of motion, no pitting or edema. No clubbing or cyanosis. NEUROLOGICAL: Patient is alert and oriented x 3. Motor and sensory are also intact. Cranial nerves II through XII grossly intact. Symmetrical smile. Normal speech, normal gait. PSYCH: Normal mood, normal affect. SKIN: Warm, Dry, normal turgor, no rashes. Patient has PICC line in the left before meals, no signs of erythema, no swelling, no pain, no signs of infection. Limitations: no limitations Course Vital Signs 10/17/20 10/17/20 11:41 13:45 Temperature 98.6 F Pulse Rate 69 64 Respiratory 18 18 Rate Blood Pressure 173/79 140/86 O2 Sat by Pulse 96 96 Oximetry Medical Decision Making - Medical Decision Making Patient is a 55-year-old male here for a possibly clogged PICC line of the left arm. He is currently receiving vancomycin every 8 hours for osteomyelitis. He has 1 more week of treatments to go. He has no further complaints, no evidence of infection on exam. We did attempt TPA to clear the PICC line, patient's PICC line was able to be flushed. Patient is stable for discharge. We did do lab work that Dr. Lisa requested , he can follow-up with him in the office. Patient is in agreement with this plan of care. Patient is stable for discharge. Patient is in agreement with this plan of care. Return parameters were discussed with the patient and they verbalized understanding. Case discussed with Dr. Jeff. - Lab Data Result diagrams: 10/17/20 13:05 10/17/20 13:05 Lab Results 10/17/20 10/17/20 10/17/20 Range/Units 13:05 13:05 13:05 WBC 9.5 (3.8-10.6) k/uL RBC 5.18 (4.30-5.90) m/uL Hgb 15.8 (13.0-17.5) gm/dL Hct 46.0 (39.0-53.0) % MCV 88.7 (80.0-100.0) fL MCH 30.5 (25.0-35.0) pg MCHC 34.4 (31.0-37.0) g/dL RDW 14.2 (11.5-15.5) % Plt Count 226 (150-450) k/uL MPV 6.6 Neutrophils % 68 % Lymphocytes % 19 % Monocytes % 7 % Eosinophils % 5 % Basophils % 1 % Neutrophils # 6.5 (1.3-7.7) k/uL Lymphocytes # 1.8 (1.0-4.8) k/uL Monocytes # 0.6 (0-1.0) k/uL Eosinophils # 0.4 (0-0.7) k/uL Basophils # 0.1 (0-0.2) k/uL Sodium 139 (137-145) mmol/L Potassium 4.4 (3.5-5.1) mmol/L Chloride 102 (98-107) mmol/L Carbon Dioxide 27 (22-30) mmol/L Anion Gap 10 mmol/L BUN 17 (9-20) mg/dL Creatinine 1.01 (0.66-1.25) mg/dL Est GFR (CKD-EPI)AfAm >90 (>60 ml/min/1.73 sqM) Est GFR (CKD-EPI)NonAf 84 (>60 ml/min/1.73 sqM) Glucose 111 H (74-99) mg/dL Calcium 9.7 (8.4-10.2) mg/dL C-Reactive Protein 21.8 H (<10.0) mg/L Vancomycin Trough 11.2 ug/mL Disposition Clinical Impression: Occluded PICC line Disposition: HOME SELF-CARE Condition: Stable Instructions (If sedation given, give patient instructions): How to Flush Your PICC or Midline Catheter (ED) Additional Instructions: Please return to the Emergency Department if symptoms worsen or any other concerns. Please follow-up with Dr. Lisa as discussed. Is patient prescribed a controlled substance at d/c from ED?: No Referrals: Davida Alexander MD [Primary Care Provider] - 1-2 days Sudhakar Lisa MD [STAFF PHYSICIAN] - 1-2 days
[2020-10-17 13:13] LABS: Basophils # (A) 0.1 k/uL (0-0.2); Basophils % (A) 1 %; Eosinophils # (A) 0.4 k/uL (0-0.7); Eosinophils % (A) 5 %; HGB 15.8 gm/dL (13.0-17.5); Lymphocytes # (A) 1.8 k/uL (1.0-4.8); Lymphocytes % (A) 19 %; MCH 30.5 pg (25.0-35.0); MCHC 34.4 g/dL (31.0-37.0); MCV 88.7 fL (80.0-100.0); Mean Platelet Volume 6.6; Monocytes # (A) 0.6 k/uL (0-1.0); Monocytes % (A) 7 %; Neutrophils # (A) 6.5 k/uL (1.3-7.7); Neutrophils % (A) 68 %; Platelet Count 226 k/uL (150-450); RBC 5.18 m/uL (4.30-5.90); RDW 14.2 % (11.5-15.5); WBC 9.5 k/uL (3.8-10.6)
[2020-10-17 13:27] LABS: Potassium 4.4 mmol/L (3.5-5.1)
[2020-10-17 13:30] LABS: African American GFR (CKD) >90 (>60 ml/min/1.73 sqM); Anion Gap 10 mmol/L; Blood Urea Nitrogen 17 mg/dL (9-20); C Reactive Protein 21.8 mg/L (<10.0); Calcium 9.7 mg/dL (8.4-10.2); Carbon Dioxide 27 mmol/L (22-30); Chloride 102 mmol/L (98-107); Glucose 111 mg/dL (74-99); Non-African American GFR(CKD) 84 (>60 ml/min/1.73 sqM); Sodium 139 mmol/L (137-145)
[2020-10-17 13:49] VITALS: BP 140/86; PULSE 64
[2020-10-17 14:00] LABS: Erythrocyte Sedimentation Rate 47 mm/hr (0-15)
== END 2020-10-17 14:20 | disposition home or self-care (01) ==
LOC: EC 11:36
DX: T82.898A Other specified complication of vascular prosthetic devices, implants and grafts, initial encounter (principal); M86.9 Osteomyelitis, unspecified; I10 Essential (primary) hypertension; K21.9 Gastro-esophageal reflux disease without esophagitis; E78.5 Hyperlipidemia, unspecified; I48.0 Paroxysmal atrial fibrillation; E66.01 Morbid (severe) obesity due to excess calories; Z68.41 Body mass index [BMI] 40.0-44.9, adult; F17.200 Nicotine dependence, unspecified, uncomplicated; Z79.899 Other long term (current) drug therapy
CPT/HCPCS: 36415; 80048; 85652; 85025; 80202; 86140; 99283; 96374; J2997

== ENCOUNTER → 2020-10-20 | Day surgery (SDC) | payer BC ==
[2020-10-18 14:50] VITALS: BMI 43.5
[2020-10-20 10:08] VITALS: BP 163/78; PULSE 70; RESP 18; TEMP 97.3
--- NOTE | 2020-10-20 11:06 | IR ---
PICC LINE PLACEMENT: HISTORY: Infection requiring long-term antibiotic therapy PROCEDURE: Fluoroscopic guided PICC line exchange over a guidewire. COMPLICATIONS: None ANESTHESIA: 1. 1% Lidocaine locally. FINDINGS/TECHNIQUE: The procedure was explained to the patient. The risks, complications, benefits and alternatives were discussed and any questions were answered. Informed consent was obtained. The patient was placed supine on the fluoroscopic table and prepped and draped in the usual sterile [facility] ion. Utilizing fluoroscopic guidance,there is placement of a 0.018 guidewire. The pre-existing cath eter was removed. A 4-F sheath was placed over the guidewire. The guidewire and dilator were remov ed and a 4-F. PICC line was placed through the sheath with the tip at the level of the SVC. The torrez th was removed, the catheter was flushed and sutured into position. The patient was stable throughou t the procedure and remained stable upon discharge from the Department of Radiology. The vein puncture was patent under ultrasound. A preciado scale image was obtained to document patency of the vein punctured. All elements of the maximal barrier technique were utilized. FLUOROSCOPY TIME: 0.6 minutes, one image submitted IMPRESSION: Successful PICC line exchange under fluoroscopic guidance.
== END ==
LOC: CATHCVL 09:33
PROVIDERS: ATTEND Radiology Diagnostic Radiology
DX: T82.898A Other specified complication of vascular prosthetic devices, implants and grafts, initial encounter (principal); M86.8X7 Other osteomyelitis, ankle and foot; B95.62 Methicillin resistant Staphylococcus aureus infection as the cause of diseases classified elsewhere; L97.529 Non-pressure chronic ulcer of other part of left foot with unspecified severity; K21.9 Gastro-esophageal reflux disease without esophagitis; E78.5 Hyperlipidemia, unspecified; I10 Essential (primary) hypertension; I48.0 Paroxysmal atrial fibrillation; E66.01 Morbid (severe) obesity due to excess calories; F17.200 Nicotine dependence, unspecified, uncomplicated; Z79.899 Other long term (current) drug therapy; Z79.2 Long term (current) use of antibiotics; Z68.41 Body mass index [BMI] 40.0-44.9, adult; Z98.890 Other specified postprocedural states; Z86.010 Personal history of colon polyps; Z82.3 Family history of stroke; Z82.49 Family history of ischemic heart disease and other diseases of the circulatory system
CPT/HCPCS: 36584; C1751; C1769; 36573

== ENCOUNTER 2021-03-31 00:53 | Emergency (ER) | payer BC ==
[2021-03-31 01:03] VITALS: RESP 20
[2021-03-31] MEDS ORDERED: cefTRIAXone IN SWFI 1,000 MG/10 ML SYRINGE IVP STA (01:33)
[2021-03-31] MEDS ORDERED: SODIUM CHLORIDE 0.9% 1,000 ML IV STA (01:34)
[2021-03-31] MEDS ORDERED: MECLIZINE 12.5 MG TAB PO STA (01:34)
--- NOTE | 2021-03-31 02:08 | CT ---
EXAMINATION TYPE: CT brain wo con DATE OF EXAM: 03/31/2021 COMPARISON: 06/27/2016 HISTORY: headache, dizziness CT DLP: 1154.40 mGycm Automated exposure control for dose reduction was used. The ventricles and sulci appear normal. There is no mass effect nor midline shift. There is no sign o f intracranial hemorrhage. The calvarium is intact. Skull base is intact. There is normal aeration of the mastoid sinuses. IMPRESSION: Negative unenhanced head CT scan. No change.
--- NOTE | 2021-03-31 02:42 | ED ---
Skin/Abscess/FB HPI - General Chief complaint: Skin/Abscess/Foreign Body Stated complaint: Head & Foot Pain Time Seen by Provider: 03/31/21 01:21 Source: patient Mode of arrival: ambulatory Limitations: no limitations - History of Present Illness Initial comments: Patient reports he has developed an ulcer on the plantar aspect of his left foot which has been feeling rather well. States his been previously admitted with a PICC line for the ulcer. States that over the last week it has gradually worsened increasing in size. Does report some yellow discharge from her region that he noticed on his sock. He denies any significant changes to smell. He denies any associated fevers or chills. Patient also has history of vertigo and migraine headaches and states now he has developed a frontal headache but denies any associated photosensitivity nausea or vomiting. He also reports dizziness with the room spinning around him. States he is not taking any medication for the headache. Reports this feels it is typical vertigo-like symptoms. Denies any chest pain shortness of breath or blurry vision. - Related Data Home Medications Medication Instructions Recorded Confirmed hydroCHLOROthiazide [Hydrodiuril] 50 mg PO DAILY 06/27/16 10/20/20 Cholecalciferol [Vitamin D3 (25 5,000 unit PO DAILY 02/26/20 10/18/20 Mcg = 1000 Iu)] Omeprazole 20 mg PO DAILY 06/16/20 10/20/20 Losartan Potassium 100 mg PO DAILY 10/17/20 10/20/20 Vancomycin 2,500 mg IVPB Q8H 10/17/20 10/20/20 Previous Rx's Medication Instructions Recorded amLODIPine [Norvasc] 10 mg PO DAILY tab 09/18/20 Cephalexin [Keflex] 500 mg PO TID #30 cap 03/31/21 Meclizine [Antivert] 25 mg PO TID PRN #15 tab 03/31/21 Allergies Allergy/AdvReac Type Severity Reaction Status Date / Time No Known Allergies Allergy Verified 03/31/21 01:03 Review of Systems ROS Statement: Those systems with pertinent positive or pertinent negative responses have been documented in the HPI. ROS Other: All systems not noted in ROS Statement are negative. Past Medical History Past Medical History: Atrial Fibrillation, Diabetes Mellitus, GERD/Reflux, Hyperlipidemia, Hypertension Additional Past Medical History / Comment(s): Occasional low back pain, paroxysmal atrial fibrillation, morbid obesity with BMI 43.8 History of Any Multi-Drug Resistant Organisms: None Reported Date of last positivie culture/infection: 09/15/20 MDRO Source:: foot Past Surgical History: Orthopedic Surgery Additional Past Surgical History / Comment(s): L BICEP SX WITH METAL PLATE, R ARM BENIGN CYST, 2014 COLONOSCOPY WITH BENIGN POLYP Past Anesthesia/Blood Transfusion Reactions: No Reported Reaction Past Psychological History: No Psychological Hx Reported Smoking Status: Current every day smoker Past Alcohol Use History: Occasional Past Drug Use History: None Reported - Past Family History Mother Family Medical History: No Reported History Additional Family Medical History / Comment(s): MOTHER IS HEALTHY Father Family Medical History: CVA/TIA, Myocardial Infarction ([place]) Additional Family Medical History / Comment(s): FATHER HAD A CVA AND THEN OF A [place] AT THE AGE OF 63 YRS. General Exam Limitations: no limitations General appearance: alert, in no apparent distress, obese Head exam: Present: atraumatic, normocephalic, normal inspection Eye exam: Present: normal appearance, PERRL, EOMI, nystagmus (Lateral nystagmus) Pupils: Present: normal accommodation ENT exam: Present: normal exam, normal oropharynx, mucous membranes moist Neck exam: Present: normal inspection, full ROM. Absent: tenderness, lymphadenopathy Respiratory exam: Present: normal lung sounds bilaterally. Absent: respiratory distress, wheezes, rales, rhonchi, stridor Cardiovascular Exam: Present: regular rate, normal rhythm, normal heart sounds. Absent: systolic murmur GI/Abdominal exam: Present: soft. Absent: distended, tenderness Extremities exam: Present: full ROM, tenderness (Tenderness at the foot), normal capillary refill, other (Palpable DP and PT bilaterally. Sensation intact in both feet). Absent: normal inspection (Also noted a plantar aspect of left foot), pedal edema, joint swelling, calf tenderness Back exam: Present: normal inspection, full ROM. Absent: tenderness Neurological exam: Present: alert, oriented X3, CN II-XII intact, normal gait Psychiatric exam: Present: normal affect, normal mood Skin exam: Present: warm, dry, intact, normal color Course Vital Signs 03/31/21 03/31/21 00:59 04:20 Temperature 97.6 F 98.1 F Pulse Rate 64 56 L Respiratory 20 20 Rate Blood Pressure 170/98 148/88 O2 Sat by Pulse 99 97 Oximetry Medical Decision Making - Medical Decision Making 55-year-old male with history of vertigo presents emergency Department multiple chief complaints. On physical examination, no focal neural deficits. Does not have any associated chest pain or shortness of breath. He appears to have a stable ulcer on the plantar aspect of his left foot. It is not erythematous, warm or any notable discharge. It does not smell foul. X-ray shows no signs of ostium myelitis and appears similar to his most recent x-ray of the foot. Patient was initially given IV fluids, Antivert and Rocephin. Brain CT was obtained because the patient complained of headache and dizziness from his vertigo. On reevaluation, he reports improvement in his symptoms. The headache is also improved. CBC CMP is unremarkable. Coags within normal limits. Lactic acid within normal limits. I will discharge the patient with Antivert. I advised him to follow with wound care. Case discussed with physician - Lab Data Result diagrams: 03/31/21 01:48 03/31/21 01:48 Lab Results 03/31/21 03/31/21 03/31/21 Range/Units 01:48 01:48 01:48 WBC 9.6 (3.8-10.6) k/uL RBC 4.53 (4.30-5.90) m/uL Hgb 14.1 (13.0-17.5) gm/dL Hct 40.9 (39.0-53.0) % MCV 90.2 (80.0-100.0) fL MCH 31.1 (25.0-35.0) pg MCHC 34.5 (31.0-37.0) g/dL RDW 14.5 (11.5-15.5) % Plt Count 251 (150-450) k/uL MPV 7.5 Neutrophils % 62 % Lymphocytes % 26 % Monocytes % 6 % Eosinophils % 4 % Basophils % 1 % Neutrophils # 5.9 (1.3-7.7) k/uL Lymphocytes # 2.5 (1.0-4.8) k/uL Monocytes # 0.5 (0-1.0) k/uL Eosinophils # 0.4 (0-0.7) k/uL Basophils # 0.1 (0-0.2) k/uL PT 10.0 (9.0-12.0) sec INR 0.9 (<1.2) APTT 24.3 (22.0-30.0) sec Sodium 138 (137-145) mmol/L Potassium 4.1 (3.5-5.1) mmol/L Chloride 101 (98-107) mmol/L Carbon Dioxide 27 (22-30) mmol/L Anion Gap 10 mmol/L BUN 21 H (9-20) mg/dL Creatinine 0.92 (0.66-1.25) mg/dL Est GFR (CKD-EPI)AfAm >90 (>60 ml/min/1.73 sqM) Est GFR (CKD-EPI)NonAf >90 (>60 ml/min/1.73 sqM) Glucose 115 H (74-99) mg/dL Plasma Lactic Acid Cyril (0.7-2.0) mmol/L Calcium 9.4 (8.4-10.2) mg/dL Magnesium 2.0 (1.6-2.3) mg/dL Total Bilirubin 0.2 (0.2-1.3) mg/dL AST 28 (17-59) U/L ALT 29 (4-49) U/L Alkaline Phosphatase 75 (38-126) U/L Troponin I (0.000-0.034) ng/mL Total Protein 7.2 (6.3-8.2) g/dL Albumin 4.1 (3.5-5.0) g/dL 03/31/21 03/31/21 Range/Units 01:48 01:48 WBC (3.8-10.6) k/uL RBC (4.30-5.90) m/uL Hgb (13.0-17.5) gm/dL Hct (39.0-53.0) % MCV (80.0-100.0) fL MCH (25.0-35.0) pg MCHC (31.0-37.0) g/dL RDW (11.5-15.5) % Plt Count (150-450) k/uL MPV Neutrophils % % Lymphocytes % % Monocytes % % Eosinophils % % Basophils % % Neutrophils # (1.3-7.7) k/uL Lymphocytes # (1.0-4.8) k/uL Monocytes # (0-1.0) k/uL Eosinophils # (0-0.7) k/uL Basophils # (0-0.2) k/uL PT (9.0-12.0) sec INR (<1.2) APTT (22.0-30.0) sec Sodium (137-145) mmol/L Potassium (3.5-5.1) mmol/L Chloride (98-107) mmol/L Carbon Dioxide (22-30) mmol/L Anion Gap mmol/L BUN (9-20) mg/dL Creatinine (0.66-1.25) mg/dL Est GFR (CKD-EPI)AfAm (>60 ml/min/1.73 sqM) Est GFR (CKD-EPI)NonAf (>60 ml/min/1.73 sqM) Glucose (74-99) mg/dL Plasma Lactic Acid Cyril 1.6 (0.7-2.0) mmol/L Calcium (8.4-10.2) mg/dL Magnesium (1.6-2.3) mg/dL Total Bilirubin (0.2-1.3) mg/dL AST (17-59) U/L ALT (4-49) U/L Alkaline Phosphatase (38-126) U/L Troponin I <0.012 (0.000-0.034) ng/mL Total Protein (6.3-8.2) g/dL Albumin (3.5-5.0) g/dL - EKG Data EKG Comments: Sinus rhythm Ventricular rate 58, TN 152, QRS 80, QTC 410. Disposition Clinical Impression: Ulcer of left foot, Dizziness Disposition: HOME SELF-CARE Condition: Stable Instructions (If sedation given, give patient instructions): Foot Care for People with Diabetes (ED) Additional Instructions: Take prescribed medication as directed. Follow with the wound clinic. Return to emergency department if symptoms worsen. Prescriptions: Meclizine [Antivert] 25 mg PO TID PRN #15 tab PRN Reason: Vertigo Cephalexin [Keflex] 500 mg PO TID #30 cap Is patient prescribed a controlled substance at d/c from ED?: No Referrals: Davida Alexander MD [Primary Care Provider] - 1-2 days Time of Disposition: 03:32
[2021-03-31 02:43] LABS: Basophils # (A) 0.1 k/uL (0-0.2); Basophils % (A) 1 %; Eosinophils # (A) 0.4 k/uL (0-0.7); Eosinophils % (A) 4 %; HCT 40.9 % (39.0-53.0); HGB 14.1 gm/dL (13.0-17.5); Lymphocytes # (A) 2.5 k/uL (1.0-4.8); Lymphocytes % (A) 26 %; MCH 31.1 pg (25.0-35.0); MCHC 34.5 g/dL (31.0-37.0); MCV 90.2 fL (80.0-100.0); Mean Platelet Volume 7.5; Monocytes # (A) 0.5 k/uL (0-1.0); Monocytes % (A) 6 %; Neutrophils # (A) 5.9 k/uL (1.3-7.7); Neutrophils % (A) 62 %; Platelet Count 251 k/uL (150-450); RBC 4.53 m/uL (4.30-5.90); RDW 14.5 % (11.5-15.5); WBC 9.6 k/uL (3.8-10.6)
[2021-03-31 03:00] LABS: ALT 29 U/L (4-49); AST 28 U/L (17-59); African American GFR (CKD) >90 (>60 ml/min/1.73 sqM); Albumin 4.1 g/dL (3.5-5.0); Alkaline Phosphatase 75 U/L (38-126); Anion Gap 10 mmol/L; Blood Urea Nitrogen 21 mg/dL (9-20); Calcium 9.4 mg/dL (8.4-10.2); Carbon Dioxide 27 mmol/L (22-30); Chloride 101 mmol/L (98-107); Glucose 115 mg/dL (74-99); INR 0.9 (<1.2); Non-African American GFR(CKD) >90 (>60 ml/min/1.73 sqM); Partial Thromboplastin Time 24.3 sec (22.0-30.0); Potassium 4.1 mmol/L (3.5-5.1); Sodium 138 mmol/L (137-145); Total Bilirubin 0.2 mg/dL (0.2-1.3); Total Protein 7.2 g/dL (6.3-8.2)
--- NOTE | 2021-03-31 03:04 | XR ---
EXAMINATION TYPE: XR foot complete LT DATE OF EXAM: 03/31/2021 COMPARISON: 09/12/2020 HISTORY: Ulcer. TECHNIQUE: 3 views FINDINGS: There is some deformity of the fifth MP joint with some erosion of the fifth metatarsal hea d. I see no fracture nor dislocation. There is some spurring at the second MP joint. IMPRESSION: Deformity at the fifth MP joint also present on the old exam. I do not see definite evide nce for osteomyelitis. No fracture seen.
[2021-03-31 04:23] VITALS: BP 148/88; PULSE 56; TEMP 98.1
== END 2021-03-31 04:23 | disposition home or self-care (01) ==
LOC: EC 00:53
DX: R42 Dizziness and giddiness (principal); E11.621 Type 2 diabetes mellitus with foot ulcer; L97.529 Non-pressure chronic ulcer of other part of left foot with unspecified severity; I10 Essential (primary) hypertension; E78.5 Hyperlipidemia, unspecified; I48.0 Paroxysmal atrial fibrillation; K21.9 Gastro-esophageal reflux disease without esophagitis; E66.01 Morbid (severe) obesity due to excess calories; F17.200 Nicotine dependence, unspecified, uncomplicated; Z79.899 Other long term (current) drug therapy; Z82.49 Family history of ischemic heart disease and other diseases of the circulatory system; Z68.41 Body mass index [BMI] 40.0-44.9, adult
CPT/HCPCS: 36415; 93005; 80053; 83605; 83735; 84484; 85025; 85610; 85730; 87040; 73630; 70450; 96374; 96361 ×2; 99284; J0696

== ENCOUNTER 2021-06-05 16:56 | Inpatient (IN) | payer BC ==
--- NOTE | 2021-06-05 18:54 | ED ---
General Adult HPI - General Chief complaint: Extremity Problem,Nontraumatic Stated complaint: foot ulcer Time Seen by Provider: 06/05/21 18:38 Source: patient, family, RN notes reviewed, old records reviewed Mode of arrival: ambulatory Limitations: no limitations - History of Present Illness Initial comments: This is a well appearing 55-year-old white male that presents to the emergency room with complaints of left foot ulcer has been progressively getting worse over the past week. He states that he's had it for several years and it never gone away. He has seen wound care in the past and they did not help. He did see his primary care doctor who put him on antibiotics for bronchitis last week and told him that that would help with his foot ulcer. He is now on Bactrim but continues to get worse so he came to the emergency room. He denies any fevers. -: year(s) (4) Location: left, lower extremity (ball of left Foot, second and third and fourth toes) Severity scale (1-10): 7 Quality: aching Consistency: constant Associated Symptoms: denies other symptoms Treatments Prior to Arrival: other (Antibiotics) - Related Data Home Medications Medication Instructions Recorded Confirmed hydroCHLOROthiazide [Hydrodiuril] 25 mg PO DAILY 06/27/16 06/05/21 Omeprazole 20 mg PO DAILY 06/16/20 06/05/21 Losartan Potassium 100 mg PO DAILY 10/17/20 06/05/21 Cholecalciferol (Vitamin D3) 125 mcg PO DAILY 06/05/21 06/05/21 [Vitamin D3 (125 MCG = 5,000 IU)] Moxifloxacin HCl [Avelox] 400 mg PO DAILY 06/05/21 06/05/21 Allergies Allergy/AdvReac Type Severity Reaction Status Date / Time No Known Allergies Allergy Verified 06/05/21 18:23 Review of Systems ROS Statement: Those systems with pertinent positive or pertinent negative responses have been documented in the HPI. ROS Other: All systems not noted in ROS Statement are negative. Past Medical History Past Medical History: Atrial Fibrillation, Diabetes Mellitus, GERD/Reflux, Hyperlipidemia, Hypertension Additional Past Medical History / Comment(s): Occasional low back pain, paroxysmal atrial fibrillation, morbid obesity with BMI 43.8 History of Any Multi-Drug Resistant Organisms: None Reported Date of last positivie culture/infection: 09/15/20 MDRO Source:: foot Past Surgical History: Orthopedic Surgery Additional Past Surgical History / Comment(s): L BICEP SX WITH METAL PLATE, R ARM BENIGN CYST, 2015 COLONOSCOPY WITH BENIGN POLYP Past Anesthesia/Blood Transfusion Reactions: No Reported Reaction Past Psychological History: No Psychological Hx Reported Smoking Status: Current every day smoker Past Alcohol Use History: Occasional Past Drug Use History: None Reported - Past Family History Mother Family Medical History: No Reported History Additional Family Medical History / Comment(s): MOTHER IS HEALTHY Father Family Medical History: CVA/TIA, Myocardial Infarction ([place]) Additional Family Medical History / Comment(s): FATHER HAD A CVA AND THEN OF A [place] AT THE AGE OF 63 YRS. General Exam Limitations: no limitations General appearance: alert, in no apparent distress Head exam: Present: atraumatic, normocephalic, normal inspection Eye exam: Present: normal appearance, EOMI Neck exam: Present: normal inspection, full ROM. Absent: tenderness, meningismus, lymphadenopathy Respiratory exam: Present: wheezes. Absent: chest wall tenderness (Bilaterally), accessory muscle use Cardiovascular Exam: Present: regular rate, normal rhythm, normal heart sounds. Absent: systolic murmur, diastolic murmur, rubs, gallop, clicks GI/Abdominal exam: Present: soft, normal bowel sounds. Absent: distended, tenderness, guarding, rebound, rigid Left Foot/Toe exam: Present: tenderness, swelling, erythema (Erythema of the second third and fourth toes and dorsal surface of foot; diabetic foot ulcer to the ball of the foot and the second third and fourth toes) Neurovascular tendon exam: Absent: abnormal cap refill, extremity cold to touch Back exam: Absent: tenderness Neurological exam: Present: alert, oriented X3, CN II-XII intact Psychiatric exam: Present: normal affect, normal mood Skin exam: Present: warm, dry, intact, normal color, other (Diabetic foot ulcer to the plantar surface of the left foot under the second third and fourth toes). Absent: rash, cyanosis, diaphoretic Course Vital Signs 06/05/21 06/05/21 17:27 21:41 Temperature 98.2 F 98.6 F Pulse Rate 85 58 L Respiratory 20 20 Rate Blood Pressure 168/87 133/80 O2 Sat by Pulse 96 95 Oximetry Medical Decision Making - Medical Decision Making X-ray shows osteomyelitis of the fifth metatarsal head possible. There is no fracture seen. There is no definite sign of osteomyelitis of the right foot. His white blood cell count is 15.4. He has been on antibiotics including Bactrim outpatient. He will be admitted to the hospital for IV antibiotics. Case discussed with Dr Newell. - Lab Data Result diagrams: 06/05/21 19:10 06/05/21 19:10 Lab Results 06/05/21 06/05/21 Range/Units 19:10 19:10 WBC 15.4 H (3.8-10.6) k/uL RBC 4.55 (4.30-5.90) m/uL Hgb 14.0 (13.0-17.5) gm/dL Hct 42.2 (39.0-53.0) % MCV 92.7 (80.0-100.0) fL MCH 30.8 (25.0-35.0) pg MCHC 33.3 (31.0-37.0) g/dL RDW 14.2 (11.5-15.5) % Plt Count 368 (150-450) k/uL MPV 6.8 Neutrophils % 72 % Lymphocytes % 19 % Monocytes % 4 % Eosinophils % 3 % Basophils % 1 % Neutrophils # 11.1 H (1.3-7.7) k/uL Lymphocytes # 2.9 (1.0-4.8) k/uL Monocytes # 0.7 (0-1.0) k/uL Eosinophils # 0.4 (0-0.7) k/uL Basophils # 0.1 (0-0.2) k/uL Sodium 137 (137-145) mmol/L Potassium 4.3 (3.5-5.1) mmol/L Chloride 103 (98-107) mmol/L Carbon Dioxide 24 (22-30) mmol/L Anion Gap 10 mmol/L BUN 27 H (9-20) mg/dL Creatinine 1.00 (0.66-1.25) mg/dL Est GFR (CKD-EPI)AfAm >90 (>60 ml/min/1.73 sqM) Est GFR (CKD-EPI)NonAf 84 (>60 ml/min/1.73 sqM) Glucose 121 H (74-99) mg/dL Calcium 9.2 (8.4-10.2) mg/dL Total Bilirubin 0.4 (0.2-1.3) mg/dL AST 33 (17-59) U/L ALT 42 (4-49) U/L Alkaline Phosphatase 72 (38-126) U/L Total Protein 7.7 (6.3-8.2) g/dL Albumin 3.8 (3.5-5.0) g/dL Disposition Clinical Impression: Osteomyelitis, Foot ulcer Disposition: ADMITTED IP TO THIS [facility] Condition: Good Decision Date: 06/05/21 Decision Time: 19:57
--- NOTE | 2021-06-05 19:19 | XR ---
EXAMINATION TYPE: XR foot complete bilateral DATE OF EXAM: 06/05/2021 COMPARISON: NONE HISTORY: Foot ulcer TECHNIQUE: 3 views each foot FINDINGS: There is no evidence of fracture nor dislocation. There is some erosion of the head of the left fifth metatarsal. There is some subluxation deformities and hyperextension at the MP joints of b oth feet. There is plantar calcaneal spur formation in both feet. There is small linear metallic fore ign body on the soft tissues at the medial aspect of the right first metatarsal. IMPRESSION: There is some subluxation at the left second and third MP joints as well as the fifth MP joint of the left foot. Osteomyelitis of the fifth metatarsal head is possible. No fracture seen. Sub luxation at the left third MP joint could relate to neuropathic arthropathy. No definite sign of osteomyelitis of the right foot.
[2021-06-05 19:23] LABS: Basophils # (A) 0.1 k/uL (0-0.2); Basophils % (A) 1 %; Eosinophils # (A) 0.4 k/uL (0-0.7); Eosinophils % (A) 3 %; HCT 42.2 % (39.0-53.0); Lymphocytes # (A) 2.9 k/uL (1.0-4.8); Lymphocytes % (A) 19 %; MCH 30.8 pg (25.0-35.0); MCHC 33.3 g/dL (31.0-37.0); MCV 92.7 fL (80.0-100.0); Mean Platelet Volume 6.8; Monocytes # (A) 0.7 k/uL (0-1.0); Monocytes % (A) 4 %; Neutrophils # (A) 11.1 k/uL (1.3-7.7); Neutrophils % (A) 72 %; Platelet Count 368 k/uL (150-450); RBC 4.55 m/uL (4.30-5.90); RDW 14.2 % (11.5-15.5); WBC 15.4 k/uL (3.8-10.6)
[2021-06-05] MEDS ORDERED: cefTRIAXone IN SWFI 1,000 MG/10 ML SYRINGE IVP STA (19:32)
[2021-06-05 19:36] LABS: ALT 42 U/L (4-49); AST 33 U/L (17-59); African American GFR (CKD) >90 (>60 ml/min/1.73 sqM); Albumin 3.8 g/dL (3.5-5.0); Alkaline Phosphatase 72 U/L (38-126); Anion Gap 10 mmol/L; Blood Urea Nitrogen 27 mg/dL (9-20); Calcium 9.2 mg/dL (8.4-10.2); Carbon Dioxide 24 mmol/L (22-30); Chloride 103 mmol/L (98-107); Glucose 121 mg/dL (74-99); Non-African American GFR(CKD) 84 (>60 ml/min/1.73 sqM); Potassium 4.3 mmol/L (3.5-5.1); Sodium 137 mmol/L (137-145); Total Bilirubin 0.4 mg/dL (0.2-1.3); Total Protein 7.7 g/dL (6.3-8.2)
[2021-06-05] MEDS ORDERED: MORPHINE SULFATE 2 MG/ML SYRINGE IVP ONE (19:48)
[2021-06-05] MEDS ORDERED: VANCOMYCIN IV PER PHARMACY 1 EACH MISC MISCELLANE PRN (19:53)
[2021-06-05] MEDS ORDERED: PIPERACILLIN-TAZOBACTAM 3.375 GM in SODIUM CHLORIDE 0.9% 100 ML IVPB STA (19:56)
[2021-06-05] MEDS ORDERED: NALOXONE 0.4 MG/ML 1 ML VIAL IV PRN (19:57)
[2021-06-05] MEDS ORDERED: VANCOMYCIN 2,000 MG in SODIUM CHLORIDE 0.9% 500 ML 500 ML IVPB ONE (20:15)
[2021-06-06] MEDS ORDERED: VANCOMYCIN IV PER PHARMACY 1 EACH MISC MISCELLANE PRN (01:41)
[2021-06-06] MEDS: PIPERACILLIN-TAZOBACTAM 3.375 GM in SODIUM CHLORIDE 0.9% 100 ML IVPB SCH ×3 (05:28→19:18)
[2021-06-06] MEDS: HYDROcodone/APAP 7.5-325MG 1 EACH TAB PO PRN ×2 (05:29→19:18)
[2021-06-06 07:35] LABS: Glucose,Whole Blood 98 mg/dL (75-99)
[2021-06-06] MEDS: CHOLECALCIFEROL 25 MCG (1000 IU) TABLET PO SCH (08:24)
[2021-06-06] MEDS: hydroCHLOROthiazide 25 MG TAB PO SCH (08:24)
[2021-06-06] MEDS: PANTOPRAZOLE 40 MG TABLET PO SCH (08:24)
[2021-06-06] MEDS: LEVOFLOXACIN 750 MG TAB PO SCH (08:24)
[2021-06-06] MEDS: LOSARTAN 50 MG TAB PO SCH (08:24)
[2021-06-06] MEDS ORDERED: VANCOMYCIN 2,000 MG in SODIUM CHLORIDE 0.9% 500 ML 500 ML IVPB SCH (09:00)
[2021-06-06] MEDS: ENOXAPARIN 40 MG/0.4 ML SYRINGE SQ SCH (09:54)
--- NOTE | 2021-06-06 09:58 | P.HPIM ---
History of Present Illness H&P Date: 06/06/21 Javier Thayer, is a 55-year-old male who presented to [facility] emergency room with a chief complaint of non healing diabetic foot ulcerarea patient has a past medical history of atrial fibrillation, diabetes mellitus, GERD, hyperlipidemia, hypertension, current every day smoker and previous history of nonhealing ulcers to feet. He was evaluated in the emergency room vital examination on presentation revealed a temperature of 98.2 pulse 85 respiration 20 blood pressure 168/87 pulse ox 96% on room air Laboratory data revealed a white blood count of 15.4 hemoglobin 14.0 platelet count 368 sodium 137 potassium 4.3 chloride 103 CO2 24 BUN 27 creatinine 1.0 Coronavirus PCR was negative Testing in the emergency room revealed left foot x-ray revealed evidence of subluxation of the second and third MP joints and the fifth MP joint and evidence of osteomyelitis of the fifth metatarsal head. Patient was admitted to medical floor for further evaluation and treatment, infectious disease consultation was requested Review of Systems please refer to HPI otherwise unremarkable Past Medical History Past Medical History: Atrial Fibrillation, Diabetes Mellitus, GERD/Reflux, Hyperlipidemia, Hypertension Additional Past Medical History / Comment(s): Occasional low back pain, paroxysmal atrial fibrillation, morbid obesity with BMI 43.8 History of Any Multi-Drug Resistant Organisms: None Reported Date of last positivie culture/infection: 09/15/20 MDRO Source:: foot Past Surgical History: Orthopedic Surgery Additional Past Surgical History / Comment(s): L BICEP SX WITH METAL PLATE, R ARM BENIGN CYST, 2014 COLONOSCOPY WITH BENIGN POLYP Past Anesthesia/Blood Transfusion Reactions: No Reported Reaction Past Psychological History: No Psychological Hx Reported Smoking Status: Current every day smoker Past Alcohol Use History: Occasional Past Drug Use History: None Reported - Past Family History Mother Family Medical History: No Reported History Additional Family Medical History / Comment(s): MOTHER IS HEALTHY Father Family Medical History: CVA/TIA, Myocardial Infarction ([place]) Additional Family Medical History / Comment(s): FATHER HAD A CVA AND THEN OF A [place] AT THE AGE OF 63 YRS. Medications and Allergies Home Medications Medication Instructions Recorded Confirmed Type hydroCHLOROthiazide [Hydrodiuril] 25 mg PO DAILY 06/27/16 06/05/21 History Omeprazole 20 mg PO DAILY 06/16/20 06/05/21 History Losartan Potassium 100 mg PO DAILY 10/17/20 06/05/21 History Cholecalciferol (Vitamin D3) 125 mcg PO DAILY 06/05/21 06/05/21 History [Vitamin D3 (125 MCG = 5,000 IU)] Moxifloxacin HCl [Avelox] 400 mg PO DAILY 06/05/21 06/05/21 History Allergies Allergy/AdvReac Type Severity Reaction Status Date / Time No Known Allergies Allergy Verified 06/05/21 18:23 Physical Exam Vitals: Vital Signs Temp Pulse Pulse Resp BP BP Pulse Ox 06/06/21 08:00 97.8 F 53 L 18 141/67 97 06/06/21 06:00 53 L 20 137/77 96 06/06/21 00:16 98.4 F 62 20 137/88 96 06/05/21 21:41 98.6 F 58 L 20 133/80 95 06/05/21 17:27 98.2 F 85 20 168/87 96 Intake and Output 06/05/21 06/06/21 06/06/21 22:59 06:59 14:59 Other: Weight 147.418 kg In general patient is alert and oriented ?-3 in no distress HEENT head normocephalic and atraumatic Neck is supple no JVD no goiter no lymphadenopathy no carotid bruit Chest examination is clear to auscultation no crackles no wheezing Cardiac exam reveals regular heart sounds S1 and S2 no gallops no murmurs Abdomen is soft nontender no organomegaly with normal bowel sounds Extremity exam reveals no edema no cyanosis or clubbing. Plantar side of the left foot dime size open ulcer Neurological examination reveals no gross focal deficits Results CBC & Chem 7: 06/05/21 19:10 06/05/21 19:10 Labs: Abnormal Lab Results - Last 24 Hours (Table) 06/05/21 06/05/21 Range/Units 19:10 19:10 WBC 15.4 H (3.8-10.6) k/uL Neutrophils # 11.1 H (1.3-7.7) k/uL BUN 27 H (9-20) mg/dL Glucose 121 H (74-99) mg/dL Microbiology - Last 24 Hours (Table) 06/05/21 19:10 Gram Stain - Preliminary Foot - Left Wound Culture - Preliminary Assessment and Plan Plan: Left foot ulcer with cellulitis Underlying history of diabetes mellitus, however patient was not on any medicat ions at home for diabetes, his glucose on presentation was 121, will check hemoglobin A1c Underlying history of hypertension Underlying history of hyperlipidemia Underlying history of morbid obesity BMI was 43.8 Underlying history of gastroesophageal reflux disease Underlying history of paroxysmal atrial fibrillation, patient is not on any anticoagulation at the time of admission Previous history of methicillin-resistant Staphylococcus aureus infection in the left foot ulcer At this time patient was admitted to medical floor He was started on IV vancomycin and IV Zosyn Blood culture and wound culture were ordered Infectious disease consultation was requested Will check hemoglobin A1c and assess need for diabetes medications Will check EKG in regard to previous history of paroxysmal atrial fibrillation Will follow closely Time with Patient: Greater than 30 (Greater than 60% of the total time spent in counseling and coordination of care)
[2021-06-06 09:59] LABS: Basophils # (A) 0.1 k/uL (0-0.2); Basophils % (A) 1 %; Eosinophils # (A) 0.4 k/uL (0-0.7); Eosinophils % (A) 4 %; HCT 39.1 % (39.0-53.0); HGB 12.8 gm/dL (13.0-17.5); Lymphocytes # (A) 2.1 k/uL (1.0-4.8); Lymphocytes % (A) 19 %; MCH 30.8 pg (25.0-35.0); MCHC 32.7 g/dL (31.0-37.0); MCV 94.1 fL (80.0-100.0); Mean Platelet Volume 6.8; Monocytes # (A) 0.4 k/uL (0-1.0); Monocytes % (A) 4 %; Neutrophils # (A) 8.2 k/uL (1.3-7.7); Neutrophils % (A) 72 %; Platelet Count 330 k/uL (150-450); RBC 4.16 m/uL (4.30-5.90); RDW 14.2 % (11.5-15.5); WBC 11.4 k/uL (3.8-10.6)
[2021-06-06] MEDS: VANCOMYCIN 2,500 MG in SODIUM CHLORIDE 0.9% 500 ML 500 ML IVPB SCH ×2 (10:29→22:03)
[2021-06-06 11:41] LABS: Glucose,Whole Blood 92 mg/dL (75-99)
[2021-06-06 17:21] LABS: Glucose,Whole Blood 143 mg/dL (75-99)
[2021-06-06 21:17] LABS: Glucose,Whole Blood 120 mg/dL (75-99)
[2021-06-07] MEDS: CEFEPIME 2 GM in SODIUM CHLORIDE 0.9% 100 ML IVPB SCH ×4 (00:57→23:53)
[2021-06-07] MEDS: HYDROcodone/APAP 7.5-325MG 1 EACH TAB PO PRN ×3 (01:19→20:44)
[2021-06-07 05:47] LABS: African American GFR (CKD) 116.6 (60.0-200.0); Albumin 3.4 g/dL (3.8-4.9); Albumin/Globulin Ratio 1.06 (1.60-3.17); Anion Gap 10.6 mmol/L (4.00-12.00); BUN/Creat Ratio 24.63 Ratio (12.00-20.00); Blood Urea Nitrogen 19.7 mg/dL (9.0-27.0); Calcium 8.2 mg/dL (8.7-10.3); Carbon Dioxide 25.4 mmol/L (21.6-31.8); Globulin 3.2 g/dL (1.6-3.3); Non-African American GFR(CKD) 100.6 (60.0-200.0); Potassium 4.7 mmol/L (3.5-5.5); Total Bilirubin 0.3 mg/dL (0.30-1.20); Total Protein 6.6 g/dL (6.2-8.2)
[2021-06-07 06:27] LABS: Basophils # (A) 0.1 k/uL (0-0.2); Basophils % (A) 1 %; Eosinophils # (A) 0.5 k/uL (0-0.7); Eosinophils % (A) 5 %; HCT 43.1 % (39.0-53.0); HGB 13.7 gm/dL (13.0-17.5); Lymphocytes # (A) 2.2 k/uL (1.0-4.8); Lymphocytes % (A) 22 %; MCH 29.8 pg (25.0-35.0); MCHC 31.8 g/dL (31.0-37.0); MCV 93.6 fL (80.0-100.0); Mean Platelet Volume 6.9; Monocytes # (A) 0.5 k/uL (0-1.0); Monocytes % (A) 5 %; Neutrophils # (A) 6.5 k/uL (1.3-7.7); Neutrophils % (A) 66 %; Platelet Count 333 k/uL (150-450); RBC 4.61 m/uL (4.30-5.90); RDW 14.2 % (11.5-15.5); WBC 9.8 k/uL (3.8-10.6)
[2021-06-07 07:18] LABS: Glucose,Whole Blood 94 mg/dL (75-99)
[2021-06-07] MEDS: LOSARTAN 50 MG TAB PO SCH (07:48)
[2021-06-07] MEDS: PANTOPRAZOLE 40 MG TABLET PO SCH (07:48)
[2021-06-07] MEDS: ENOXAPARIN 40 MG/0.4 ML SYRINGE SQ SCH ×2 (07:48→17:32)
[2021-06-07] MEDS: hydroCHLOROthiazide 25 MG TAB PO SCH (07:48)
[2021-06-07] MEDS: CHOLECALCIFEROL 25 MCG (1000 IU) TABLET PO SCH (07:48)
[2021-06-07 07:49] LABS: ALT 39 U/L (4-49); AST 27 U/L (17-59); African American GFR (CKD) >90 (>60 ml/min/1.73 sqM); Albumin 3.4 g/dL (3.5-5.0); Albumin/Globulin Ratio 0.9; Alkaline Phosphatase 72 U/L (38-126); Anion Gap 6 mmol/L; Blood Urea Nitrogen 19 mg/dL (9-20); Calcium 8.9 mg/dL (8.4-10.2); Carbon Dioxide 29 mmol/L (22-30); Chloride 102 mmol/L (98-107); Globulin 3.8 g/dL; Glucose 96 mg/dL (74-99); Non-African American GFR(CKD) 83 (>60 ml/min/1.73 sqM); Sodium 137 mmol/L (137-145); Total Bilirubin 0.4 mg/dL (0.2-1.3); Total Protein 7.2 g/dL (6.3-8.2)
--- NOTE | 2021-06-07 08:08 | P.CONS ---
History of Present Illness - Reason for Consult Consult date: 06/06/21 left foot ulcer and osteomyelitis Requesting physician: Hi Pope - Chief Complaint worsening wound to left foot x 1 week - History of Present Illness History of present illness : Patient is 55-year-old male with a past medical history significant for left foot osteomyelitis culture positive for Pseudomonas pneumonia same for the patient has completed his antibiotic therapy that was in September 2020 patient mentioned that his overall wound healing however over the last few weeks he started developing a wound on the plantar aspect of his left foot at the base of the third metatarsal that apparently has been getting worse over the last week patient has been doing some local wound care however did not have any improvement in the patient was recently treated with the Bactrim by his primary care physician however the patient noticed to have worsening of his wound on the plantar aspect of his left foot with more drainage [facility] pressure and dull aching sensation to 8 intensities 3-4 out of 10 had no radiation with associated swelling redness and some drainage with the symptom the patient was evaluated by ER physician on arrival to the ER the patient was afebrile patient did have a white count of 15.4 with a left shift blood culture has been obtained as well as a local wound culture patient did have a x-ray of the left with some subluxation at the left second and third MP joints as well as the fifth MP joint of the left foot ost eomyelitis of the first metatarsal head is possible patient was started on vancomycin and Zosyn has been admitted to hospital infectious disease was consulted for further management of antibiotic therapy Review of system: CONSTITUTIONAL: Positive for weakness however denies high-grade fever. EYES: No complaint. ENT: No complaint. RESPIRATORY: No complaint. CARDIOVASCULAR: No complaint. GENITOURINARY: No complaint. GASTROINTESTINAL: No complaint. MUSCULOSKELETAL as per history of present illness. INTEGUMENTARY as per history of present illness. PSYCHOLOGIC: No complaint. ENDOCRINE: No complaint. NEUROLOGIC: No complaint. Past medical history : Reviewed, documented below Past surgical history : Reviewed, documented below Social history: Reviewed, documented below Medications: Reviewed, as documented below EXAMINATION: Vital sigans= Reviewed and documented below GENERAL DESCRIPTION: Middle-aged male lying in bed, no distress. No tachypnea or accessory muscle of respiration use. HEENT: Shows Pallor , no scleral icterus. Oral mucous membrane is dry. NECK: Trachea central, no thyromegaly. LUNGS: Unlabored breathing. Clear to auscultation anteriorly. No wheeze or crackle. HEART: S1, S2, regular rate and rhythm. ABDOMEN: Soft, no tenderness , guarding or rigidity EXTREMITIES: Left foot plantar aspect did have a callus with swelling and redness and significant swelling tenderness of the left third toe. SKIN: No rash, no masses palpable. NEUROLOGICAL: The patient is awake, alert, oriented x3, mood and affect normal. LABS AND RADIOLOGY: Reviewed results see below Assessment : 1-patient with a infected callus on the plantar aspect of the left foot which seem to be involving the left third toe which is swollen and red in this patient who did have a previous history of osteomyelitis I clinically suspicious for osteomyelitis involving the left third metatarsal head left third toe in this patient has previously grown MRSA and Pseudomonas and will need to cover for those pathogen Plan: 1-vascular surgery consult for debridement and deep culture 2-vancomycin pharmacy to dose with a target trough of 15 while watching kidney function and Vanco trough closely. 3-discontinue Zosyn and start the patient on cefepime 2 g every 8 hours to cover for the Pseudomonas We will follow on clinical condition and cultures to further adjust medication if needed Thank you for this consultation we will follow the patient along with you Past Medical History Past Medical History: Atrial Fibrillation, Diabetes Mellitus, GERD/Reflux, Hyperlipidemia, Hypertension Additional Past Medical History / Comment(s): Occasional low back pain, paroxysmal atrial fibrillation, morbid obesity with BMI 43.8 History of Any Multi-Drug Resistant Organisms: None Reported Year Discovered:: 09/15/20 MDRO Source:: foot Past Surgical History: Orthopedic Surgery Additional Past Surgical History / Comment(s): L BICEP SX WITH METAL PLATE, R ARM BENIGN CYST, 2015 COLONOSCOPY WITH BENIGN POLYP Past Anesthesia/Blood Transfusion Reactions: No Reported Reaction Past Psychological History: No Psychological Hx Reported Additional Psychological History / Comment(s): PT REsides WITH HIS SPOUSE AND THEIR 17 YR OLD LUISA. HE WORKS FOR [employer]. HE IS INDEPENDENT. Smoking Status: Current every day smoker Past Alcohol Use History: Occasional Additional Past Alcohol Use History / Comment(s): Patient is a smoker of up to 1-1/2 packs per day for 20-30 years. 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 He denies any marijuana or illicit drug use. He drinks alcohol occasionally. 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 He lives at home with his and daughter. There are 2 dogs in the home. He denies any recent travel, no service. Past Drug Use History: None Reported - Past Family History Mother Family Medical History: No Reported History Additional Family Medical History / Comment(s): MOTHER IS HEALTHY Father Family Medical History: CVA/TIA, Myocardial Infarction ([place]) Additional Family Medical History / Comment(s): FATHER HAD A CVA AND THEN OF A [place] AT THE AGE OF 63 YRS. Medications and Allergies Home Medications Medication Instructions Recorded Confirmed Type hydroCHLOROthiazide [Hydrodiuril] 25 mg PO DAILY 06/27/16 06/05/21 History Omeprazole 20 mg PO DAILY 06/16/20 06/05/21 History Losartan Potassium 100 mg PO DAILY 10/17/20 06/05/21 History Cholecalciferol (Vitamin D3) 125 mcg PO DAILY 06/05/21 06/05/21 History [Vitamin D3 (125 MCG = 5,000 IU)] Moxifloxacin HCl [Avelox] 400 mg PO DAILY 06/05/21 06/05/21 History Allergies Allergy/AdvReac Type Severity Reaction Status Date / Time No Known Allergies Allergy Verified 06/05/21 18:23 Physical Exam Vitals: Vital Signs Temp Pulse Pulse Resp BP BP Pulse Ox 06/06/21 08:09 53 L 06/06/21 08:00 97.8 F 53 L 18 141/67 97 06/06/21 06:00 53 L 20 137/77 96 06/06/21 00:16 98.4 F 62 20 137/88 96 06/05/21 21:41 98.6 F 58 L 20 133/80 95 06/05/21 17:27 98.2 F 85 20 168/87 96 Intake and Output 06/06/21 06/06/21 06/06/21 06:59 14:59 22:59 Other: Weight 147.418 kg Results CBC & Chem 7: 06/07/21 05:51 06/06/21 09:18 Labs: Abnormal Lab Results - Last 24 Hours (Table) 06/05/21 06/05/21 06/06/21 Range/Units 19:10 19:10 09:18 WBC 15.4 H 11.4 H (3.8-10.6) k/uL RBC 4.16 L (4.30-5.90) m/uL Hgb 12.8 L (13.0-17.5) gm/dL Neutrophils # 11.1 H 8.2 H (1.3-7.7) k/uL BUN 27 H (9-20) mg/dL Glucose 121 H (74-99) mg/dL Microbiology - Last 24 Hours (Table) 06/05/21 19:10 Gram Stain - Preliminary Foot - Left Wound Culture - Preliminary
[2021-06-07] MEDS: VANCOMYCIN 2,500 MG in SODIUM CHLORIDE 0.9% 500 ML 500 ML IVPB SCH (09:41)
[2021-06-07] MEDS: LEVOFLOXACIN 750 MG TAB PO SCH (09:41)
[2021-06-07 09:50] LABS: C Reactive Protein 6.2 mg/dL (<1.0)
[2021-06-07 10:05] LABS: Erythrocyte Sedimentation Rate 90 mm/hr (0-15)
[2021-06-07] MEDS ORDERED: LIDOCAINE 1% INJ 10MG/ML (20 ML MDV) SQ ONE (11:00)
[2021-06-07 11:43] LABS: Glucose,Whole Blood 99 mg/dL (75-99)
[2021-06-07 14:38] VITALS: BMI 42.8
[2021-06-07] MEDS: COLLAGENASE 250 UNIT/GM OINTMENT 30 GM TUBE TOPICAL SCH (16:01)
--- NOTE | 2021-06-07 16:40 | P.GSCN ---
History of Present Illness History of present illness: Patient is a 55-year-old gentleman known to me from the past. Patient came to the emergency room with history of right gangrene changes noted on the base of the third toe and also involving the fourth toe. Patient also has a callus on the plantar aspect the foot which is infected. Patient also has a callus noted on the plantar aspect of the right foot some mild drainage noted Medical history history of hypertension no history of diabetes History of smoking in the past no history of chest pain On examination patient is seen in his room neck supple no bruit appreciated Chest chest is clear few crackles the lung bases first and second sound normal Abdomen soft nontender Vascular femorals are 1+ bilateral patient has a left foot and and fourth toe has a wet gangrene changes and also there is a callus formation on the plantar aspect of the foot which also has some drainage noted right foot also has a callus formation noted Plan is discussed with the patient patient needs a ray amputation of the toes and excision of the callus bilateral we sent for the deep culture risk and complication discussed we'll arrange for surgery tomorrow thank you Past Medical History Past Medical History: Atrial Fibrillation, Diabetes Mellitus, GERD/Reflux, Hyperlipidemia, Hypertension Additional Past Medical History / Comment(s): Occasional low back pain, paroxysmal atrial fibrillation, morbid obesity with BMI 43.8 History of Any Multi-Drug Resistant Organisms: None Reported Year Discovered:: 09/15/20 MDRO Source:: foot Past Surgical History: Orthopedic Surgery Additional Past Surgical History / Comment(s): L BICEP SX WITH METAL PLATE, R ARM BENIGN CYST, 2015 COLONOSCOPY WITH BENIGN POLYP Past Anesthesia/Blood Transfusion Reactions: No Reported Reaction Past Psychological History: No Psychological Hx Reported Additional Psychological History / Comment(s): PT REsides WITH HIS SPOUSE AND THEIR 17 YR OLD LUISA. HE WORKS FOR [employer]. HE IS INDEPENDENT. Smoking Status: Current every day smoker Past Alcohol Use History: Occasional Additional Past Alcohol Use History / Comment(s): Patient is a smoker of up to 1-1/2 packs per day for 20-30 years. 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 He denies any marijuana or illicit drug use. He drinks alcohol occasionally. 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 He lives at home with his and daughter. There are 2 dogs in the home. He denies any recent travel, no service. Past Drug Use History: None Reported - Past Family History Mother Family Medical History: No Reported History Additional Family Medical History / Comment(s): MOTHER IS HEALTHY Father Family Medical History: CVA/TIA, Myocardial Infarction ([place]) Additional Family Medical History / Comment(s): FATHER HAD A CVA AND THEN OF A [place] AT THE AGE OF 63 YRS. Medications and Allergies Home Medications Medication Instructions Recorded Confirmed Type hydroCHLOROthiazide [Hydrodiuril] 25 mg PO DAILY 06/27/16 06/05/21 History Omeprazole 20 mg PO DAILY 06/16/20 06/05/21 History Losartan Potassium 100 mg PO DAILY 10/17/20 06/05/21 History Cholecalciferol (Vitamin D3) 125 mcg PO DAILY 06/05/21 06/05/21 History [Vitamin D3 (125 MCG = 5,000 IU)] Moxifloxacin HCl [Avelox] 400 mg PO DAILY 06/05/21 06/05/21 History Allergies Allergy/AdvReac Type Severity Reaction Status Date / Time No Known Allergies Allergy Verified 06/05/21 18:23 Surgical - Exam Vital Signs Temp Pulse Resp BP Pulse Ox 98.2 F 85 20 168/87 96 06/05/21 17:27 06/05/21 17:27 06/05/21 17:27 06/05/21 17:27 06/05/21 17:27 Results - Labs 06/07/21 05:51 06/07/21 05:51 Abnormal Lab Results - Last 24 Hours (Table) 06/06/21 06/06/21 06/06/21 Range/Units 09:18 17:19 20:47 ESR (0-15) mm/hr BUN/Creatinine Ratio 24.63 H (12.00-20.00) Ratio Glucose 130 H (70-110) mg/dL POC Glucose (mg/dL) 143 H 120 H (75-99) mg/dL Calcium 8.2 L (8.7-10.3) mg/dL C-Reactive Protein (<1.0) mg/dL Albumin 3.4 L (3.8-4.9) g/dL Albumin/Globulin Ratio 1.06 L (1.60-3.17) g/dL 06/07/21 06/07/21 Range/Units 05:51 05:51 ESR 90 H (0-15) mm/hr BUN/Creatinine Ratio (12.00-20.00) Ratio Glucose (70-110) mg/dL POC Glucose (mg/dL) (75-99) mg/dL Calcium (8.7-10.3) mg/dL C-Reactive Protein 6.2 H (<1.0) mg/dL Albumin 3.4 L (3.8-4.9) g/dL Albumin/Globulin Ratio (1.60-3.17) g/dL Microbiology - Last 24 Hours (Table) 06/05/21 19:05 Blood Culture - Preliminary Blood No Growth after 24 hours 06/05/21 18:50 Blood Culture - Preliminary Blood No Growth after 24 hours Diabetes panel 06/05/21 06/06/21 06/07/21 Range/Units 19:10 09:18 05:51 Sodium 136 137 (135-145) mmol/L Potassium 4.7 5.0 (3.5-5.5) mmol/L Chloride 100 102 (96-109) mmol/L Carbon Dioxide 25.4 29 (21.6-31.8) mmol/L BUN 19.7 19 (9.0-27.0) mg/dL Creatinine 0.8 1.02 (0.6-1.5) mg/dL Glucose 130 H 96 (70-110) mg/dL Hemoglobin A1c 5.8 (4.0-6.0) % Calcium 8.2 L 8.9 (8.7-10.3) mg/dL AST 27 27 (14-35) U/L ALT 38 39 (10-49) U/L Alkaline Phosphatase 66 72 (41-126) U/L Total Protein 6.6 7.2 (6.2-8.2) g/dL Albumin 3.4 L 3.4 L (3.8-4.9) g/dL Calcium panel 06/06/21 06/07/21 Range/Units 09:18 05:51 Calcium 8.2 L 8.9 (8.7-10.3) mg/dL Albumin 3.4 L 3.4 L (3.8-4.9) g/dL Pituitary panel 06/06/21 06/07/21 Range/Units 09:18 05:51 Sodium 136 137 (135-145) mmol/L Potassium 4.7 5.0 (3.5-5.5) mmol/L Chloride 100 102 (96-109) mmol/L Carbon Dioxide 25.4 29 (21.6-31.8) mmol/L BUN 19.7 19 (9.0-27.0) mg/dL Creatinine 0.8 1.02 (0.6-1.5) mg/dL Glucose 130 H 96 (70-110) mg/dL Calcium 8.2 L 8.9 (8.7-10.3) mg/dL Adrenal panel 06/06/21 06/07/21 Range/Units 09:18 05:51 Sodium 136 137 (135-145) mmol/L Potassium 4.7 5.0 (3.5-5.5) mmol/L Chloride 100 102 (96-109) mmol/L Carbon Dioxide 25.4 29 (21.6-31.8) mmol/L BUN 19.7 19 (9.0-27.0) mg/dL Creatinine 0.8 1.02 (0.6-1.5) mg/dL Glucose 130 H 96 (70-110) mg/dL Calcium 8.2 L 8.9 (8.7-10.3) mg/dL Total Bilirubin 0.30 0.4 (0.30-1.20) mg/dL AST 27 27 (14-35) U/L ALT 38 39 (10-49) U/L Alkaline Phosphatase 66 72 (41-126) U/L Total Protein 6.6 7.2 (6.2-8.2) g/dL Albumin 3.4 L 3.4 L (3.8-4.9) g/dL
[2021-06-07 17:10] LABS: Glucose,Whole Blood 113 mg/dL (75-99)
[2021-06-07 20:45] LABS: Glucose,Whole Blood 96 mg/dL (75-99)
--- NOTE | 2021-06-08 01:05 | PN ---
PROGRESS NOTE DATE OF SERVICE: 06/07/2021 REASON FOR FOLLOWUP: Left foot infection, concern for underlying osteo. INTERVAL HISTORY: The patient is afebrile. The patient is breathing comfortably. Denies having any chest pain, shortness of breath, cough, no abdominal pain, or worsening pain to the left groin. PHYSICAL EXAMINATION: Blood pressure 129/71, pulse of 59, temperature 98.1. He is 95% on room air. General description is a middle-aged male lying in bed in no distress. Respiratory system: Unlabored breathing and is clear to auscultation anteriorly. Heart S1, S2. Regular rate and rhythm. Abdomen soft, tenderness. Left foot is currently dressed. No obvious drainage on the dressing. LABS: Hemoglobin 13.7, white count 9.8, and sed rate is 90. DIAGNOSTIC IMPRESSION AND PLAN: Patient with left foot infection, callous and concern for underlying osteomyelitis, waiting for surgical debridement and deep cultures. For now, continue cefepime and vancomycin and monitor clinical course closely. MMODL / IJN: [id number] /
[2021-06-08] MEDS: VANCOMYCIN 2,500 MG in SODIUM CHLORIDE 0.9% 500 ML 500 ML IVPB SCH ×2 (03:40→15:31)
[2021-06-08] MEDS: HYDROmorphone 0.5 MG/0.5 ML SYRINGE IVP PRN (03:51)
[2021-06-08 06:39] LABS: Basophils # (A) 0.1 k/uL (0-0.2); Basophils % (A) 1 %; Eosinophils # (A) 0.4 k/uL (0-0.7); Eosinophils % (A) 4 %; HCT 42.4 % (39.0-53.0); HGB 13.6 gm/dL (13.0-17.5); Lymphocytes # (A) 2.1 k/uL (1.0-4.8); Lymphocytes % (A) 22 %; MCV 93.9 fL (80.0-100.0); Mean Platelet Volume 6.9; Monocytes # (A) 0.5 k/uL (0-1.0); Monocytes % (A) 5 %; Neutrophils # (A) 6.3 k/uL (1.3-7.7); Neutrophils % (A) 67 %; Platelet Count 349 k/uL (150-450); RBC 4.52 m/uL (4.30-5.90); RDW 14.2 % (11.5-15.5); WBC 9.5 k/uL (3.8-10.6)
[2021-06-08 06:56] LABS: ALT 37 U/L (4-49); AST 28 U/L (17-59); African American GFR (CKD) >90 (>60 ml/min/1.73 sqM); Albumin 3.3 g/dL (3.5-5.0); Albumin/Globulin Ratio 0.9; Alkaline Phosphatase 62 U/L (38-126); Anion Gap 7 mmol/L; Blood Urea Nitrogen 21 mg/dL (9-20); Calcium 8.6 mg/dL (8.4-10.2); Carbon Dioxide 27 mmol/L (22-30); Chloride 101 mmol/L (98-107); Globulin 3.8 g/dL; Glucose 97 mg/dL (74-99); Non-African American GFR(CKD) 78 (>60 ml/min/1.73 sqM); Potassium 5.2 mmol/L (3.5-5.1); Sodium 135 mmol/L (137-145); Total Bilirubin 0.4 mg/dL (0.2-1.3); Total Protein 7.1 g/dL (6.3-8.2)
[2021-06-08 07:19] LABS: Glucose,Whole Blood 91 mg/dL (75-99)
[2021-06-08] MEDS: HYDROcodone/APAP 7.5-325MG 1 EACH TAB PO PRN ×2 (08:20→15:44)
[2021-06-08] MEDS: CHOLECALCIFEROL 25 MCG (1000 IU) TABLET PO SCH (08:20)
[2021-06-08] MEDS: PANTOPRAZOLE 40 MG TABLET PO SCH (08:20)
[2021-06-08] MEDS: LOSARTAN 50 MG TAB PO SCH (08:20)
[2021-06-08] MEDS: hydroCHLOROthiazide 25 MG TAB PO SCH (08:20)
[2021-06-08] MEDS: CEFEPIME 2 GM in SODIUM CHLORIDE 0.9% 100 ML IVPB SCH ×2 (08:23→16:26)
--- NOTE | 2021-06-08 10:03 | P.PN ---
Subjective Progress Note Date: 06/08/21 Javier Thayer, is a 55-year-old male who presented to [facility] emergency room with a chief complaint of non healing diabetic foot ulcerarea patient has a past medical history of atrial fibrillation, diabetes mellitus, GERD, hyperlipidemia, hypertension, current every day smoker and pre vious history of nonhealing ulcers to feet. He was evaluated in the emergency room vital examination on presentation revealed a temperature of 98.2 pulse 85 respiration 20 blood pressure 168/87 pulse ox 96% on room air Laboratory data revealed a white blood count of 15.4 hemoglobin 14.0 platelet co unt 368 sodium 137 potassium 4.3 chloride 103 CO2 24 BUN 27 creatinine 1.0 Coronavirus PCR was negative Testing in the emergency room revealed left foot x-ray revealed evidence of subluxation of the second and third MP joints and the fifth MP joint and evidence of osteomyelitis of the fifth metatarsal head. Patient was admitted to medical floor for further evaluation and treatment, infectious disease consultation was requested On 06/07/2021 Patient was seen and examined on the medical floor, he is alert and oriented x 3 in no distress, he denies any complaints there is no fever or chills no headache or dizziness no chest pain no shortness of breath no palpitation no cough no nausea or vomiting no abdominal pain no diarrhea no blood in the stools no burning with urination no frequency or urgency and no hematuria, there is no weakness or numbness in any of the extremities no change in vision speech or gait. On 06/08/2023 patient is alert and oriented 3. Patient to undergo amputation of the toes and excision of callus bilateral. At this time patient denies chest pain or shortness of breath. Patient denies nausea vomiting or diarrhea. Patient denies any urinary burning or frequency Objective - Vital Signs Vital signs: Vital Signs Temp 98.2 F 06/08/21 07:46 Pulse 52 L 06/08/21 07:46 Resp 14 06/08/21 07:46 BP 131/82 06/08/21 07:46 Pulse Ox 96 06/08/21 04:30 Intake & Output 06/07/21 06/08/21 06/08/21 18:59 06:59 18:59 Intake Total 560 Balance 560 Weight 147.418 kg Intake: Oral 560 Other: Voiding Method Toilet Toilet # Voids 2 2 - Exam In general patient is alert and oriented ?-3 in no distress HEENT head normocephalic and atraumatic Neck is supple no JVD no goiter no lymphadenopathy no carotid bruit Chest examination is clear to auscultation no crackles no wheezing Cardiac exam reveals regular heart sounds S1 and S2 no gallops no murmurs Abdomen is soft nontender no organomegaly with normal bowel sounds Extremity exam reveals no edema no cyanosis or clubbing, Plantar side of the left foot dime size open ulcer Neurological examination reveals no gross focal deficits - Labs CBC & Chem 7: 06/08/21 05:37 06/08/21 05:37 Labs: Abnormal Lab Results - Last 24 Hours (Table) 06/07/21 06/07/21 06/08/21 Range/Units 05:51 17:08 05:37 ESR 90 H (0-15) mm/hr Sodium 135 L (137-145) mmol/L Potassium 5.2 H (3.5-5.1) mmol/L BUN 21 H (9-20) mg/dL POC Glucose (mg/dL) 113 H (75-99) mg/dL Albumin 3.3 L (3.5-5.0) g/dL Microbiology - Last 24 Hours (Table) 06/05/21 18:50 Blood Culture - Preliminary Blood No Growth after 48 hours 06/05/21 19:05 Blood Culture - Preliminary Blood No Growth after 48 hours 06/05/21 19:10 Gram Stain - Final Foot - Left Wound Culture - Final Assessment and Plan Plan: Left foot ulcer with cellulitis Underlying history of diabetes mellitus, however patient was not on any medications at home for diabetes, his glucose on presentation was 121, will check hemoglobin A1c Underlying history of hypertension Underlying history of hyperlipidemia Underlying history of morbid obesity BMI was 43.8 Underlying history of gastroesophageal reflux disease Underlying history of paroxysmal atrial fibrillation, patient is not on any anticoagulation at the time of admission Previous history of methicillin-resistant Staphylococcus aureus infection in the left foot ulcer At this time patient was admitted to medical floor He was started on IV vancomycin and IV Zosyn Blood culture and wound culture were ordered Infectious disease consultation was requested Will check hemoglobin A1c and assess need for diabetes medications Will check EKG in regard to previous history of paroxysmal atrial fibrillation Plans for surgical dictation 06/08/[address] Oneal Will follow closely
[2021-06-08] MEDS ORDERED: SODIUM CHLORIDE 0.9% 150 ML IV ONE (11:11)
[2021-06-08 11:32] LABS: Glucose,Whole Blood 88 mg/dL (75-99)
[2021-06-08] MEDS ORDERED: MIDAZOLAM 2 MG/2 ML VIAL ONE (12:05)
[2021-06-08] MEDS ORDERED: KETAMINE 10 MG/ML 20 ML VIAL ONE (12:05)
[2021-06-08] MEDS ORDERED: fentaNYL (PF) 50 MCG/ML 2 ML AMP ONE (12:05)
[2021-06-08] MEDS ORDERED: PROPOFOL 10 MG/ML 20 ML VIAL IV ONE (12:05)
[2021-06-08] MEDS ORDERED: LACTATED RINGERS 1,000 ML IV ONE (12:22)
[2021-06-08] MEDS ORDERED: LIDOCAINE 1% INJ 10MG/ML (20 ML MDV) SQ ONE (12:23)
--- NOTE | 2021-06-08 13:35 | OP ---
OPERATIVE REPORT PREOPERATIVE DIAGNOSIS: Wet gangrene of the left foot second toe with infected callus on the plantar aspect of the foot. Preop measurement is 3 x 2. Postoperative measurement is 4 x 2 x 2, and right leg plantar aspect infected callus, 2 x 2 x 1. Postop is at off 3 x 2 x 1 cm. DESCRIPTION OF PROCEDURE: The patient was brought to the operating room under local sedation. This patient has a left foot is 3rd toe wet gangrene and infected callus on the plantar aspect of the foot at the base of the 3rd toe on plantar aspect. An elliptical incision was made on the dorsal aspect of the foot, went circumferentially around the toe and this incision was deepened through subcu fat and the tendons were divided, then deepened through the plantar aspect of the foot. The tendons also divided down to down to the bone at the metatarsophalangeal joint. Using bone cutter, we divided the head of the metatarsal bone and all the devitalized tissue was excised with sharp knife and specimen sent for deep culture. Bleeding points were suture ligated. Hemostasis was well controlled. Wound was irrigated with hydrogen peroxide and saline. Santyl cream was placed. Dressing was applied. Then attention was paid to the right foot plantar aspect. Using sharp knife, we excised the infected callus down to subcutaneous tissue and fat and plantar fascia. All the callus and devitalized tissue was excised. Hemostasis was well controlled by hand cautery. No active bleeding was noted. Santyl cream was applied to the wound and pressure dressing was applied. The patient tolerated the procedure well and transferred to the recovery room in satisfactory condition. MMODL / IJN: [id number] /
[2021-06-08] MEDS ORDERED: VANCOMYCIN TROUGH DUE 1 EACH MISC MISCELLANE ONE (14:00)
[2021-06-08] MEDS: COLLAGENASE 250 UNIT/GM OINTMENT 30 GM TUBE TOPICAL SCH (16:06)
[2021-06-08 17:29] LABS: Glucose,Whole Blood 110 mg/dL (75-99)
[2021-06-08 20:47] LABS: Glucose,Whole Blood 98 mg/dL (75-99)
[2021-06-09] MEDS: CEFEPIME 2 GM in SODIUM CHLORIDE 0.9% 100 ML IVPB SCH ×3 (00:47→15:35)
[2021-06-09] MEDS: HYDROcodone/APAP 7.5-325MG 1 EACH TAB PO PRN ×4 (01:03→19:46)
[2021-06-09] MEDS: HYDROmorphone 0.5 MG/0.5 ML SYRINGE IVP PRN (05:01)
--- NOTE | 2021-06-09 06:42 | PN ---
PROGRESS NOTE DATE OF SERVICE: 06/08/2021 REASON FOR FOLLOWUP: Left foot ulcer, infected callus, possible osteomyelitis. INTERVAL HISTORY: Patient is afebrile. The patient was taken to the OR. The patient is status post amputation of his left toe and debridement of his wound. Culture has been obtained, currently pending. The patient has tolerated the procedure. Denies having any chest pain, shortness of breath. No cough. No abdominal pain. No diarrhea. PHYSICAL EXAMINATION: Blood pressure 150/65 with a pulse of 56. Temperature 97.9. He is 94% on room air. General description is a middle-aged male lying in bed in no distress. Respiratory system: Unlabored breathing, clear to auscultation anteriorly. Heart S1, S2. Regular rate and rhythm. Abdomen: Soft, no tenderness. Left foot is currently dressed. No obvious drainage on the dressing. LABS: Hemoglobin 13.1, white count 9.5. Sedimentation rate is 90, creatinine 1.07. DIAGNOSTIC IMPRESSION AND PLAN: Patient with left foot infected callus and underlying osteomyelitis status post debridement and amputation of his toe. The patient is currently covered with cefepime and Vancomycin that will continue with discharge antibiotic based on culture report. Continue supportive care. MMODL / IJN: [id number] /
[2021-06-09 07:02] LABS: Glucose,Whole Blood 90 mg/dL (75-99)
[2021-06-09] MEDS: LOSARTAN 50 MG TAB PO SCH (07:21)
[2021-06-09] MEDS: ENOXAPARIN 40 MG/0.4 ML SYRINGE SQ SCH (07:21)
[2021-06-09] MEDS: CHOLECALCIFEROL 25 MCG (1000 IU) TABLET PO SCH (07:21)
[2021-06-09] MEDS: PANTOPRAZOLE 40 MG TABLET PO SCH (07:22)
[2021-06-09 07:39] LABS: Basophils % (A) 0 %; Eosinophils # (A) 0.3 k/uL (0-0.7); Eosinophils % (A) 3 %; HCT 41.9 % (39.0-53.0); HGB 13.7 gm/dL (13.0-17.5); Lymphocytes # (A) 2.2 k/uL (1.0-4.8); Lymphocytes % (A) 25 %; MCH 30.4 pg (25.0-35.0); MCHC 32.8 g/dL (31.0-37.0); MCV 92.6 fL (80.0-100.0); Mean Platelet Volume 6.6; Monocytes # (A) 0.4 k/uL (0-1.0); Monocytes % (A) 5 %; Neutrophils # (A) 5.7 k/uL (1.3-7.7); Neutrophils % (A) 65 %; Platelet Count 349 k/uL (150-450); RBC 4.53 m/uL (4.30-5.90); RDW 14.2 % (11.5-15.5); WBC 8.9 k/uL (3.8-10.6)
[2021-06-09 07:53] LABS: ALT 42 U/L (4-49); AST 33 U/L (17-59); African American GFR (CKD) >90 (>60 ml/min/1.73 sqM); Albumin 3.5 g/dL (3.5-5.0); Albumin/Globulin Ratio 0.9; Alkaline Phosphatase 79 U/L (38-126); Anion Gap 8 mmol/L; Blood Urea Nitrogen 18 mg/dL (9-20); Carbon Dioxide 28 mmol/L (22-30); Chloride 99 mmol/L (98-107); Globulin 3.9 g/dL; Glucose 94 mg/dL (74-99); Non-African American GFR(CKD) >90 (>60 ml/min/1.73 sqM); Potassium 4.9 mmol/L (3.5-5.1); Sodium 135 mmol/L (137-145); Total Bilirubin 0.4 mg/dL (0.2-1.3); Total Protein 7.4 g/dL (6.3-8.2)
[2021-06-09] MEDS: VANCOMYCIN 2,500 MG in SODIUM CHLORIDE 0.9% 500 ML 500 ML IVPB SCH ×2 (08:15→19:47)
[2021-06-09] MEDS: COLLAGENASE 250 UNIT/GM OINTMENT 30 GM TUBE TOPICAL SCH (10:36)
--- NOTE | 2021-06-09 11:34 | PN ---
PROGRESS NOTE This patient had a foot callus excised and also left foot third toe amputation and excision of callus from the plantar aspect of the foot. Tissue has been sent for deep culture. Today we have changed the dressing. The base of the wound is clean. We used Santyl cream. We will change the dressing on Friday. Continue with IV antibiotic. MMODL / IJN: [id number] /
[2021-06-09 11:56] LABS: Glucose,Whole Blood 135 mg/dL (75-99)
--- NOTE | 2021-06-09 14:12 | P.PN ---
Subjective Progress Note Date: 06/07/21 Javier Thayer, is a 55-year-old male who presented to [facility] emergency room with a chief complaint of non healing diabetic foot ulcerarea patient has a past medical history of atrial fibrillation, diabetes mellitus, GERD, hyperlipidemia, hypertension, current every day smoker and pre vious history of nonhealing ulcers to feet. He was evaluated in the emergency room vital examination on presentation revealed a temperature of 98.2 pulse 85 respiration 20 blood pressure 168/87 pulse ox 96% on room air Laboratory data revealed a white blood count of 15.4 hemoglobin 14.0 platelet co unt 368 sodium 137 potassium 4.3 chloride 103 CO2 24 BUN 27 creatinine 1.0 Coronavirus PCR was negative Testing in the emergency room revealed left foot x-ray revealed evidence of subluxation of the second and third MP joints and the fifth MP joint and evidence of osteomyelitis of the fifth metatarsal head. Patient was admitted to medical floor for further evaluation and treatment, infectious disease consultation was requested On 06/07/2021 Patient was seen and examined on the medical floor, he is alert and oriented x 3 in no distress, he denies any complaints there is no fever or chills no headache or dizziness no chest pain no shortness of breath no palpitation no cough no nausea or vomiting no abdominal pain no diarrhea no blood in the stools no burning with urination no frequency or urgency and no hematuria, there is no weakness or numbness in any of the extremities no change in vision speech or gait. Objective - Vital Signs Vital signs: Vital Signs Temp 98.6 F 06/07/21 12:28 Pulse 50 L 06/07/21 12:28 Resp 18 06/07/21 12:28 BP 151/74 06/07/21 12:28 Pulse Ox 95 06/07/21 12:28 Intake & Output 06/06/21 06/07/21 06/07/21 18:59 06:59 18:59 Intake Total 1300 Output Total 5 Balance 1295 Weight 147.418 kg Intake: Intake, IV Titration 700 Amount Cefepime 2 gm In Sodium 100 Chloride 0.9% 100 ml @ 25 mls/hr IVPB Q8HR [facility] Rx# :[id number] Piperacillin-Tazobactam 3 100 .375 gm In Sodium Chloride 0.9% 100 ml @ 25 mls/hr IVPB Q8H [facility] Rx#: [id number] Vancomycin 2,500 mg In 500 Sodium Chloride 0.9% 500 ml 500 ml @ 167 mls/hr IVPB Q12H [facility] Rx#: [id number] Oral 600 Output: Urine/Stool Mix 5 Other: Voiding Method Toilet Toilet # Voids 1 2 2 - Exam In general patient is alert and oriented ?-3 in no distress HEENT head normocephalic and atraumatic Neck is supple no JVD no goiter no lymphadenopathy no carotid bruit Chest examination is clear to auscultation no crackles no wheezing Cardiac exam reveals regular heart sounds S1 and S2 no gallops no murmurs Abdomen is soft nontender no organomegaly with normal bowel sounds Extremity exam reveals no edema no cyanosis or clubbing, Plantar side of the left foot dime size open ulcer Neurological examination reveals no gross focal deficits - Labs CBC & Chem 7: 06/07/21 05:51 06/07/21 05:51 Labs: Abnormal Lab Results - Last 24 Hours (Table) 06/06/21 06/06/21 06/07/21 Range/Units 09:18 20:47 05:51 ESR 90 H (0-15) mm/hr BUN/Creatinine Ratio 24.63 H (12.00-20.00) Ratio Glucose 130 H (70-110) mg/dL POC Glucose (mg/dL) 120 H (75-99) mg/dL Calcium 8.2 L (8.7-10.3) mg/dL C-Reactive Protein (<1.0) mg/dL Albumin 3.4 L (3.8-4.9) g/dL Albumin/Globulin Ratio 1.06 L (1.60-3.17) g/dL 06/07/21 06/07/21 Range/Units 05:51 17:08 ESR (0-15) mm/hr BUN/Creatinine Ratio (12.00-20.00) Ratio Glucose (70-110) mg/dL POC Glucose (mg/dL) 113 H (75-99) mg/dL Calcium (8.7-10.3) mg/dL C-Reactive Protein 6.2 H (<1.0) mg/dL Albumin 3.4 L (3.8-4.9) g/dL Albumin/Globulin Ratio (1.60-3.17) g/dL Microbiology - Last 24 Hours (Table) 06/05/21 19:05 Blood Culture - Preliminary Blood No Growth after 24 hours 06/05/21 18:50 Blood Culture - Preliminary Blood No Growth after 24 hours Assessment and Plan Plan: Left foot ulcer with cellulitis Underlying history of diabetes mellitus, however patient was not on any medications at home for diabetes, his glucose on presentation was 121, will check hemoglobin A1c Underlying history of hypertension Underlying history of hyperlipidemia Underlying history of morbid obesity BMI was 43.8 Underlying history of gastroesophageal reflux disease Underlying history of paroxysmal atrial fibrillation, patient is not on any anticoagulation at the time of admission Previous history of methicillin-resistant Staphylococcus aureus infection in the left foot ulcer At this time patient was admitted to medical floor He was started on IV vancomycin and IV Zosyn Blood culture and wound culture were ordered Infectious disease consultation was requested Will check hemoglobin A1c and assess need for diabetes medications Will check EKG in regard to previous history of paroxysmal atrial fibrillation Will follow closely
--- NOTE | 2021-06-09 14:15 | P.PN ---
Subjective Progress Note Date: 06/09/21 Javier Thayer, is a 55-year-old male who presented to [facility] emergency room with a chief complaint of non healing diabetic foot ulcerarea patient has a past medical history of atrial fibrillation, diabetes mellitus, GERD, hyperlipidemia, hypertension, current every day smoker and pre vious history of nonhealing ulcers to feet. He was evaluated in the emergency room vital examination on presentation revealed a temperature of 98.2 pulse 85 respiration 20 blood pressure 168/87 pulse ox 96% on room air Laboratory data revealed a white blood count of 15.4 hemoglobin 14.0 platelet co unt 368 sodium 137 potassium 4.3 chloride 103 CO2 24 BUN 27 creatinine 1.0 Coronavirus PCR was negative Testing in the emergency room revealed left foot x-ray revealed evidence of subluxation of the second and third MP joints and the fifth MP joint and evidence of osteomyelitis of the fifth metatarsal head. Patient was admitted to medical floor for further evaluation and treatment, infectious disease consultation was requested On 06/07/2021 Patient was seen and examined on the medical floor, he is alert and oriented x 3 in no distress, he denies any complaints there is no fever or chills no headache or dizziness no chest pain no shortness of breath no palpitation no cough no nausea or vomiting no abdominal pain no diarrhea no blood in the stools no burning with urination no frequency or urgency and no hematuria, there is no weakness or numbness in any of the extremities no change in vision speech or gait. On 06/08/2023 patient is alert and oriented 3. Patient to undergo amputation of the toes and excision of callus bilateral. At this time patient denies chest pain or shortness of breath. Patient denies nausea vomiting or diarrhea. Patient denies any urinary burning or frequency On 06/09/2021 patient was seen and examined on the medical floor he is alert and oriented 3 in no apparent distress he underwent toe amputation and deep tissue cultures yesterday, he is maintained on IV antibiotics and is followed by infectious disease and vascular surgery, he is stating that his pain is well controlled, he denies any other symptoms no chest pain no shortness of breath no cough no nausea or vomiting no abdominal pain no diarrhea and no urinary symptoms Objective - Vital Signs Vital signs: Vital Signs Temp 98.0 F 06/09/21 04:50 Pulse 58 L 06/09/21 08:00 Resp 18 06/09/21 07:19 BP 137/85 06/09/21 07:19 Pulse Ox 95 06/09/21 04:50 Intake & Output 06/08/21 06/09/21 06/09/21 18:59 06:59 18:59 Intake Total 550 650 Output Total 20 Balance 530 650 Intake: IV 550 Intake, IV Titration 650 Amount Cefepime 2 gm In Sodium 200 Chloride 0.9% 100 ml @ 25 mls/hr IVPB Q8HR [facility] Rx# :[id number] Vancomycin 2,500 mg In 450 Sodium Chloride 0.9% 500 ml 500 ml @ 167 mls/hr IVPB Q12H [facility] Rx#: [id number] Output: Estimated Blood Loss 20 Other: Voiding Method Toilet Toilet # Voids 2 - Exam In general patient is alert and oriented x3 in no distress HEENT head normocephalic and atraumatic Neck is supple no JVD no goiter no lymphadenopathy no carotid bruit Chest examination is clear to auscultation no crackles no wheezing Cardiac exam reveals regular heart sounds S1 and S2 no gallops no murmurs Abdomen is soft nontender no organomegaly with normal bowel sounds Extremity exam reveals no edema no cyanosis or clubbing, Plantar side of the left foot dime size open ulcer Neurological examination reveals no gross focal deficits - Labs CBC & Chem 7: 06/09/21 06:49 06/09/21 06:49 Labs: Abnormal Lab Results - Last 24 Hours (Table) 06/08/21 06/09/21 Range/Units 17:28 06:49 Sodium 135 L (137-145) mmol/L POC Glucose (mg/dL) 110 H (75-99) mg/dL Microbiology - Last 24 Hours (Table) 06/08/21 12:36 Tissue Culture - Preliminary Toe - Left Third 06/08/21 12:36 Tissue Culture - Preliminary Foot - Right 06/08/21 12:36 Anaerobic Culture - Preliminary Foot - Right 06/08/21 12:36 Anaerobic Culture - Preliminary Toe - Left Third 06/05/21 19:05 Blood Culture - Preliminary Blood No Growth after 72 hours 06/05/21 18:50 Blood Culture - Preliminary Blood No Growth after 72 hours Assessment and Plan Plan: Left foot ulcer with cellulitis Underlying history of diabetes mellitus, however patient was not on any medications at home for diabetes, his glucose on presentation was 121, will check hemoglobin A1c Underlying history of hypertension Underlying history of hyperlipidemia Underlying history of morbid obesity BMI was 43.8 Underlying history of gastroesophageal reflux disease Underlying history of paroxysmal atrial fibrillation, patient is not on any anticoagulation at the time of admission Previous history of methicillin-resistant Staphylococcus aureus infection in the left foot ulcer At this time patient was admitted to medical floor He was started on IV vancomycin and IV Zosyn Blood culture and wound culture were ordered Infectious disease consultation was requested Will check hemoglobin A1c and assess need for diabetes medications Will check EKG in regard to previous history of paroxysmal atrial fibrillation Patient underwent toe amputation and deep tissue cultures yesterday by Dr. Oneal Continue current management at this time will follow in a.m.
--- NOTE | 2021-06-09 16:50 | PN ---
PROGRESS NOTE DATE OF SERVICE: 06/09/2021 REASON FOR FOLLOWUP: Left foot wet gangrene and osteomyelitis. INTERVAL HISTORY: The patient is currently afebrile. He is breathing comfortably. Denies having any chest pain or shortness of breath or cough. No abdominal pain or any worsening pain to the foot area. PHYSICAL EXAMINATION: Blood pressure 153/80 with a pulse of 52, temperature 97.5. He is 95% on room air. GENERAL DESCRIPTION: General description is a middle-aged male lying in bed in no distress. RESPIRATORY SYSTEM: Unlabored breathing. Clear to auscultation anteriorly. HEART: S1, S2. Regular rate and rhythm. ABDOMEN: Soft. No tenderness. Left foot is currently dressed. No obvious drainage on the dressing. LABS: Hemoglobin is 13.3, white count 8.9, BUN of 18, creatinine 0.95. DIAGNOSTIC IMPRESSION AND PLAN: Patient with a left foot plantar infected callus with concern for underlying osteomyelitis, status post amputation of left third toe. OR cultures are currently pending. Patient is covered with cefepime and vancomycin; to continue while waiting for the culture to finalize and continue with supportive care. MMODL / IJN: [id number] /
[2021-06-09 17:41] LABS: Glucose,Whole Blood 88 mg/dL (75-99)
[2021-06-09 20:45] LABS: Glucose,Whole Blood 114 mg/dL (75-99)
[2021-06-10] MEDS: CEFEPIME 2 GM in SODIUM CHLORIDE 0.9% 100 ML IVPB SCH ×4 (01:03→23:38)
[2021-06-10] MEDS: HYDROcodone/APAP 7.5-325MG 1 EACH TAB PO PRN ×4 (01:10→20:00)
[2021-06-10 06:04] LABS: Basophils # (A) 0.1 k/uL (0-0.2); Basophils % (A) 1 %; Eosinophils # (A) 0.4 k/uL (0-0.7); Eosinophils % (A) 5 %; HCT 40.1 % (39.0-53.0); HGB 12.9 gm/dL (13.0-17.5); Lymphocytes # (A) 2.1 k/uL (1.0-4.8); Lymphocytes % (A) 24 %; MCH 29.8 pg (25.0-35.0); MCHC 32.3 g/dL (31.0-37.0); MCV 92.4 fL (80.0-100.0); Mean Platelet Volume 6.6; Monocytes # (A) 0.5 k/uL (0-1.0); Monocytes % (A) 6 %; Neutrophils # (A) 5.8 k/uL (1.3-7.7); Neutrophils % (A) 64 %; Platelet Count 338 k/uL (150-450); RBC 4.34 m/uL (4.30-5.90); RDW 14.1 % (11.5-15.5); WBC 9.1 k/uL (3.8-10.6)
[2021-06-10 06:23] LABS: ALT 39 U/L (4-49); AST 30 U/L (17-59); African American GFR (CKD) >90 (>60 ml/min/1.73 sqM); Albumin 3.5 g/dL (3.5-5.0); Albumin/Globulin Ratio 0.9; Alkaline Phosphatase 80 U/L (38-126); Anion Gap 7 mmol/L; Blood Urea Nitrogen 16 mg/dL (9-20); Calcium 8.7 mg/dL (8.4-10.2); Carbon Dioxide 28 mmol/L (22-30); Chloride 99 mmol/L (98-107); Globulin 3.7 g/dL; Glucose 93 mg/dL (74-99); Non-African American GFR(CKD) 84 (>60 ml/min/1.73 sqM); Potassium 4.8 mmol/L (3.5-5.1); Sodium 134 mmol/L (137-145); Total Bilirubin 0.5 mg/dL (0.2-1.3); Total Protein 7.2 g/dL (6.3-8.2)
[2021-06-10 07:33] LABS: Glucose,Whole Blood 100 mg/dL (75-99)
[2021-06-10] MEDS: VANCOMYCIN 2,500 MG in SODIUM CHLORIDE 0.9% 500 ML 500 ML IVPB SCH ×2 (08:25→20:00)
[2021-06-10] MEDS: CHOLECALCIFEROL 25 MCG (1000 IU) TABLET PO SCH (08:26)
[2021-06-10] MEDS: PANTOPRAZOLE 40 MG TABLET PO SCH (08:27)
[2021-06-10] MEDS: ENOXAPARIN 40 MG/0.4 ML SYRINGE SQ SCH (08:27)
[2021-06-10] MEDS: LOSARTAN 50 MG TAB PO SCH (08:27)
[2021-06-10] MEDS: COLLAGENASE 250 UNIT/GM OINTMENT 30 GM TUBE TOPICAL SCH ×2 (08:28→17:04)
--- NOTE | 2021-06-10 10:07 | P.PN ---
Subjective Progress Note Date: 06/10/21 Javier Thayer, is a 55-year-old male who presented to [facility] emergency room with a chief complaint of non healing diabetic foot ulcerarea patient has a past medical history of atrial fibrillation, diabetes mellitus, GERD, hyperlipidemia, hypertension, current every day smoker and pre vious history of nonhealing ulcers to feet. He was evaluated in the emergency room vital examination on presentation revealed a temperature of 98.2 pulse 85 respiration 20 blood pressure 168/87 pulse ox 96% on room air Laboratory data revealed a white blood count of 15.4 hemoglobin 14.0 platelet co unt 368 sodium 137 potassium 4.3 chloride 103 CO2 24 BUN 27 creatinine 1.0 Coronavirus PCR was negative Testing in the emergency room revealed left foot x-ray revealed evidence of subluxation of the second and third MP joints and the fifth MP joint and evidence of osteomyelitis of the fifth metatarsal head. Patient was admitted to medical floor for further evaluation and treatment, infectious disease consultation was requested On 06/07/2021 Patient was seen and examined on the medical floor, he is alert and oriented x 3 in no distress, he denies any complaints there is no fever or chills no headache or dizziness no chest pain no shortness of breath no palpitation no cough no nausea or vomiting no abdominal pain no diarrhea no blood in the stools no burning with urination no frequency or urgency and no hematuria, there is no weakness or numbness in any of the extremities no change in vision speech or gait. On 06/08/2023 patient is alert and oriented 3. Patient to undergo amputation of the toes and excision of callus bilateral. At this time patient denies chest pain or shortness of breath. Patient denies nausea vomiting or diarrhea. Patient denies any urinary burning or frequency On 06/09/2021 patient was seen and examined on the medical floor he is alert and oriented 3 in no apparent distress he underwent toe amputation and deep tissue cultures yesterday, he is maintained on IV antibiotics and is followed by infectious disease and vascular surgery, he is stating that his pain is well controlled, he denies any other symptoms no chest pain no shortness of breath no cough no nausea or vomiting no abdominal pain no diarrhea and no urinary symptoms On 06/10/2021 patient is alert and oriented 3. Patient is currently postop day 2 from toe amputation deep tissue culture collection. Culture still pending. Patient remains on cefepime and vancomycin. Awaiting final culture for antibiotic recommendation upon discharge. At this time patient denies chest pain or shortness of breath. Patient denies any urinary burning or frequency. Patient denies nausea vomiting or diarrhea patient has remained afebrile Objective - Vital Signs Vital signs: Vital Signs Temp 98.1 F 06/10/21 04:25 Pulse 54 L 06/10/21 04:25 Resp 16 06/10/21 04:25 BP 137/73 06/10/21 04:25 Pulse Ox 94 L 06/10/21 04:25 Intake & Output 06/09/21 06/10/21 06/10/21 18:59 06:59 18:59 Intake Total 3120 1000 Balance 3120 1000 Intake: Intake, IV Titration 800 Amount Cefepime 2 gm In Sodium 200 Chloride 0.9% 100 ml @ 25 mls/hr IVPB Q8HR [facility] Rx# :[id number] Sodium Chloride 0.9% 150 100 ml @ 0 mls/hr IV .[facility] Rx#:[id number] Vancomycin 2,500 mg In 500 Sodium Chloride 0.9% 500 ml 500 ml @ 167 mls/hr IVPB Q12H [facility] Rx#: [id number] Oral 2320 1000 Other: Voiding Method Toilet Toilet # Voids 5 2 - Exam In general patient is alert and oriented x3 in no distress HEENT head normocephalic and atraumatic Neck is supple no JVD no goiter no lymphadenopathy no carotid bruit Chest examination is clear to auscultation no crackles no wheezing Cardiac exam reveals regular heart sounds S1 and S2 no gallops no murmurs Abdomen is soft nontender no organomegaly with normal bowel sounds Extremity exam reveals no edema no cyanosis or clubbing, Plantar side of the left foot dime size open ulcer Neurological examination reveals no gross focal deficits - Labs CBC & Chem 7: 06/10/21 05:08 06/10/21 05:08 Labs: Abnormal Lab Results - Last 24 Hours (Table) 06/09/21 06/09/21 06/10/21 Range/Units 11:52 20:44 05:08 Hgb (13.0-17.5) gm/dL Sodium 134 L (137-145) mmol/L POC Glucose (mg/dL) 135 H 114 H (75-99) mg/dL 06/10/21 06/10/21 Range/Units 05:08 07:12 Hgb 12.9 L (13.0-17.5) gm/dL Sodium (137-145) mmol/L POC Glucose (mg/dL) 100 H (75-99) mg/dL Microbiology - Last 24 Hours (Table) 06/05/21 19:05 Blood Culture - Preliminary Blood No Growth after 96 hours 06/05/21 18:50 Blood Culture - Preliminary Blood No Growth after 96 hours 06/08/21 12:36 Gram Stain - Preliminary Foot - Right Tissue Culture - Preliminary Coagulase Negative Staph Diphtheroid species 06/08/21 12:36 Gram Stain - Preliminary Toe - Left Third Tissue Culture - Preliminary Assessment and Plan Plan: Left foot ulcer with cellulitis status post toe amputation on 06/[address] Oneal Underlying history of diabetes mellitus, however patient was not on any medications at home for diabetes, his glucose on presentation was 121, will check hemoglobin A1c Underlying history of hypertension Underlying history of hyperlipidemia Underlying history of morbid obesity BMI was 43.8 Underlying history of gastroesophageal reflux disease Underlying history of paroxysmal atrial fibrillation, patient is not on any anticoagulation at the time of admission Previous history of methicillin-resistant Staphylococcus aureus infection in the left foot ulcer At this time patient was admitted to medical floor IV vancomycin and IV cefepime Blood culture and wound culture were ordered Will check hemoglobin A1c. A1c 5.8 Will check EKG in regard to previous history of paroxysmal atrial fibrillation. EKG sinus bradycardia Patient underwent toe amputation and deep tissue cultures 06/[address] Oneal Continue current management at this time will follow in a.m.
[2021-06-10 12:16] LABS: Glucose,Whole Blood 144 mg/dL (75-99)
[2021-06-10 17:16] LABS: Glucose,Whole Blood 96 mg/dL (75-99)
--- NOTE | 2021-06-10 18:34 | PN ---
PROGRESS NOTE DATE OF SERVICE: 06/10/2021 REASON FOR FOLLOWUP: Left foot third toe wet gangrene and osteomyelitis. INTERVAL HISTORY: Patient is afebrile. The patient is currently breathing comfortably. No chest pain, shortness of breath or cough. No abdominal pain or any worsening pain to the left foot. PHYSICAL EXAMINATION: Blood pressure 133/72 with a pulse of 54, temperature 98.1. He is 97% on room air. General description is a middle-aged male lying in bed in no distress. Respiratory system: Unlabored breathing, clear to auscultation anteriorly. Heart S1, S2. Regular rate and rhythm. Abdomen soft, no tenderness. Left foot is currently dressed. No obvious drainage on the dressing. LAB: Cultures from the left currently pending. . DIAGNOSTIC IMPRESSION AND PLAN: Patient with left foot third toe wet gangrene with underlying osteomyelitis. Cultures are currently pending. The patient is status post debridement. Discharge antibiotic based on the cultures. PICC line will be ordered. Continue supportive care. MMODL / IJN: [id number] /
[2021-06-10 20:06] LABS: Glucose,Whole Blood 145 mg/dL (75-99)
[2021-06-11 07:00] LABS: Basophils # (A) 0.1 k/uL (0-0.2); Basophils % (A) 1 %; Eosinophils # (A) 0.3 k/uL (0-0.7); Eosinophils % (A) 4 %; HCT 40.3 % (39.0-53.0); HGB 13.6 gm/dL (13.0-17.5); Lymphocytes # (A) 1.8 k/uL (1.0-4.8); Lymphocytes % (A) 22 %; MCH 30.6 pg (25.0-35.0); MCHC 33.8 g/dL (31.0-37.0); MCV 90.6 fL (80.0-100.0); Mean Platelet Volume 6.6; Monocytes # (A) 0.5 k/uL (0-1.0); Monocytes % (A) 5 %; Neutrophils # (A) 5.5 k/uL (1.3-7.7); Neutrophils % (A) 66 %; Platelet Count 343 k/uL (150-450); RBC 4.45 m/uL (4.30-5.90); RDW 14.4 % (11.5-15.5); WBC 8.3 k/uL (3.8-10.6)
[2021-06-11] MEDS ORDERED: VANCOMYCIN TROUGH DUE 1 EACH MISC MISCELLANE ONE (07:00)
[2021-06-11 07:13] LABS: Glucose,Whole Blood 98 mg/dL (75-99)
[2021-06-11] MEDS: CEFEPIME 2 GM in SODIUM CHLORIDE 0.9% 100 ML IVPB SCH ×2 (08:32→16:25)
[2021-06-11] MEDS: VANCOMYCIN 2,500 MG in SODIUM CHLORIDE 0.9% 500 ML 500 ML IVPB SCH (08:32)
[2021-06-11] MEDS: CHOLECALCIFEROL 25 MCG (1000 IU) TABLET PO SCH (08:32)
[2021-06-11] MEDS: LOSARTAN 50 MG TAB PO SCH (08:32)
[2021-06-11] MEDS: PANTOPRAZOLE 40 MG TABLET PO SCH (08:32)
[2021-06-11] MEDS: ENOXAPARIN 40 MG/0.4 ML SYRINGE SQ SCH (08:32)
[2021-06-11] MEDS: HYDROcodone/APAP 7.5-325MG 1 EACH TAB PO PRN ×3 (08:42→21:17)
--- NOTE | 2021-06-11 09:17 | P.PN ---
Subjective Progress Note Date: 06/11/21 Javier Thayer, is a 55-year-old male who presented to [facility] emergency room with a chief complaint of non healing diabetic foot ulcerarea patient has a past medical history of atrial fibrillation, diabetes mellitus, GERD, hyperlipidemia, hypertension, current every day smoker and pre vious history of nonhealing ulcers to feet. He was evaluated in the emergency room vital examination on presentation revealed a temperature of 98.2 pulse 85 respiration 20 blood pressure 168/87 pulse ox 96% on room air Laboratory data revealed a white blood count of 15.4 hemoglobin 14.0 platelet co unt 368 sodium 137 potassium 4.3 chloride 103 CO2 24 BUN 27 creatinine 1.0 Coronavirus PCR was negative Testing in the emergency room revealed left foot x-ray revealed evidence of subluxation of the second and third MP joints and the fifth MP joint and evidence of osteomyelitis of the fifth metatarsal head. Patient was admitted to medical floor for further evaluation and treatment, infectious disease consultation was requested On 06/07/2021 Patient was seen and examined on the medical floor, he is alert and oriented x 3 in no distress, he denies any complaints there is no fever or chills no headache or dizziness no chest pain no shortness of breath no palpitation no cough no nausea or vomiting no abdominal pain no diarrhea no blood in the stools no burning with urination no frequency or urgency and no hematuria, there is no weakness or numbness in any of the extremities no change in vision speech or gait. On 06/08/2023 patient is alert and oriented 3. Patient to undergo amputation of the toes and excision of callus bilateral. At this time patient denies chest pain or shortness of breath. Patient denies nausea vomiting or diarrhea. Patient denies any urinary burning or frequency On 06/09/2021 patient was seen and examined on the medical floor he is alert and oriented 3 in no apparent distress he underwent toe amputation and deep tissue cultures yesterday, he is maintained on IV antibiotics and is followed by infectious disease and vascular surgery, he is stating that his pain is well controlled, he denies any other symptoms no chest pain no shortness of breath no cough no nausea or vomiting no abdominal pain no diarrhea and no urinary symptoms On 06/10/2021 patient is alert and oriented 3. Patient is currently postop day 2 from toe amputation deep tissue culture collection. Culture still pending. Patient remains on cefepime and vancomycin. Awaiting final culture for antibiotic recommendation upon discharge. At this time patient denies chest pain or shortness of breath. Patient denies any urinary burning or frequency. Patient denies nausea vomiting or diarrhea patient has remained afebrile On 06/11/2010 1 patient's alert and oriented 3. Patient is postop day 3. PICC line has been ordered per infectious disease. Ultrasound of lower extremity also ordered. Awaiting final culture for antibiotic recommendation for discharge. At this time patient denies chest pain or shortness breath. Patient denies nausea vomiting or diarrhea. Patient denies any urinary burning or frequency Objective - Vital Signs Vital signs: Vital Signs Temp 98.1 F 06/11/21 04:44 Pulse 54 L 06/11/21 08:44 Resp 20 06/11/21 04:44 BP 148/93 06/11/21 08:44 Pulse Ox 95 06/11/21 04:44 Intake & Output 06/10/21 06/11/21 06/11/21 18:59 06:59 18:59 Intake Total 600 700 Balance 600 700 Intake: Intake, IV Titration 600 Amount Cefepime 2 gm In Sodium 100 Chloride 0.9% 100 ml @ 25 mls/hr IVPB Q8HR [facility] Rx# :[id number] Vancomycin 2,500 mg In 500 Sodium Chloride 0.9% 500 ml 500 ml @ 167 mls/hr IVPB Q12H [facility] Rx#: [id number] Oral 700 Other: Voiding Method Toilet Toilet # Voids 2 1 - Exam In general patient is alert and oriented x3 in no distress HEENT head normocephalic and atraumatic Neck is supple no JVD no goiter no lymphadenopathy no carotid bruit Chest examination is clear to auscultation no crackles no wheezing Cardiac exam reveals regular heart sounds S1 and S2 no gallops no murmurs Abdomen is soft nontender no organomegaly with normal bowel sounds Extremity exam reveals no edema no cyanosis or clubbing, Plantar side of the left foot dime size open ulcer Neurological examination reveals no gross focal deficits - Labs CBC & Chem 7: 06/11/21 06:22 06/10/21 05:08 Labs: Abnormal Lab Results - Last 24 Hours (Table) 06/10/21 06/10/21 Range/Units 12:04 20:05 POC Glucose (mg/dL) 144 H 145 H (75-99) mg/dL Microbiology - Last 24 Hours (Table) 06/08/21 12:36 Gram Stain - Preliminary Toe - Left Third Tissue Culture - Preliminary Coagulase Negative Staph 06/08/21 12:36 Gram Stain - Final Foot - Right Tissue Culture - Final Coagulase Negative Staph Diphtheroid species Beta Hemolytic Strep Group G 06/05/21 19:05 Blood Culture - Preliminary Blood No Growth after 120 hours 06/05/21 18:50 Blood Culture - Preliminary Blood No Growth after 120 hours 06/08/21 12:36 Anaerobic Culture - Preliminary Toe - Left Third Assessment and Plan Plan: Left foot ulcer with cellulitis status post toe amputation on 06/[address] Oneal Underlying history of diabetes mellitus, however patient was not on any medica tions at home for diabetes, his glucose on presentation was 121, will check hemoglobin A1c Underlying history of hypertension Underlying history of hyperlipidemia Underlying history of morbid obesity BMI was 43.8 Underlying history of gastroesophageal reflux disease Underlying history of paroxysmal atrial fibrillation, patient is not on any anticoagulation at the time of admission Previous history of methicillin-resistant Staphylococcus aureus infection in the left foot ulcer At this time patient was admitted to medical floor IV vancomycin and IV cefepime Blood culture and wound culture were ordered Will check hemoglobin A1c. A1c 5.8 Will check EKG in regard to previous history of paroxysmal atrial fibrillation. EKG sinus bradycardia Patient underwent toe amputation and deep tissue cultures 06/[address] Oneal Continue current management at this time will follow in a.m.
[2021-06-11 11:23] LABS: African American GFR (CKD) 128.3 (60.0-200.0); Albumin 3.5 g/dL (3.8-4.9); Albumin/Globulin Ratio 0.99 (1.60-3.17); BUN/Creat Ratio 23.7 Ratio (12.00-20.00); Calcium 8.8 mg/dL (8.7-10.3); Carbon Dioxide 24.8 mmol/L (21.6-31.8); Globulin 3.5 g/dL (1.6-3.3); Non-African American GFR(CKD) 110.7 (60.0-200.0); Potassium 4.9 mmol/L (3.5-5.5); Total Bilirubin 0.2 mg/dL (0.30-1.20)
[2021-06-11] MEDS ORDERED: LIDOCAINE 1% INJ 10MG/ML (20 ML MDV) SQ ONE (11:48)
[2021-06-11 12:21] LABS: Glucose,Whole Blood 96 mg/dL (75-99)
--- NOTE | 2021-06-11 13:10 | IR ---
EXAMINATION TYPE: IR cvc insert >=5 years DATE OF EXAM: 06/11/2021 COMPARISON: NONE CLINICAL HISTORY: Section Needs long-term intravenous access for antibiotics. PROCEDURE: Hand hygiene obtained with soap and water and alcohol-based hand rub. After informed consent, the skin overlying the left basilic vein was localized with ultrasound and no michelle to be compressible and patent. An ultrasound image was obtained and submitted on the patient's c jaffe. The overlying skin was prepped and draped and Lidocaine was used for local anesthesia. A skin khang was made with a scalpel. Access was gained to the vein under ultrasound guidance with a 21 gau ge needle and a 0.018 inch wire was advanced. Access site was dilated with Peel-Away sheath and cath eter tailored to the appropriate length and advanced such that the distal tip is at the cavoatrial ju nction. Spot image was obtained verifying placement. Catheter was fixed to the skin and a sterile d ressing was placed following hemostasis. Catheter was aspirated and flushed with saline. Patient wa s discharged in stable condition without complication.Maximal barrier technique is utilized. Ultraso und image is documented on the chart. Ultrasound used with sterile technique. Fluoro time and fluoroscopic images submitted to document procedure: 42 intraoperative C-arm images, 0.2 minutes fluoroscopy time IMPRESSION: STATUS POST ULTRASOUND AND FLUOROSCOPIC GUIDED PICC LINE PLACEMENT, READY FOR USE. THIS PROCEDURE WAS PERFORMED BY THE UNDERSIGNED.
[2021-06-11] MEDS: COLLAGENASE 250 UNIT/GM OINTMENT 30 GM TUBE TOPICAL SCH (16:26)
[2021-06-11 17:33] LABS: Glucose,Whole Blood 102 mg/dL (75-99)
[2021-06-11 20:05] LABS: Glucose,Whole Blood 107 mg/dL (75-99)
[2021-06-11] MEDS: VANCOMYCIN 2,250 MG in SODIUM CHLORIDE 0.9% 500 ML 500 ML IVPB SCH (20:19)
[2021-06-12 07:21] LABS: Glucose,Whole Blood 94 mg/dL (75-99)
[2021-06-12] MEDS: ENOXAPARIN 40 MG/0.4 ML SYRINGE SQ SCH (07:22)
[2021-06-12] MEDS: CHOLECALCIFEROL 25 MCG (1000 IU) TABLET PO SCH (07:22)
[2021-06-12] MEDS: VANCOMYCIN 2,250 MG in SODIUM CHLORIDE 0.9% 500 ML 500 ML IVPB SCH (07:22)
[2021-06-12] MEDS: PANTOPRAZOLE 40 MG TABLET PO SCH (07:23)
[2021-06-12] MEDS: LOSARTAN 50 MG TAB PO SCH (07:23)
[2021-06-12] MEDS: HYDROcodone/APAP 7.5-325MG 1 EACH TAB PO PRN (08:25)
[2021-06-12 11:32] LABS: Glucose,Whole Blood 102 mg/dL (75-99)
--- NOTE | 2021-06-12 11:34 | PN ---
PROGRESS NOTE This is a 55-year-old gentleman who has a history of infected callus bilaterally in the past. He came with gangrene changes in the left foot toe. He went for ray amputation along with excision of the callus on the left foot and also on the dorsal aspect of the right foot. The patient's culture came back hemolytic strep B and he is under the care of Infectious Disease for IV antibiotic. Today we changed the dressing. We are using Santyl cream. We will continue with local wound care and IV antibiotic. When the patient is discharged we will see him in the [facility]ound [facility]. We will use V.A.C. therapy to the left foot. MMODL / IJN: [id number] /
--- NOTE | 2021-06-12 11:35 | PN ---
PROGRESS NOTE DATE OF SERVICE: 06/11/2021 REASON FOR FOLLOWUP: Left third toe gangrene and underlying osteomyelitis. INTERVAL HISTORY: The patient is afebrile. The patient is breathing comfortably. The patient denies having any chest pain or cough. No nausea, vomiting, abdominal pain or any worsening pain in the left foot. PHYSICAL EXAMINATION: Blood pressure is 135/75 with a pulse of 53, temperature 98. He is 96% on room air. General description is a middle-aged male lying in bed in no distress. RESPIRATORY SYSTEM: Unlabored breathing. Clear to auscultation anteriorly. HEART: S1, S2. Regular rate and rhythm. ABDOMEN: Soft. No tenderness. Left foot is currently dressed. No obvious drainage on the dressing. LABS: Creatinine 0.6, white count 8.3. Local culture with Streptococcus , oxacillin- resistant, and culture pending. DIAGNOSTIC IMPRESSION AND PLAN: Patient with a left foot infected callus with underlying osteomyelitis and left third toe wet gangrene, status post amputation of the third toe. Patient is covered with vancomycin. Cefepime will be discontinued. Discharge antibiotic will be vancomycin, Pharmacy to dose, for a total of 6 weeks. Currently receiving q.12 with weekly monitoring of blood work and close outpatient followup. MMODL / IJN: [id number] /
[2021-06-12 12:08] VITALS: BP 153/87; PULSE 48; RESP 17; TEMP 97.9
--- NOTE | 2021-06-12 14:47 | PN ---
PROGRESS NOTE This patient had left foot second toe amputation and excision of callus on the plantar aspect of the left foot and right foot. The patient is on Santyl cream. Today we changed the dressing. Base of the wound is granulating. Use Santyl cream. Patient is under the care of Infectious Disease for IV antibiotic. Plan is to continue with IV antibiotic and local wound care. MMODL / IJN: [id number] /
[2021-06-12] MEDS: COLLAGENASE 250 UNIT/GM OINTMENT 30 GM TUBE TOPICAL SCH (15:54)
--- NOTE | 2021-06-13 10:53 | P.DS ---
Providers Date of admission: 06/05/21 19:51 Expected date of discharge: 06/12/21 Attending physician: Hi Pope Consults: 06/06/21 09:00 Consult Physician Routine Consulting Provider: Sudhakar Lisa Consult Reason/Comments: diabetic foot ulcer Do you want consulting provider notified?: Yes 06/06/21 23:56 Consult Physician Routine Consulting Provider: Kurt Oneal Consult Reason/Comments: right diabetic foot wound debridment and deep cultures Do you want consulting provider notified?: Yes Primary care physician: Davida Alexander [facility] Course: Diagnosis on discharge: Left foot ulcer with cellulitis status post toe amputation on 06/[address] Oneal Underlying history of diabetes mellitus, however patient was not on any medications at home for diabetes, his glucose on presentation was 121, will check hemoglobin A1c Underlying history of hypertension Underlying history of hyperlipidemia Underlying history of morbid obesity BMI was 43.8 Underlying history of gastroesophageal reflux disease Underlying history of paroxysmal atrial fibrillation, patient is not on any anticoagulation at the time of admission Previous history of methicillin-resistant Staphylococcus aureus infection in the left foot ulcer Hospital course: Javier Thayer, is a 55-year-old male who presented to [facility] emergency room with a chief complaint of non healing diabetic foot ulcerarea patient has a past medical history of atrial fibrillation, diabetes mellitus, GERD, hyperlipidemia, hypertension, current every day smoker and previous history of nonhealing ulcers to feet. He was evaluated in the emergency room vital examination on presentation revealed a temperature of 98.2 pulse 85 respiration 20 blood pressure 168/87 pulse ox 96% on room air Laboratory data revealed a white blood count of 15.4 hemoglobin 14.0 platelet count 368 sodium 137 potassium 4.3 chloride 103 CO2 24 BUN 27 creatinine 1.0 Coronavirus PCR was negative Testing in the emergency room revealed left foot x-ray revealed evidence of subluxation of the second and third MP joints and the fifth MP joint and evide nce of osteomyelitis of the fifth metatarsal head. Patient was admitted to medical floor for further evaluation and treatment, infectious disease consultation was requested On 06/07/2021 Patient was seen and examined on the medical floor, he is alert and oriented x 3 in no distress, he denies any complaints there is no fever or chills no headache or dizziness no chest pain no shortness of breath no palpitation no cough no nausea or vomiting no abdominal pain no diarrhea no blood in the stools no burning with urination no frequency or urgency and no hematuria, there is no weakness or numbness in any of the extremities no change in vision speech or gait. On 06/08/2023 patient is alert and oriented 3. Patient to undergo amputation of the toes and excision of callus bilateral. At this time patient denies chest pain or shortness of breath. Patient denies nausea vomiting or diarrhea. Patient denies any urinary burning or frequency On 06/09/2021 patient was seen and examined on the medical floor he is alert and oriented 3 in no apparent distress he underwent toe amputation and deep tissue cultures yesterday, he is maintained on IV antibiotics and is followed by infectious disease and vascular surgery, he is stating that his pain is well controlled, he denies any other symptoms no chest pain no shortness of breath no cough no nausea or vomiting no abdominal pain no diarrhea and no urinary symptoms On 06/10/2021 patient is alert and oriented 3. Patient is currently postop day 2 from toe amputation deep tissue culture collection. Culture still pending. Patient remains on cefepime and vancomycin. Awaiting final culture for antibiotic recommendation upon discharge. At this time patient denies chest pain or shortness of breath. Patient denies any urinary burning or frequency. Patient denies nausea vomiting or diarrhea patient has remained afebrile On 06/11/2021 patient's alert and oriented 3. Patient is postop day 3. PICC line has been ordered per infectious disease. Ultrasound of lower extremity also ordered. Awaiting final culture for antibiotic recommendation for discharge. At this time patient denies chest pain or shortness breath. Patient denies nausea vomiting or diarrhea. Patient denies any urinary burning or frequency On 06/12/2021 Patient was seen and examined on the medical floor, he is alert and oriented x 3 in no distress, he denies any complaints there is no fever or chills no headache or dizziness no chest pain no shortness of breath no palpitation no cough no nausea or vomiting no abdominal pain no diarrhea no blood in the stools no burning with urination no frequency or urgency and no hematuria, there is no weakness or numbness in any of the extremities no change in vision speech or gait. Patient is stable for discharge he has a PICC line in, he will have IV antibiotic for 6 weeks, and will be followed by Dr. Lisa infectious disease Patient Condition at Discharge: Good Plan - Discharge Summary Discharge Rx Participant: No New Discharge Prescriptions: New HYDROcodone/APAP 7.5-325MG [[place] 7.5-325] 1 each PO Q6HR PRN tab PRN Reason: Pain Collagenase [Santyl] 1 applic TOPICAL DAILY gm metroNIDAZOLE [Flagyl] 500 mg PO Q8HR #90 tab Vancomycin 2,250 mg IVPB Q12H each Continue hydroCHLOROthiazide [Hydrodiuril] 25 mg PO DAILY Omeprazole 20 mg PO DAILY Losartan Potassium 100 mg PO DAILY Cholecalciferol (Vitamin D3) [Vitamin D3 (125 MCG = 5,000 IU)] 125 mcg PO DAILY Discontinued Moxifloxacin HCl [Avelox] 400 mg PO DAILY Discharge Medication List hydroCHLOROthiazide [Hydrodiuril] 25 mg PO DAILY 06/27/16 [History] Omeprazole 20 mg PO DAILY 06/16/20 [History] Losartan Potassium 100 mg PO DAILY 10/17/20 [History] Cholecalciferol (Vitamin D3) [Vitamin D3 (125 MCG = 5,000 IU)] 125 mcg PO DAILY 06/05/21 [History] Collagenase [Santyl] 1 applic TOPICAL DAILY gm 06/12/21 [Rx] HYDROcodone/APAP 7.5-325MG [[place] 7.5-325] 1 each PO Q6HR PRN tab 06/12/21 [Rx] Vancomycin 2,250 mg IVPB Q12H each 06/12/21 [Rx] metroNIDAZOLE [Flagyl] 500 mg PO Q8HR #90 tab 06/12/21 [Rx] Follow up Appointment(s)/Referral(s): Davida Alexander MD [Primary Care Provider] - 06/19/21 11:15 am Kurt Oneal MD [STAFF PHYSICIAN] - 06/18/21 1:45 pm (patient to be seen in the wound clinic by ) Sudhakar Lisa MD [STAFF PHYSICIAN] - 1 Week (they will make appt for the patient and call with date and time.) [facility] Visiting Nurse, [NON-STAFF] - 1 Week Patient Instructions/Handouts: Metronidazole (By mouth), Vancomycin (By injection), Collagenase (On the skin), Osteomyelitis (DC), Peripherally Inserted Central Catheters and Midline Catheters (DC), Toe Amputation (DC) Activity/Diet/Wound Care/Special Instructions: Pt needs to follow up with Dr. Oneal in Wound Clinic Discharge Disposition: HOME SELF-CARE
== END 2021-06-12 16:06 | disposition home or self-care (01) | DRG 256 ==
LOC: EC 16:56 → 5NMEDONC 19:51
PROVIDERS: ADMIT Internal Medicine; ATTEND Internal Medicine
PROC: 0JBR0ZZ Excision of Left Foot Subcutaneous Tissue and Fascia, Open Approach (ICD-10-PCS; 2021-06-08)
PROC: 0Y6U0Z0 Detachment at Left 3rd Toe, Complete, Open Approach (ICD-10-PCS; principal; 2021-06-08 08:30)
PROC: 02HV33Z Insertion of Infusion Device into Superior Vena Cava, Percutaneous Approach (ICD-10-PCS; 2021-06-11)
DX: E11.52 Type 2 diabetes mellitus with diabetic peripheral angiopathy with gangrene (principal); M86.9 Osteomyelitis, unspecified; L03.116 Cellulitis of left lower limb; Z68.41 Body mass index [BMI] 40.0-44.9, adult; E11.69 Type 2 diabetes mellitus with other specified complication; E11.621 Type 2 diabetes mellitus with foot ulcer; E78.5 Hyperlipidemia, unspecified; F17.200 Nicotine dependence, unspecified, uncomplicated; I10 Essential (primary) hypertension; I48.0 Paroxysmal atrial fibrillation; L97.529 Non-pressure chronic ulcer of other part of left foot with unspecified severity; L84 Corns and callosities; Z20.822 Contact with and (suspected) exposure to COVID-19; J40 Bronchitis, not specified as acute or chronic; Z79.899 Other long term (current) drug therapy; Z82.3 Family history of stroke; Z82.49 Family history of ischemic heart disease and other diseases of the circulatory system; Z86.14 Personal history of Methicillin resistant Staphylococcus aureus infection; K21.9 Gastro-esophageal reflux disease without esophagitis; E66.01 Morbid (severe) obesity due to excess calories
CPT/HCPCS: 36415; 36573; 80053; 80202; 83036; 85025; 85652; 86140; 87040; 87070; 87075; 87077; 87186; 87205; 87635; 88304; 88311; 99284

== ENCOUNTER 2022-01-07 17:23 | Emergency (ER) | payer BC ==
[2022-01-07] MEDS ORDERED: ACETAMINOPHEN TAB 500 MG TAB PO STA (20:25)
--- NOTE | 2022-01-07 20:28 | ED ---
General Adult HPI - General Chief complaint: Fever Stated complaint: Fever Time Seen by Provider: 01/07/22 20:15 Source: patient, family, RN notes reviewed, old records reviewed Mode of arrival: wheelchair Limitations: no limitations - History of Present Illness Initial comments: This is a well-appearing 56-year-old male, in no acute distress, complaining of chills today and took his temp and found to be 104. His only complaint is a headache. Patient states he did not take any Tylenol or Motrin. He came to the emergency room for covid test. He has a history of A. fib, diabetes, GERD, chronic back pain and hypertension. He is under the treatment of infectious disease doctor for a left toe amputation with continued wound care. He states that he has no drainage or pain in his feet. He denies any joint pain, no abdominal pain, no sore throat no cough no nausea vomiting or diarrhea. His fever is 98.3 at this time, states fever resolved on its own. -: days(s) (1) Location: head Severity scale (1-10): 8 Quality: aching Consistency: intermittent Associated Symptoms: fever/chills Treatments Prior to Arrival: none - Related Data Home Medications Medication Instructions Recorded Confirmed hydroCHLOROthiazide [Hydrodiuril] 25 mg PO DAILY 06/27/16 06/05/21 Omeprazole 20 mg PO DAILY 06/16/20 06/05/21 Losartan Potassium 100 mg PO DAILY 10/17/20 06/05/21 Cholecalciferol (Vitamin D3) 125 mcg PO DAILY 06/05/21 06/05/21 [Vitamin D3 (125 MCG = 5,000 IU)] Previous Rx's Medication Instructions Recorded Collagenase [Santyl Ointment] 1 applic TOPICAL DAILY gm 06/12/21 HYDROcodone/APAP 7.5-325MG [[place] 1 each PO Q6HR PRN tab 06/12/21 7.5-325] Vancomycin 2,250 mg IVPB Q12H each 06/12/21 metroNIDAZOLE [Flagyl] 500 mg PO Q8HR #90 tab 06/12/21 Allergies Allergy/AdvReac Type Severity Reaction Status Date / Time No Known Allergies Allergy Verified 06/05/21 18:23 Review of Systems ROS Statement: Those systems with pertinent positive or pertinent negative responses have been documented in the HPI. ROS Other: All systems not noted in ROS Statement are negative. Past Medical History Past Medical History: Atrial Fibrillation, Diabetes Mellitus, GERD/Reflux, Hyperlipidemia, Hypertension Additional Past Medical History / Comment(s): Occasional low back pain, paroxysmal atrial fibrillation, morbid obesity with BMI 43.8 History of Any Multi-Drug Resistant Organisms: None Reported Date of last positivie culture/infection: 09/15/20 MDRO Source:: foot Past Surgical History: Orthopedic Surgery Additional Past Surgical History / Comment(s): L BICEP SX WITH METAL PLATE, R ARM BENIGN CYST, 2015 COLONOSCOPY WITH BENIGN POLYP Past Anesthesia/Blood Transfusion Reactions: No Reported Reaction Past Psychological History: No Psychological Hx Reported Smoking Status: Current every day smoker Past Alcohol Use History: Occasional Past Drug Use History: None Reported - Past Family History Mother Family Medical History: No Reported History Additional Family Medical History / Comment(s): MOTHER IS HEALTHY Father Family Medical History: CVA/TIA, Myocardial Infarction ([place]) Additional Family Medical History / Comment(s): FATHER HAD A CVA AND THEN OF A TN AT THE AGE OF 63 YRS. General Exam Limitations: no limitations General appearance: alert, in no apparent distress Head exam: Present: atraumatic, normocephalic Eye exam: Present: PERRL. Absent: scleral icterus, conjunctival injection, nystagmus, periorbital swelling, periorbital tenderness ENT exam: Present: normal exam, normal oropharynx, mucous membranes moist Neck exam: Present: normal inspection, full ROM. Absent: tenderness, meningismus, lymphadenopathy Respiratory exam: Present: wheezes (Bilateral anterior). Absent: rales, rhonchi, stridor, chest wall tenderness, accessory muscle use, decreased breath sounds Cardiovascular Exam: Present: regular rate GI/Abdominal exam: Present: soft, distended, normal bowel sounds. Absent: tenderness, guarding, rebound, rigid Extremities exam: Present: normal inspection, normal capillary refill, other (Bilateral calluses that are dry to the ball of both feet). Absent: tenderness, pedal edema Back exam: Present: normal inspection. Absent: tenderness, CVA tenderness (R), CVA tenderness (L), rash noted Neurological exam: Present: alert, oriented X3 Psychiatric exam: Present: normal affect, normal mood Skin exam: Present: warm, dry, normal color. Absent: cyanosis, diaphoretic, petechiae, pallor Course Vital Signs 05/02/22 05/02/22 17:26 21:57 Temperature 98.3 F 99 F Pulse Rate 91 67 Respiratory 18 16 Rate Blood Pressure 149/84 128/62 O2 Sat by Pulse 98 98 Oximetry Medical Decision Making - Medical Decision Making Patient presents with fever and chills today, denies any pain, shortness of breath, cough, or chest pain. Denies abdominal pain, no difficulty urinating, no testicular pain. Patient states he has no nausea vomiting or diarrhea. He is being treated with wound care for wounds to the bottom of both feet and has an appointment tomorrow. I did examine both feet and found no erythema or purulent drainage . Patient did not have a fever in the emergency room today. Chest x-ray is negative for any acute process. Influenza and coronavirus swabs are negative. Labs are unremarkable. At this time I do not have a source for his fever however there is no evidence of fever in the emergency room. We did discuss the possibility that his thermometer may not be functioning properly in the absence of any other symptoms. Patient was directed to return to the emergency room with any new or concerning symptoms. Follow-up with his primary care doctor this week and keep his scheduled appointment with his wound care doctor tomorrow. Patient is agreeable to this plan of care. Case discussed with Dr. Jeff - Lab Data Result diagrams: 01/07/22 20:42 01/07/22 20:42 Lab Results 01/07/22 01/07/22 01/07/22 Range/Units 17:31 20:42 20:42 WBC 10.1 (3.8-10.6) k/uL RBC 4.88 (4.30-5.90) m/uL Hgb 15.0 (13.0-17.5) gm/dL Hct 43.9 (39.0-53.0) % MCV 89.9 D (80.0-100.0) fL MCH 30.6 (25.0-35.0) pg MCHC 34.1 (31.0-37.0) g/dL RDW 15.3 (11.5-15.5) % Plt Count 274 (150-450) k/uL MPV 6.9 Neutrophils % 72 % Lymphocytes % 20 % Monocytes % 5 % Eosinophils % 1 % Basophils % 1 % Neutrophils # 7.2 (1.3-7.7) k/uL Lymphocytes # 2.0 (1.0-4.8) k/uL Monocytes # 0.5 (0-1.0) k/uL Eosinophils # 0.1 (0-0.7) k/uL Basophils # 0.1 (0-0.2) k/uL Sodium 132 L (137-145) mmol/L Potassium 3.9 (3.5-5.1) mmol/L Chloride 98 (98-107) mmol/L Carbon Dioxide 23 (22-30) mmol/L Anion Gap 11 mmol/L BUN 21 H (9-20) mg/dL Creatinine 1.12 (0.66-1.25) mg/dL Est GFR (CKD-EPI)AfAm 85 (>60 ml/min/1.73 sqM) Est GFR (CKD-EPI)NonAf 73 (>60 ml/min/1.73 sqM) Glucose 106 H (74-99) mg/dL Calcium 8.5 (8.4-10.2) mg/dL Total Bilirubin 0.6 (0.2-1.3) mg/dL AST 31 (17-59) U/L ALT 30 (4-49) U/L Alkaline Phosphatase 73 (38-126) U/L Total Protein 8.1 (6.3-8.2) g/dL Albumin 4.1 (3.5-5.0) g/dL Coronavirus (PCR) Not Detected (Not Detectd) Influenza Type A RNA (Not Detectd) Influenza Type B (PCR) (Not Detectd) 01/07/22 Range/Units 20:42 WBC (3.8-10.6) k/uL RBC (4.30-5.90) m/uL Hgb (13.0-17.5) gm/dL Hct (39.0-53.0) % MCV (80.0-100.0) fL MCH (25.0-35.0) pg MCHC (31.0-37.0) g/dL RDW (11.5-15.5) % Plt Count (150-450) k/uL MPV Neutrophils % % Lymphocytes % % Monocytes % % Eosinophils % % Basophils % % Neutrophils # (1.3-7.7) k/uL Lymphocytes # (1.0-4.8) k/uL Monocytes # (0-1.0) k/uL Eosinophils # (0-0.7) k/uL Basophils # (0-0.2) k/uL Sodium (137-145) mmol/L Potassium (3.5-5.1) mmol/L Chloride (98-107) mmol/L Carbon Dioxide (22-30) mmol/L Anion Gap mmol/L BUN (9-20) mg/dL Creatinine (0.66-1.25) mg/dL Est GFR (CKD-EPI)AfAm (>60 ml/min/1.73 sqM) Est GFR (CKD-EPI)NonAf (>60 ml/min/1.73 sqM) Glucose (74-99) mg/dL Calcium (8.4-10.2) mg/dL Total Bilirubin (0.2-1.3) mg/dL AST (17-59) U/L ALT (4-49) U/L Alkaline Phosphatase (38-126) U/L Total Protein (6.3-8.2) g/dL Albumin (3.5-5.0) g/dL Coronavirus (PCR) (Not Detectd) Influenza Type A RNA Not Detected (Not Detectd) Influenza Type B (PCR) Not Detected (Not Detectd) Disposition Clinical Impression: Fever and chills Disposition: HOME SELF-CARE Condition: Good Instructions (If sedation given, give patient instructions): Fever in Adults (ED) Additional Instructions: At this time I do not have a cause for the fever that you had at home today. You did not have a fever in the emergency room. Your labs and x-ray show no area of concern. Keep your appointment with the wound care doctor tomorrow. Follow-up with the primary care doctor this week. Return to the emergency room with any new or concerning symptoms including difficulty breathing, chest pain, abdominal pain or persistent nausea vomiting. Is patient prescribed a controlled substance at d/c from ED?: No Referrals: Davida Alexander MD [Primary Care Provider] - 1-2 days Time of Disposition: 21:59
[2022-01-07 20:59] LABS: Basophils # (A) 0.1 k/uL (0-0.2); Basophils % (A) 1 %; Eosinophils # (A) 0.1 k/uL (0-0.7); Eosinophils % (A) 1 %; HCT 43.9 % (39.0-53.0); Lymphocytes % (A) 20 %; MCH 30.6 pg (25.0-35.0); MCHC 34.1 g/dL (31.0-37.0); Mean Platelet Volume 6.9; Monocytes # (A) 0.5 k/uL (0-1.0); Monocytes % (A) 5 %; Neutrophils # (A) 7.2 k/uL (1.3-7.7); Neutrophils % (A) 72 %; Platelet Count 274 k/uL (150-450); RBC 4.88 m/uL (4.30-5.90); RDW 15.3 % (11.5-15.5); WBC 10.1 k/uL (3.8-10.6)
[2022-01-07 21:01] LABS: MCV 89.9 fL (80.0-100.0)
--- NOTE | 2022-01-07 21:09 | XR ---
EXAMINATION TYPE: XR chest 2V DATE OF EXAM: 01/07/2022 8:57 PM COMPARISON: Chest radiographs from 11/10/2018 TECHNIQUE: XR chest 2V Frontal and lateral views of the chest. CLINICAL INDICATION:Male, 56 years old with history of fever; FINDINGS: Lungs/Pleura: There is no evidence of pleural effusion, focal consolidation, or pneumothorax. Pulmonary vascularity: Unremarkable. Heart/mediastinum: Cardiomediastinal silhouette is unremarkable. Musculoskeletal: No acute osseous pathology. IMPRESSION: No acute cardiopulmonary disease/process.
[2022-01-07 21:17] LABS: Albumin 4.1 g/dL (3.5-5.0); Calcium 8.5 mg/dL (8.4-10.2); Potassium 3.9 mmol/L (3.5-5.1); Total Bilirubin 0.6 mg/dL (0.2-1.3); Total Protein 8.1 g/dL (6.3-8.2)
[2022-01-07 21:58] VITALS: BP 128/62; PULSE 67; RESP 16; TEMP 99
== END 2022-01-07 22:04 | disposition home or self-care (01) ==
LOC: EC 17:23
DX: R50.9 Fever, unspecified (principal); E11.9 Type 2 diabetes mellitus without complications; I10 Essential (primary) hypertension; E78.5 Hyperlipidemia, unspecified; I48.0 Paroxysmal atrial fibrillation; K21.9 Gastro-esophageal reflux disease without esophagitis; Z20.822 Contact with and (suspected) exposure to COVID-19; F17.200 Nicotine dependence, unspecified, uncomplicated; Z79.899 Other long term (current) drug therapy
CPT/HCPCS: 36415; 71046; 80053; 85025; 87502; 87635; 99284

== ENCOUNTER 2022-06-25 13:10 | Day surgery (SDC) | payer BC ==
[2022-06-25 14:18] VITALS: BP 140/67; RESP 16
--- NOTE | 2022-06-25 14:35 | IR ---
PICC LINE exchanged over a guidewire under fluoroscopy: HISTORY: Pre-existing PICC line was partially removed and request for exchange for new PICC line PROCEDURE: fluoroscopic exchange of PICC . COMPLICATIONS: None ANESTHESIA: 1. 1% Lidocaine locally. FINDINGS/TECHNIQUE: The procedure was explained to the patient. The risks, complications, benefits and alternatives were discussed and any questions were answered. Informed consent was obtained. The patient was placed supine on the fluoroscopic table and prepped and draped in the usual sterile fash ion. Existing PICC line was cut and a 0.018 guidewire was passed through the needle catheter. A 4-F s johnnie was placed over the guidewire. The guidewire and dilator were removed and a 4-F. PICC line was placed through the sheath with the tip at the level of the SVC. The sheath was removed, the cathete r was flushed and sutured into position. The patient was stable throughout the procedure and remaine d stable upon discharge from the Department of Radiology. All elements of the maximal barrier technique were utilized. FLUOROSCOPY TIME: 0.1 minutes and one image submitted IMPRESSION: Successful PICC exchange under fluoroscopic guidance.
== END 2022-06-25 14:05 | disposition home health service (06) ==
LOC: CATHCVL 13:10
PROVIDERS: ATTEND Radiology Diagnostic Radiology
DX: T82.514D Breakdown (mechanical) of infusion catheter, subsequent encounter (principal); Z45.2 Encounter for adjustment and management of vascular access device
CPT/HCPCS: 36573; C1751; C1769

== ENCOUNTER → 2022-07-04 | Outpatient (CLI) | payer BC ==
--- NOTE | 2022-07-04 15:34 | MR ---
EXAMINATION TYPE: MR foot RT wo/w con DATE OF EXAM: 07/04/2022 COMPARISON: CT 04/19/2022 and radiographs 04/18/2022, 05/28/2021 HISTORY: 56-year-old male M86.171, Right foot osteomyelitis, evaluate sequestrum of first metatarsal head Technique: Multiplanar, multisequence images of the right foot were obtained before and after adminis tration of 14 mL intravenous Gadavist gadolinium contrast. FINDINGS: Focal osteoarthritic change with subchondral edema and overlying cartilage irregularity along the mid lateral talar dome. Corresponding degenerative change along the tibial aspect of the joint. Nonspeci fic small to moderate posterior tibiotalar and subtalar joint effusions. Sinus Tarsi is clear. Achill es tendon and plantar fascia are intact. Degenerative subchondral signal change scattered within the midfoot, particularly medial plantar aspe ct of the first metatarsal base, for TMT joint, and fourth and fifth intermetatarsal joint. There is a soft tissue ulcer along the ball of the foot below the first ray. Ulcerative changes exten d to contact the bipartite tibial sesamoid. There is edematous change within the bipartite tibial ses amoids and corresponding bone marrow replacement of the proximal ossicle. Corresponding postcontrast enhancement. No discrete abscess is seen. The metatarsal head itself appears to be maintained. Hammertoes are noted. There appears to be another ulcer along the lateral wall of the foot but no suspicious underlying mar row signal changes. No abscess is seen. IMPRESSION: 1. Wound along the medial ball of the foot. Signal changes are compatible with underlying osteomyelit is of the bipartite tibial sesamoid. No discrete abnormality of the first metatarsal head itself. 2. Additional wound versus scar along the lateral ball of the foot. No underlying osteomyelitis here. 3. Osteoarthritic change at the first and fourth TMT joint as well as the fourth-fifth intermetatarsa l joint. 4. Some focal degenerative change along the mid lateral tibiotalar joint.
== END | disposition home or self-care (01) ==
LOC: RADMRIMAIN 10:27
PROVIDERS: ATTEND Internal Medicine Infectious Disease
DX: M19.071 Primary osteoarthritis, right ankle and foot (principal); M86.171 Other acute osteomyelitis, right ankle and foot
CPT/HCPCS: 73720; A9585

== ENCOUNTER → 2022-08-08 | Outpatient (CLI) | payer BC ==
--- NOTE | 2022-08-08 09:54 | CTL ---
EXAMINATION TYPE: CT Low Dose Lung DATE OF EXAM ORDERED: 08/08/2022 COMPARISON: None HISTORY: . Low Dose CT Lung Screening CT DLP: 169.[address] CTDI: 4.3 mGy IV CONTRAST USED: None. SCREENING VISIT: First visit COMPARISON: None. TECHNIQUE: Low dose computed tomography scan was performed through the chest at 1 millimeter thick se ctions and reconstructed images in the coronal plane at [address] DIAGNOSTIC QUALITY: Satisfactory FINDINGS: LUNG NODULES: Not presentLeft lung: no nodules identified.Right lung: no nodules identified. LUNGS: COPD: Severity: None Fibrosis: Severity:None Lymph nodes: None Other findings: None RIGHT PLEURAL SPACE: Effusion: None Calcification: None Thickening: None Pneumothorax: None LEFT PLEURAL SPACE: Effusion: None Calcification: None Thickening: None Pneumothorax: None HEART: Heart Size: Mildly enlarged Coronary calcification: Mild Pericardial effusion: None OTHER FINDINGS: Upper abdomen: No significant abnormality Bony thorax: Degenerative changes Supraclavicular region: No significant abnormalityOther: No significant abnormalityI IMPRESSION: No nodules identified with certainty. FOLLOW UP CT CHEST RECOMMENDATION: Follow-up screening in one year CT LUNG RAD: LUNG RAD CATEGORY negative category 1
== END | disposition home or self-care (01) ==
LOC: RADCTMAIN 09:20
PROVIDERS: ATTEND Family Medicine
DX: Z12.2 Encounter for screening for malignant neoplasm of respiratory organs (principal); Z87.891 Personal history of nicotine dependence
CPT/HCPCS: 71271

== ENCOUNTER 2022-09-22 18:52 | Emergency (ER) | payer BC ==
[2022-09-22 19:32] VITALS: BP 129/80; PULSE 68; RESP 17; TEMP 98
--- NOTE | 2022-09-22 20:30 | ED ---
General Adult HPI - General Chief complaint: Recheck/Abnormal Lab/Rx Stated complaint: leg/cast problems Time Seen by Provider: 09/22/22 19:34 Source: patient Mode of arrival: wheelchair Limitations: no limitations - History of Present Illness Initial comments: This is a 57-year-old male with a past medical history including diabetes presents emergency department for cast removal. The patient stated that he had a cast placed on the right lower extremity at the tying in machine operator's office last week and was instructed that if he had discomfort to go to the emergency department to have removed. The cast is only placed for precautionary measures to protect diabetic wounds on the bottom of his feet. The patient was to follow-up with his tying in machine operator on Friday however he stated that he had continued pain and discomfort in the right lower extremity over the cast and could not sleep because of it. The patient denied any numbness or tingling in the legs but stated that he had continued discomfort. The patient denied any other complaints at this time. - Related Data Home Medications Medication Instructions Recorded Confirmed hydroCHLOROthiazide [Hydrodiuril] 25 mg PO DAILY 06/27/16 06/25/22 Omeprazole 20 mg PO DAILY 06/16/20 06/25/22 Losartan Potassium 100 mg PO DAILY 10/17/20 06/25/22 Cholecalciferol (Vitamin D3) 125 mcg PO DAILY 06/05/21 06/25/22 [Vitamin D3 (125 MCG = 5,000 IU)] Apixaban [Eliquis] 5 mg PO BID 04/18/22 06/25/22 Semaglutide [Ozempic] 1 mg SQ 04/18/22 06/25/22 amLODIPine [Norvasc] 10 mg PO DAILY 04/18/22 06/25/22 metFORMIN HCL ER [Glucophage XR] 500 mg PO DAILY 04/18/22 06/25/22 Meropenem [Merrem] 2 gm IVPB Q8H 06/25/22 06/25/22 Allergies Allergy/AdvReac Type Severity Reaction Status Date / Time No Known Allergies Allergy Verified 09/22/22 19:32 Review of Systems ROS Statement: Those systems with pertinent positive or pertinent negative responses have been documented in the HPI. ROS Other: All systems not noted in ROS Statement are negative. Past Medical History Past Medical History: Atrial Fibrillation, Diabetes Mellitus, GERD/Reflux, Hyperlipidemia, Hypertension Additional Past Medical History / Comment(s): Occasional low back pain, paroxysmal atrial fibrillation, morbid obesity with BMI 43.8 History of Any Multi-Drug Resistant Organisms: None Reported, MRSA Date of last positivie culture/infection: 09/15/20 MDRO Source:: foot Past Surgical History: Orthopedic Surgery Additional Past Surgical History / Comment(s): L BICEP SX WITH METAL PLATE, R ARM BENIGN CYST, 2014 COLONOSCOPY WITH BENIGN POLYP Past Anesthesia/Blood Transfusion Reactions: No Reported Reaction Past Psychological History: No Psychological Hx Reported Smoking Status: Current every day smoker Past Alcohol Use History: Occasional Past Drug Use History: None Reported - Past Family History Mother Family Medical History: No Reported History Additional Family Medical History / Comment(s): MOTHER IS HEALTHY Father Family Medical History: CVA/TIA, Myocardial Infarction ([place]) Additional Family Medical History / Comment(s): FATHER HAD A CVA AND THEN OF A DE AT THE AGE OF 63 YRS. General Exam Limitations: no limitations General appearance: alert, in no apparent distress Head exam: Present: atraumatic, normocephalic, normal inspection Eye exam: Present: normal appearance, PERRL Pupils: Present: normal accommodation ENT exam: Present: normal exam, normal oropharynx, mucous membranes moist Neck exam: Present: normal inspection, full ROM Respiratory exam: Present: normal lung sounds bilaterally Cardiovascular Exam: Present: regular rate, normal rhythm, normal heart sounds GI/Abdominal exam: Present: soft, normal bowel sounds Extremities exam: Present: normal inspection, full ROM, normal capillary refill, other (Cast noted to the right lower extremity) Back exam: Present: normal inspection, full ROM Neurological exam: Present: alert, oriented X3, CN II-XII intact Psychiatric exam: Present: normal affect, normal mood Skin exam: Present: warm, dry Course Vital Signs 09/22/22 19:27 Temperature 98 F Pulse Rate 68 Respiratory 17 Rate Blood Pressure 129/80 O2 Sat by Pulse 96 Oximetry Medical Decision Making - Medical Decision Making Was pt. sent in by a medical professional or institution (, PA, FLOW COORDINATOR, urgent care, hospital, or penitentiary...) When possible be specific @ -No Did you speak to anyone other than the patient for history (EMS, parent, family, police, friend...)? What history was obtained from this source @ -No Did you review nursing and triage notes (agree or disagree)? Why? @ -I reviewed and agree with nursing and triage notes Were old charts reviewed (outside hosp., previous admission, EMS record, old EKG, old radiological studies, urgent care reports/EKG's, penitentiary records)? Report findings @ -No old charts were reviewed Differential Diagnosis (chest pain, altered mental status, abdominal pain women, abdominal pain men, vaginal bleeding, weakness, fever, dyspnea, syncope, headache, dizziness, GI bleed, back pain, seizure, CVA, palpatations, mental health)? @ -not applicable EKG interpreted by me (3pts min.). @ -None X-rays interpreted by me (1pt min.). @ -None done CT interpreted by me (1pt min.). @ -None done U/S interpreted by me (1pt. min.). @ -None done What testing was considered but not performed or refused? (CT, X-rays, U/S, labs)? Why? @ -None What meds were considered but not given or refused? Why? @ -None Did you discuss the management of the patient with other professionals (professionals i.e. , PA, FLOW COORDINATOR, lab, RT, psych nurse, social work coordinator, instructor business education, teacher, transport corps officer, shoe caser)? Give summary @ -No Was smoking cessation discussed for >3mins.? @ -No Was critical care preformed (if so, how long)? @ -No Were there social determinants of health that impacted care today? How? (Homelessness, low income, unemployed, alcoholism, drug addiction, transportation, low edu. Level, literacy, decrease access to med. care, assisted, rehab)? @ -No Was there de-escalation of care discussed even if they declined (Discuss DNR or withdrawal of care, Hospice)? DNR status @ -No What co-morbidities impacted this encounter? (DM, HTN, Smoking, COPD, CAD, Cancer, CVA, ARF, Chemo, Hep., AIDS, mental health diagnosis, sleep apnea, morbid obesity)? @ -Diabetes Was patient admitted / discharged? Hospital course, mention meds given and route, prescriptions, significant lab abnormalities, going to OR and other pertinent info. @ -The patient was seen and evaluated in the emergency department. Physical exam, the patient was resting in bed. The patient had no distress vital signs were stable. The patient's request to remove the cast was granted in the cast was removed without any issues. The patient was to follow-up with his tying in machine operator as previously scheduled on Friday and to report back to the emergency department if he any worsening pain or distress. The patient was agreeable to this and all his questions were answered. The patient was discharged home in stable condition. Undiagnosed new problem with uncertain prognosis? @ -No Drug Therapy requiring intensive monitoring for toxicity (Heparin, Nitro, Insulin, Cardizem)? @ -No Were any procedures done? @ -No Diagnosis/symptom? @ -Cast removal Acute, or Chronic, or Acute on Chronic? @ -Acute Uncomplicated (without systemic symptoms) or Complicated (systemic symptoms)? @ -Uncomplicated Side effects of treatment? @ -No Exacerbation, Progression, or Severe Exacerbation? @ -No Poses a threat to life or bodily function? How? (Chest pain, [place], [place], pneumonia, PE, COPD, DKA, ARF, appy, cholecystitis, CVA, Diverticulitis, Homicidal, Suici riki, threat to staff... and all critical care pts) @ -No Disposition Clinical Impression: Cast removal Disposition: HOME SELF-CARE Condition: Stable Instructions (If sedation given, give patient instructions): Cast Care (ED) Is patient prescribed a controlled substance at d/c from ED?: No Referrals: Davida Alexander MD [Primary Care Provider] - 1-2 days Time of Disposition: 20:15
== END 2022-09-22 20:34 | disposition home or self-care (01) ==
LOC: EC 18:52
DX: Z47.89 Encounter for other orthopedic aftercare (principal); I48.91 Unspecified atrial fibrillation; E11.9 Type 2 diabetes mellitus without complications; K21.9 Gastro-esophageal reflux disease without esophagitis; I10 Essential (primary) hypertension; F17.200 Nicotine dependence, unspecified, uncomplicated; Z79.01 Long term (current) use of anticoagulants; Z79.84 Long term (current) use of oral hypoglycemic drugs; Z79.899 Other long term (current) drug therapy
CPT/HCPCS: 99282

== ENCOUNTER 2022-11-29 20:01 | Observation (INO) | payer BC ==
[2022-11-29] MEDS ORDERED: SODIUM CHLORIDE 0.9% 1,000 ML IV ONE (20:22)
[2022-11-29] MEDS ORDERED: VANCOMYCIN IV PER PHARMACY 1 EACH MISC MISCELLANE PRN (20:22)
[2022-11-29] MEDS ORDERED: VANCOMYCIN 2,000 MG in SODIUM CHLORIDE 0.9% 500 ML 500 ML IVPB STA (20:26)
[2022-11-29 21:19] LABS: Basophils # (A) 0.1 k/uL (0-0.2); Basophils % (A) 0 %; Eosinophils # (A) 0.3 k/uL (0-0.7); Eosinophils % (A) 2 %; HCT 41.1 % (39.0-53.0); HGB 13.8 gm/dL (13.0-17.5); Lymphocytes # (A) 2.2 k/uL (1.0-4.8); Lymphocytes % (A) 19 %; MCH 29.3 pg (25.0-35.0); MCHC 33.5 g/dL (31.0-37.0); MCV 87.3 fL (80.0-100.0); Mean Platelet Volume 7.1; Monocytes # (A) 0.4 k/uL (0-1.0); Monocytes % (A) 4 %; Neutrophils # (A) 8.8 k/uL (1.3-7.7); Neutrophils % (A) 74 %; Platelet Count 278 k/uL (150-450); RBC 4.71 m/uL (4.30-5.90); RDW 14.1 % (11.5-15.5)
[2022-11-29 21:28] LABS: ALT 47 U/L (4-49); AST 36 U/L (17-59); African American GFR (CKD) >90 (>60 ml/min/1.73 sqM); Albumin 4.2 g/dL (3.5-5.0); Alkaline Phosphatase 72 U/L (38-126); Anion Gap 10 mmol/L; Blood Urea Nitrogen 22 mg/dL (9-20); Calcium 9.2 mg/dL (8.4-10.2); Carbon Dioxide 26 mmol/L (22-30); Chloride 102 mmol/L (98-107); Glucose 140 mg/dL (74-99); Non-African American GFR(CKD) 81 (>60 ml/min/1.73 sqM); Potassium 3.8 mmol/L (3.5-5.1); Sodium 138 mmol/L (137-145); Total Bilirubin 0.3 mg/dL (0.2-1.3); Total Protein 7.5 g/dL (6.3-8.2)
--- NOTE | 2022-11-29 21:31 | XR ---
EXAMINATION TYPE: XR foot complete RT DATE OF EXAM: 11/29/2022 COMPARISON: NONE HISTORY: Pain. Wound. TECHNIQUE: 3 views FINDINGS: There is plantar calcaneal spurring. There is a linear metallic density in the subcutaneous tissues on the medial aspect of the first metatarsal consistent with a wire foreign body. There is s oft tissue swelling over the lateral aspect of the fifth metatarsal. There is multiple hammertoe defo rmity. IMPRESSION: Calcaneal spurring. Small foreign body. Soft tissue swelling. No focal bone destruction.
--- NOTE | 2022-11-29 23:14 | ED ---
Skin/Abscess/FB HPI - General Chief complaint: Skin/Abscess/Foreign Body Stated complaint: right food wound Time Seen by Provider: 11/29/22 20:14 Source: patient Mode of arrival: ambulatory Limitations: no limitations - History of Present Illness Initial comments: Patient is a 57-year-old male presenting with chief complaint of wounds to the right foot. Patient has an existing ulcer to the foot, however on the lateral portion he has a new wound. He denies any injury. He is complaining of increased redness, swelling, and pain since yesterday. He was seen by his orange picker machine operator who advised that he report to the ER. Patient denies any fevers or chills. Does admit to pain traveling up the leg. No nausea or vomiting. - Related Data Home Medications Medication Instructions Recorded Confirmed hydroCHLOROthiazide [Hydrodiuril] 25 mg PO DAILY 06/27/16 06/25/22 Omeprazole 20 mg PO DAILY 06/16/20 06/25/22 Losartan Potassium 100 mg PO DAILY 10/17/20 06/25/22 Cholecalciferol (Vitamin D3) 125 mcg PO DAILY 06/05/21 06/25/22 [Vitamin D3 (125 MCG = 5,000 IU)] Apixaban [Eliquis] 5 mg PO BID 04/18/22 06/25/22 Semaglutide [Ozempic] 1 mg SQ TU 04/18/22 06/25/22 amLODIPine [Norvasc] 10 mg PO DAILY 04/18/22 06/25/22 metFORMIN HCL ER [Glucophage XR] 500 mg PO DAILY 04/18/22 06/25/22 Meropenem [Merrem] 2 gm IVPB Q8H 06/25/22 06/25/22 Allergies Allergy/AdvReac Type Severity Reaction Status Date / Time atorvastatin [From Lipitor] AdvReac muscle pain Verified 11/29/22 20:07 Review of Systems ROS Statement: Those systems with pertinent positive or pertinent negative responses have been documented in the HPI. ROS Other: All systems not noted in ROS Statement are negative. Past Medical History Past Medical History: Atrial Fibrillation, Diabetes Mellitus, GERD/Reflux, Hyperlipidemia, Hypertension Additional Past Medical History / Comment(s): Occasional low back pain, paroxysmal atrial fibrillation, morbid obesity with BMI 43.8 History of Any Multi-Drug Resistant Organisms: None Reported, MRSA Date of last positivie culture/infection: 1/8/21 MDRO Source:: foot Past Surgical History: Orthopedic Surgery Additional Past Surgical History / Comment(s): L BICEP SX WITH METAL PLATE, R ARM BENIGN CYST, 2015 COLONOSCOPY WITH BENIGN POLYP Past Anesthesia/Blood Transfusion Reactions: No Reported Reaction Past Psychological History: No Psychological Hx Reported Smoking Status: Current every day smoker Past Alcohol Use History: Occasional Additional Past Alcohol Use History / Comment(s): Pt started smoking in 1983 and is less than a ppd smoker. 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 He lives at home with his and daughter. There are 2 dogs in the home. He denies any recent travel, no service. Past Drug Use History: None Reported - Past Family History Mother Family Medical History: No Reported History Additional Family Medical History / Comment(s): MOTHER IS HEALTHY Father Family Medical History: CVA/TIA, Myocardial Infarction ([place]) Additional Family Medical History / Comment(s): FATHER HAD A CVA AND THEN OF A [place] AT THE AGE OF 63 YRS. General Exam Limitations: no limitations General appearance: alert, in no apparent distress Head exam: Present: atraumatic, normocephalic, normal inspection Eye exam: Present: normal appearance Neck exam: Present: normal inspection, full ROM Respiratory exam: Present: normal lung sounds bilaterally. Absent: respiratory distress, wheezes, rales, rhonchi, stridor Cardiovascular Exam: Present: regular rate, normal rhythm, normal heart sounds. Absent: systolic murmur, diastolic murmur, rubs, gallop, clicks Neurological exam: Present: alert, oriented X3, CN II-XII intact Psychiatric exam: Present: normal affect, normal mood Skin exam: Present: erythema (Erythematous wound to the lateral portion of the right foot. Existing ulceration to the distal first metatarsal) Course Vital Signs 11/29/22 20:02 Temperature 97.9 F Pulse Rate 78 Respiratory 18 Rate Blood Pressure 148/84 O2 Sat by Pulse 99 Oximetry Medical Decision Making - Medical Decision Making Was pt. sent in by a medical professional or institution (, PA, BROOD STATION MANAGER, urgent care, hospital, or [facility]...) When possible be specific @ -No Did you speak to anyone other than the patient for history (EMS, parent, family, police, friend...)? What history was obtained from this source @ -No Did you review nursing and triage notes (agree or disagree)? Why? @ -I reviewed and agree with nursing and triage notes Were old charts reviewed (outside hosp., previous admission, EMS record, old EKG, old radiological studies, urgent care reports/EKG's, [facility] records)? Report findings @ -No old charts were reviewed Differential Diagnosis (chest pain, altered mental status, abdominal pain women, abdominal pain men, vaginal bleeding, weakness, fever, dyspnea, syncope, headache, dizziness, GI bleed, back pain, seizure, CVA, palpatations, mental health, musculoskeletal)? @ -Differential includes cellulitis, osteomyelitis, abscess, this is not an all inclusive list EKG interpreted by me (3pts min.). @ -As above X-rays interpreted by me (1pt min.). @ -X-ray shows calcaneal spurring. Small foreign body near the first me tatarsal. Soft tissue swelling. No focal bony destruction. CT interpreted by me (1pt min.). @ -None done U/S interpreted by me (1pt. min.). @ -None done What testing was considered but not performed or refused? (CT, X-rays, U/S, labs)? Why? @ -None What meds were considered but not given or refused? Why? @ -None Did you discuss the management of the patient with other professionals (professionals i.e. , PA, BROOD STATION MANAGER, lab, RT, psych nurse, social sciences research scientist, microfilm machine operator, teacher, human resources officer, manager of case)? Give summary @ -Discussed with the admitting physician Was smoking cessation discussed for >3mins.? @ -No Was critical care preformed (if so, how long)? @ -No Were there social determinants of health that impacted care today? How? (Homelessness, low income, unemployed, alcoholism, drug addiction, transportatio n, low edu. Level, literacy, decrease access to med. care, senior living, rehab)? @ -No Was there de-escalation of care discussed even if they declined (Discuss DNR or withdrawal of care, Hospice)? DNR status @ -No What co-morbidities impacted this encounter? (DM, HTN, Smoking, COPD, CAD, Cancer, CVA, ARF, Chemo, Hep., AIDS, mental health diagnosis, sleep apnea, morbid obesity)? @ -Diabetes Was patient admitted / discharged? Hospital course, mention meds given and route, prescriptions, significant lab abnormalities, going to OR and other pertinent info. @ -Patient is a 57-year-old male history of diabetes presenting with chief complaint of new foot wound. Patient noticed the wound yesterday, he has had increased redness, swelling, and tenderness. No fevers or chills. On physical examination there is erythema and tenderness. Neurovascularly intact. WBC 12. Foot x-ray shows no evidence of osteomyelitis. Patient dropped off a wound culture from his orange picker machine operator's office prior to arrival. He was given a dose of vancomycin. Patient will be admitted for diabetic foot ulcer infection. Patient is agreeable with this plan. I discussed this case with my attending Dr. Guadalupe Undiagnosed new problem with uncertain prognosis? @ -No Drug Therapy requiring intensive monitoring for toxicity (Heparin, Nitro, Insulin, Cardizem)? @ -No Were any procedures done? @ -No Diagnosis/symptom? @ -Diabetic foot infection Acute, or Chronic, or Acute on Chronic? @ -Acute Uncomplicated (without systemic symptoms) or Complicated (systemic symptoms)? @ -Uncomplicated Side effects of treatment? @ -No Exacerbation, Progression, or Severe Exacerbation? @ -No Poses a threat to life or bodily function? How? (Chest pain, [place], [place], pneumonia, PE, COPD, DKA, ARF, appy, cholecystitis, CVA, Diverticulitis, Homicidal, Suicidal, threat to staff... and all critical care pts) @ -No - Lab Data Result diagrams: 11/29/22 20:50 11/29/22 20:50 Lab Results 11/29/22 11/29/22 11/29/22 Range/Units 20:50 20:50 20:50 WBC 12.0 H (3.8-10.6) k/uL RBC 4.71 (4.30-5.90) m/uL Hgb 13.8 (13.0-17.5) gm/dL Hct 41.1 (39.0-53.0) % MCV 87.3 (80.0-100.0) fL MCH 29.3 (25.0-35.0) pg MCHC 33.5 (31.0-37.0) g/dL RDW 14.1 (11.5-15.5) % Plt Count 278 (150-450) k/uL MPV 7.1 Sodium 138 (137-145) mmol/L Potassium 3.8 (3.5-5.1) mmol/L Chloride 102 (98-107) mmol/L Carbon Dioxide 26 (22-30) mmol/L Anion Gap 10 mmol/L BUN 22 H (9-20) mg/dL Creatinine 1.03 (0.66-1.25) mg/dL Est GFR (CKD-EPI)AfAm >90 (>60 ml/min/1.73 sqM) Est GFR (CKD-EPI)NonAf 81 (>60 ml/min/1.73 sqM) Glucose 140 H (74-99) mg/dL Plasma Lactic Acid Cyril 1.7 (0.7-2.0) mmol/L Calcium 9.2 (8.4-10.2) mg/dL Total Bilirubin 0.3 (0.2-1.3) mg/dL AST 36 (17-59) U/L ALT 47 (4-49) U/L Alkaline Phosphatase 72 (38-126) U/L Total Protein 7.5 (6.3-8.2) g/dL Albumin 4.2 (3.5-5.0) g/dL Disposition Clinical Impression: Diabetic foot ulcer Disposition: ADMITTED IP TO THIS [facility] Condition: Fair Referrals: Davida Alexander MD [Primary Care Provider] - 1-2 days Time of Disposition: 23:14
[2022-11-29] MEDS ORDERED: NALOXONE 0.4 MG/ML 1 ML VIAL IV PRN (23:52)
[2022-11-29] MEDS ORDERED: ACETAMINOPHEN TAB 325 MG TAB PO PRN (23:52)
[2022-11-29] MEDS ORDERED: MORPHINE SULFATE 4 MG/ML SYRINGE IV PRN (23:52)
[2022-11-29] MEDS ORDERED: KETOROLAC 15 MG/ML 1 ML VIAL IVP PRN (23:52)
[2022-11-30 05:45] VITALS: BP 123/60; PULSE 58; RESP 16; TEMP 97
[2022-11-30] MEDS ORDERED: VANCOMYCIN 2,000 MG in SODIUM CHLORIDE 0.9% 500 ML 500 ML IVPB SCH (09:00)
== END 2022-11-30 07:00 | disposition left against medical advice (07) ==
LOC: EC 20:01 → 6NMEDSUR 23:53
PROVIDERS: ADMIT Internal Medicine; ATTEND Internal Medicine
DX: E11.621 Type 2 diabetes mellitus with foot ulcer (principal); K21.9 Gastro-esophageal reflux disease without esophagitis; E78.5 Hyperlipidemia, unspecified; I10 Essential (primary) hypertension; I48.0 Paroxysmal atrial fibrillation; E66.01 Morbid (severe) obesity due to excess calories; Z68.41 Body mass index [BMI] 40.0-44.9, adult; Z86.14 Personal history of Methicillin resistant Staphylococcus aureus infection; Z98.890 Other specified postprocedural states; F17.210 Nicotine dependence, cigarettes, uncomplicated; Z82.49 Family history of ischemic heart disease and other diseases of the circulatory system; Z82.3 Family history of stroke; Z79.01 Long term (current) use of anticoagulants; Z79.84 Long term (current) use of oral hypoglycemic drugs; Z79.899 Other long term (current) drug therapy; Z88.8 Allergy status to other drugs, medicaments and biological substances
CPT/HCPCS: 96361; 96365; 96366 ×2; 96375; 99285; 36415; 80053; 83605; 85025; 87040; 73630; G0378 ×2; J3370; J2270; J1885

== ENCOUNTER → 2023-03-06 | Outpatient (CLI) | payer BC ==
--- NOTE | 2023-03-06 11:43 | MR ---
EXAMINATION TYPE: MR lumbar spine wo con DATE OF EXAM: 03/06/2023 COMPARISON: None HISTORY: Lumbago CONTRAST: 0 mL intravenous Gadavist. TECHNIQUE: Multiplanar, multisequence images of the lumbar spine were acquired. FINDINGS: L5-S1: There may be a minimal grade 1 spondylolisthesis. Disc uncovering is no significant thecal sac compression. No spinal canal stenosis present. Right facet hypertrophy is present. Neural foramen ar e patent. L4-L5: Minimal grade 1 spondylolisthesis is present. Disc uncovering is present with intrathecal sac contact. Facet hypertrophy and ligamentum flavum laxity has mild posterior lateral thecal sac yari carie greater on the left. Moderate bilateral foraminal narrowing is present. L3-L4: No significant disc bulge or disc herniation. No spinal canal stenosis. No foraminal stenosi s. Moderate right foraminal narrowing is present. L2-L3: No significant disc bulge or disc herniation. No spinal canal stenosis. No foraminal stenosi s. L1-L2: No significant disc bulge or disc herniation. No spinal canal stenosis. No foraminal stenosi s. T12-L1: No significant disc bulge or disc herniation. No spinal canal stenosis. No foraminal stenos is. IMPRESSION: 1. 1. Minimal anterolisthesis present at L4-5 and L5-S1. 2. Facet hypertrophy at L4-5 and L5-S1 on the right. Mild left L4-5 posterior lateral thecal sac comp ression is present. 3. Moderate foraminal narrowing L4-5 and on the right at L3-4.
== END | disposition home or self-care (01) ==
LOC: RADMRIMAIN 07:52
PROVIDERS: ATTEND Psychiatry & Neurology Neurology
DX: M43.17 Spondylolisthesis, lumbosacral region (principal); M99.73 Connective tissue and disc stenosis of intervertebral foramina of lumbar region
CPT/HCPCS: 72148

== ENCOUNTER → 2023-11-07 | Outpatient (CLI) | payer BC ==
--- NOTE | 2023-11-07 12:53 | XR ---
EXAMINATION TYPE: XR foot complete RT DATE OF EXAM: 11/07/2023 COMPARISON: 11/29/2022 HISTORY: 58-year-old male L97.511 chronic nonpressure ulcer right foot. Pain. TECHNIQUE: 3 views FINDINGS: There is an 8 mm needle or wire fragment embedded within the medial plantar superficial sof t tissues. Osteopenia. Small plantar heel spur. Hammertoes. Mild degenerative spurring first MTP join t. Bipartite tibial sesamoid. No acute fracture, subluxation, dislocation. IMPRESSION: Redemonstrated 8 mm long needle or wire fragment within the medial plantar superficial soft tissues. No acute osseous abnormality seen.
== END | disposition home or self-care (01) ==
LOC: RADXRMAIN 11:42
PROVIDERS: ATTEND Podiatrist
DX: L97.511 Non-pressure chronic ulcer of other part of right foot limited to breakdown of skin (principal)

== ENCOUNTER 2024-01-17 22:17 | Emergency (ER) | payer BC ==
[2024-01-17 22:42] VITALS: TEMP 99.4
--- NOTE | 2024-01-17 23:12 | ED ---
Extremity Problem HPI - General Chief complaint: Extremity Problem,Nontraumatic Stated complaint: Right foot wound pain Time Seen by Provider: 01/17/24 23:05 Source: patient, RN notes reviewed Mode of arrival: ambulatory Limitations: no limitations - History of Present Illness Initial comments: 58-year-old male presented to the ER with a chief complaint of a right foot wound. Patient is a known diabetic and follows up with wound care with weekly. He states he has had a wound on the bottom of his right foot and finally healed. He states he was seen yesterday 01-16-2024 and it was cut open. He states that since then the pain has been extreme and he is concerned of infection. He states he is now having redness of his foot. He has taken [id number] Tylenol without relief. Denies any fevers, chills, nausea, vomiting, chest pain, shortness of breath or other complaints. - Related Data Home Medications Medication Instructions Recorded Confirmed hydroCHLOROthiazide [Hydrodiuril] 25 mg PO DAILY 06/27/16 06/25/22 Omeprazole 20 mg PO DAILY 06/16/20 06/25/22 Losartan Potassium 100 mg PO DAILY 10/17/20 06/25/22 Cholecalciferol (Vitamin D3) 125 mcg PO DAILY 06/05/21 06/25/22 [Vitamin D3 (125 MCG = 5,000 IU)] Apixaban [Eliquis] 5 mg PO BID 04/18/22 06/25/22 Semaglutide [Ozempic] 1 mg SQ TU 04/18/22 06/25/22 amLODIPine [Norvasc] 10 mg PO DAILY 04/18/22 06/25/22 metFORMIN HCL ER [Glucophage XR] 500 mg PO DAILY 04/18/22 06/25/22 Meropenem [Merrem] 2 gm IVPB Q8H 06/25/22 06/25/22 Previous Rx's Medication Instructions Recorded Cephalexin [Keflex] 500 mg PO Q6HR #40 cap 01/17/24 Sulfamethox-Tmp 800-160Mg [Bactrim 1 each PO Q12HR #20 tab 01/17/24 Ds] Allergies Allergy/AdvReac Type Severity Reaction Status Date / Time atorvastatin [From Lipitor] AdvReac muscle pain Verified 01/17/24 22:28 Review of Systems ROS Statement: Those systems with pertinent positive or pertinent negative responses have been documented in the HPI. ROS Other: All systems not noted in ROS Statement are negative. Past Medical History Past Medical History: Atrial Fibrillation, Diabetes Mellitus, GERD/Reflux, Hyperlipidemia, Hypertension Additional Past Medical History / Comment(s): Occasional low back pain, paroxysmal atrial fibrillation, morbid obesity with BMI 43.8 History of Any Multi-Drug Resistant Organisms: ESBL, MRSA, VRE Date of last positivie culture/infection: 11/29/22 VRE; 04/15/22 MRSA & ESBL E.coli MDRO Source:: Right Foot-VRE; Foot MRSA & ESBL Past Surgical History: Orthopedic Surgery Additional Past Surgical History / Comment(s): L BICEP SX WITH METAL PLATE, R ARM BENIGN CYST, 2014 COLONOSCOPY WITH BENIGN POLYP Past Anesthesia/Blood Transfusion Reactions: No Reported Reaction Past Psychological History: No Psychological Hx Reported Smoking Status: Current every day smoker Past Alcohol Use History: Occasional Past Drug Use History: None Reported - Past Family History Mother Family Medical History: No Reported History Additional Family Medical History / Comment(s): MOTHER IS HEALTHY Father Family Medical History: CVA/TIA, Myocardial Infarction (ID) Additional Family Medical History / Comment(s): FATHER HAD A CVA AND THEN OF A ID AT THE AGE OF 63 YRS. General Exam Limitations: no limitations General appearance: alert, in no apparent distress Respiratory exam: Present: normal lung sounds bilaterally. Absent: respiratory distress, wheezes, rales, rhonchi, stridor Cardiovascular Exam: Present: regular rate, normal rhythm, normal heart sounds. Absent: systolic murmur, diastolic murmur, rubs, gallop, clicks Skin exam: Present: erythema (1.5 cm wound to medial aspect of left foot. 2+ left dorsalis pedis pulse.), other (3 cm blister to lateral right foot. Healed wound on plantar aspect of right foot. 2+ right dorsalis pedis pulse. There is proximal spreading erythema on dorsal rigth foot. ) Course Vital Signs 01/17/24 22:24 Temperature 99.4 F Pulse Rate 87 Respiratory 16 Rate Blood Pressure 140/73 O2 Sat by Pulse 94 L Oximetry Medical Decision Making - Medical Decision Making Was pt. sent in by a medical professional or institution (, PA, TERRAZZO LAYER HELPER, urgent care, hospital, or [facility]...) When possible be specific @ -No Did you speak to anyone other than the patient for history (EMS, parent, family, police, friend...)? What history was obtained from this source @ -No Did you review nursing and triage notes (agree or disagree)? Why? @ -I reviewed and agree with nursing and triage notes Were old charts reviewed (outside hosp., previous admission, EMS record, old EKG, old radiological studies, urgent care reports/EKG's, [facility] records)? Report findings @ -No old charts were reviewed Differential Diagnosis (chest pain, altered mental status, abdominal pain women, abdominal pain men, vaginal bleeding, weakness, fever, dyspnea, syncope, headache, dizziness, GI bleed, back pain, seizure, CVA, palpatations, mental health, musculoskeletal)? @ -Cellulitis, gangrene, diabetic ulcer this list is not meant to be all- inclusive EKG interpreted by me (3pts min.). @ -None X-rays interpreted by me (1pt min.). @ -None done CT interpreted by me (1pt min.). @ -None done U/S interpreted by me (1pt. min.). @ -None done What testing was considered but not performed or refused? (CT, X-rays, U/S, labs)? Why? @ -None What meds were considered but not given or refused? Why? @ -None Did you discuss the management of the patient with other professionals (professionals i.e. , PA, TERRAZZO LAYER HELPER, lab, RT, psych nurse, elementary school social worker, stone sawyer, teacher, juvenile probation officer, home health care case manager)? Give summary @ -No Was smoking cessation discussed for >3mins.? @ -I discussed smoking cessation for greater than 3 minutes. The risk of smoking were discussed with the patient including but not limited to risks of cancer, stroke, coronary artery disease and COPD. Also discussed with patient were multiple methods of quitting smoking. Lastly we discussed the financial cost of smoking. Was critical care preformed (if so, how long)? @ -No Were there social determinants of health that impacted care today? How? (Homelessness, low income, unemployed, alcoholism, drug addiction, transportation, low edu. Level, literacy, decrease access to med. care, [facility], rehab)? @ -No Was there de-escalation of care discussed even if they declined (Discuss DNR or withdrawal of care, Hospice)? DNR status @ -No What co-morbidities impacted this encounter? (DM, HTN, Smoking, COPD, CAD, Cancer, CVA, ARF, Chemo, Hep., AIDS, mental health diagnosis, sleep apnea, morbid obesity)? @ -Obese, diabetes, smoker Was patient admitted / discharged? Hospital course, mention meds given and route, prescriptions, significant lab abnormalities, going to OR and other pertinent info. @ -Discharge. 58-year-old male presenting to the ER with a chief complaint of right foot wound. History and physical exam completed. Vitals stable. Patient no signs of acute distress and nontoxic-appearing. 3 cm superficial blister to lateral right foot. Proximal spreading erythema. Right lower extremity neurovascular intact. Patient does report he has neuropathy and decreased sensation to bilateral feet. Physical exam findings concerning of cellulitis. Patient will be started on Keflex and Bactrim. Patient received IM Dilaudid and first doses of antibiotics in the ER. Advised patient to follow-up closely with PCP early next week and to follow-up with wound care. Strict return parameters discussed. Patient discharged in stable condition with follow-up to PCP/wound care. Patient verbally expressed understanding and agreement with care plan. Case discussed with ED attending, Dr. Perez. Undiagnosed new problem with uncertain prognosis? @ -No Drug Therapy requiring intensive monitoring for toxicity (Heparin, Nitro, Insulin, Cardizem)? @ -No Were any procedures done? @ -No Diagnosis/symptom? @ -Diabetic ulcer/cellulitis Acute, or Chronic, or Acute on Chronic? @ -Acute Uncomplicated (without systemic symptoms) or Complicated (systemic symptoms)? @ -Uncomplicated Side effects of treatment? @ -No Exacerbation, Progression, or Severe Exacerbation? @ -No Poses a threat to life or bodily function? How? (Chest pain, USA, ID, pneumonia, PE, COPD, DKA, ARF, appy, cholecystitis, CVA, Diverticulitis, Homicidal, Suicidal, threat to staff... and all critical care pts) @ -No Disposition Clinical Impression: Cellulitis Disposition: HOME SELF-CARE Condition: Stable Instructions (If sedation given, give patient instructions): Cellulitis (ED) Additional Instructions: Complete full course of Bactrim and Keflex. Follow-up with PCP early next week. Follow-up with wound care. Return to the ER for any new or worsening concerns. Prescriptions: Sulfamethox-Tmp 800-160Mg [Bactrim Ds] 1 each PO Q12HR #20 tab Cephalexin [Keflex] 500 mg PO Q6HR #40 cap Is patient prescribed a controlled substance at d/c from ED?: No Referrals: Davida Alexander MD [Primary Care Provider] - 1-2 days Time of Disposition: 23:12
[2024-01-17] MEDS: CEPHALEXIN 500 MG CAP PO STA (23:32)
[2024-01-17] MEDS: SULFAMETHOX-TMP 800-160MG 1 EACH TAB PO STA (23:33)
[2024-01-17] MEDS: HYDROmorphone 1 MG/ML 1 ML SYRINGE IM STA (23:34)
[2024-01-18 00:27] LABS: Basophils # (A) 0.1 k/uL (0-0.2); Basophils % (A) 1 %; Eosinophils # (A) 0.2 k/uL (0-0.7); Eosinophils % (A) 1 %; HCT 43.7 % (39.0-53.0); Lymphocytes # (A) 2.3 k/uL (1.0-4.8); Lymphocytes % (A) 13 %; MCV 87.5 fL (80.0-100.0); Mean Platelet Volume 6.9; Monocytes # (A) 0.7 k/uL (0-1.0); Monocytes % (A) 4 %; Neutrophils # (A) 13.6 k/uL (1.3-7.7); Neutrophils % (A) 80 %; Platelet Count 314 k/uL (150-450)
[2024-01-18 00:37] LABS: ALT 38 U/L (4-49); AST 32 U/L (17-59); African American GFR (CKD) 74 (>60 ml/min/1.73 sqM); Albumin 4.2 g/dL (3.5-5.0); Alkaline Phosphatase 87 U/L (38-126); Anion Gap 10 mmol/L; Blood Urea Nitrogen 19 mg/dL (9-20); Calcium 8.9 mg/dL (8.4-10.2); Carbon Dioxide 24 mmol/L (22-30); Chloride 102 mmol/L (98-107); Glucose 104 mg/dL (74-99); Non-African American GFR(CKD) 64 (>60 ml/min/1.73 sqM); Potassium 4.2 mmol/L (3.5-5.1); Sodium 136 mmol/L (137-145); Total Bilirubin 0.4 mg/dL (0.2-1.3); Total Protein 7.7 g/dL (6.3-8.2)
[2024-01-18 01:58] VITALS: BP 137/87; PULSE 85; RESP 20
== END 2024-01-18 01:56 | disposition home or self-care (01) ==
LOC: EC 22:17
DX: L03.115 Cellulitis of right lower limb (principal); E11.621 Type 2 diabetes mellitus with foot ulcer; F17.200 Nicotine dependence, unspecified, uncomplicated; Z88.8 Allergy status to other drugs, medicaments and biological substances
CPT/HCPCS: 36415; 80053; 85025; 87070; 87205; 87075; 99283; 99406; 96372; J1170

== ENCOUNTER 2024-12-23 09:55 | Emergency (ER) | payer BC, MEDICARE ==
[2024-12-23 10:00] VITALS: RESP 16
--- NOTE | 2024-12-23 10:30 | XR ---
EXAMINATION TYPE: XR knee complete RT DATE OF EXAM: 12/23/2024 10:25 AM INDICATION: Patient age:Male; 59 years old; Reason for study: Pain and swelling; PHH. pain COMPARISON: None. TECHNIQUE: The Right knee(s) was examined in Frontal, lateral and oblique projections. FINDINGS: No evidence of any acute osseous pathology or soft tissue swelling. No significant joint space narrowing. Small to moderate sized suprapatellar joint effusion. Vascular sclerosis. IMPRESSION: 1. No acute osseous pathology. 2. Small to moderate sized suprapatellar joint effusion. [facility], , 12/23/2024 10:27 AM
[2024-12-23] MEDS: KETOROLAC 15 MG/ML 1 ML VIAL IM STA (10:35)
--- NOTE | 2024-12-23 10:40 | ED ---
Lower Extremity Injury HPI - General Chief Complaint: Extremity Injury, Lower Stated Complaint: right knee pain Time Seen by Provider: 12/23/24 10:01 Source: patient, RN notes reviewed Mode of arrival: ambulatory Limitations: no limitations - History of Present Illness Initial Comments: This is a 59-year-old male who presents to the emergency department for right knee pain. Patient states that he had been doing some work at his daughter's house putting in liz and bending down a lot. He was putting pressure on the knee and started to get discomfort. Yesterday when he went to stand up states that he twisted his knee and has since had much more pain and swelling over this area. He is able to ambulate but states that it is painful. He is al so struggling to fully bend the knee. MD Complaint: knee injury - Related Data Home Medications Medication Instructions Recorded Confirmed hydroCHLOROthiazide [Hydrodiuril] 25 mg PO DAILY 06/27/16 06/25/22 Omeprazole 20 mg PO DAILY 06/16/20 06/25/22 Losartan Potassium 100 mg PO DAILY 10/17/20 06/25/22 Cholecalciferol (Vitamin D3) 125 mcg PO DAILY 06/05/21 06/25/22 [Vitamin D3 (125 MCG = 5,000 IU)] Apixaban [Eliquis] 5 mg PO BID 04/18/22 06/25/22 Semaglutide [Ozempic] 1 mg SQ TU 04/18/22 06/25/22 amLODIPine [Norvasc] 10 mg PO DAILY 04/18/22 06/25/22 metFORMIN HCL ER [Glucophage XR] 500 mg PO DAILY 04/18/22 06/25/22 Meropenem [Merrem] 2 gm IVPB Q8H 06/25/22 06/25/22 Previous Rx's Medication Instructions Recorded Cephalexin [Keflex] 500 mg PO Q6HR #40 cap 01/17/24 Sulfamethox-Tmp 800-160Mg [Bactrim 1 each PO Q12HR #20 tab 01/17/24 Ds] Cephalexin [Keflex] 500 mg PO Q6HR #40 cap 01/18/24 Sulfamethox-Tmp 800-160Mg [Bactrim 1 each PO Q12HR #20 tab 01/18/24 Ds] Ketorolac [Toradol] 10 mg PO Q6HR PRN #15 tab 12/23/24 Allergies Allergy/AdvReac Type Severity Reaction Status Date / Time atorvastatin [From Lipitor] AdvReac muscle pain Verified 01/17/24 22:28 Review of Systems ROS Statement: Those systems with pertinent positive or pertinent negative responses have been documented in the HPI. ROS Other: All systems not noted in ROS Statement are negative. Past Medical History Past Medical History: Atrial Fibrillation, Diabetes Mellitus, GERD/Reflux, Hyperlipidemia, Hypertension Additional Past Medical History / Comment(s): Occasional low back pain, paroxysmal atrial fibrillation, morbid obesity with BMI 43.8 History of Any Multi-Drug Resistant Organisms: ESBL, MRSA, VRE Date of last positivie culture/infection: 11/29/22 VRE; 04/15/22 MRSA & ESBL E.coli MDRO Source:: Right Foot-VRE; Foot MRSA & ESBL Past Surgical History: Orthopedic Surgery Additional Past Surgical History / Comment(s): L BICEP SX WITH METAL PLATE, R ARM BENIGN CYST, 2014 COLONOSCOPY WITH BENIGN POLYP Past Anesthesia/Blood Transfusion Reactions: No Reported Reaction Past Psychological History: No Psychological Hx Reported Smoking Status: Current every day smoker Past Alcohol Use History: Occasional Past Drug Use History: None Reported - Past Family History Mother Family Medical History: No Reported History Additional Family Medical History / Comment(s): MOTHER IS HEALTHY Father Family Medical History: CVA/TIA, Myocardial Infarction (PA) Additional Family Medical History / Comment(s): FATHER HAD A CVA AND THEN OF A PA AT THE AGE OF 63 YRS. General Exam Limitations: no limitations General appearance: alert, in no apparent distress Head exam: Present: atraumatic, normocephalic, normal inspection Respiratory exam: Present: normal lung sounds bilaterally. Absent: respiratory distress, wheezes, rales, rhonchi, stridor Cardiovascular Exam: Present: regular rate, normal rhythm Extremities exam: Present: other (Mild tenderness and swelling to the right patella. Range of motion limited by pain. 2+ DP and PT pulses) Neurological exam: Present: alert, oriented X3, CN II-XII intact Psychiatric exam: Present: normal affect, normal mood Course Vital Signs 12/23/24 09:56 Temperature 97.8 F Pulse Rate 61 Respiratory 16 Rate Blood Pressure 192/94 O2 Sat by Pulse 97 Oximetry Medical Decision Making - Medical Decision Making This is a 59-year-old male who presents to the emergency department for right knee pain. Was pt. sent in by a medical professional or institution? @ -No Did you speak to anyone other than the patient for history? @ -No Did you review nursing and triage notes? @ -Yes, and I agree, it is accurate with regards to the patient's symptoms. Were old charts reviewed? @ -No Differential Diagnosis? @ -Differential Musculoskeletal Muscular strain, contusion, ligament sprain, fracture, arthritis, septic arthritis, bursitis, cellulitis, muscle spasm, nerve compression, DVT, arterial occlusion, herpes zoster, electrolyte abnormality, tumor.... This is not meant to be in all inclusive list EKG interpreted by me (3pts min.)? @ -Not obtained X-rays interpreted by me (1pt min.)? @ -X-ray of the right knee obtained. My interpretation identifies no acute fractures. CT interpreted by me (1pt min.)? @ -Not obtained U/S interpreted by me (1pt. min.)? @ -Not obtained What testing was considered but not performed? (CT, X-rays, U/S, labs)? Why? @ -None What meds were considered but not given? Why? @ -None Did you discuss the management of the patient with other professionals? @ -No Did you reconcile home meds? @ -No Was smoking cessation discussed for >3mins.? @ -No Was critical care preformed (if so, how long)? @ -No Were there social determinants of health that impacted care today? How? (Homelessness, low income, unemployed, alcoholism, drug addiction, transportation, low edu. Level, literacy, decrease access to med. care, fdc, rehab)? @ -No Was there de-escalation of care discussed even if they declined? (Discuss DNR or withdrawal of care, Hospice)? @ -No What co-morbidities impacted this encounter? (DM, HTN, Smoking, COPD, CAD, Cancer, CVA, Hep., AIDS, mental health diagnosis, sleep apnea, morbid obesity)? @ -None Was patient admitted / discharged? @ -Discharged. X-ray of the right knee obtained revealing a suprapatellar joint effusion. No acute osseous abnormality was identified. Symptoms likely related to a sprain. Knee immobilizer applied. Prescription for Toradol provided with dosing instructions reviewed. Also advised ice and elevation. Information for follow-up with orthopedics provided in the event symptoms persist. Patient discharged home in stable condition. Case discussed with ED attending Dr. Newell. Return precautions reviewed in depth, the patient is instructed to return to the emergency department with any new, worsening, or concerning symptoms. Patient verbalized understanding. Undiagnosed new problem with uncertain prognosis? @ -None Drug Therapy requiring intensive monitoring for toxicity (Heparin, Nitro, Insulin, Cardizem)? @ -None Were any procedures done? @ -None Diagnosis/symptom? @ -Right knee sprain Acute, or Chronic, or Acute on Chronic? @ -Acute Uncomplicated (without systemic symptoms) or Complicated (systemic symptoms)? @ -Uncomplicated Side effects of treatment? @ -None Exacerbation, Progression, or Severe Exacerbation] @ -Not applicable Poses a threat to life or bodily function? @ -No - Radiology Data Radiology results: report reviewed, image reviewed Disposition Clinical Impression: Right knee sprain Disposition: HOME SELF-CARE Instructions (If sedation given, give patient instructions): Knee Sprain (ED), Knee Immobilizer (ED) Additional Instructions: Return to the emergency department with any new, worsening, or concerning symptoms. Take the Toradol with Tylenol as needed for pain relief. If you choose to take the Toradol, do not take any other anti-inflammatories such as ib uprofen, take one or the other. Apply ice and elevate the leg. Use the knee immobilizer as needed. Follow-up with orthopedics as listed below if symptoms do not improve. Follow up with your primary care provider in 1-2 days. Prescriptions: Ketorolac [Toradol] 10 mg PO Q6HR PRN #15 tab PRN Reason: Pain Is patient prescribed a controlled substance at d/c from ED?: No Referrals: Davida Alexander MD [Primary Care Provider] - 1-2 days Carlitos Dobbins DO [Doctor of Osteopathic Medicine] - 1-2 days Time of Disposition: 10:54
[2024-12-23 11:17] VITALS: BP 178/82; PULSE 62; TEMP 97.9
== END 2024-12-23 11:18 | disposition home or self-care (01) ==
LOC: EC 09:55
DX: S83.91XA Sprain of unspecified site of right knee, initial encounter (principal); F17.200 Nicotine dependence, unspecified, uncomplicated; Z88.8 Allergy status to other drugs, medicaments and biological substances; X50.9XXA Other and unspecified overexertion or strenuous movements or postures, initial encounter; Y92.009 Unspecified place in unspecified non-institutional (private) residence as the place of occurrence of the external cause
CPT/HCPCS: 73562; 99283; 96372; L1830 ×2; J1885

== ENCOUNTER → 2025-01-03 | Outpatient (CLI) | payer BC, MEDICARE ==
--- NOTE | 2025-01-03 21:16 | MR ---
EXAMINATION TYPE: MR knee RT wo con DATE OF EXAM: 01/03/2025 8:41 PM COMPARISON: 12/29/2024. CLINICAL INDICATION: Male, 59 years old with history of M25.561; PHH, RT knee pain TECHNIQUE: Multi planar, multi sequence imaging was performed of the knee including: Triplane proton density fat-saturated images and T1-weighted imaging. No Gadolinium was given. IV Contrast: mL (none if empty) FINDINGS: Medial meniscus: Vertical tear through the posterior horn extending into the body high PD signal possibly representing horizontal tear may also be present extending to the undersurface. A meniscal f ragment is thought to be present in the posterior lateral gutter measuring up to 10 x 8 mm. Medial femorotibial cartilage: Intact Medial collateral ligament: Intact Lateral meniscus: Intact Lateral femorotibial cartilage: Intact Lateral collateral ligament complex: Intact Patellofemoral alignment: Normal Patellofemoral cartilage: Grade-I chondromalacia. Extensor mechanism: Intact. Joint/bursal fluid: None. Muscles/tendons: The patellar tendon, quadriceps tendon, IT band, pes anserinus tendons, semimembrano fredrick tendon, popliteus tendon, and biceps femoris tendon are all within normal limits. Bone marrow: Mild bony edema in the medial posterior tibial plateau. This is near the meniscal de fect. Anterior cruciate ligament: Intact. Posterior cruciate ligament: Intact. Soft tissues: Unremarkable. IMPRESSION: 1. Vertical tear through the posterior horn of the medial meniscus with moderate defect present. Add itionally suspected horizontal tear extends extending to the medial meniscal body. Meniscal fragment within the posterior lateral gutter measuring 10 x 8 mm. 2. The lateral meniscus is intact. 3. Mild degeneration changes of the knee with some bony edema posterior medial tibial plateau possib ly secondary to meniscal tear. 4. No definitive evidence to suggest ligamentous injury. [facility], , 01/03/2025 9:13 PM
== END | disposition home or self-care (01) ==
LOC: RADMRIMAIN 20:15
PROVIDERS: ATTEND Orthopaedic Surgery
DX: S83.241A Other tear of medial meniscus, current injury, right knee, initial encounter (principal); M17.11 Unilateral primary osteoarthritis, right knee; R60.9 Edema, unspecified; X58.XXXA Exposure to other specified factors, initial encounter

== ENCOUNTER 2025-02-17 08:59 | Day surgery (SDC) | payer BC, MEDICARE ==
[2025-02-15 15:52] VITALS: BMI 39.5
--- NOTE | 2025-02-17 07:57 | HP ---
HISTORY AND PHYSICAL DATE OF SURGERY: 02/17/2025. HISTORY: Javier Thayer is a 59-year-old patient seen with progressive right knee pain. We discussed options regarding treatment. He elected to proceed with right knee arthroscopy. Consent is obtained. PAST MEDICAL HISTORY: Hypertension, [id number] diabetes, gastroesophageal reflux disease. SURGICAL HISTORY: Noncontributory. DAILY MEDICATIONS: 1. Amlodipine. 2. Eliquis. 3. Hydrochlorothiazide. 4. Losartan. 5. Metformin. 6. Omeprazole. ALLERGIES: None. SOCIAL HISTORY: Denies tobacco use. PHYSICAL EVALUATION OF THE RIGHT KNEE: Range of motion is 0-130 degrees. Mild effusion. Tenderness along the medial and lateral joint lines. Positive medial Cherise's. Positive lateral Cherise's. Ligaments stable. Hip rotation without pain. Distal neurovascular exam is intact. IMAGING STUDIES: Radiographs of the right knee revealed mild osteoarthritis. MRI of the right knee revealed medial meniscal tear. IMPRESSION: Internal derangement of right knee medial meniscal tear. PLAN: Right knee arthroscopy with partial medial meniscectomy and debridement. MMODL / IJN: [id number] /
[~2025-02-17 08:59] MED LIST changes: +HYDROmorphone 0.5 MG/0.5 ML SYRINGE IVP PRN; -LACTATED RINGERS 1,000 ML IV SCH; +LIDOCAINE 1% (10MG/ML) FOR IV START INTRADERMA PRN; -ONDANSETRON 4 MG/2 ML VIAL IVP PRN; +SCOPOLAMINE 1 MG/72 HR PATCH TRANSDERM ONE
[2025-02-17] MEDS: IV FLUID CONTINUATION 1,000 ML IV ONE (09:20)
[2025-02-17 09:48] LABS: Glucose,Whole Blood 99 mg/dL (70-110)
[2025-02-17] MEDS: DEXAMETHASONE SOD PHOSPHATE 4 MG/ML 1 ML VIAL IV ONE (10:07)
[2025-02-17] MEDS: LACTATED RINGERS 1,000 ML IV SCH (10:07)
[2025-02-17] MEDS: BUPIVACAINE (PF) 0.25% 30 ML VIAL SQ ONE ×2 (10:48→11:29)
[2025-02-17] MEDS ORDERED: PROPOFOL 10 MG/ML 20 ML VIAL IV ONE (10:55)
[2025-02-17] MEDS ORDERED: LIDOCAINE 1% INJ 10MG/ML (20 ML MDV) ONE (10:55)
[2025-02-17] MEDS ORDERED: fentaNYL (PF) 50 MCG/ML 2 ML AMP ONE (10:55)
[2025-02-17] MEDS ORDERED: SUCCINYLCHOLINE CHLORIDE 200 MG/10 ML VIAL IV ONE (10:55)
[2025-02-17] MEDS: ceFAZolin 3 GM in SODIUM CHLORIDE 0.9% 100 ML IVPB PRN (10:58)
--- NOTE | 2025-02-17 11:52 | P.OP ---
Date of Procedure: 02/17/25 Preoperative Diagnosis: Internal derangement right knee Postoperative Diagnosis: 1. Medial and lateral meniscal tears right knee 2. Grade IV chondromalacia medial femoral condyle right knee 3. Reactive synovitis medial, lateral and suprapatellar compartments right knee Procedure(s) Performed: 1. Arthroscopic partial medial and lateral meniscectomy right knee 2. Arthroscopic microfracture medial femoral condyle right knee 3. Arthroscopic partial synovectomy medial, lateral and suprapatellar compartments right knee Anesthesia: EVIEA, local Surgeon: Carlitos Dobbins Estimated Blood Loss (ml): 6 Pathology: none sent Condition: stable Disposition: PACU Indications for Procedure: 59-year-old patient seen with progressive right knee pain. After having treatment options discussed, he elected to proceed with arthroscopy. Operative Findings: See description of procedure Description of Procedure: Patient was taken to the operative suite. Patient underwent a general anesthetic by the department of anesthesia. Patient was given preoperative antibiotics. The right lower extremity was placed in a well-padded arthroscopic leg contreras. The right leg was prepped and draped in the normal sterile orthopedic fashion. A lateral parapatellar and suprapatellar incision was made. Trochars were inserted. Arthroscopy was initiated. Suprapatellar pouch revealed diffuse thick reactive synovitis. The patellofemoral joint appeared to articulate congruently. There was grade II chondromalacia of the patella. The scope was guided into the medial gutter. No loose bodies or plica were identified. The scope was then guided into the medial compartment. A medial parapatellar incision was made. Trocar inserted followed by probe. There was a complex tear involving the posterior horn of the medial meniscus. There were grade III/IV chondromalacia changes medial femoral condyle with osteochondral flap tears present. There was thick reactive synovitis anteriorly. I performed a partial medial meniscectomy getting down to stable meniscal tissue. I performed a chondroplasty of the medial femoral condyle getting down to stable osteochondral tissue. I performed a partial synovectomy decompressing the reactive synovitis. I did note an area of grade IV chondromalacia involving the weightbearing surface medial femoral condyle measuring just over centimeter. I introduced a microfracture awl and performed a microfracture to that area penetrating the bone with resultant bleeding at the microfracture site. The residual meniscus was stable. The residual osteochondral surface was stable. There was good decompression of the synovitis. Scope and probe were then guided into the intercondylar notch. Cruciates were identified, probed and found to be stable. The scope and probe were then guided into lateral compartment. There was a radial tear mid body lateral meniscus. There were grade I/II chondromalacia changes along the lateral femoral condyle without tears. There was some reactive synovitis anteriorly. I performed a partial lateral meniscectomy getting down to stable meniscal tissue. I performed a partial synovectomy decompressing the reactive synovitis. The residual meniscus was stable. There was good decompression of the synovitis. The scope was in guided back into the suprapatellar compartment. I introduced a motorized shaver into the suprapatellar compartment. I debrided some piecemeal fragments of meniscus I encountered. I performed a partial synovectomy. The shaver was now removed. There was good decompression of the synovitis. Instruments were now removed from the joint. The joint was infiltrated with .25% Marcaine. Steri- Strips were applied to the portal sites. Sterile dressings were applied. The patient was placed into a KATHERYN hose. No tourniquet was utilized. The patient was awakened, transferred to a bed and taken to recovery stable satisfactory condition.
[2025-02-17 11:55] VITALS: TEMP 96.9
[2025-02-17 12:29] VITALS: RESP 16
[2025-02-17 12:46] VITALS: BP 125/66; PULSE 54
[2025-02-17 12:56] LABS: Glucose,Whole Blood 145 mg/dL (70-110)
== END 2025-02-17 13:11 | disposition home or self-care (01) ==
LOC: OR 08:59
PROVIDERS: ATTEND Orthopaedic Surgery
DX: S83.241A Other tear of medial meniscus, current injury, right knee, initial encounter (principal); S83.281A Other tear of lateral meniscus, current injury, right knee, initial encounter; M65.961 Unspecified synovitis and tenosynovitis, right lower leg; M94.261 Chondromalacia, right knee; M23.91 Unspecified internal derangement of right knee; E11.9 Type 2 diabetes mellitus without complications; I10 Essential (primary) hypertension; K21.9 Gastro-esophageal reflux disease without esophagitis; Z79.01 Long term (current) use of anticoagulants; Z79.84 Long term (current) use of oral hypoglycemic drugs
CPT/HCPCS: 29879; 29880; J0330; J1100; J0690; J2003; J3010; J2704; J0665